=== PATIENT | male | born 1955 | race Caucasian/White ===

== ENCOUNTER 2017-12-05 09:50 | Inpatient (IN) | payer MEDICARE, SELFPAY ==
[2017-12-05] VITALS (30 sets, daily range): BP systolic 93–131; BP diastolic 54–85; PULSE 54–101; RESP 12–28; TEMP 35.7–39; O2SAT 54–100; BMI 41.9; BMI 42.1
--- NOTE | 2017-12-05 09:51 | RAD_ITS ---
STUDY: X-RAY CHEST REASON FOR EXAM: Male, 62 years old. Respiratory failure, cough and fever. TECHNIQUE: Single AP portable view of the chest. COMPARISON: Comparison is made with prior study dated November 13, 2016. FINDINGS: EKG electrodes are seen. Mild increased markings at the lung bases worse at the left lung base. This may represent atelectasis and/or early infiltrates. Follow-up is recommended. There is no demonstrated pleural abnormality. Normal size heart. Normal mediastinum and neo. Normal visualized pulmonary arteries. Normal visualized aortic arch and descending thoracic aorta. Normal visualized thoracic spine. Normal visualized ribs, clavicles, and shoulders. There is no demonstrated abnormality of the visualized soft tissue structures of the upper abdomen. RAD/Chest 1 View (Portable) IMPRESSION: Increased lung markings at the lung bases slightly worse on the left side. Follow-up is recommended. Electronically Signed: Sridhar Yoon MD at 10:29 EST Tel [phone], Service support ,
--- NOTE | 2017-12-05 09:51 | EKG12_ITS ---
Test Reason : Blood Pressure : / mmHG Vent. Rate : 089 BPM Atrial Rate : 089 BPM P-R Int : 188 ms QRS Dur : 096 ms QT Int : 332 ms P-R-T Axes : 066 091 053 degrees QTc Int : 403 ms Normal sinus rhythm Low voltage QRS Septal infarct ,age undetermined Abnormal ECG Confirmed by FRANCIE CARRASCO, NIYAH ([id number]), rewrite editor KENYA SEGURA ([id number]) on 12/07/2017 3:32:16 PM Referred By: IRINA Confirmed By:NIYAH MARMOLEJO MD
[2017-12-05] MEDS: 0.9% Normal Saline 1,000 ML 150 ML IV ×2 (10:04→20:02)
[2017-12-05 10:06] LABS: Allen Test POS; Base Excess 8 mmol/L (-2 to +2); Bicarbonate 35.7 mmol/L (22-26); Blood Gas Specimen Type ART; O2 Delivery Device NRB Mask; PO2 167 mmHG (75-100); SITE L Radial; SO2 99 % (95-99); Time Given 950; Total Carbon Dioxide 38 mmol/L; pCO2 81.3 mmHg (35-45); pH 7.25 (7.35-7.45)
[2017-12-05 10:11] LABS: Absolute Lymphocyte Count 0.62 X10^3/ul (0.83-4.51); Absolute Neutrophil Count 9.7 X10^3/uL (2.0-7.7); Basophil# 0.01 X10^3/uL; Basophil% 0.1 % (0-1); Hematocrit 55.4 % (40-54); Hemoglobin 17.4 g/dl (13.0-16.5); Lymphocyte # 0.62 X10^3/ul (4.0); Lymphocyte % 5.3 % (19-41); Mean Corp Hgb Conc 31.4 g/gl (32-36); Mean Corpuscular Hgb 31.8 pg (27.0-32.0); Mean Corpuscular Volume 101.3 fL (80-94); Mean Platelet Vol. 11.5 fl (6.2-12.0); Monocyte# 1.39 X10^3/uL; Monocyte% 11.8 % (0-10); Neutrophil # 9.71 X10^3/uL (2.7-7.7); Neutrophil % 82.6 % (47-70); Platelet Count 87 K/mm3 (150-450); RBC Distribution Width CV 14.3 % (11.6-14.6); Red Blood Count 5.47 M/mm3 (4.6-6.2); White Blood Count 11.8 K/mm3 (4.4-11.0)
[2017-12-05 10:12] LABS: POSITIVE COUNT NO; POSITIVE DIFFERENTIAL NO; POSITIVE MORPHOLOGY NO
[2017-12-05 10:16] LABS: International Normalized Ratio 1.1; Partial Thromboplast Time 33.2 Seconds (24.1-36.2); Prothrombin Time (Protime)PT. 13.3 SECONDS (11.7-14.9)
[2017-12-05] MEDS: Albuterol 2.5 MG/3 ML VIAL.NEB. INHALATION ×3 (10:16→10:18)
[2017-12-05] MEDS: Ipratropium/Albuterol Sulfate 3 ML AMPUL.NEB INHALATION (10:17)
[2017-12-05 10:38] LABS: ALB/GLOB Ratio 0.9 RATIO (0.9-2.4); AST(SGOT) 41 U/L (15-37); Alanine Aminotransfer ALT/SGPT 26 U/L (12-78); Albumin, Serum 3.6 g/dL (3.4-5.0); Alkaline Phosphatase 77 U/L (45-117); Anion Gap 6 (5-15); BUN 35 mg/dL (7-18); BUN/Creat Ratio 21.3 RATIO (10-20); Calcium,Total 8.6 mg/dL (8.5-10.1); Chloride 103 mmol/L (98-107); Creatinine, Serum 1.64 mg/dL (0.70-1.30); EST Glomerular Filtration Rate 45 mL/min (>60); Est Glom Filt Rate - Afr Amer 55 mL/min (>60); Estimated Creatinine Clearance 45.18 ml/min; Globulin 3.8 g/dL (2.2-4.2); Glucose 134 mg/dL (70-110); Lactic Acid 1.8 mmol/L (0.4-2.0); Potassium 4.5 mmol/L (3.5-5.1); Protein, Total 7.4 g/dL (6.4-8.2); Sodium Level 140 mmol/L (136-145)
--- NOTE | 2017-12-05 11:09 | ED.DCSUM_ITS ---
- ER Visit Summary Date of Service: 12/05/17 Chief Complaint: Shortness of breath and cough History of Present Illness: The patient is a 62 M who presents because of increased shortness of breath over the past couple of days with a cough for the past 24 hours. He reports he did receive his Pneumovax and influenza immunization this year. He does complain of subjective fever and chills. He does complain of cough which is productive. He also complains of wart apnea, 2 pillows. He has had pedal edema which is intermittent and not abnormal for him. He denies any chest pain. He denies rhinorrhea, earache or sore throat. He denies chest pain. He denies history of PE DVT. He denies any GI or symptoms. Denies myalgias arthralgias. He does have history of obstructive sleep apnea and reports compliance with his CPAP machine. Physical Examination: Patient is in respiratory distress. I entered the room he is tachycardic tachypnic mottled with paradoxical breathing. Temperature is 102.2 orally. He is morbidly obese with a BMI of 41.9. Head is atraumatic normocephalic. Pupils are equal round reactive. Extraocular muscles are intact. TMs are pearly white with landmarks noted. Nares patent with no drainage. Posterior pharynx without erythema or exudate. Uvula is midline. There is no dysphonia or dysphasia. Trachea is midline. There is no stridor with auscultation of the neck. Heart is regular without murmur, gallop or rub. Lungs revealed diminished breath sounds high-pitched wheezing with prolonged x -ray phase. Abdomen is soft nontender. He does have 1+ pitting edema both lower extremities. Test Results: EKG sinus rhythm rate of 91 and normal. Portal chest x-ray reveals increased interstitial markings more so on left and may represent a left lower lobe infiltrate. White count is 11.8 thousand with 83 segs. Hemoglobin 17.4 with hematocrit of 55.4. Electrode panel was marked for BUN 35 and creatinine 1.64 and elevated CO2. The creatinine is elevated from baseline. Coags are normal. Lactate is normal at 1.8. ABG reveals acute on chronic CO2 retention with an AA gradient. He has evidence of acute respiratory failure with hypoxemia with metabolic compensation. He did receive albuterol ?3. Emergency Department Course and Treatment: Concern patient has CO2 retention especially since he has paradoxical breathing and is not alert. Sepsis workup was undertaken. He was started on Rocephin and azithromycin. He also received aerosol treatments. Since he is still wheezing will receive Solu-Medrol IV push. Treatment Plan: Sepsis workup with admission to ICU. Since he has significant AA gradient and PO2 less than 200 on a nonrebreather mask he has respiratory failure and represents endorgan dysfunction i.e. severe sepsis Disposition: ICU admission Impression: 1. Acute respiratory failure with hypercapnia and hypoxia 2. Community acquired pneumonia 3. , severe sepsis 4. Type 2 diabetes, history of 5. History of hypertension 6. History of right heart failure 7. History obstructive sleep apnea 8. History of COPD 9. Critical care time 36 minutes This note was generated with [employer] dictation software. It may contain incorrect words, spelling, and punctuation that were not noted in review of the chart prior to signing ED Disposition - Plan for ED Patient: Chief Complaint: Shortness of Breath Referrals: Drew Escalona MD [Primary Care Provider] -
[2017-12-05] MEDS: MethylPREDNISolone 125 MG/2 ML Vial IV (12:28)
[2017-12-05 13:45] LABS: Allen Test POS; Base Excess 7 mmol/L (-2 to +2); Bicarbonate 32.9 mmol/L (22-26); Blood Gas Specimen Type ART; EPAP 8; FI02 60; IPAP 12; PO2 136 mmHG (75-100); RR 12; SITE L Radial; SO2 99 % (95-99); Time Given 1345; Total Carbon Dioxide 35 mmol/L; pH 7.31 (7.35-7.45)
--- NOTE | 2017-12-05 14:43 | PCM.HP.STD ---
Problem List (1) Influenza A Status: Acute (2) Chronic obstructive lung disease Status: Chronic (3) Hyperlipidemia Status: Chronic (4) Hypertension Status: Chronic (5) Type 2 diabetes mellitus Status: Chronic History of Present Illness Date of Admission: 12/05/17 Chief Complaint: shortness of breath or cough The patient is a 62 year old M medical history of COPD, obstructive sleep apnea , obesity, diabetes type 2 and essential hypertension who presented to the emergency room due to progressive shortness of breath and cough he was noted to be in respiratory distress, his ABGs revealed CO2 retention, he was confused initially and improved after he was placed on BiPAP. Had fever of more than 102 , his chest x-ray did not show definite infiltrates or pneumonia. In the emergency room the patient was given bronchodilator therapy as well as antibiotics and admitted to the ICU. His influenza studies done in the ICU is positive for influenza A..He reports no chest pain, dizziness,hemoptysis, palpitations or rapid heartbeat. Past Medical History Past Medical History (Chronic Problems): Chronic Problems Hyperlipidemia (Chronic) Hypertension (Chronic) Type 2 diabetes mellitus (Chronic) Chronic obstructive lung disease (Chronic) Chronic respiratory failure (Chronic) Allergies No Known Allergies Allergy (Verified 11/13/16 10:15) Home Medications: Ambulatory Orders Medication Instructions Recorded Budesonide/Formoterol 160/4.5 2 puff INHALATION BID 11/13/16 [Symbicort 160/4.5 Mcg Inhaler (SP)] Glipizide 1 tab PO DAILY 11/13/16 Lisinopril 1 tab PO DAILY 11/13/16 Metformin HCl [Glucophage] 1,000 mg PO BIDCM 11/13/16 Pravastatin [Pravachol] 20 mg PO DAILY 11/13/16 Albuterol Inhaler [Ventolin Hfa] 1 - 2 puff INHALATION Q4H PRN PRN 11/15/16 #1 inhaler Aspirin 81 mg PO DAILY 12/05/17 Guaifenesin [Mucinex] 600 mg PO BID 12/05/17 Potassium Gluconate 99 mg PO QHS 12/05/17 Prednisone 10 mg PO DAILY 12/05/17 Surgical History: no surgical history Smoking Status: Light Smoker (<10/day) Review of Systems Constitutional: Reports: Anorexia Comment: All Systems were reviewed with pertinent positives mentioned in the HPI above. VTE Information - Inpt Only VTE Present on Admission: No VTE Mechan Device Prophylaxis: SCD's VTE Pharm Prophylaxis ordered?: Yes Patient Problems: Active and Suspected Problems Influenza A (Acute) - Physical Exam General: Alert, Oriented x3 Neck: Supple, No JVD Lungs: Wheezes Cardiovascular: Regular rate, Normal S1, Normal S2 Vital Signs Temp Pulse Resp BP Pulse Ox 98.2 F 88 20 H 131/72 H 92 12/05/17 13:00 12/05/17 14:24 12/05/17 14:24 12/05/17 14:02 12/05/17 14:24 Oxygen Delivery Method Bi-pap Weight: 125.7 kg Body Mass Index (BMI) 42.1 Microbiology Past 72 Hours 12/05/17 11:25 Influenza Types A,B Direct FA (CONOR) - Final Mucosa - Nose Influenzae A Laboratory Tests Past 24 Hrs 12/05/17 12/05/17 13:01 13:40 Specimen Type ART Sample Site L Radial pH 7.31 L Bicarbonate Actual 32.9 H POC Total CO2 35 Base Excess 7 H O2 Saturation 99 O2 % 60 ABG pCO2 66.0 H ABG pO2 136 H Calin Test POS Respiration Rate 12 O2 Delivery Device Bi / C PAP EPAP 8 IPAP 12 Blood Gas Notified Whom HOSP Blood Gas Notified Time 1345 MRSA (PCR) Pending Assessment/Plan Active and Suspected Problems Influenza A (Acute) 1. Acute respiratory failure with hypoxia/ hypercapnia; he is currently on BiPAP , pulmonary consulted and input noted. 2. Acute bronchitis from influenza A infection; he has been placed on Tamiflu. 3. COPD exacerbation; will place him on bronchodilator therapy and IV steroids. 4. DM2; we will withhold his oral hypoglycemic agents and place him on regular insulin sliding scale. 5. DEAN; HS CPAP at home, to be on BiPAP. 6. TONY; he will be hydrated with 0.9 normal saline, we would avoid potential nephrotoxic medications. 7. DVT prophylaxis with Lovenox. Code Visit Inpatient E&M: 84511 Init Hosp L3
[2017-12-05] MEDS: Ceftriaxone 1 GM/50 ML BAG IV (15:30)
[2017-12-05 15:31] LABS: M R Staph aureus DNA By PCR Negative (Negative); Probe Check PASS; Specimen Processing Control PASS
--- NOTE | 2017-12-05 16:11 | PCM.CON.CC ---
Problem List (1) Hyperlipidemia Status: Chronic (2) Hypertension Status: Chronic (3) Type 2 diabetes mellitus Status: Chronic (4) Chronic obstructive lung disease Status: Chronic (5) Chronic respiratory failure Status: Chronic Reason for Consult Date of Consultation: 12/05/17 Reason for Consultation: Respiratory failure History of Present Illness: The patient is a 62 year old M, with past medical history listed below, who presented to [facility] on 12/05/2017 secondary to increasing shortness of breath and cough over the last 3 days. Patient did complain of subjective fevers and chills, but had no measured temperature. Patient states his cough is productive of green to yellow sputum. Patient had noted some increased lower extremity edema, but states this was not out of the ordinary for him. No history of DVT or PE was reported. Patient does have a history of obstructive sleep apnea, but states he has been compliant with his CPAP 17 cm of water. On evaluation in the emergency room, patient was noted to be febrile at 102?F. Patient was using accessory muscles for respirations and chest x-ray revealed increased interstitial markings. The patient was placed on BiPAP therapy after an ABG showed CO2 retention and decreased mental status. Patient was given antibiotics and then transferred to the intensive care unit for further evaluation. After arrival to the intensive care unit, patient was noted to have influenza A positive swab. Patient does report having an influenza and Pneumovax immunization this year. Patient does report a long history of COPD and is typically cared for by the [facility]. Patient states that he is seen about every 6 months. Patient denies any recent antibiotics or prednisone burst. Did discuss with patient about CODE STATUS. Patient states he would not want to be intubated or receive CPR. Past Medical History Past Medical History (Chronic Problems): Chronic Problems Hyperlipidemia (Chronic) Hypertension (Chronic) Type 2 diabetes mellitus (Chronic) Chronic obstructive lung disease (Chronic) Chronic respiratory failure (Chronic) Allergies No Known Allergies Allergy (Verified 11/13/16 10:15) Home Medications: Ambulatory Orders Medication Instructions Recorded Budesonide/Formoterol 160/4.5 2 puff INHALATION BID 11/13/16 [Symbicort 160/4.5 Mcg Inhaler (SP)] Glipizide 1 tab PO DAILY 11/13/16 Lisinopril 1 tab PO DAILY 11/13/16 Metformin HCl [Glucophage] 1,000 mg PO BIDCM 11/13/16 Pravastatin [Pravachol] 20 mg PO DAILY 11/13/16 Albuterol Inhaler [Ventolin Hfa] 1 - 2 puff INHALATION Q4H PRN PRN 11/15/16 #1 inhaler Aspirin 81 mg PO DAILY 12/05/17 Guaifenesin [Mucinex] 600 mg PO BID 12/05/17 Potassium Gluconate 99 mg PO QHS 12/05/17 Prednisone 10 mg PO DAILY 12/05/17 Surgical History: no surgical history Smoking Status: Light Smoker (<10/day) Review of Systems Comment: See HPI, otherwise negative ?10 systems Objective: All imaging was personally reviewed. Chest x-ray did show some increased interstitial infiltrates. No old pulmonary function tests are available for review. - Physical Exam General: Alert, Oriented x3, Cooperative, No apparent distress, - - Morbidly obese. Good BiPAP synchrony. No accessory muscle use noted. HEENT: Atraumatic, PERRLA, EOMI, Normocephalic, - - No scleral icterus or injection noted. Oral: Moist Mucosa, No Gingival or Mucosal Lesions/ Ulcerations Neck: Supple, No JVD, No Nodes, Trachea Midline Lungs: No rhonchi, No rales, Diminished, Wheezes, - - Symmetric expansion. No dullness to percussion. Cardiovascular: Regular rate, Regular Rhythm, Normal S1, Normal S2, No murmurs, No rub noted, No Gallop Abdomen: Bowel Sounds Present, Soft, Non Tender, Non-Distended, Obese Extremities: No cyanosis, Capillary Refill Less than 3 Seconds, Clubbing, Edema Skin: - - Venous stasis changes lower extremities Musculoskeletal: No Tenderness to Palpation of Joints or Extremities, No Muscle Wasting Lymphatic: No Cervical, Supraclavicular, or Inguinal Adenopathy Neurological: Cranial nerves II-XII grossly intact, Neuro grossly intact, Motor Exam 5/5 strength throughout Psych/Mental Status: Alert and oriented to time, place, person, mood and affect Vital Signs Temp Pulse Resp BP Pulse Ox 36.8 C 72 26 H 113/65 90 12/05/17 13:00 12/05/17 15:00 12/05/17 15:00 12/05/17 15:00 12/05/17 15:00 Oxygen Delivery Method Bi-pap Weight: 125.7 kg Body Mass Index (BMI) 42.1 Microbiology Past 72 Hours 12/05/17 11:25 Influenza Types A,B Direct FA (CONOR) - Final Mucosa - Nose Influenzae A Laboratory Tests Past 24 Hrs 12/05/17 12/05/17 12/05/17 13:01 13:40 15:35 Specimen Type ART Sample Site L Radial pH 7.31 L Bicarbonate Actual 32.9 H POC Total CO2 35 Base Excess 7 H O2 Saturation 99 O2 % 60 ABG pCO2 66.0 H ABG pO2 136 H Calin Test POS Respiration Rate 12 O2 Delivery Device Bi / C PAP EPAP 8 IPAP 12 Blood Gas Notified Whom HOSP Blood Gas Notified Time 1345 Troponin I Pending MRSA (PCR) Negative Clinical Impression(s) from Imaging Studies Chest X-Ray 12/05/17 09:51 IMPRESSION: Increased lung markings at the lung bases slightly worse on the left side. Follow-up is recommended. Electronically Signed: Sridhar Yoon MD at 10:29 EST Tel [phone], Service support , Assessment/Plan RECOMMENDATIONS: 1. Increase BiPAP settings, but keep the same driving pressure 2. Continue with Tamiflu and steroid therapy 3. Change CODE STATUS to DNR Comfort Care arrest 4. Wean oxygen as tolerated 5. Slow volume resuscitation 6. Discontinue antibiotics if culture negative at 48 hours IMPRESSIONS: 1. Acute on chronic combined respiratory failure secondary to COPD exacerbation secondary to influenza A/DEAN Patient with acute decompensation secondary to influenza A. Unfortunately, patient's baseline COPD status is unknown at this time. Did discuss with patient about CODE STATUS and patient states he would not want to be intubated. Will increase BiPAP settings given his baseline reported DEAN settings of CPAP 17 cm of water. Wean FiO2 as tolerated. Some concern of decreased efficacy of Tamiflu secondary to delayed presentation of 3 days. Patient is on empiric antibiotics at this time. MRSA swab was negative, so addition of vancomycin is likely not necessary. 2. Severe sepsis secondary to influenza A Patient is on empiric antibiotics at this time. Blood pressures are acceptable. Will follow closely. 3. Acute kidney injury Likely prerenal etiology secondary to GI losses associated with influenza. Patient has received fluid resuscitation. We will recheck labs tomorrow. Supplement electrolytes as indicated. 4. History of hypertension/pulmonary hypertension/diabetes mellitus type 2/morbid obesity Complicates care, management, recovery and prognosis. Likely okay to continue with baseline medications. Will need to watch blood sugars closely as patient will be at high risk for elevated blood sugars given the need for supplemental steroid therapy. TIME: 40 minutes critical care time spent addressing patient's respiratory failure secondary to influenza, acute kidney injury, review of all data and collaboration with care team Code Visit Procedures: 13871 Critial Care 1st Hr
[2017-12-05 18:06] LABS: Bacteria 0 SEEN /hpf (None Seen); Squamous Epithelial Cells - UA 0 SEEN /hpf (0-5)
[2017-12-05 18:17] LABS: Color, Urine Yellow (Yellow); Glucose, Dipstick Normal (Normal); Ketone-Dipstick Negative (Negative); Leukocyte Esterase-Dipstick Negative /ul (Negative); Nitrite-Dipstick Negative (Negative); Occult Blood-Urine 150 /ul (Negative); Protein-Dipstick 100 mg/dl (Negative); Urine Bilirubin Dipstick Negative (Negative); Urine Clarity Sl. Cloudy (Clear); Urine Urobilinogen Normal (Normal)
[2017-12-05 18:26] LABS: Red Blood Cells-Urine 0-5 SEEN /hpf (0-5); White Blood Cells 0-5 SEEN /hpf (0-5)
[2017-12-05 18:27] LABS: Mucous, Urine RARE /hpf (<or=2+)
[2017-12-05] MEDS: 0.9% NaCl Peripheral Flush Adult/Peds IV ×2 (20:05→21:48)
[2017-12-05] MEDS: Oseltamivir Phosphate 30 MG Capsule PO (21:40)
[2017-12-05 23:31] LABS: Bedside Glucose 184 mg/dL (70-110)
[2017-12-06] VITALS (42 sets, daily range): BP systolic 81–128; BP diastolic 43–87; PULSE 48–76; RESP 12–24; TEMP 36.2–36.7; O2SAT 89–96
[2017-12-06] MEDS: 0.9% Normal Saline 1,000 ML 999 ML IV (00:08)
[2017-12-06] MEDS: Albuterol 2.5 MG/3 ML VIAL.NEB. INHALATION (02:00)
[2017-12-06 04:09] LABS: Absolute Lymphocyte Count 0.31 X10^3/ul (0.83-4.51); Absolute Neutrophil Count 6.9 X10^3/uL (2.0-7.7); Basophil# 0.01 X10^3/uL; Basophil% 0.1 % (0-1); Differential Indicated SCAN CRITERIA MET; Hematocrit 48.2 % (40-54); Lymphocyte # 0.31 X10^3/ul (4.0); Lymphocyte % 4.1 % (19-41); Mean Corp Hgb Conc 31.1 g/gl (32-36); Mean Corpuscular Hgb 31.6 pg (27.0-32.0); Mean Corpuscular Volume 101.5 fL (80-94); Mean Platelet Vol. 10.7 fl (6.2-12.0); Monocyte# 0.35 X10^3/uL; Monocyte% 4.6 % (0-10); Neutrophil # 6.91 X10^3/uL (2.7-7.7); Neutrophil % 90.9 % (47-70); POSITIVE COUNT NO; POSITIVE DIFFERENTIAL YES; POSITIVE MORPHOLOGY NO; Platelet Count 86 K/mm3 (150-450); RBC Distribution Width CV 14.5 % (11.6-14.6); RBC Distribution Width SD 53.7 fl (35.1-43.9); Red Blood Count 4.75 M/mm3 (4.6-6.2); White Blood Count 7.6 K/mm3 (4.4-11.0)
[2017-12-06] MEDS: 0.9% Normal Saline 1,000 ML 150 ML IV ×2 (04:14→11:20)
[2017-12-06 04:28] LABS: Anion Gap 8 (5-15); BUN 47 mg/dL (7-18); BUN/Creat Ratio 27.2 RATIO (10-20); Calcium,Total 7.6 mg/dL (8.5-10.1); Chloride 103 mmol/L (98-107); Creatinine, Serum 1.73 mg/dL (0.70-1.30); Differential Comment SCANNED; EST Glomerular Filtration Rate 43 mL/min (>60); Est Glom Filt Rate - Afr Amer 52 mL/min (>60); Estimated Creatinine Clearance 42.83 ml/min; Glucose 171 mg/dL (70-110); Magnesium 2.3 mg/dL (1.8-2.4); Phosphorus 3.2 mg/dL (2.5-4.9); Potassium 4.7 mmol/L (3.5-5.1); Sodium Level 140 mmol/L (136-145)
[2017-12-06] MEDS: 0.9% NaCl Peripheral Flush Adult/Peds IV ×3 (05:21→21:13)
[2017-12-06] MEDS: Enoxaparin 40 MG/0.4 ML Syringe SC (05:21)
[2017-12-06 06:05] LABS: Bedside Glucose 144 mg/dL (70-110)
--- NOTE | 2017-12-06 07:52 | PN_ITS ---
Subjective: Overnight events were reviewed. Patient has remained relatively BiPAP dependent since admission to the intensive care unit. Patient did have bradycardia overnight and associated hypotension. Patient was given aerosol with transient improvement in bradycardia and a fluid bolus. Patient is back to his baseline at this time. Patient is denying any pain and reports subjective improvement in overall condition. General: Alert, Oriented x3, Cooperative, No apparent distress, - - Morbidly obese. Speaking in full sentences. HEENT: Atraumatic, PERRLA, EOMI, Normocephalic, - - No scleral icterus or injection noted. Oral: Moist Mucosa, No Gingival or Mucosal Lesions/ Ulcerations Neck: Supple, No JVD, No Nodes, Trachea Midline Lungs: No rhonchi, No rales, Diminished, Wheezes, - - Symmetric expansion. No dullness to percussion. Cardiovascular: Regular rate, Regular Rhythm, Normal S1, Normal S2, No murmurs, No rub noted, No Gallop Abdomen: Bowel Sounds Present, Soft, Non Tender, Non-Distended, Obese Extremities: No cyanosis, Capillary Refill Less than 3 Seconds, Clubbing, Edema Skin: - - No significant change compared to previous Musculoskeletal: No Tenderness to Palpation of Joints or Extremities, No Muscle Wasting Lymphatic: No Cervical, Supraclavicular, or Inguinal Adenopathy Neurological: Cranial nerves II-XII grossly intact, Neuro grossly intact, Motor Exam 5/5 strength throughout, Sensory exam intact to light touch and pain Psych/Mental Status: Alert and oriented to time, place, person, mood and affect Vital Signs Temp Pulse Resp BP Pulse Ox 36.4 C L 65 22 H 107/63 91 12/06/17 00:19 12/06/17 07:40 12/06/17 07:40 12/06/17 07:00 12/06/17 07:40 Oxygen Flow Rate 15 Oxygen Delivery Method Bi-pap Weight: 128.1 kg Body Mass Index (BMI) 42.1 Intake and Output for Last 24 Hours 12/04/17 12/05/17 12/06/17 23:59 23:59 23:59 Intake Total 900 / 900 2685 / 2685 Output Total 250 / 250 500 / 500 Balance 650 / 650 2185 / 2185 Labs (Last 48 Hours) 12/05/17 12/05/17 12/05/17 13:01 13:40 15:35 WBC RBC Hgb Hct MCV MCH MCHC RDW RDW Differential Plt Count MPV Immature Gran % (Auto) Neut % (Auto) Lymph % (Auto) [place] % (Auto) Eos % (Auto) Baso % (Auto) Absolute Neuts (auto) Absolute Lymphs (auto) Total Counted Differential Comment Specimen Type ART Sample Site L Radial pH 7.31 L Bicarbonate Actual 32.9 H POC Total CO2 35 Base Excess 7 H O2 Saturation 99 O2 % 60 ABG pCO2 66.0 H ABG pO2 136 H Calin Test POS Respiration Rate 12 O2 Delivery Device Bi / C PAP EPAP 8 IPAP 12 Blood Gas Notified Whom HOSP Blood Gas Notified Time 1345 Sodium Potassium Chloride Carbon Dioxide Anion Gap BUN Creatinine Estim Creat Clear Calc Est GFR (MDRD) Af Amer Est GFR (MDRD) Non-Af BUN/Creatinine Ratio Glucose Calcium Phosphorus Magnesium Troponin I < 0.02 Urine Color Urine Clarity Urine pH Ur Specific [place] Urine Protein Urine Glucose (UA) Urine Ketones Urine Occult Blood Urine Nitrite Urine Bilirubin Urine Urobilinogen Ur Leukocyte Esterase Urine RBC Urine WBC Ur Squamous Epith Cells Urine Bacteria Urine Mucus MRSA (PCR) Negative POC Glucose 12/05/17 12/05/17 12/05/17 17:45 19:50 23:26 WBC RBC Hgb Hct MCV MCH MCHC RDW RDW Differential Plt Count MPV Immature Gran % (Auto) Neut % (Auto) Lymph % (Auto) [place] % (Auto) Eos % (Auto) Baso % (Auto) Absolute Neuts (auto) Absolute Lymphs (auto) Total Counted Differential Comment Specimen Type Sample Site pH Bicarbonate Actual POC Total CO2 Base Excess O2 Saturation O2 % ABG pCO2 ABG pO2 Calin Test Respiration Rate O2 Delivery Device EPAP IPAP Blood Gas Notified Whom Blood Gas Notified Time Sodium Potassium Chloride Carbon Dioxide Anion Gap BUN Creatinine Estim Creat Clear Calc Est GFR (MDRD) Af Amer Est GFR (MDRD) Non-Af BUN/Creatinine Ratio Glucose Calcium Phosphorus Magnesium Troponin I < 0.02 Urine Color Yellow Urine Clarity Sl. Cloudy Urine pH 5.0 Ur Specific [place] 1.020 Urine Protein 100 H Urine Glucose (UA) Normal Urine Ketones Negative Urine Occult Blood 150 H Urine Nitrite Negative Urine Bilirubin Negative Urine Urobilinogen Normal Ur Leukocyte Esterase Negative Urine RBC 0-5 SEEN Urine WBC 0-5 SEEN Ur Squamous Epith Cells 0 SEEN Urine Bacteria 0 SEEN Urine Mucus RARE MRSA (PCR) POC Glucose 184 H 12/06/17 12/06/17 12/06/17 02:50 04:00 04:00 WBC 7.6 RBC 4.75 Hgb 15.0 Hct 48.2 MCV 101.5 H MCH 31.6 MCHC 31.1 L RDW 14.5 RDW Differential 53.7 H Plt Count 86 L MPV 10.7 Immature Gran % (Auto) 0.300 Neut % (Auto) 90.9 H Lymph % (Auto) 4.1 L [place] % (Auto) 4.6 Eos % (Auto) 0.0 Baso % (Auto) 0.1 Absolute Neuts (auto) 6.9 Absolute Lymphs (auto) 0.31 L Total Counted Not Reportable Differential Comment SCANNED Specimen Type Sample Site pH Bicarbonate Actual POC Total CO2 Base Excess O2 Saturation O2 % ABG pCO2 ABG pO2 Calin Test Respiration Rate O2 Delivery Device EPAP IPAP Blood Gas Notified Whom Blood Gas Notified Time Sodium 140 Potassium 4.7 Chloride 103 Carbon Dioxide 29.0 Anion Gap 8 BUN 47 H Creatinine 1.73 H Estim Creat Clear Calc 42.83 Est GFR (MDRD) Af Amer 52 L Est GFR (MDRD) Non-Af 43 L BUN/Creatinine Ratio 27.2 H Glucose 171 H Calcium 7.6 L Phosphorus 3.2 Magnesium 2.3 Troponin I < 0.02 Urine Color Urine Clarity Urine pH Ur Specific [place] Urine Protein Urine Glucose (UA) Urine Ketones Urine Occult Blood Urine Nitrite Urine Bilirubin Urine Urobilinogen Ur Leukocyte Esterase Urine RBC Urine WBC Ur Squamous Epith Cells Urine Bacteria Urine Mucus MRSA (PCR) POC Glucose 12/06/17 06:01 WBC RBC Hgb Hct MCV MCH MCHC RDW RDW Differential Plt Count MPV Immature Gran % (Auto) Neut % (Auto) Lymph % (Auto) [place] % (Auto) Eos % (Auto) Baso % (Auto) Absolute Neuts (auto) Absolute Lymphs (auto) Total Counted Differential Comment Specimen Type Sample Site pH Bicarbonate Actual POC Total CO2 Base Excess O2 Saturation O2 % ABG pCO2 ABG pO2 Calin Test Respiration Rate O2 Delivery Device EPAP IPAP Blood Gas Notified Whom Blood Gas Notified Time Sodium Potassium Chloride Carbon Dioxide Anion Gap BUN Creatinine Estim Creat Clear Calc Est GFR (MDRD) Af Amer Est GFR (MDRD) Non-Af BUN/Creatinine Ratio Glucose Calcium Phosphorus Magnesium Troponin I Urine Color Urine Clarity Urine pH Ur Specific [place] Urine Protein Urine Glucose (UA) Urine Ketones Urine Occult Blood Urine Nitrite Urine Bilirubin Urine Urobilinogen Ur Leukocyte Esterase Urine RBC Urine WBC Ur Squamous Epith Cells Urine Bacteria Urine Mucus MRSA (PCR) POC Glucose 144 H Microbiology 12/05/17 11:25 Mucosa - Nose Influenza Types A,B Direct FA (CONOR) - Final Influenzae A Clinical Impression(s) from Imaging Studies Chest X-Ray 12/05/17 09:51 IMPRESSION: Increased lung markings at the lung bases slightly worse on the left side. Follow-up is recommended. Electronically Signed: Sridhar Yoon MD at 10:29 EST Tel [phone], Service support , Assessment/Plan Active and Suspected Problems Influenza A (Acute) RECOMMENDATIONS: 1. Increase BiPAP settings, but keep the same driving pressure 2. Continue with Tamiflu and steroid therapy 3. Change CODE STATUS to DNR Comfort Care arrest 4. Wean oxygen as tolerated 5. BiPAP breaks as tolerated during the day, continue BiPAP nightly 6. Discontinue antibiotics if culture negative at 48 hours IMPRESSIONS: 1. Acute on chronic combined respiratory failure secondary to COPD exacerbation secondary to influenza A/DEAN Patient with acute decompensation secondary to influenza A. Unfortunately , patient's baseline COPD status is unknown at this time. Did discuss with patient about CODE STATUS and patient states he would not want to be intubated. Will increase BiPAP settings given his baseline reported DEAN settings of CPAP 17 cm of water. Wean FiO2 as tolerated. Some concern of decreased efficacy of Tamiflu secondary to delayed presentation of 3 days. Patient is on empiric antibiotics at this time. MRSA swab was negative, so addition of vancomycin is likely not necessary. Likely discontinue antibiotics once culture negative at 48 hours. Continue steroids at current dosing until able to tolerate BiPAP breaks. 2. Severe sepsis secondary to influenza A Patient is on empiric antibiotics at this time. Patient with bradycardia and hypotension overnight. Unclear if this is secondary to uncontrolled sleep apnea. Did respond to a fluid bolus. Blood pressures are now acceptable. Will follow closely. 3. Acute kidney injury Likely prerenal etiology secondary to GI losses associated with influenza. Patient has received fluid resuscitation and has not had substantial improvement. We will recheck labs tomorrow. Supplement electrolytes as indicated. 4. History of hypertension/pulmonary hypertension/diabetes mellitus type 2/ morbid obesity Complicates care, management, recovery and prognosis. Likely okay to continue with baseline medications. Will need to watch blood sugars closely as patient will be at high risk for elevated blood sugars given the need for supplemental steroid therapy. TIME: 34 minutes critical care time spent addressing patient's respiratory failure secondary to influenza, acute kidney injury, review of all data and collaboration with care team (7 AM to 7:45 AM) Code Visit 9xxxx: [id number] Critical care first hour
[2017-12-06] MEDS: Ipratropium/Albuterol Sulfate 3 ML AMPUL.NEB INHALATION ×3 (09:42→19:06)
--- NOTE | 2017-12-06 09:43 | PCM.PN.HOSP ---
Patient Problems: Active and Suspected Problems Influenza A (Acute) Subjective: CC: Shortness of breath and cough Events of the night noted. The patient is feeling much improved today. He denies any chest pain, purulent cough , hemoptysis ,fever or chills. Vitals/I&O's: Vital Signs Temp Pulse Resp BP Pulse Ox 97.3 F L 68 20 H 111/65 94 12/06/17 08:00 12/06/17 09:00 12/06/17 09:00 12/06/17 09:00 12/06/17 09:00 Oxygen Flow Rate 15 Oxygen Delivery Method Venturi Mask Weight: 128.1 kg Body Mass Index (BMI) 42.1 Intake and Output for Last 24 Hours 12/04/17 12/05/17 12/06/17 23:59 23:59 23:59 Intake Total 900 / 900 2685 / 2685 Output Total 250 / 250 500 / 500 Balance 650 / 650 2185 / 2185 Microbiology Past 72 Hours 12/05/17 11:25 Mucosa - Nose Influenza Types A,B Direct FA (CONOR) - Final Influenzae A Laboratory Results 12/05/17 13:01: MRSA (PCR) Negative 12/05/17 13:40: Specimen Type ART, Sample Site L Radial, pH 7.31 L, Bicarbonate Actual 32.9 H, POC Total CO2 35, Base Excess 7 H, O2 Saturation 99, O2 % 60, ABG pCO2 66.0 H, ABG pO2 136 H, Calin Test POS, Respiration Rate 12, O2 Delivery Device Bi / C PAP, EPAP 8, IPAP 12, Blood Gas Notified Whom HOSP , Blood Gas Notified Time 1345 12/05/17 15:35: Troponin I < 0.02 12/05/17 17:45: Urine Color Yellow, Urine Clarity Sl. Cloudy, Urine pH 5.0, Ur Specific [place] 1.020, Urine Protein 100 H, Urine Glucose (UA) Normal, Urine Ketones Negative, Urine Occult Blood 150 H, Urine Nitrite Negative, Urine Bilirubin Negative, Urine Urobilinogen Normal, Ur Leukocyte Esterase Negative, Urine RBC 0-5 SEEN, Urine WBC 0-5 SEEN, Ur Squamous Epith Cells 0 SEEN, Urine Bacteria 0 SEEN, Urine Mucus RARE 12/05/17 19:50: Troponin I < 0.02 12/05/17 23:26: POC Glucose 184 H 12/06/17 02:50: Troponin I < 0.02 12/06/17 04:00: WBC 7.6, RBC 4.75, Hgb 15.0, Hct 48.2, MCV 101.5 H, MCH 31.6, MCHC 31.1 L, RDW 14.5, RDW Differential 53.7 H, Plt Count 86 L, MPV 10.7, Immature Gran % (Auto) 0.300, Neut % (Auto) 90.9 H, Lymph % (Auto) 4.1 L, [place] % (Auto) 4.6, Eos % (Auto) 0.0, Baso % (Auto) 0.1, Absolute Neuts (auto) 6.9, Absolute Lymphs (auto) 0.31 L, Total Counted Not Reportable, Differential Comment SCANNED 12/06/17 04:00: Sodium 140, Potassium 4.7, Chloride 103, Carbon Dioxide 29.0, Anion Gap 8, BUN 47 H, Creatinine 1.73 H, Estim Creat Clear Calc 42.83, Est GFR (MDRD) Af Amer 52 L, Est GFR (MDRD) Non-Af 43 L, BUN/Creatinine Ratio 27.2 H, Glucose 171 H, Calcium 7.6 L, Phosphorus 3.2, Magnesium 2.3 12/06/17 06:01: POC Glucose 144 H Current Medications Albuterol Sulfate (Ventolin Aerosols) 2.5 mg INHALATION Q4H PRN PRN PRN Reason: DYSPNEA/WHEEZING/SOB Last Admin: 12/06/17 02:00 Dose: 2.5 mg Albuterol/Ipratropium (Duoneb) 3 ml INHALATION Q6H.RT [facility] Last Admin: 12/06/17 09:42 Dose: 3 ml Enoxaparin Sodium (Lovenox) 40 mg SC DAILY@0600 [facility] Last Admin: 12/06/17 05:21 Dose: 40 mg Famotidine (Pepcid) 20 mg PO BID [facility] Azithromycin 500 mg/ Dextrose 255 mls @ 250 mls/hr IV Q24 [facility] Stop: 12/07/17 11:02 Last Admin: 12/05/17 17:04 Dose: 250 mls/hr Ceftriaxone Sodium (Rocephin) 1 gm in 50 mls @ 100 mls/hr IV Q24 [facility] Last Admin: 12/05/17 15:30 Dose: 100 mls/hr Sodium Chloride () 250 mls @ 15 mls/hr IV .[id number] PRN PRN Reason: SALINE FLUSH Sodium Chloride () 250 mls @ 15 mls/hr IV .[id number] PRN PRN Reason: SALINE FLUSH Sodium Chloride () 1,000 mls @ 150 mls/hr IV .Q6H40M [facility] Influenza Virus Vaccine Quadrival (Fluarix/Fluzone) 0.5 ml IM .ONCE ONE Stop: 12/06/17 10:01 Insulin Aspart (Novolog Flexpen (Bkc)) 0 units SC Q6 ANDREI PRN Reason: Protocol Magnesium Hydroxide (Milk Of Magnesia) 30 ml PO DAILY PRN PRN PRN Reason: Constipation Methylprednisolone (Solu-Medrol) 40 mg IV Q8 [facility] Last Admin: 12/06/17 05:21 Dose: 40 mg Oseltamivir Phosphate (Tamiflu) 30 mg PO BID [facility] Stop: 12/10/17 10:01 Last Admin: 12/05/17 21:40 Dose: 30 mg Sodium Chloride () 5 - 30 ml IV UD PRN PRN Reason: SALINE FLUSH Last Admin: 12/06/17 05:21 Dose: 20 ml Assessment/Plan Active and Suspected Problems Influenza A (Acute) 1. Acute respiratory failure with hypoxia/ hypercapnia; he is currently on BiPAP . 2. Acute bronchitis from influenza A infection; on Tamiflu , BDLs and IV steroids 3. COPD exacerbation; improved with above treatment 4. DM2; we are holding his oral hypoglycemic agents, will place him on regular insulin sliding scale. 5. DEAN; HS CPAP at home, he is now on BiPAP. 6. TONY; continue on 0.9 normal saline, we would avoid potential nephrotoxic medications. 7. DVT prophylaxis with Lovenox. Code Visit Inpatient E&M: 77008 Subs Hosp L2
--- NOTE | 2017-12-06 09:48 | PN_ITS ---
Patient Problems: Active and Suspected Problems Influenza A (Acute) Subjective: CC: Shortness of breath and cough Events of the night noted. The patient is feeling much improved today. He denies any chest pain, purulent cough , hemoptysis ,fever or chills. Vitals/I&O's: Vital Signs Temp Pulse Resp BP Pulse Ox 97.3 F L 68 20 H 111/65 94 12/06/17 08:00 12/06/17 09:00 12/06/17 09:00 12/06/17 09:00 12/06/17 09:00 Oxygen Flow Rate 15 Oxygen Delivery Method Venturi Mask Weight: 128.1 kg Body Mass Index (BMI) 42.1 Intake and Output for Last 24 Hours 12/04/17 12/05/17 12/06/17 23:59 23:59 23:59 Intake Total 900 / 900 2685 / 2685 Output Total 250 / 250 500 / 500 Balance 650 / 650 2185 / 2185 Microbiology Past 72 Hours 12/05/17 11:25 Mucosa - Nose Influenza Types A,B Direct FA (CONOR) - Final Influenzae A Laboratory Results 12/05/17 13:01: MRSA (PCR) Negative 12/05/17 13:40: Specimen Type ART, Sample Site L Radial, pH 7.31 L, Bicarbonate Actual 32.9 H, POC Total CO2 35, Base Excess 7 H, O2 Saturation 99, O2 % 60, ABG pCO2 66.0 H, ABG pO2 136 H, Calin Test POS, Respiration Rate 12, O2 Delivery Device Bi / C PAP, EPAP 8, IPAP 12, Blood Gas Notified Whom HOSP , Blood Gas Notified Time 1345 12/05/17 15:35: Troponin I < 0.02 12/05/17 17:45: Urine Color Yellow, Urine Clarity Sl. Cloudy, Urine pH 5.0, Ur Specific [place] 1.020, Urine Protein 100 H, Urine Glucose (UA) Normal, Urine Ketones Negative, Urine Occult Blood 150 H, Urine Nitrite Negative, Urine Bilirubin Negative, Urine Urobilinogen Normal, Ur Leukocyte Esterase Negative, Urine RBC 0-5 SEEN, Urine WBC 0-5 SEEN, Ur Squamous Epith Cells 0 SEEN, Urine Bacteria 0 SEEN, Urine Mucus RARE 12/05/17 19:50: Troponin I < 0.02 12/05/17 23:26: POC Glucose 184 H 12/06/17 02:50: Troponin I < 0.02 12/06/17 04:00: WBC 7.6, RBC 4.75, Hgb 15.0, Hct 48.2, MCV 101.5 H, MCH 31.6, MCHC 31.1 L, RDW 14.5, RDW Differential 53.7 H, Plt Count 86 L, MPV 10.7, Immature Gran % (Auto) 0.300, Neut % (Auto) 90.9 H, Lymph % (Auto) 4.1 L, [place] % (Auto) 4.6, Eos % (Auto) 0.0, Baso % (Auto) 0.1, Absolute Neuts (auto) 6.9, Absolute Lymphs (auto) 0.31 L, Total Counted Not Reportable, Differential Comment SCANNED 12/06/17 04:00: Sodium 140, Potassium 4.7, Chloride 103, Carbon Dioxide 29.0, Anion Gap 8, BUN 47 H, Creatinine 1.73 H, Estim Creat Clear Calc 42.83, Est GFR (MDRD) Af Amer 52 L, Est GFR (MDRD) Non-Af 43 L, BUN/Creatinine Ratio 27.2 H, Glucose 171 H, Calcium 7.6 L, Phosphorus 3.2, Magnesium 2.3 12/06/17 06:01: POC Glucose 144 H Current Medications Albuterol Sulfate (Ventolin Aerosols) 2.5 mg INHALATION Q4H PRN PRN PRN Reason: DYSPNEA/WHEEZING/SOB Last Admin: 12/06/17 02:00 Dose: 2.5 mg Albuterol/Ipratropium (Duoneb) 3 ml INHALATION Q6H.RT [facility] Last Admin: 12/06/17 09:42 Dose: 3 ml Enoxaparin Sodium (Lovenox) 40 mg SC DAILY@0600 [facility] Last Admin: 12/06/17 05:21 Dose: 40 mg Famotidine (Pepcid) 20 mg PO BID [facility] Azithromycin 500 mg/ Dextrose 255 mls @ 250 mls/hr IV Q24 [facility] Stop: 12/07/17 11:02 Last Admin: 12/05/17 17:04 Dose: 250 mls/hr Ceftriaxone Sodium (Rocephin) 1 gm in 50 mls @ 100 mls/hr IV Q24 [facility] Last Admin: 12/05/17 15:30 Dose: 100 mls/hr Sodium Chloride () 250 mls @ 15 mls/hr IV .[id number] PRN PRN Reason: SALINE FLUSH Sodium Chloride () 250 mls @ 15 mls/hr IV .[id number] PRN PRN Reason: SALINE FLUSH Sodium Chloride () 1,000 mls @ 150 mls/hr IV .Q6H40M [facility] Influenza Virus Vaccine Quadrival (Fluarix/Fluzone) 0.5 ml IM .ONCE ONE Stop: 12/06/17 10:01 Insulin Aspart (Novolog Flexpen (Bkc)) 0 units SC Q6 ANDREI PRN Reason: Protocol Magnesium Hydroxide (Milk Of Magnesia) 30 ml PO DAILY PRN PRN PRN Reason: Constipation Methylprednisolone (Solu-Medrol) 40 mg IV Q8 [facility] Last Admin: 12/06/17 05:21 Dose: 40 mg Oseltamivir Phosphate (Tamiflu) 30 mg PO BID [facility] Stop: 12/10/17 10:01 Last Admin: 12/05/17 21:40 Dose: 30 mg Sodium Chloride () 5 - 30 ml IV UD PRN PRN Reason: SALINE FLUSH Last Admin: 12/06/17 05:21 Dose: 20 ml Assessment/Plan Active and Suspected Problems Influenza A (Acute) 1. Acute respiratory failure with hypoxia/ hypercapnia; he is currently on BiPAP . 2. Acute bronchitis from influenza A infection; on Tamiflu , BDLs and IV steroids 3. COPD exacerbation; improved with above treatment 4. DM2; we are holding his oral hypoglycemic agents, will place him on regular insulin sliding scale. 5. DEAN; HS CPAP at home, he is now on BiPAP. 6. TONY; continue on 0.9 normal saline, we would avoid potential nephrotoxic medications. 7. DVT prophylaxis with Lovenox. Code Visit Inpatient E&M: [id number] Subs Hosp L2
[2017-12-06] MEDS: Ceftriaxone 1 GM/50 ML BAG IV (11:20)
[2017-12-06] MEDS: Oseltamivir Phosphate 30 MG Capsule PO ×2 (12:13→21:12)
[2017-12-06] MEDS: Famotidine 20 MG Tablet PO ×2 (12:13→21:12)
[2017-12-06 13:41] LABS: Bedside Glucose 196 mg/dL (70-110)
--- NOTE | 2017-12-06 15:13 | CASEMGMT ---
See RN CM Assessment. DC PLAN: Home with family. Rec: home oxygen testing prior to dc. Will follow for oxygen needs (pt may need portable from [facility] to return home). -PT/OT not ordered at this time. Will cont to follow and assist w/dc planning needs if they arise. Emerson ATWOOD RN ACM
[2017-12-06 18:12] LABS: Bedside Glucose 121 mg/dL (70-110)
[2017-12-06 21:26] LABS: Bedside Glucose 213 mg/dL (70-110)
[2017-12-07] VITALS (24 sets, daily range): BP systolic 83–141; BP diastolic 51–85; PULSE 47–88; RESP 12–23; TEMP 36.1–36.8; O2SAT 88–97
[2017-12-07] MEDS: Enoxaparin 40 MG/0.4 ML Syringe SC (05:46)
[2017-12-07] MEDS: 0.9% NaCl Peripheral Flush Adult/Peds IV (05:47)
[2017-12-07 06:29] LABS: Absolute Lymphocyte Count 0.52 X10^3/ul (0.83-4.51); Absolute Neutrophil Count 6.2 X10^3/uL (2.0-7.7); Basophil# 0.01 X10^3/uL; Basophil% 0.1 % (0-1); Hemoglobin 15.5 g/dl (13.0-16.5); Lymphocyte # 0.52 X10^3/ul (4.0); Lymphocyte % 7.2 % (19-41); Mean Corp Hgb Conc 30.4 g/gl (32-36); Mean Corpuscular Hgb 30.8 pg (27.0-32.0); Mean Corpuscular Volume 101.4 fL (80-94); Mean Platelet Vol. 11.4 fl (6.2-12.0); Monocyte# 0.48 X10^3/uL; Monocyte% 6.6 % (0-10); Neutrophil # 6.21 X10^3/uL (2.7-7.7); Platelet Count 98 K/mm3 (150-450); RBC Distribution Width CV 14.4 % (11.6-14.6); RBC Distribution Width SD 53.4 fl (35.1-43.9); Red Blood Count 5.03 M/mm3 (4.6-6.2); White Blood Count 7.2 K/mm3 (4.4-11.0)
[2017-12-07 06:34] LABS: Anion Gap 5 (5-15); BUN 46 mg/dL (7-18); BUN/Creat Ratio 31.5 RATIO (10-20); Chloride 107 mmol/L (98-107); Creatinine, Serum 1.46 mg/dL (0.70-1.30); EST Glomerular Filtration Rate 52 mL/min (>60); Est Glom Filt Rate - Afr Amer 63 mL/min (>60); Estimated Creatinine Clearance 50.75 ml/min; Glucose 144 mg/dL (70-110); Magnesium 2.8 mg/dL (1.8-2.4); Potassium 4.7 mmol/L (3.5-5.1); Sodium Level 142 mmol/L (136-145)
[2017-12-07 06:37] LABS: Differential Indicated SCAN CRITERIA MET; POSITIVE COUNT NO; POSITIVE DIFFERENTIAL YES; POSITIVE MORPHOLOGY NO
[2017-12-07 06:45] LABS: Differential Comment SCANNED
[2017-12-07] MEDS: Ipratropium/Albuterol Sulfate 3 ML AMPUL.NEB INHALATION ×3 (07:09→19:43)
--- NOTE | 2017-12-07 07:21 | PCM.PN.INT ---
Subjective: Patient did well overnight. Patient did tolerate BiPAP overnight, but was on nasal cannula oxygen for most of the day. Patient does report he is on 3-4 L at baseline and has been tolerating 3-4 L during the day. Patient reports improvement in cough. No chest pain is reported. Patient was able to be up in the chair for 4 hours yesterday. General: Alert, Oriented x3, Cooperative, No apparent distress, - - Morbidly obese. Speaking in full sentences. HEENT: Atraumatic, PERRLA, EOMI, Normocephalic, - - No scleral icterus or injection noted. Oral: Moist Mucosa, No Gingival or Mucosal Lesions/ Ulcerations Neck: Supple, No JVD, No Nodes, Trachea Midline Lungs: No rhonchi, No rales, Diminished, Wheezes - Improved from previous, - - Symmetric expansion. No dullness to percussion. Cardiovascular: Regular rate, Regular Rhythm, Normal S1, Normal S2, No murmurs, No rub noted, No Gallop Abdomen: Bowel Sounds Present, Soft, Non Tender, Non-Distended, Obese Extremities: No clubbing, No cyanosis, No edema, Capillary Refill Less than 3 Seconds, Edema Skin: - - No significant change compared to previous Musculoskeletal: No Tenderness to Palpation of Joints or Extremities, No Muscle Wasting Lymphatic: No Cervical, Supraclavicular, or Inguinal Adenopathy Neurological: Cranial nerves II-XII grossly intact, Neuro grossly intact, Motor Exam 5/5 strength throughout, Sensory exam intact to light touch and pain Psych/Mental Status: Alert and oriented to time, place, person, mood and affect Vital Signs Temp Pulse Resp BP Pulse Ox 36.8 C 52 L 20 H 117/72 93 12/07/17 04:00 12/07/17 06:00 12/07/17 06:00 12/07/17 06:00 12/07/17 06:00 Oxygen Flow Rate 3 Oxygen Delivery Method Nasal Cannula Weight: 127.4 kg Body Mass Index (BMI) 42.1 Intake and Output for Last 24 Hours 12/05/17 12/06/17 12/07/17 23:59 23:59 23:59 Intake Total 900 / 900 3135 / 3135 240 / 240 Output Total 250 / 250 850 / 850 450 / 450 Balance 650 / 650 2285 / 2285 -210 / -210 Labs (Last 48 Hours) 12/05/17 12/05/17 12/05/17 13:01 13:40 15:35 WBC RBC Hgb Hct MCV MCH MCHC RDW RDW Differential Plt Count MPV Immature Gran % (Auto) Neut % (Auto) Lymph % (Auto) Levy % (Auto) Eos % (Auto) Baso % (Auto) Absolute Neuts (auto) Absolute Lymphs (auto) Total Counted Differential Comment Specimen Type ART Sample Site L Radial pH 7.31 L Bicarbonate Actual 32.9 H POC Total CO2 35 Base Excess 7 H O2 Saturation 99 O2 % 60 ABG pCO2 66.0 H ABG pO2 136 H Calin Test POS Respiration Rate 12 O2 Delivery Device Bi / C PAP EPAP 8 IPAP 12 Blood Gas Notified Whom [facility] Blood Gas Notified Time 1345 Sodium Potassium Chloride Carbon Dioxide Anion Gap BUN Creatinine Estim Creat Clear Calc Est GFR (MDRD) Af Amer Est GFR (MDRD) Non-Af BUN/Creatinine Ratio Glucose Calcium Phosphorus Magnesium Troponin I < 0.02 Urine Color Urine Clarity Urine pH Ur Specific [place] Urine Protein Urine Glucose (UA) Urine Ketones Urine Occult Blood Urine Nitrite Urine Bilirubin Urine Urobilinogen Ur Leukocyte Esterase Urine RBC Urine WBC Ur Squamous Epith Cells Urine Bacteria Urine Mucus MRSA (PCR) Negative POC Glucose 12/05/17 12/05/17 12/05/17 17:45 19:50 23:26 WBC RBC Hgb Hct MCV MCH MCHC RDW RDW Differential Plt Count MPV Immature Gran % (Auto) Neut % (Auto) Lymph % (Auto) Levy % (Auto) Eos % (Auto) Baso % (Auto) Absolute Neuts (auto) Absolute Lymphs (auto) Total Counted Differential Comment Specimen Type Sample Site pH Bicarbonate Actual POC Total CO2 Base Excess O2 Saturation O2 % ABG pCO2 ABG pO2 Calin Test Respiration Rate O2 Delivery Device EPAP IPAP Blood Gas Notified Whom Blood Gas Notified Time Sodium Potassium Chloride Carbon Dioxide Anion Gap BUN Creatinine Estim Creat Clear Calc Est GFR (MDRD) Af Amer Est GFR (MDRD) Non-Af BUN/Creatinine Ratio Glucose Calcium Phosphorus Magnesium Troponin I < 0.02 Urine Color Yellow Urine Clarity Sl. Cloudy Urine pH 5.0 Ur Specific [place] 1.020 Urine Protein 100 H Urine Glucose (UA) Normal Urine Ketones Negative Urine Occult Blood 150 H Urine Nitrite Negative Urine Bilirubin Negative Urine Urobilinogen Normal Ur Leukocyte Esterase Negative Urine RBC 0-5 SEEN Urine WBC 0-5 SEEN Ur Squamous Epith Cells 0 SEEN Urine Bacteria 0 SEEN Urine Mucus RARE MRSA (PCR) POC Glucose 184 H 12/06/17 12/06/17 12/06/17 02:50 04:00 04:00 WBC 7.6 RBC 4.75 Hgb 15.0 Hct 48.2 MCV 101.5 H MCH 31.6 MCHC 31.1 L RDW 14.5 RDW Differential 53.7 H Plt Count 86 L MPV 10.7 Immature Gran % (Auto) 0.300 Neut % (Auto) 90.9 H Lymph % (Auto) 4.1 L Levy % (Auto) 4.6 Eos % (Auto) 0.0 Baso % (Auto) 0.1 Absolute Neuts (auto) 6.9 Absolute Lymphs (auto) 0.31 L Total Counted Not Reportable Differential Comment SCANNED Specimen Type Sample Site pH Bicarbonate Actual POC Total CO2 Base Excess O2 Saturation O2 % ABG pCO2 ABG pO2 Calin Test Respiration Rate O2 Delivery Device EPAP IPAP Blood Gas Notified Whom Blood Gas Notified Time Sodium 140 Potassium 4.7 Chloride 103 Carbon Dioxide 29.0 Anion Gap 8 BUN 47 H Creatinine 1.73 H Estim Creat Clear Calc 42.83 Est GFR (MDRD) Af Amer 52 L Est GFR (MDRD) Non-Af 43 L BUN/Creatinine Ratio 27.2 H Glucose 171 H Calcium 7.6 L Phosphorus 3.2 Magnesium 2.3 Troponin I < 0.02 Urine Color Urine Clarity Urine pH Ur Specific [place] Urine Protein Urine Glucose (UA) Urine Ketones Urine Occult Blood Urine Nitrite Urine Bilirubin Urine Urobilinogen Ur Leukocyte Esterase Urine RBC Urine WBC Ur Squamous Epith Cells Urine Bacteria Urine Mucus MRSA (PCR) POC Glucose 12/06/17 12/06/17 12/06/17 06:01 13:34 18:04 WBC RBC Hgb Hct MCV MCH MCHC RDW RDW Differential Plt Count MPV Immature Gran % (Auto) Neut % (Auto) Lymph % (Auto) Levy % (Auto) Eos % (Auto) Baso % (Auto) Absolute Neuts (auto) Absolute Lymphs (auto) Total Counted Differential Comment Specimen Type Sample Site pH Bicarbonate Actual POC Total CO2 Base Excess O2 Saturation O2 % ABG pCO2 ABG pO2 Calin Test Respiration Rate O2 Delivery Device EPAP IPAP Blood Gas Notified Whom Blood Gas Notified Time Sodium Potassium Chloride Carbon Dioxide Anion Gap BUN Creatinine Estim Creat Clear Calc Est GFR (MDRD) Af Amer Est GFR (MDRD) Non-Af BUN/Creatinine Ratio Glucose Calcium Phosphorus Magnesium Troponin I Urine Color Urine Clarity Urine pH Ur Specific [place] Urine Protein Urine Glucose (UA) Urine Ketones Urine Occult Blood Urine Nitrite Urine Bilirubin Urine Urobilinogen Ur Leukocyte Esterase Urine RBC Urine WBC Ur Squamous Epith Cells Urine Bacteria Urine Mucus MRSA (PCR) POC Glucose 144 H 196 H 121 H 12/06/17 12/07/17 12/07/17 21:15 05:50 05:50 WBC 7.2 RBC 5.03 Hgb 15.5 Hct 51.0 MCV 101.4 H MCH 30.8 MCHC 30.4 L RDW 14.4 RDW Differential 53.4 H Plt Count 98 L MPV 11.4 Immature Gran % (Auto) 0.100 Neut % (Auto) 86.0 H Lymph % (Auto) 7.2 L Levy % (Auto) 6.6 Eos % (Auto) 0.0 Baso % (Auto) 0.1 Absolute Neuts (auto) 6.2 Absolute Lymphs (auto) 0.52 L Total Counted Not Reportable Differential Comment SCANNED Specimen Type Sample Site pH Bicarbonate Actual POC Total CO2 Base Excess O2 Saturation O2 % ABG pCO2 ABG pO2 Calin Test Respiration Rate O2 Delivery Device EPAP IPAP Blood Gas Notified Whom Blood Gas Notified Time Sodium 142 Potassium 4.7 Chloride 107 Carbon Dioxide 30.0 Anion Gap 5 BUN 46 H Creatinine 1.46 H Estim Creat Clear Calc 50.75 Est GFR (MDRD) Af Amer 63 Est GFR (MDRD) Non-Af 52 L BUN/Creatinine Ratio 31.5 H Glucose 144 H Calcium 8.0 L Phosphorus 3.0 Magnesium 2.8 H Troponin I Urine Color Urine Clarity Urine pH Ur Specific [place] Urine Protein Urine Glucose (UA) Urine Ketones Urine Occult Blood Urine Nitrite Urine Bilirubin Urine Urobilinogen Ur Leukocyte Esterase Urine RBC Urine WBC Ur Squamous Epith Cells Urine Bacteria Urine Mucus MRSA (PCR) POC Glucose 213 H Microbiology 12/05/17 11:25 Mucosa - Nose Influenza Types A,B Direct FA (CONOR) - Final Influenzae A Assessment/Plan Active and Suspected Problems Influenza A (Acute) RECOMMENDATIONS: 1. Continue BiPAP at current settings nightly 2. Complete 5 days of Tamiflu and wean steroid therapy 3. Change CODE STATUS to DNR Comfort Care arrest 4. Wean oxygen as tolerated 5. BiPAP breaks as tolerated during the day, continue BiPAP nightly 6. Discontinue antibiotics if culture negative at 48 hours 7. Okay to leave the intensive care unit from my perspective IMPRESSIONS: 1. Acute on chronic combined respiratory failure secondary to COPD exacerbation secondary to influenza A/DEAN Patient with acute decompensation secondary to influenza A. Unfortunately, patient's baseline COPD status is unknown at this time. Did discuss with patient about CODE STATUS and patient states he would not want to be intubated. Patient appears to be tolerating BiPAP well at night. This may be a superior option at discharge following a repeat sleep study. Will wean patient steroids. Continue BiPAP nightly while an inpatient. Okay to transfer from the intensive care unit. Likely discontinue antibiotics once cultures negative at 48 hours. 2. Severe sepsis secondary to influenza A Patient is on empiric antibiotics at this time. Patient with bradycardia and hypotension previously, but no problems overnight. Unclear if this is secondary to uncontrolled sleep apnea. Blood pressures are now acceptable. Will follow closely. 3. Acute kidney injury Likely prerenal etiology secondary to GI losses associated with influenza. Patient has received fluid resuscitation and has had some improvement. We will recheck labs tomorrow. Supplement electrolytes as indicated. 4. History of hypertension/pulmonary hypertension/diabetes mellitus type 2/morbid obesity Complicates care, management, recovery and prognosis. Likely okay to continue with baseline medications. Will need to watch blood sugars closely as patient will be at high risk for elevated blood sugars given the need for supplemental steroid therapy. Code Visit Inpatient E&M: 82984 [facility] L3
[2017-12-07] MEDS: Famotidine 20 MG Tablet PO ×2 (09:01→21:36)
[2017-12-07] MEDS: Oseltamivir Phosphate 30 MG Capsule PO ×2 (09:01→21:36)
[2017-12-07] MEDS: Ceftriaxone 1 GM/50 ML BAG IV (10:50)
[2017-12-07 11:36] LABS: Bedside Glucose 311 mg/dL (70-110)
--- NOTE | 2017-12-07 11:38 | PCM.PN.HOSP ---
Patient Problems: Active and Suspected Problems Influenza A (Acute) Subjective: CC: shortness of breath Events of the night noted. The patient is feeling much improved today. He denies any chest pain, purulent cough , hemoptysis ,fever or chills. He does not requires BiPAP now, he is comfortable without supplemental oxygen. Vitals/I&O's: Vital Signs Temp Pulse Resp BP Pulse Ox 98.2 F 74 18 102/52 L 97 12/07/17 08:00 12/07/17 11:00 12/07/17 11:00 12/07/17 11:00 12/07/17 11:00 Oxygen Flow Rate 3 Oxygen Delivery Method Nasal Cannula Weight: 127.4 kg Body Mass Index (BMI) 42.1 Intake and Output for Last 24 Hours 12/05/17 12/06/17 12/07/17 23:59 23:59 23:59 Intake Total 900 / 900 3135 / 3135 240 / 240 Output Total 250 / 250 850 / 850 450 / 450 Balance 650 / 650 2285 / 2285 -210 / -210 Microbiology Past 72 Hours 12/05/17 17:45 Urine, Clean Catch Urine Culture - Final Culture exhibits no growth. 12/05/17 11:25 Mucosa - Nose Influenza Types A,B Direct FA (CONOR) - Final Influenzae A Laboratory Results 12/06/17 13:34: POC Glucose 196 H 12/06/17 18:04: POC Glucose 121 H 12/06/17 21:15: POC Glucose 213 H 12/07/17 05:50: WBC 7.2, RBC 5.03, Hgb 15.5, Hct 51.0, MCV 101.4 H, MCH 30.8, MCHC 30.4 L, RDW 14.4, RDW Differential 53.4 H, Plt Count 98 L, MPV 11.4, Immature Gran % (Auto) 0.100, Neut % (Auto) 86.0 H, Lymph % (Auto) 7.2 L, [place] % (Auto) 6.6, Eos % (Auto) 0.0, Baso % (Auto) 0.1, Absolute Neuts (auto) 6.2, Absolute Lymphs (auto) 0.52 L, Total Counted Not Reportable, Differential Comment SCANNED 12/07/17 05:50: Sodium 142, Potassium 4.7, Chloride 107, Carbon Dioxide 30.0, Anion Gap 5, BUN 46 H, Creatinine 1.46 H, Estim Creat Clear Calc 50.75, Est GFR (MDRD) Af Amer 63, Est GFR (MDRD) Non-Af 52 L, BUN/Creatinine Ratio 31.5 H, Glucose 144 H, Calcium 8.0 L, Phosphorus 3.0, Magnesium 2.8 H 12/07/17 11:26: POC Glucose 311 H Current Medications Albuterol Sulfate (Ventolin Aerosols) 2.5 mg INHALATION Q4H PRN PRN PRN Reason: DYSPNEA/WHEEZING/SOB Last Admin: 12/06/17 02:00 Dose: 2.5 mg Albuterol/Ipratropium (Duoneb) 3 ml INHALATION Q6H.RT [facility] Last Admin: 12/07/17 07:09 Dose: 3 ml Enoxaparin Sodium (Lovenox) 40 mg SC DAILY@0600 [facility] Last Admin: 12/07/17 05:46 Dose: 40 mg Famotidine (Pepcid) 20 mg PO BID [facility] Last Admin: 12/07/17 09:01 Dose: 20 mg Ceftriaxone Sodium (Rocephin) 1 gm in 50 mls @ 100 mls/hr IV Q24 [facility] Last Admin: 12/07/17 10:50 Dose: 100 mls/hr Sodium Chloride () 250 mls @ 15 mls/hr IV .[id number] PRN PRN Reason: SALINE FLUSH Sodium Chloride () 250 mls @ 15 mls/hr IV .[id number] PRN PRN Reason: SALINE FLUSH Insulin Aspart (Novolog Flexpen (Bkc)) 0 units SC ACHS [facility] PRN Reason: Protocol Last Admin: 12/07/17 08:43 Dose: Not Given Magnesium Hydroxide (Milk Of Magnesia) 30 ml PO DAILY PRN PRN PRN Reason: Constipation Methylprednisolone (Solu-Medrol) 40 mg IV Q12 [facility] Oseltamivir Phosphate (Tamiflu) 30 mg PO BID [facility] Stop: 12/10/17 10:01 Last Admin: 12/07/17 09:01 Dose: 30 mg Sodium Chloride () 5 - 30 ml IV UD PRN PRN Reason: SALINE FLUSH Last Admin: 12/07/17 05:47 Dose: 20 ml Assessment/Plan Active and Suspected Problems Influenza A (Acute) 1. Acute respiratory failure with hypoxia/ hypercapnia; this has improved, he is comfortable on RA with no supplemental oxygen. 2. Acute bronchitis from influenza A infection; on Tamiflu , BDLs and will change to Prednisone. 3. COPD exacerbation; improved with above treatment 4. DM2; we are holding his oral hypoglycemic agents, continue regular insulin sliding scale. 5. DEAN; HS CPAP at home, he is now on BiPAP. 6. TONY; will DC IVF, we would avoid potential nephrotoxic medications. 7. DVT prophylaxis with Lovenox. 8. Disposition; transfer to regular medical floor, home soon. Code Visit Inpatient E&M: [id number] Subs Hosp L2
--- NOTE | 2017-12-07 11:41 | PN_ITS ---
Patient Problems: Active and Suspected Problems Influenza A (Acute) Subjective: CC: shortness of breath Events of the night noted. The patient is feeling much improved today. He denies any chest pain, purulent cough , hemoptysis ,fever or chills. He does not requires BiPAP now, he is comfortable without supplemental oxygen. Vitals/I&O's: Vital Signs Temp Pulse Resp BP Pulse Ox 98.2 F 74 18 102/52 L 97 12/07/17 08:00 12/07/17 11:00 12/07/17 11:00 12/07/17 11:00 12/07/17 11:00 Oxygen Flow Rate 3 Oxygen Delivery Method Nasal Cannula Weight: 127.4 kg Body Mass Index (BMI) 42.1 Intake and Output for Last 24 Hours 12/05/17 12/06/17 12/07/17 23:59 23:59 23:59 Intake Total 900 / 900 3135 / 3135 240 / 240 Output Total 250 / 250 850 / 850 450 / 450 Balance 650 / 650 2285 / 2285 -210 / -210 Microbiology Past 72 Hours 12/05/17 17:45 Urine, Clean Catch Urine Culture - Final Culture exhibits no growth. 12/05/17 11:25 Mucosa - Nose Influenza Types A,B Direct FA (CON[facility]) - Final Influenzae A Laboratory Results 12/06/17 13:34: POC Glucose 196 H 12/06/17 18:04: POC Glucose 121 H 12/06/17 21:15: POC Glucose 213 H 12/07/17 05:50: WBC 7.2, RBC 5.03, Hgb 15.5, Hct 51.0, MCV 101.4 H, MCH 30.8, MCHC 30.4 L, RDW 14.4, RDW Differential 53.4 H, Plt Count 98 L, MPV 11.4, Immature Gran % (Auto) 0.100, Neut % (Auto) 86.0 H, Lymph % (Auto) 7.2 L, [place] % (Auto) 6.6, Eos % (Auto) 0.0, Baso % (Auto) 0.1, Absolute Neuts (auto) 6.2, Absolute Lymphs (auto) 0.52 L, Total Counted Not Reportable, Differential Comment SCANNED 12/07/17 05:50: Sodium 142, Potassium 4.7, Chloride 107, Carbon Dioxide 30.0, Anion Gap 5, BUN 46 H, Creatinine 1.46 H, Estim Creat Clear Calc 50.75, Est GFR (MDRD) Af Amer 63, Est GFR (MDRD) Non-Af 52 L, BUN/Creatinine Ratio 31.5 H, Glucose 144 H, Calcium 8.0 L, Phosphorus 3.0, Magnesium 2.8 H 12/07/17 11:26: POC Glucose 311 H Current Medications Albuterol Sulfate (Ventolin Aerosols) 2.5 mg INHALATION Q4H PRN PRN PRN Reason: DYSPNEA/WHEEZING/SOB Last Admin: 12/06/17 02:00 Dose: 2.5 mg Albuterol/Ipratropium (Duoneb) 3 ml INHALATION Q6H.RT [facility] Last Admin: 12/07/17 07:09 Dose: 3 ml Enoxaparin Sodium (Lovenox) 40 mg SC DAILY@0600 [facility] Last Admin: 12/07/17 05:46 Dose: 40 mg Famotidine (Pepcid) 20 mg PO BID [facility] Last Admin: 12/07/17 09:01 Dose: 20 mg Ceftriaxone Sodium (Rocephin) 1 gm in 50 mls @ 100 mls/hr IV Q24 [facility] Last Admin: 12/07/17 10:50 Dose: 100 mls/hr Sodium Chloride () 250 mls @ 15 mls/hr IV .[id number] PRN PRN Reason: SALINE FLUSH Sodium Chloride () 250 mls @ 15 mls/hr IV .[id number] PRN PRN Reason: SALINE FLUSH Insulin Aspart (Novolog Flexpen (Bkc)) 0 units SC ACHS [facility] PRN Reason: Protocol Last Admin: 12/07/17 08:43 Dose: Not Given Magnesium Hydroxide (Milk Of Magnesia) 30 ml PO DAILY PRN PRN PRN Reason: Constipation Methylprednisolone (Solu-Medrol) 40 mg IV Q12 [facility] Oseltamivir Phosphate (Tamiflu) 30 mg PO BID [facility] Stop: 12/10/17 10:01 Last Admin: 12/07/17 09:01 Dose: 30 mg Sodium Chloride () 5 - 30 ml IV UD PRN PRN Reason: SALINE FLUSH Last Admin: 12/07/17 05:47 Dose: 20 ml Assessment/Plan Active and Suspected Problems Influenza A (Acute) 1. Acute respiratory failure with hypoxia/ hypercapnia; this has improved, he is comfortable on RA with no supplemental oxygen. 2. Acute bronchitis from influenza A infection; on Tamiflu , BDLs and will change to Prednisone. 3. COPD exacerbation; improved with above treatment 4. DM2; we are holding his oral hypoglycemic agents, continue regular insulin sliding scale. 5. DEAN; HS CPAP at home, he is now on BiPAP. 6. TONY; will DC IVF, we would avoid potential nephrotoxic medications. 7. DVT prophylaxis with Lovenox. 8. Disposition; transfer to regular medical floor, home soon. Code Visit Inpatient E&M: [id number] Subs Hosp L2
[2017-12-07 16:46] LABS: Bedside Glucose 230 mg/dL (70-110)
[2017-12-07 21:52] LABS: Bedside Glucose 176 mg/dL (70-110)
[2017-12-08] VITALS (8 sets, daily range): BP systolic 123–133; BP diastolic 76–79; PULSE 51–62; RESP 12–18; TEMP 36.5–37.3; O2SAT 87–100
[2017-12-08] MEDS: Ipratropium/Albuterol Sulfate 3 ML AMPUL.NEB INHALATION ×3 (00:45→13:31)
[2017-12-08] MEDS: Enoxaparin 40 MG/0.4 ML Syringe SC (06:20)
[2017-12-08 06:31] LABS: Bedside Glucose 162 mg/dL (70-110)
--- NOTE | 2017-12-08 08:38 | PN_ITS ---
Patient Problems: Active and Suspected Problems Influenza A (Acute) Subjective: Patient was seen and examined, he is sitting up in the chair with no acute complaints. He slept well overnight. Endorses dyspnea on exertion, but feels he is almost back to his baseline. He would like to go home today. We did discuss follow-up in the pulmonary clinic, he is agreeable. His was present during discussion. They both had several questions about his disease process and potential needs in the future, questions were asked and answered. Objective: Clinical Impression(s) from Imaging Studies Chest X-Ray 12/05/17 09:51 IMPRESSION: Increased lung markings at the lung bases slightly worse on the left side. Follow-up is recommended. Electronically Signed: Sridhar Yoon MD at 10:29 EST Tel [phone], Service support , - Physical Exam General: Alert, Oriented x3, Cooperative, No apparent distress, Well developed, Well nourished HEENT: Atraumatic, Normocephalic Oral: Moist Mucosa, No Gingival or Mucosal Lesions/ Ulcerations Neck: Supple, No Nodes, Trachea Midline Lungs: No rhonchi, No rales, Diminished, Wheezes - Inspiratory/expiratory Cardiovascular: Regular rate, Regular Rhythm, Normal S1, Normal S2, No murmurs, No rub noted, No Gallop Abdomen: Bowel Sounds Present, Soft, Non Tender, Non-Distended, Obese Extremities: No clubbing, No cyanosis, Capillary Refill Less than 3 Seconds, Edema - Trace lower extremity Skin: No rashes, - - Hyperpigmentation, evidence of vascular insufficiency lower extremities Musculoskeletal: No Tenderness to Palpation of Joints or Extremities Lymphatic: No Cervical, Supraclavicular, or Inguinal Adenopathy Neurological: Cranial nerves II-XII grossly intact, Neuro grossly intact, Motor Exam 5/5 strength throughout Psych/Mental Status: Alert and oriented to time, place, person, mood and affect Vital Signs Temp Pulse Resp BP Pulse Ox 99.2 F H 60 18 131/79 H 100 12/08/17 02:18 12/08/17 07:14 12/08/17 07:14 12/08/17 02:18 12/08/17 02:18 Oxygen Flow Rate 3 Oxygen Delivery Method Bi-pap Weight: 277 lb 8.992 oz Body Mass Index (BMI) 42.1 Intake and Output for Last 24 Hours 12/06/17 12/07/17 12/08/17 23:59 23:59 23:59 Intake Total 3135 / 3135 740 / 740 500 / 500 Output Total 850 / 850 900 / 900 Balance 2285 / 2285 -160 / -160 500 / 500 Microbiology Past 72 Hours 12/05/17 17:45 Urine Culture - Final Urine, Clean Catch Culture exhibits no growth. 12/05/17 11:25 Influenza Types A,B Direct FA ([facility]) - Final Mucosa - Nose Influenzae A POC Glucose 12/08/17 12/07/17 12/07/17 06:22 21:38 16:40 POC Glucose 162 H 176 H 230 H 12/07/17 11:26 POC Glucose 311 H Assessment/Plan Active and Suspected Problems Influenza A (Acute) RECOMMENDATIONS: 1. Continue BiPAP at current settings nightly 2. Complete 5 days of Tamiflu and wean steroid therapy 3. Wean oxygen as tolerated 4. BiPAP breaks as tolerated during the day, continue BiPAP nightly 5. Discontinue antibiotics 6. Follow-up in the pulmonary clinic with ENVIRONMENTAL COMPLIANCE MANAGER in 2 weeks 7. Okay to discharge from pulmonary standpoint IMPRESSIONS: 1. Acute on chronic combined respiratory failure secondary to COPD exacerbation secondary to influenza A/DEAN Patient with acute decompensation secondary to influenza A. Unfortunately , patient's baseline COPD status is unknown at this time. Did discuss with patient about CODE STATUS and patient states he would not want to be intubated. Patient appears to be tolerating BiPAP well at night. This may be a superior option at discharge following a repeat sleep study. Continue BiPAP nightly while an inpatient. Wean steroids, taper at discharge. Discontinue antibiotics , cultures were negative. Room air pulse ox was 87%, no need to do the ambulatory pulse ox. Patient agreeable to follow-up in the pulmonary clinic within 2 weeks with ENVIRONMENTAL COMPLIANCE MANAGER, at which time repeat PSG and PFTs can be ordered. 2. Severe sepsis secondary to influenza A Approved. Patient with bradycardia and hypotension previously, but no problems since. Unclear if this is secondary to uncontrolled sleep apnea. Blood pressures are now acceptable. Will follow closely. 3. Acute kidney injury Likely prerenal etiology secondary to GI losses associated with influenza. Patient has received fluid resuscitation and has improved. Supplement electrolytes as indicated. 4. History of hypertension/pulmonary hypertension/diabetes mellitus type 2/ morbid obesity Complicates care, management, recovery and prognosis. Likely okay to continue with baseline medications. Will need to watch blood sugars closely as patient will be at high risk for elevated blood sugars given the need for supplemental steroid therapy. This note was generated with [email or web address] dictation software. It may contain incorrect words, spelling, and punctuation that were not noted in checking the note before signing.
[2017-12-08] MEDS: 0.9% NaCl Peripheral Flush Adult/Peds IV (09:36)
[2017-12-08] MEDS: Famotidine 20 MG Tablet PO (09:36)
[2017-12-08] MEDS: Oseltamivir Phosphate 30 MG Capsule PO (09:37)
--- NOTE | 2017-12-08 10:19 | CASEMGMT ---
Plan is for discharge today. Pt will need Home oxygen qualification prior to dc. Portable tank will need to be delivered to [facility]; Pt is 93% on 4L NC, per physician will need 4L continuous throughout day and 4L bleedin @ night through CPAP. New script and request for portable tank will be faxed to [facility] with new oxygen testing. Emerson GARCIAN RN ACM
--- NOTE | 2017-12-08 10:55 | PCM.DC.SUM ---
Discharge Date and Diagnosis - Problem List Patient Problems: Active and Suspected Problems Influenza A (Acute) Date of Admission: 12/05/17 Date of Discharge: 12/08/17 - Primary Discharge Diagnosis Active and Suspected Problems Influenza A (Acute) - Secondary Discharge Diagnosis Chronic Problems Hyperlipidemia (Chronic) Hypertension (Chronic) Type 2 diabetes mellitus (Chronic) Chronic obstructive lung disease (Chronic) Chronic respiratory failure (Chronic) Hospital Course and Treatment Summary of Care Provided: The patient is a 62 year old M medical history of COPD, obstructive sleep apnea , obesity, diabetes type 2 and essential hypertension who presented to the emergency room due to progressive shortness of breath and cough he was noted to be in respiratory distress, his ABGs revealed CO2 retention, he was confused initially and improved after he was placed on BiPAP. Had fever of more than 102 , his chest x-ray did not show definite infiltrates or pneumonia. In the emergency room the patient was given bronchodilator therapy as well as antibiotics and admitted to the ICU. His influenza studies done in the ICU is positive for influenza A.. Is treated with Tamiflu, IV steroids bronchodilators and antibacterial agents. He was placed on BiPAP and he responded nicely this has now been discontinued and he is now on oxygen per nasal cannula at 3-4 L/min. 1. Acute respiratory failure with hypoxia/ hypercapnia; this has improved, he is comfortable on supplemental oxygen at 3-4 lit per min. 2. Acute bronchitis from influenza A infection; on Tamiflu , BDLs and Prednisone taper. 3. COPD exacerbation; improved. 4. DM2; resume his oral hypoglycemic agents, continue regular insulin sliding scale. 5. DEAN; HS CPAP at home, he is now on BiPAP. 6. TONY; this has improved with IV hydration. Discharge Diet: No Restrictions Home Medications: Medications to take at Discharge Budesonide/Formoterol 160/4.5 [Symbicort 160/4.5 Mcg Inhaler (SP)] 2 puff INHALATION BID 11/13/16 Glipizide 1 tab PO DAILY 11/13/16 Lisinopril 1 tab PO DAILY 11/13/16 Metformin HCl [Glucophage] 1,000 mg PO BIDCM 11/13/16 Pravastatin [Pravachol] 20 mg PO DAILY 11/13/16 Albuterol Inhaler [Ventolin Hfa] 1 - 2 puff INHALATION Q4H PRN PRN #1 inhaler 11/15/16 Aspirin 81 mg PO DAILY 12/05/17 Guaifenesin [Mucinex] 600 mg PO BID 12/05/17 Potassium Gluconate 99 mg PO QHS 12/05/17 Oseltamivir Phosphate [Tamiflu] 30 mg PO BID #6 cap 12/08/17 Prednisone [Deltasone] 20 mg PO DAILY #12 tab 12/08/17 Following Prescrptions Were Given to Patient: Prednisone [Deltasone] 20 mg PO DAILY #12 tab Oseltamivir Phosphate [Tamiflu] 30 mg PO BID #6 cap Primary Care Physician: Drew Escalona MD [Primary Care Provider] - Disposition: Home Patient Condition:: Good Meaningful Use Info Meaningful Use Diagnoses (Choose all that apply): None applicable Code Visit Inpatient E&M: 77144 [facility]
--- NOTE | 2017-12-08 12:36 | PCM.DC ---
- Discharge Diagnoses Current Active Problems: Current Active and Chronic Problems Influenza A (Acute) You will use the following diet at home:: Calorie/Carbohydrate Controlled (specify 1200, 1400, etc) Discharge Activity: Return to Normal Activity Allergies/Adverse Reactions: Allergies No Known Allergies Allergy (Verified 11/13/16 10:15) Medications to take at Discharge Budesonide/Formoterol 160/4.5 [Symbicort 160/4.5 Mcg Inhaler (SP)] 2 puff INHALATION BID 11/13/16 Glipizide 1 tab PO DAILY 11/13/16 Lisinopril 1 tab PO DAILY 11/13/16 Metformin HCl [Glucophage] 1,000 mg PO BIDCM 11/13/16 Pravastatin [Pravachol] 20 mg PO DAILY 11/13/16 Albuterol Inhaler [Ventolin Hfa] 1 - 2 puff INHALATION Q4H PRN PRN #1 inhaler 11/15/16 Aspirin 81 mg PO DAILY 12/05/17 Guaifenesin [Mucinex] 600 mg PO BID 12/05/17 Potassium Gluconate 99 mg PO QHS 12/05/17 Oseltamivir Phosphate [Tamiflu] 30 mg PO BID #6 cap 12/08/17 Prednisone [Deltasone] 20 mg PO DAILY #12 tab 12/08/17 The following prescriptions were given: Prednisone [Deltasone] 20 mg PO DAILY #12 tab Oseltamivir Phosphate [Tamiflu] 30 mg PO BID #6 cap Primary Care Physician: Drew Escalona MD [Primary Care Provider] - Within 2 Weeks Proposed Discharge Date: 12/08/17
--- NOTE | 2017-12-08 14:25 | CASEMGMT ---
Call to [facility]- tank will be delivered soon, and [facility] was in contact with daughter re: home set up. Emerson GARCIAN RN ACM
--- NOTE | 2017-12-08 17:27 | NURSING ---
This RN called patient's cell phone to remind him that he needs to follow up with pulmonary clinic in 2 weeks with Ivanna. Offered to give phone number and address- pt refused and states his daughter will call in later if he needs information.
== END 2017-12-08 16:02 | disposition home or self-care (01) | DRG 871 ==
LOC: ED 10:20 → ICU 11:22 → MS2 12-07 18:41
PROVIDERS: Internal Medicine Critical Care Medicine; Admitting Provider Internal Medicine; Emergency Provider Emergency Medicine; Family Provider Family Medicine; PCP Family Medicine; Visit Provider Internal Medicine
DX: A41.9 Sepsis, unspecified organism (principal); J96.21 Acute and chronic respiratory failure with hypoxia; N17.9 Acute kidney failure, unspecified; E66.01 Morbid (severe) obesity due to excess calories; E87.2 Acidosis; I27.20 Pulmonary hypertension, unspecified; J96.22 Acute and chronic respiratory failure with hypercapnia; J44.0 Chronic obstructive pulmonary disease with (acute) lower respiratory infection; J44.1 Chronic obstructive pulmonary disease with (acute) exacerbation; Z68.41 Body mass index [BMI] 40.0-44.9, adult; J10.1 Influenza due to other identified influenza virus with other respiratory manifestations; J20.9 Acute bronchitis, unspecified; R65.20 Severe sepsis without septic shock; E11.9 Type 2 diabetes mellitus without complications; I10 Essential (primary) hypertension; E78.5 Hyperlipidemia, unspecified; G47.33 Obstructive sleep apnea (adult) (pediatric); F17.200 Nicotine dependence, unspecified, uncomplicated; Z79.84 Long term (current) use of oral hypoglycemic drugs; Z79.82 Long term (current) use of aspirin; Z79.899 Other long term (current) drug therapy; Z79.52 Long term (current) use of systemic steroids; Z66 Do not resuscitate
CPT/HCPCS: 36415; 36600; 71045; 80048; 80053; 81001; 82803; 82962; 83605; 83735; 84100; 84484; 85025; 85610; 85730; 87040; 87086; 87641; 87804; 93005; 94002; 94003; 94640; 97162; 97166; 97802; 99285; 99406; J7030; 90686; A4216; J3490

== ENCOUNTER → 2018-01-02 20:09 | Outpatient (CLI) | payer MEDICARE, SELFPAY | PROVIDERS: Family Provider Family Medicine; PCP Family Medicine; Visit Provider Nurse Practitioner Acute Care | DX: G47.33 Obstructive sleep apnea (adult) (pediatric) (principal); J44.9 Chronic obstructive pulmonary disease, unspecified | CPT/HCPCS: 95811 ==

== ENCOUNTER → 2018-01-03 06:25 | Outpatient (CLI) | payer MEDICARE, SELFPAY ==
--- NOTE | 2018-01-04 15:29 | PFTCOMP ---
COMPLETE PULMONARY FUNCTION TEST INTERPRETATION Brief HPI: Patient is a 62 year old male, currently under the care of myself, who presents to [facility] for complete pulmonary function tests secondary to diagnosis of chronic respiratory failure. Respiratory therapist reports good effort and reproducible results. Interpretation: Forced expiration spirometry shows a severe large airways obstructive ventilatory defect with an FEV1 of 37 % predicted. There is a significant bronchodilator response in FEV1 by ATS criteria. Spirograms are of good quality and plateau slowly, indicating slowly emptying areas of the lungs. The respiratory flow volume loop shows decreased expiratory flow rates at all lung volumes consistent with airway obstruction. Lung volumes by body plethysmography show a normal total lung capacity at 6.85 L, 111 % predicted. FRC and RV are elevated out of proportion. Lung volume measurements are consistent with air-trapping. Diffusion capacity by carbon monoxide is decreased at 62 % predicted. The airway resistance is elevated. No previous pulmonary function tests were available for review. Impression: Partially reversible severe large airways obstructive ventilatory defect with symmetric reduction diffusing capacity and resulting in air trapping. These findings are consistent with a diagnosis of advanced COPD.
--- NOTE | 2018-01-04 15:32 | PFTCOMP_ITS ---
COMPLETE PULMONARY FUNCTION TEST INTERPRETATION Brief HPI: Patient is a 62 year old male, currently under the care of myself, who presents to [facility] for complete pulmonary function tests secondary to diagnosis of chronic respiratory failure. Respiratory therapist reports good effort and reproducible results. Interpretation: Forced expiration spirometry shows a severe large airways obstructive ventilatory defect with an FEV1 of 37 % predicted. There is a significant bronchodilator response in FEV1 by ATS criteria. Spirograms are of good quality and plateau slowly, indicating slowly emptying areas of the lungs. The respiratory flow volume loop shows decreased expiratory flow rates at all lung volumes consistent with airway obstruction. Lung volumes by body plethysmography show a normal total lung capacity at 6.85 L , 111 % predicted. FRC and RV are elevated out of proportion. Lung volume measurements are consistent with air-trapping. Diffusion capacity by carbon monoxide is decreased at 62 % predicted. The airway resistance is elevated. No previous pulmonary function tests were available for review. Impression: Partially reversible severe large airways obstructive ventilatory defect with symmetric reduction diffusing capacity and resulting in air trapping. These findings are consistent with a diagnosis of advanced COPD.
== END ==
PROVIDERS: Family Provider Family Medicine; PCP Family Medicine; Visit Provider Nurse Practitioner Acute Care
DX: J96.10 Chronic respiratory failure, unspecified whether with hypoxia or hypercapnia (principal)
CPT/HCPCS: 94060; 94726; 94729

== ENCOUNTER → 2018-01-09 08:28 | Outpatient (CLI) | payer MEDICARE, SELFPAY ==
[2018-01-09 10:22] VITALS: PULSE 74; PULSE 80; PULSE 85; PULSE 86; PULSE 88; PULSE 89; PULSE 94; PULSE 95; O2SAT 87; O2SAT 89; O2SAT 91; O2SAT 92; O2SAT 93; O2SAT 95
--- NOTE | 2018-01-09 10:25 | CPS ---
Pt states that he has oxygen at home that he only uses at night with his CPAP, he used to wear it during the day when he was discharged from the hospital last but has not worn it during the day in awhile. Pt also states that he checks his SpO2 often and where's the oxygen when needed. Patient does not have any portable tanks at this time and wishes not to though I stated he may want to reconsider and he said he would talk about it with Dr. Reyes/Ivanna Crooks on his next visit but refuses them at this time. Patient also states that he gets his equipment through [facility]. Patient started this test on room air, by the 2nd minute patient's SpO2 was 87%, patient was 90% before we could even get the nasal cannula on. Placed patient on 2 lpm nasal cannula for the rest of the testing.
--- NOTE | 2018-01-10 07:33 | PCM.PSN.6M ---
PSN 6 Minute Walk Test - 6 Minute Walk Test 6 Minute Walk Test: 6 Minute Walk Test PSN:6-Minute Walk Test Start: 01/09/18 10:22 Freq: Status: Active Protocol: RESP.6MINW Document 01/09/18 10:22 RIZWAN (Rec: 01/09/18 10:30 [email or web address] [id number]) 6 Minute Walk Test Date Performed 01/09/18 Time Performed 09:00 Height 5 ft 8 in Weight: 265 lb Weight in Pounds 265.[address]: Ivanna Crooks Assistive device used: None Pre-test Oxygen Delivery Method Room Air Pulse Ox (%) 91 Pulse Rate (60-100 beats/min) 74 Dyspnea Bryant Scale (0-10) 0 Exertion Bryant Scale (6-20) 6 1st minute Oxygen Delivery Method Room Air Pulse Ox (%) 89 Pulse Rate (60-100 beats/min) 94 2nd minute Oxygen Delivery Method Room Air Pulse Ox (%) 87 Pulse Rate (60-100 beats/min) 95 Dyspnea Bryant Scale (0-10) 1 3rd minute Oxygen Flow Rate (L/min) 2 Oxygen Delivery Method Nasal Cannula Pulse Ox (%) 92 Pulse Rate (60-100 beats/min) 85 4th minute Oxygen Flow Rate (L/min) 2 Oxygen Delivery Method Nasal Cannula Pulse Ox (%) 91 Pulse Rate (60-100 beats/min) 86 5th minute Oxygen Flow Rate (L/min) 2 Oxygen Delivery Method Nasal Cannula Pulse Ox (%) 92 Pulse Rate (60-100 beats/min) 88 6th minute Oxygen Flow Rate (L/min) 2 Oxygen Delivery Method Nasal Cannula Pulse Ox (%) 93 Pulse Rate (60-100 beats/min) 89 Dyspnea Bryant Scale (0-10) 1 Exertion Bryant Scale (6-20) 11 Post-test Oxygen Flow Rate (L/min) 2 Oxygen Delivery Method Nasal Cannula Pulse Ox (%) 95 Pulse Rate (60-100 beats/min) 80 Full Laps Walked 15 Partial Lap, Number of Tiles Walked 0 Total Distance Walked (ft) 885 01/09/18 10:25 Cardiopulmonary Services by Pricilla Owens Pt states that he has oxygen at home that he only uses at night with his CPAP, he used to wear it during the day when he was discharged from the hospital last but has not worn it during the day in awhile. Pt also states that he checks his SpO2 often and where's the oxygen when needed. Patient does not have any portable tanks at this time and wishes not to though I stated he may want to reconsider and he said he would talk about it with Dr. Reyes/Ivanna Crooks on his next visit but refuses them at this time. Patient also states that he gets his equipment through [facility]. Patient started this test on room air, by the 2nd minute patient's SpO2 was 87%, patient was 90% before we could even get the nasal cannula on. Placed patient on 2 lpm nasal cannula for the rest of the testing. Initialized on 01/09/18 10:25 - END OF NOTE - Interpretation Interpretation: The patient ambulated 885 feet over the course of 6 minutes beginning on room air without assistive devices or breaks. Pretesting oxygen saturation was noted be 91% on room air. With ambulation, the patient desaturated to 87% at minute #2 of testing. 2 L/min of supplemental oxygen was applied and the patient was able to complete the remainder of the test, while maintaining oxygen saturations at or above 88%. This testing is indicative of a significant exertional oxygen desaturation and evidence of impaired walk distance. - Recommendations Recommendations: 2 L/min of supplemental oxygen should be utilized with exertion.
== END ==
PROVIDERS: Family Provider Family Medicine; PCP Family Medicine; Visit Provider Nurse Practitioner Acute Care
DX: J96.10 Chronic respiratory failure, unspecified whether with hypoxia or hypercapnia (principal)
CPT/HCPCS: 94618

== ENCOUNTER → 2018-03-23 13:30 | Outpatient (CLI) | payer MEDICARE, SELFPAY | PROVIDERS: Family Provider Family Medicine; PCP Family Medicine; Visit Provider Internal Medicine Critical Care Medicine | DX: Z71.89 Other specified counseling (principal) | CPT/HCPCS: 98960; G0463 ==

== ENCOUNTER → 2018-10-05 09:00 | Outpatient (CLI) | payer MEDICARE, SELFPAY ==
[2018-10-05 10:56] LABS: AST(SGOT) 15 U/L (15-37); Alanine Aminotransfer ALT/SGPT 21 U/L (16-61); Alkaline Phosphatase 83 U/L (45-117); Anion Gap 7 (5-15); BUN 21 mg/dL (7-18); BUN/Creat Ratio 16.8 RATIO (10-20); Bilirubin, Direct 0.21 mg/dL (0.00-0.30); Calcium,Total 8.9 mg/dL (8.5-10.1); Chloride 104 mmol/L (98-107); Cholesterol 146 mg/dL (200); Creatinine, Serum 1.25 mg/dL (0.70-1.30); EST Glomerular Filtration Rate 62 mL/min (>60); Est Glom Filt Rate - Afr Amer 75 mL/min (>60); Glucose 91 mg/dL (74-106); High Density Lipoprotein 34 mg/dL; Potassium 4.2 mmol/L (3.5-5.1); Sodium Level 140 mmol/L (136-145); Triglycerides 188 mg/dL; Very Low Density Lipoprotein 38 mg/dL (5-40)
== END ==
PROVIDERS: Family Provider Family Medicine; PCP Family Medicine; Visit Provider Family Medicine
DX: E11.9 Type 2 diabetes mellitus without complications (principal)
CPT/HCPCS: 36415; 80048; 80061; 80076

== ENCOUNTER → 2018-12-14 09:40 | Outpatient (CLI) | payer MEDICARE, SELFPAY ==
[2018-10-12 09:41] VITALS: BMI 43.3
--- NOTE | 2018-12-14 13:41 | PFT_ITS ---
INTRODUCTION: The patient is a 63-year-old male that presents for pulmonary function studies secondary to a diagnosis of COPD. Respiratory therapy reports good patient effort. Bronchodilators were used during testing. INTERPRETATION: Forced expiration spirometry demonstrates the presence of a severe large airways obstructive ventilatory defect. There was no significant response to aerosolized bronchodilators. Spirograms are of good quality and do not plateau indicating slow emptying of the lungs. Body plethysmography was performed and reveals an elevated TLC and RV, indicative of underlying hyperinflation and air- trapping. Diffusing capacity by single breath CO is mildly reduced at 72% of predicted. There has been improvement in the patient's PFTs since they were last completed in December 2017. IMPRESSION: These pulmonary function studies demonstrate the presence of an irreversible severe large airways obstructive ventilatory defect with associated h yperinflation, air trapping and mild reduction in diffusing capacity.
--- OUTSIDE RECORDS SUMMARY | 2019-02-17 23:27 | XMS RPT_ITS ---
:1955 Author Organization OHIP Support Name Relationship Address Phone D Unavailable Unavailable Unavailable SCHARTIGER, DONNA Unavailable [address] + [place] [address] D Unavailable Unavailable Unavailable SCHARTIGER, DONNA Unavailable [address] + [place] [address] D Unavailable Unavailable Unavailable SCHARTIGER, DONNA Unavailable [address] + [place] [address] D Unavailable Unavailable Unavailable SCHARTIGER, DONNA Unavailable [address] + [place] [address] D Unavailable Unavailable Unavailable SCHARTIGER, DONNA Unavailable [address] + [place] [address] D Unavailable Unavailable Unavailable SCHARTIGER, DONNA Unavailable [address] + [place] [address] D Unavailable Unavailable Unavailable SCHARTIGER, DONNA Unavailable [address] + [place] [address] D Unavailable Unavailable Unavailable SCHARTIGER, DONNA Unavailable [address] + [place] [address] D Unavailable Unavailable Unavailable SCHARTIGER, DONNA Unavailable [address] + [place] [address] D Unavailable Unavailable Unavailable SCHARTIGER, DONNA Unavailable [address] + [place] [address] D Unavailable Unavailable Unavailable SCHARTIGER, DONNA Unavailable [address] + [place] [address] D Unavailable Unavailable Unavailable SCHARTIGER, DONNA Unavailable [address] + [place] [address] D Unavailable Unavailable Unavailable SCHARTIGER, DONNA Unavailable [address] + [place] [address] D Unavailable Unavailable Unavailable DONNA WILLIS Unavailable [address] + [place] [address] D Unavailable Unavailable Unavailable D Unavailable Unavailable Unavailable JACK WILLISRY Unavailable [address] + [place] [address] Care Team Providers Name Role Phone Ivanna Crooks Attending Unavailable Crooks, Ivanna Referring Unavailable Sen, Angel Luis Primary Care Unavailable Crooks, Ivanna Attending Unavailable Crooks, Ivanna Referring Unavailable Sen, Angel Luis Primary Care Unavailable Crooks, Ivanna Attending Unavailable Crooks, Ivanna Referring Unavailable Sen, Angel Luis Primary Care Unavailable Crooks, Ivanna Attending Unavailable Crooks, Ivanna Referring Unavailable Sen, Angel Luis Primary Care Unavailable Crooks, Ivanna Attending Unavailable Crooks, Ivanna Referring Unavailable Sen, Angel Luis Primary Care Unavailable Ankur Byrnes D.O. Attending Unavailable Crooks, Ivanna Referring Unavailable Crooks, Ivanna Attending Unavailable Sen, Angel Luis Referring Unavailable Eric, Apollo Attending Unavailable Crooks, Ivanna Referring Unavailable Ankur Byrnes D.O. Attending Unavailable Valeriy, Ivanna Referring Unavailable Eric, Apollo Attending Unavailable Sen, Angel Luis Referring Unavailable Eric, Apollo Attending Unavailable Sen, Angel Luis Primary Care Unavailable Crooks, Ivanna Attending Unavailable Sen, Angel Luis Referring Unavailable Sen, Angel Luis Attending Unavailable Sen, Angel Luis Primary Care Unavailable Crooks, Ivanna Attending Unavailable Sen, Angel Luis Referring Unavailable Crooks, Ivanna Attending Unavailable FlorentinotaVishal dao Referring Unavailable Sen, Angel Luis Primary Care Unavailable PROBLEMS PROBLEMS DATE TYPE CONDITION / CODE ATTENDING STATUS SOURCE 12/22/2018 Unknown J44.9 - Chronic Ankur Byrnes Active [facility] obstructive [facility] Community pulmonary disease, Hospital unspecified / Repository J44.9(ICD-10) 03/09/2018 Unknown G47.33 - Obstructive Apollo Reyes Active [facility] sleep apnea (adult) Community (pediatric) / Hospital G47.33(ICD-10) Repository 01/09/2018 Unknown J96.10 - Chronic Valeriy, Active [place] respiratory failure, [facility] [place] unspecified whether Hospital with hypoxia or Repository hypercapnia / J96.10(ICD-10) 12/20/2017 Unknown J96.11 - Chronic Crooks, Active [place] respiratory failure [facility] [place] with hypoxia / Hospital J96.11(ICD-10) Repository 12/20/2017 Unknown J96.12 - Chronic Valeriy, Active [place] respiratory failure [facility] [place] with hypercapnia / Hospital J96.12(ICD-10) Repository 12/20/2017 Unknown J10.1 - Influenza Crooks, Active [place] due to other [facility] identified influenza Hospital virus with other Repository respiratory manifestations / J10.1(ICD-10) PROCEDURES PROCEDURES No Procedure Records FoundRESULTS RESULTS 6 MINUTE WALK TEST Observed: 12/20/2018 Status: F Source: [place] 2:33 PM [facility] REPOSITORY [facility] Pulmonary Services/Neurology [address] [place] [address] MR#: [id number] Acct: [id number] Name: SUSIE CALLEJAS Rep #: [id number] : 1955 63 From: Apollo Reyes MD Referring Dr: Ivanna Crooks MATTRESS SPECIALIST Date: Ordering Dr: Rolanda: Bridger Chaves Location: PSN PSN 6 Minute Walk Test - 6 Minute Walk Test 6 Minute Walk Test: 6 Minute Walk Test PSN:6-Minute Walk Test Start: 12/19/18 11:21 Freq: Status: Active Protocol: [id number].6MINW Document 12/19/18 11:22 JLA (Rec: 12/19/18 11:27 JLA [id number]) 6 Minute Walk Test Date Performed 12/19/18 Time Performed 11:00 Height 5 ft 8 in Weight: 127.006 kg Weight in Pounds 280.[address]: Ivanna Crooks Assistive device used: None Pre-test Oxygen Delivery Method Room Air Pulse Ox (%) 92 Pulse Rate (60-100 beats/min) 87 Dyspnea Bryant Scale (0-10) 0 Exertion Bryant Scale (6-20) 6 1st minute Oxygen Delivery Method Room Air Pulse Ox (%) 90 Pulse Rate (60-100 beats/min) 88 2nd minute Oxygen Delivery Method Room Air Pulse Ox (%) 86 Pulse Rate (60-100 beats/min) 93 Dyspnea Bryant Scale (0-10) 1 Exertion Bryant Scale (6-20) 12 3rd minute Oxygen Flow Rate (L/min) (L/min) 2 Oxygen Delivery Method Nasal Cannula Pulse Ox (%) 92 Pulse Rate (60-100 beats/min) 84 4th minute Oxygen Flow Rate (L/min) (L/min) 2 Oxygen Delivery Method Nasal Cannula Pulse Ox (%) 90 Pulse Rate (60-100 beats/min) 97 5th minute Oxygen Flow Rate (L/min) (L/min) 2 Oxygen Delivery Method Nasal Cannula Pulse Ox (%) 92 Pulse Rate (60-100 beats/min) 97 6th minute Oxygen Flow Rate (L/min) (L/min) 2 Oxygen Delivery Method Nasal Cannula Pulse Ox (%) 88 Pulse Rate (60-100 beats/min) 94 Dyspnea Bryant Scale (0-10) 1 Exertion Bryant Scale (6-20) 12 Post-test Oxygen Flow Rate (L/min) (L/min) 2 Oxygen Delivery Method Nasal Cannula Pulse Ox (%) 93 Pulse Rate (60-100 beats/min) 73 Full Laps Walked 18 Partial Lap, Number of Tiles Walked 4 Total Distance Walked (ft) 1066 12/19/18 11:24 Cardiopulmonary Services by Elena Shell Patient arrived at diagnostic center not on any O2. Patient states he is suppose to wear 2L continuous but does not like to carry to the tanks. Patient was 92% on RA. Patient did drop to 86% on RA at the 2 min mario. 2L added at that time. Patient finished test on 2L but at the 6 min mario was 88%. RT asked patient if he would like to be walked down to main entrance on O2. Patient declined. Initialized on 12/19/18 11:24 - END OF NOTE - Interpretation Interpretation: The patient was noted to be 92% on room air at rest. The patient did desaturate to 86% in the second minute with ambulation. 2 L/min was added with improvement in saturations. The patient was then able to finish 6 minutes of ambulation, but did desaturate to 88% of the 6-minute. In total, the patient traveled 1066 feet over the course of 6 minutes. These findings are consistent with a respiratory limitation exercise tolerance. - Recommendations Recommendations: The patient requires no supplemental oxygen at rest, but should be using 3 L nasal cannula oxygen with any exertion. 12/20/18 1433 <Electronically signed by Apollo Reyes MD> Date Apollo Reyes MD CC: Date Dictated: 12/20/18 1127 Date Transcribed: 12/20/181126 Mathematics Faculty Member: Apollo Reyes MD Signed PULMONARY FUNCTION Observed: 12/14/2018 Status: F Source: IWLLA TEST 1:41 PM [facility] REPOSITORY [facility] Pulmonary Services/Neurology [address] [place] [address] MR#: [id number] Acct: [id number] Name: SUSIE CALLEJAS Rep #: [id number] : 1955 63 From: Ankur Byrnes DO Referring Dr: Ivanna Crooks MATTRESS SPECIALIST Status: REG CLI Ordering Dr: Date: Location: [facility] Sex: M C INTRODUCTION: The patient is a 63-year-old male that presents for pulmonary function studies secondary to a diagnosis of COPD. Respiratory therapy reports good patient effort. Bronchodilators were used during testing. INTERPRETATION: Forced expiration spirometry demonstrates the presence of a severe large airways obstructive ventilatory defect. There was no significant response to aerosolized bronchodilators. Spirograms are of good quality and do not plateau indicating slow emptying of the lungs. Body plethysmography was performed and reveals an elevated TLC and RV, indicative of underlying hyperinflation and air-trapping. Diffusing capacity by single breath CO is mildly reduced at 72% of predicted. There has been improvement in the patient's PFTs since they were last completed in December 2017. IMPRESSION: These pulmonary function studies demonstrate the presence of an irreversible severe large airways obstructive ventilatory defect with associated hyperinflation, air trapping and mild reduction in diffusing capacity. 12/14/18 1341 <Electronically signed by Ankur Byrnes DO> Date Ankur Byrnes DO CC: Ivanna Sen MD Date Dictated: 12/14/18 1340 Date Transcribed: 12/14/18 134 Mathematics Faculty Member: PANCHO Signed PROGRESS Observed: 12/13/2018 Status: COMPLETED Source: [place] 10:19 AM [facility] REPOSITORY HNO ID: [id number] Author: Yajaira Stanton) Majo Service: (none) Author Type: Loading Checker Type: Progress Notes Filed: 12/14/2018 12:40 PM Note Text: I have attempted to contact this patient by phone to return their call, schedule an appointment, discuss lab results, etc. Left message to call back. Yajaira Kasper MA PROGRESS Observed: 12/11/2018 Status: COMPLETED Source: [place] 9:23 AM [facility] REPOSITORY HNO ID: [id number] Author: Yajaira Kasper Service: (none) Author Type: Loading Checker Type: Progress Notes Filed: 12/14/2018 12:40 PM Note Text: I have attempted to contact this patient by phone to return their call, schedule an appointment, discuss lab results, etc. Left message to call back. Yajaira Kasper MA PROGRESS Observed: 12/06/2018 Status: COMPLETED Source: [place] 1:44 PM [facility] REPOSITORY HNO ID: [id number] Author: Jonah Beavers Service: (none) Author Type: Physician Type: Progress Notes Filed: 12/14/2018 12:40 PM Note Text: Patient Outreach on 12/06/18 -HGB A1C -ALBUMIN/CREAT RATIO RND UR -LIPID PANEL BASIC -COMP METABOLIC PANEL -CBC + DIFF Jonah Beavers MD PROGRESS Observed: 12/06/2018 Status: COMPLETED Source: [place] 1:03 PM [facility] REPOSITORY HNO ID: [id number] Author: Yajaira Kasper Service: (none) Author Type: Loading Checker Type: Progress Notes Filed: 12/14/2018 12:40 PM Note Text: [facility] CARE GAP REGISTRY DOCUMENTATION (OUTSIDE TEAMLET) Provider Action/FYI: Patient needs appointment, needs labs ordered, needs Foot and Eye exam. PSR Action/FYI: schedule ov and eye exam Patient identified by name and date of . Last BP/Labs: Blood Pressure: Last 3 Encounter BP Readings: Date: BP: 05/20/2017 135/74 02/10/2017 108/62 01/11/2017 136/84 Lipids: Cholesterol, Total (mg/dL) Date Value 05/24/2017 144 04/22/2016 138 HDL Cholesterol (mg/dL) Date Value 05/24/2017 40 04/22/2016 40 LDL Cholesterol (mg/dL) Date Value 05/24/2017 78 04/22/2016 80 Triglyceride (mg/dL) Date Value 05/24/2017 132 04/22/2016 91 HGB A1C: Lab Results Component Value Date HBA1C 5.6 05/24/2017 HBA1C 7.3 11/30/2016 HBA1C 5.8 04/22/2016 TSH: No results found for: TSH) ? Patient has the following care gap registry disease diagnosis:DM ? Patient has the following open care gaps:DM - Need Urine Albumin / NOT checked in last 12 months ? Needs dilated eye exam - HM overdue ? Last office visit: 05/20/2017 ? Future office visit:Follow up Yajaira Kasper MA CNPTOUTREACH Observed: 12/06/2018 Status: COMPLETED Source: [place] 12:00 AM [facility] REPOSITORY Patient Outreach (FAMPWS) SUSIE CALLEJAS ([id number]) 1955 M Date Time Provider Department 12/06/18 YAJAIRA KASPER (EBEN) FAMPWS During your visit today, we recorded the following information about you: Yajaira Kasper MA 12/14/2018 12:40 PM Signed [facility] CARE GAP REGISTRY DOCUMENTATION (OUTSIDE TEAMLET) Provider Action/FYI: Patient needs appointment, needs labs ordered, needs Foot and Eye exam. PSR Action/FYI: schedule ov and eye exam Patient identified by name and date of . Last BP/Labs: Blood Pressure: Last 3 Encounter BP Readings: Date: BP: 05/20/2017 135/74 02/10/2017 108/62 01/11/2017 136/84 Lipids: Cholesterol, Total (mg/dL) Date Value 05/24/2017 144 04/22/2016 138 HDL Cholesterol (mg/dL) Date Value 05/24/2017 40 04/22/2016 40 LDL Cholesterol (mg/dL) Date Value 05/24/2017 78 04/22/2016 80 Triglyceride (mg/dL) Date Value 05/24/2017 132 04/22/2016 91 HGB A1C: Lab Results Component Value Date HBA1C 5.6 05/24/2017 HBA1C 7.3 11/30/2016 HBA1C 5.8 04/22/2016 TSH: No results found for: TSH) ? Patient has the following care gap registry disease diagnosis:DM ? Patient has the following open care gaps:DM - Need Urine Albumin / NOT checked in last 12 months ? Needs dilated eye exam - HM overdue ? Last office visit: 05/20/2017 ? Future office visit:Follow up EBEN Spencer MD 12/14/2018 12:40 PM Signed Patient Outreach on 12/06/18 -HGB A1C -ALBUMIN/CREAT RATIO RND UR -LIPID PANEL BASIC -COMP METABOLIC PANEL -CBC + DIFF MD Yajaira Grissom MA 12/14/2018 12:40 PM Signed I have attempted to contact this patient by phone to return their call, schedule an appointment, discuss lab results, etc. Left message to call back. EBEN Spencer MA 12/14/2018 12:40 PM Signed I have attempted to contact this patient by phone to return their call, schedule an appointment, discuss lab results, etc. Left message to call back. Yajaira Kasper MA Allergies As of Date: 12/06/2018 (No Known Allergies) Date Reviewed: 05/20/2017 [facility]: [facility] EBEN Fox - Fully Assessed Reason for Visit: PHPR/Care Gap Outreach [3605] Primary Visit Diagnosis:Essential hypertension, benign [I10] Other Visit Diagnoses:Well controlled type 2 diabetes mellitus (HCC) [E11.9] Hyperlipidemia with target LDL less than 70 [E78.5] Thrombocytopenia, unspecified (HCC) [D69.6] Order(s):HGB A1C [[id number]] Order #: [id number] FUTURE ALBUMIN/CREAT RATIO RND UR [SQUACR] Order #: [id number] FUTURE LIPID PANEL BASIC [SQLIPB] Order #: [id number] FUTURE COMP METABOLIC PANEL [SQCMP] Order #: [id number] FUTURE CBC + DIFF [SQCBCDIF] Order #: [id number] FUTURE Prescriptions as of 12/06/2018 Sig: LISINOPRIL 10 MG TABLET Take 1 tablet by mouth once d* METFORMIN 1,000 MG TABLET Take 1 tablet by mouth twice * PRAVASTATIN 20 MG TABLET Take 1 tablet by mouth daily * GLIPIZIDE ER 5 MG TABLET, EXT* Take 1 tablet by mouth once d* UMECLIDINIUM 62.5 MCG/ACTUATI* Inhale 1 Puff as instructed o* BUDESONIDE-FORMOTEROL HFA 160* Inhale 2 Puffs as instructed * COMPOUNDED PRESCRIPTION Use as directed. NEBULIZER FO* METAMUCIL ORAL Take by mouth. COMPOUNDED PRESCRIPTION Please administer oxygen at 3* CPAP Use 12 cm in the nose daily a* OXYGEN-AIR DELIVERY SYSTEMS D* Use 4 L/min in the nose daily* [facility] ULTRA TEST STRIPS Check daily as directed. * ASPIRIN 81 MG TABLET,DELAYED * Take one(1) tablet daily. Problem List As Of Date 12/06/2018 Noted Resolved THROMBOCYTOPENIA NOS [D69.6] INVALID FOR* SECONDARY POLYCYTHEMIA [D75.1] INVALID FOR* Well controlled type 2 diabetes mellitus (HCC) *INVALID FOR* BENIGN HYPERTENSION [I10] INVALID FOR* Asthma-chronic obstructive pulmonary disease ov*INVALID FOR* Hyperlipidemia with target LDL less than 70 [E7*INVALID FOR* Obesity, Class III, BMI 40-49.9 (morbid obesity*INVALID FOR* Follow-up and Disposition History Recorded Encounter Status:Closed by VISHAL BEAVERS MD on 12/14/18 PULMONARY VISIT REPORT Observed: 10/13/2018 Status: F Source: [place] 10:54 AM [facility] REPOSITORY [facility] of [address] [place] [address] OFFICE VISIT Date of Service: 10/12/18 MR#: [id number] Acct: [id number] Name: SUSIE CALLEJAS Rep #: [id number] : 1955 Provider: Ivanna Crooks Age/Sex: 63/M [place] [facility] Status: Signed Assessment AND Plan 1. Stage 3 severe COPD by GOLD classification J44.9 Plan Continue Symbicort, adding Spiriva. Patient was personally trained on how to use the Spiriva Respimat device. He has been encouraged to contact the office in the next few weeks to give us an update on how he is responding to the new medication. He will be due for repeat PFT and a walking oximetry in 3 months prior to follow-up with Dr. Reyes. His influenza and pneumococcal vaccines are current. Went over the sick policy with the patient, asked him to contact the office with any new or worsening symptoms in the meantime. Orders Orders: 2. Chronic respiratory failure with hypoxia and hypercapnia J96.11 Plan The patient is using and benefiting from oxygen. Continue to utilize to maintain a saturation of 89-92%. Follow-up in 3 months. 3. DEAN (obstructive sleep apnea) G47.33 Plan Patient is using and benefiting from Pap therapy. No indication for titration study at this time. Continue to encourage weight loss. Contact the office for any new or worsening symptoms in the meantime. Follow-up in 3 months. 4. PND (post-nasal drip) R09.82 Plan New. Treating with Flonase, instructed to use Flonase 2 sprays each nostril once daily. Warned of potential side effects of epistaxis. 5. Adult BMI 40.0-44.9 kg/sq m Z68.41 Plan Encourage weight loss. Complicates exam, plan, care and prognosis. Plan Detail Other Medications New: tiotropium bromide 2.5 mcg/actuation (Spiriva Respimat) 2 puffs Inhalation QDAY 1 ea 1RF administer at approximately the same time(s) each day Follow Up 3 Months (BWA) HPI HPI Comments Details: This is a 63 year old M, here to follow up for sleep apnea, severe COPD and hypoxic respiratory failure. Today he presents to the office ambulatory and currently on room air. He has not been seen in the ED urgent care for respiratory illnesses since his last office visit. He has not required any antibiotics or prednisone for any breathing problems. He is compliant with Symbicort 2 puffs twice daily. He denies any medication side effects such as sore throat or thrush, admits that he rinses his mouth out after each use. He has not needed to use his rescue inhaler. He continues to experience shortness of breath on exertion only, denies any shortness of breath with rest or conversation. Denies any cough, sputum production or hemoptysis at this time. He denies any wheezing, chest tightness, chest pain or palpitations. He uses supplemental oxygen with ambulation only. He does have a portable pulse oximeter and checks his oxygen saturations occasionally. He has not recently checked them during ambulation but has been encouraged to do so. He reports feeling rested in the morning. He states he could not sleep without his BiPAP. He denies any difficulties with dry mouth or air leaks. He is not currently napping. Current use of pressure support therapy is on average of 9 hours per night with current settings of 18/12 cmH2O. SUSIE denies any daytime somnolence, dry mouth in the morning, nocturia, snoring through the mask, morning headaches or difficulty with mask leaks. SUSIE reports feeling rested in the morning and is benefitting from current therapy. Compliance report was reviewed and shows 100% compliance, AHI is controlled at an average of 1.2 events per hour, according to documentation squeaks may be an issue. Intake Vital Signs10/12/18 Height 5 ft 8 in 10/12/18 Weight: 285 lb Intake Visit Reasons: 6 M FU [facility] Vendor: [facility] Accompanied by: Self Allergies No Known Allergies Allergy (Verified 09/04/18 07:33) Medications Budesonide/Formoterol 160/4.5 [Symbicort 160/4.5 Mcg Inhaler (SP)] 2 puff INHALATION BID 11/13/16 [History Confirmed 10/12/18] Glipizide 1 tab PO DAILY 11/13/16 [History Confirmed 10/12/18] Lisinopril 1 tab PO DAILY 11/13/16 [History Confirmed 10/12/18] Metformin HCl [Glucophage] 1,000 mg PO BIDCM 11/13/16 [History Confirmed 10/12/18] Pravastatin [Pravachol] 20 mg PO DAILY 11/13/16 [History Confirmed 10/12/18] Albuterol Inhaler [Ventolin Hfa] 1 - 2 puff INHALATION Q4H PRN PRN #1 inhaler 11/15/16 [Rx Confirmed 10/12/18] Aspirin 81 mg PO DAILY 12/05/17 [History Confirmed 10/12/18] Guaifenesin [Mucinex] 600 mg PO BID 12/05/17 [History Confirmed 10/12/18] Potassium Gluconate 99 mg PO QHS 12/05/17 [History Confirmed 10/12/18] fluticasone 50 mcg/actuation nasal spray,suspension 2 spray INTRANASAL DAILY #16 g 10/12/18 [Rx Confirmed 10/12/18] tiotropium bromide 2.5 mcg/actuation mist for inhalation 2 puff INHALATION QDAY #1 ea 10/12/18 [Rx Confirmed 10/12/18] ON LICENSE OF [facility] Medical History Hyperlipidemia (Chronic) Hypertension (Chronic) Type 2 diabetes mellitus (Chronic) Chronic obstructive lung disease (Chronic) Chronic respiratory failure (Chronic) Influenza A (Acute) Acute bronchitis (Acute) COPD exacerbation (Acute) DEAN (obstructive sleep apnea) (Chronic) Family History Sister Cancer Social History Smoking Status: Former smoker quit date: 11/19/17 pack-years: 60 alcohol intake: current alcohol intake frequency: a few times a month Alcohol type: beer substance use type: does not use caffeine: Yes Type: coffee Number of servings: 2 what type of physical activity do you participate in: walking Review of Systems Const CONSTITUTIONAL: Positive weight gain; negative anorexia, body ache, chills, daytime sleepiness, fever(s), night sweats, oral thrush, stops breathing during sleep, weight loss, sleeping in chair, fatigue, weight loss, frequent colds, seasonal allergies, other, headache(s) or orthopnea EETM Ear Nose Throat Mouth: Negative hard of hearing, hearing normal, hoarseness, dry mouth in morning, change in vision, itchy eyes, eye pain, swallowing Difficulty, ear pain, nose bleed, headache(s), mouth pain, nasal congestion, nasal discharge, post nasal drip, sinus pain, sinus pressure, sore throat or other Cardio Cardiovascular: Negative chest pain, chest pain at rest, chest pain with activity, irregular heart rhythm, edema, shortness of breath when lying down, palpitations, murmur or other Resp Respiratory: Positive as per HPI and shortness of breath shortness of breath: Positive with activity; negative pain with cough, wheezing, chest congestion, cough, chest tightness, pain on inspiration, inhalers, increase use of rescue inhalers, snoring, apnea or other Gastro Gastrointestional: Negative bloody stools, change in appetite, difficulty swallowing, reflux, hematemesis, melena stool, loose stool, constipation or other Genitourinary: Negative blood in urine, nocturia, pain with urination or other Musc Musculoskeletal: Negative body pain, back pain, neck pain or other Skin/Breast Skin/Breast: Negative dry skin, itching, rash, unusual bruising, breast lump or other Neuro Neurological: Negative restless legs, confusion, weakness or other Psych Psychocological: Negative abnormal sleep pattern, anxiety, thoughts of hurting self/others, hopelessness or other Lymph Lymphatic: Negative easy bleeding, easy bruising, swollen lymph nodes or other Exam Const Constitutional: Positive conversant, cooperative, in no acute respiratory distress, well developed, well nourished and frail appearing Head Head: Positive normocephalic and atraumatic; negative cyanosis of lips/distal nose Eyes Eye: Positive clear conjunctiva; negative nystagmus or scleral abnormality Ears Ear: Positive external ears normal; negative hard of hearing or hearing normal Nose Nose: Positive external nose normal and no nasal discharge; negative epistaxis Mouth Mouth: Positive oral mucosae normal, no lesions and crowded posterior oropharynx; negative post nasal drip, malodorous breath or oral thrush present Mallampati Score: IV: Mallampati Score Neck Neck: Positive normal visual inspection, full ROM, trachea midline, thick neck and male neck greater than 43 cm (17 in); negative lymphadenopathy, JVD or tender Chest Wall Chest: Positive symmetric chest movement and increased A/P diameter Resp lung sounds: Positive diminished, wheezes, prolonged expiratory time and normal chronic state of increased work of breathing; negative rhonchi, rales or dullness to percussion Cardio Cardiac: Positive regular rate, S2 normal, S1 normal and regular rhythm; negative murmur GI GI: Positive normal to inspection; negative distended Genitourinary: Positive deferred Musc Musculoskeletal: Positive steady gait and ROM normal; negative kyphosis or scoliosis Skin Pulmonary Skin Exam: Positive intact and dermal atrophy; negative rash Pulses Pulse: Yes pulses normal x4 extremities Extremities Extremities: Yes capillary refill normal, Yes clubbing, No cyanosis, Yes edema Location: lower extremity location: Bilateral pitting +3 Neuro Neurologic: Yes conversant, Yes no focal neuro deficits, Yes normal concentration, Yes understands questions, Yes cooperative, Yes normal coordination, Yes normal cognition, No tremor Lymph Lymphatic: No lymphadenopathy, No tenderness, No cervical adenopathy Psych Appearance: Positive grossly normal, eye contact and well kempt Mental Status: Positive mental status grossly normal Mood: Positive congruent mood Affect: Positive normal affect Coding Level of Care Code Off vis,est,level 4 Diagnoses Stage 3 severe COPD by GOLD classification J44.9 Chronic respiratory failure with hypoxia and hypercapnia J96.11 Respiratory failure complication: hypoxia and hypercapnia DEAN (obstructive sleep apnea) G47.33 PND (post-nasal drip) R09.82 Adult BMI 40.0-44.9 kg/sq m Z68.41 10/13/18 1054 <Electronically signed by Ivanna VELEZ> Date Ivanna LANIERC Cosigner Signature: Date (if applicable) CC: Angel Luis Sen MD BASIC METABOLIC Collected: 10/05/2018 Status: F Source: [place] PROFILE (BMP) 9:02 AM [facility] REPOSITORY TYPE CODE TESTS RESULT OUT OF RANGE REFERENCE UNITS LAB L501.0100 74-106 mg/dL Normal GLU 91 Result Comment: Please note revised GLUCOSE reference range effective 2017. LAB L501.1000 7-18 mg/dL High BUN 21 LAB L501.1100 0.70-1.30 mg/dL Normal CREAT,SERUM 1.25 Result Comment: The validity of the calculated GFR AND GFRAA in patients over 70 years has not been determined. Clinical correlation is essential. LAB L501.1110 >60 mL/min Normal EST GFR 62 Result Comment: Non- GFR Calc LAB L501.1115 >60 mL/min Normal EST GFR - AA 75 Result Comment: GFR Calc LAB L501.1300 10-20 RATIO Normal BUN/CRE 16.8 LAB L501.2200 8.5-10.1 mg/dL CA Normal 8.9 LAB L501.5300 136-145 mmol/L NA Normal 140 LAB L501.5600 3.5-5.1 mmol/L K Normal 4.2 LAB L501.5900 98-107 mmol/L CL Normal 104 LAB L501.6100 21.0-32.0 mmol/L Normal CO2 29.0 LAB L501.6200 5-15 Normal GAP 7 Performed By: #### L500.2500, L500.3400, L500.4100 #### [facility] [address] [place], [place], [id number] LIVER PROFILE Collected: 10/05/2018 Status: F Source: [place] 9:02 [facility] REPOSITORY TYPE CODE TESTS RESULT OUT OF RANGE REFERENCE UNITS LAB L501.1500 6.4-8.2 g/dL Normal T PROT 7.0 LAB L501.1800 3.2-5.0 g/dL Normal ALB 4.0 LAB L501.1950 2.2-4.2 g/dL Normal GLOB 3.0 LAB L501.4100 15-37 U/L Normal AST 15 LAB L501.4305 45-117 U/L Normal ALK P 83 LAB L501.4405 16-61 U/L Normal ALT 21 LAB L501.4600 0.20-1.00 mg/dL Normal T BILI 0.70 LAB L501.4700 0.00-0.30 mg/dL Normal D BILI 0.21 Performed By: #### L500.2500, L500.3400, L500.4100 #### [facility] [address] [place], [address] LIPID PROFILE Collected: 10/05/2018 Status: F Source: [place] 9:02 [facility] REPOSITORY TYPE CODE TESTS RESULT OUT OF RANGE REFERENCE UNITS LAB L501.4900 200 mg/dL Normal CHOL 146 Result Comment: <200 mg/dL Desirable 200-240 mg/dL Borderline >240 mg/dL High Risk LAB L501.5000 mg/dL Normal TRIG 188 Result Comment: The drugs N-Acetylcysteine and Metamizole may falsely depress this assay. Serum Triglycerides Reference Interval Normal <150 mg/dL Borderline high 150 - 199 mg/dL High 200 - 499 mg/dL Very High > or = 500 mg/dL LAB L501.6400 mg/dL Low HDL 34 Result Comment: The drugs N-Acetylcysteine and Metamizole may falsely depress this assay. Reference Range HDL <40 mg/dL Low HDL Cholesterol HDL >or= 60 mg/dL High HDL Cholesterol LAB L501.6500 0-130 mg/dL Normal LDL 74 LAB L501.6600 5-40 mg/dL Normal VLDL 38 Performed By: #### L500.2500, L500.3400, L500.4100 #### [facility] [address] [place], [place], [address] PULMONARY VISIT REPORT Observed: 03/09/2018 Status: F Source: [place] 9:36 AM [facility] REPOSITORY [facility] [address] [place], [place] [address] OFFICE VISIT Date of Service: 03/09/18 MR#: [id number] Acct: [id number] Name: SUSIE CALLEJAS Rep #: [id number] : 1955 Provider: Apollo Reyes MD Age/Sex: 62/M [place] [facility] Status: Signed Assessment AND Plan 1. Stage 3 severe COPD by GOLD classification J44.9 Plan Patient overall is doing well. Patient is having difficulty affording medications, which is decreasing his control. Patient would prefer to be on Trelegy and reported good response to this medication. However, cost is prohibitive. Did discuss with patient about possibly switching to nebulized medications, but patient feels that he would not be able to comply with these recommendations. Signs and symptoms of exacerbation were reviewed in detail. Patient voiced understanding. Continue with current therapy. Repeat PFT/walking oximetry November 2018 Medications Discontinued: hciiupuyqxh-zscvhqgij-cvrjugvf 100-62.5-25 mcg (Trelegy Ellipta) 1 inh Inhalation QDAY administer at approximately the same time(s) each day Discontin ued Reason: Pt no longer taking 2. DEAN (obstructive sleep apnea) G47.33 Plan Patient reports good response to BiPAP therapy. Residual AHI is well controlled, but patient is having so much leak that he is having to refill his water chamber every 6 hours and having dry mouth during the day. Patient does readily admit that he has significant leak on a routine basis. Patient has agreed to a CPAP class. Obtain sleep lab recommendations. Continue BiPAP at current settings. Orders Orders: Plan Detail Other Medications Discontinued: fluticasone-vilanterol 100-25 mcg/dose (Breo Ellipta) after inha1 inh Inhalation Q24H lation, rinse mouth with water and spit out; do not swallow Disc ontinued Reason: Pt no longer taking Follow Up 6 Months ([facility]) HPI 2 M FU: Chief Complaint: Shortness of breath on exertion patient Details: Patient is a 62-year-old male, currently under the care of Dr. Sen, who presents for evaluation secondary to shortness of breath on exertion. Since last visit, patient denies any ER visits, hospitalizations or prednisone burst. Patient has tried multiple inhaler medications, but is unable to comply secondary to cost. Patient most recently was attempted on Trelegy and did report the best response to this medication. However, patient states the cost is prohibitive and he has resorted back to Symbicort therapy. Patient continues to have a cough productive of clear to white sputum, typically in the morning. This is not associated with chest pain. Patient does wheeze throughout the day. Patient feels he is wheezing more often now that he has to use Symbicort therapy. Patient denies any hemoptysis or epistaxis. Patient reports good response to BiPAP therapy. Patient states that he wears it overnight routinely. Patient states he typically wakes after approximately 6 hours to urinate and will be lying in bed for approximately an hour before falling back to sleep. Patient does have to refill his reservoir every 6 hours to keep it filled. Patient does wake up with a dry mouth, but denies any sore throat or hoarseness. No epistaxis has been reported. Patient has tried to change to a different full facemask, but is still having some issues with leak. Testing personally reviewed with the patient Compliance report (January 2018): Compliance noted 100% of days per night and a half hours on BiPAP 18/12 cm of water with residual AHI of 2, but excessive leak noted. Intake Vital Signs03/09/18 Height 5 ft 8 in 03/09/18 Weight: 127.006 kg Intake Visit Reasons: 2 M FU [facility] Vendor: [employer] Allergies No Known Allergies Allergy (Verified 01/12/18 08:10) Medications Budesonide/Formoterol 160/4.5 [Symbicort 160/4.5 Mcg Inhaler (SP)] 2 puff INHALATION BID 11/13/16 [History Confirmed 01/12/18] Glipizide 1 tab PO DAILY 11/13/16 [History Confirmed 01/12/18] Lisinopril 1 tab PO DAILY 11/13/16 [History Confirmed 01/12/18] Metformin HCl [Glucophage] 1,000 mg PO BIDCM 11/13/16 [History Confirmed 01/12/18] Pravastatin [Pravachol] 20 mg PO DAILY 11/13/16 [History Confirmed 01/12/18] Albuterol Inhaler [Ventolin Hfa] 1 - 2 puff INHALATION Q4H PRN PRN #1 inhaler 11/15/16 [Rx Confirmed 01/12/18] Aspirin 81 mg PO DAILY 12/05/17 [History Confirmed 01/12/18] Guaifenesin [Mucinex] 600 mg PO BID 12/05/17 [History Confirmed 01/12/18] Potassium Gluconate 99 mg PO QHS 12/05/17 [History Confirmed 01/12/18] PFSH Medical History Hyperlipidemia (Chronic) Hypertension (Chronic) Type 2 diabetes mellitus (Chronic) Chronic obstructive lung disease (Chronic) Chronic respiratory failure (Chronic) Influenza A (Acute) Acute bronchitis (Acute) COPD exacerbation (Acute) DEAN (obstructive sleep apnea) (Chronic) Family History Sister Cancer Social History Smoking Status: Former smoker quit date: 11/19/17 pack-years: 60 alcohol intake: current alcohol intake frequency: a few times a month Alcohol type: beer substance use type: does not use caffeine: Yes Type: coffee Number of servings: 2 what type of physical activity do you participate in: walking Review of Systems Const CONSTITUTIONAL: Negative anorexia, body ache, chills, daytime sleepiness, fever(s), night sweats, oral thrush, stops breathing during sleep, weight loss, sleeping in chair, fatigue, weight loss, weight gain, frequent colds, seasonal allergies, other, headache(s) or orthopnea EETM Ear Nose Throat Mouth: Positive hearing normal and dry mouth in morning; negative hard of hearing, hoarseness, change in vision, itchy eyes, eye pain, swallowing Difficulty, ear pain, nose bleed, headache(s), mouth pain, nasal congestion, nasal discharge, post nasal drip, sinus pain, sinus pressure, sore throat or other Cardio Cardiovascular: Negative chest pain, chest pain at rest, chest pain with activity, irregular heart rhythm, edema, shortness of breath when lying down, palpitations, murmur or other Resp Respiratory: Positive as per HPI and shortness of breath shortness of breath: Positive with activity; negative pain with cough, wheezing, chest congestion, cough, chest tightness, pain on inspiration, inhalers, increase use of rescue inhalers, snoring, apnea or other Gastro Gastrointestional: Negative bloody stools, change in appetite, difficulty swallowing, reflux, hematemesis, melena stool, loose stool, constipation or other Genitourinary: Negative blood in urine, nocturia, pain with urination or other Musc Musculoskeletal: Negative body pain, back pain, neck pain or other Skin/Breast Skin/Breast: Negative dry skin, itching, rash, unusual bruising, breast lump or other Neuro Neurological: Negative restless legs, confusion, weakness or other Psych Psychocological: Negative abnormal sleep pattern, anxiety, thoughts of hurting self/others, hopelessness or other Lymph Lymphatic: Negative easy bleeding, easy bruising, swollen lymph nodes or other Exam Const Constitutional: Positive conversant, cooperative, in no acute respiratory distress, well developed, well nourished, good hygiene, obese and appears older than stated age; negative ill appearing or wearing supplemental oxygen Head Head: Positive normocephalic and atraumatic; negative cyanosis of lips/distal nose, microcephalic, macrocephalic, frontal sinus tenderness or maxillary sinus tenderness Eyes Eye: Positive clear conjunctiva; negative nystagmus or scleral abnormality Ears Ear: Positive hearing normal and external ears normal; negative hard of hearing Nose Nose: Positive external nose normal, septum normal and no nasal discharge; negative epistaxis or nasal polyp Mouth Mouth: Positive oral mucosae normal, poor dentition, crowded posterior oropharynx and no lesions; negative post nasal drip, oral thrush present or malodorous breath Mallampati Score: IV: Mallampati Score Neck Neck: Positive normal visual inspection, thick neck, full ROM, trachea midline and male neck greater than 43 cm (17 in); negative lymphadenopathy or JVD Chest Wall Chest: Positive increased A/P diameter; negative symmetric chest movement, crepitus or tenderness Resp lung sounds: Positive clear to auscultation, good air exchange, wheezes wheezing: Positive global, diminished, wheeze present on forced exhalation, normal chronic state of increased work of breathing and prolonged expiratory time; negative rhonchi, rales or use of accessory muscles Cardio Cardiac: Positive regular rate, regular rhythm, S2 normal and S1 normal; negative murmur, rub or gallop GI GI: Positive obese, normal to inspection and normal bowel sounds; negative distended or ascites Genitourinary: Positive deferred Musc Musculoskeletal: Positive steady gait and ROM normal; negative using an assistive device for ambulation, kyphosis or scoliosis Skin Pulmonary Skin Exam: Positive intact; negative rash, lesion, ulcers, erythema or dermal atrophy Pulses Pulse: Yes radial pulses present Extremities Extremities: Yes capillary refill normal, No clubbing, No cyanosis, Yes edema (2+ lower extremities) Neuro Neurologic: Yes conversant, Yes no focal neuro deficits, Yes normal concentration, Yes understands questions, Yes normal cognition, Yes cooperative, Yes normal coordination Lymph Lymphatic: No lymphadenopathy, No tenderness Psych Appearance: Positive grossly normal Mental Status: Positive mental status grossly normal Mood: Positive congruent mood Affect: Positive normal affect Coding Level of Care Code Off vis,est,level 3 Diagnoses Stage 3 severe COPD by GOLD classification J44.9 DEAN (obstructive sleep apnea) G47.33 03/09/18 0936 <Electronically signed by Apollo Reyes MD> Date Apollo Reyes MD Cosigner Signature: Date (if applicable) CC: Angel Luis Sen MD PULMONARY VISIT REPORT Observed: 01/13/2018 Status: F Source: [place] 9:21 AM [facility] REPOSITORY [facility] [address] [place] [address] OFFICE VISIT Date of Service: 01/12/18 MR#: [id number] Acct: [id number] Name: SUSIE CALLEJAS Rep #: [id number] : 1955 Provider: Ivanna Crooks Age/Sex: 62/M [facility] Status: Signed Assessment AND Plan 1. Stage 3 severe COPD by GOLD classification J44.9 Status Chronic Plan He does not appear to be in exacerbation of his COPD today. Given the recent results of his pulmonary function test, showing the air trapping, he will be progressed to a triple therapy inhaler regiment. Currently am going to try him on trelegy. Sample was provided, first dose will be given tomorrow given the fact that he already has taken Symbicort today. He was personally instructed on the use of the elliptical device. No additional testing at this time. Keep previously scheduled routine follow-up with Dr. Reyes. Orders Orders: 2. Chronic respiratory failure with hypoxia and hypercapnia J96.11 Status Chronic Plan Lengthy conversation about the deleterious effects of not using oxygen when indicated. The patient has been educated on the fact that he requires oxygen after just 2 minutes of ambulation. He conveys understanding at this time. He will require additional support to allow him to continue his active lifestyle, he has been encouraged to use portable oxygen tanks until a portable oxygen concentrator can be ordered. While at home, he has been using and benefiting from oxygen. At this point he plans to be more compliant with supplemental oxygen after our discussion today. Follow-up with Dr. Reyes as previously scheduled. 3. DEAN (obstructive sleep apnea) G47.33 Status Chronic Plan He is using the CPAP he was previously prescribed. Last sleep study shows that the patient should be on BiPAP. A difference has been explained to the patient and the prescription has been written. We will continue to monitor him. Given his previous compliance with pressure support therapy, I anticipate no problems transitioning to BiPAP therapy. Previously scheduled routine follow-up with Dr. Reyes. HPI Test results: Chief Complaint: shortness of breath HPI Comments Details: This is a 62 year old pleasant m, currently under the care of Angel Luis Sen, here today to review test results. I personally reviewed the tests/images/tracings which showed: Complete Pulmonary Function test were preformed on January 03, 2018, and showed FVC of 69 % of predicted, FEV1 of 45 % of predicted, FEV1/FVC ratio of 49 %, TLC of 111 % of predicted, RV of 182 % of predicted, DLCO 62% of predicted. The test was interpreted to be consistent with partially reversible severe large airway obstructive ventilatory defect, with a significant response to bronchodilators and a symmetric reduction in diffusing capacity. Pulmonary stress test was completed on January 09, 2018, and showed a drop in saturation below 89% at minute 2, which suggested a requirement of 2 LPM of supplemental oxygen on ambulation. Complete titration study was completed on January 02, 2018 and was significant for an Apnea-hypopnea index of 1.3 events per hour, on BiPAP of 18/12 cm of water. Currently, he has an occasional nonproductive cough. He has occasional wheezing which is somewhat relieved with use of his rescue inhaler. He denies any fever, chills or body aches. He denies any chest pain or palpitations. He does continue to experience shortness of breath on exertion. He is currently utilizing supplemental oxygen at home, but has not implemented the use of portable supplemental oxygen. He does own a portable pulse oximeter and has been checking his saturations while sitting still and they are typically 90-95%. He admits that he has not been checking them while ambulating. He has been compliant with Symbicort 2 puffs twice daily. He reports rinsing his mouth out after each use. He denies any medication side effects such as sore throat or thrush. He is using his pro-air rescue inhaler 2 times daily. He has not added any [id number]-[id number] medications. Intake Vital Signs01/12/18 Height 5 ft 8 in 01/12/18 Weight: 265 lb Intake Visit Reasons: Test results DME Vendor: [employer] Accompanied by: Daughter Allergies No Known Allergies Allergy (Verified 01/12/18 08:10) Medications Budesonide/Formoterol 160/4.5 [Symbicort 160/4.5 Mcg Inhaler (SP)] 2 puff INHALATION BID 11/13/16 [History Confirmed 01/12/18] Glipizide 1 tab PO DAILY 11/13/16 [History Confirmed 01/12/18] Lisinopril 1 tab PO DAILY 11/13/16 [History Confirmed 01/12/18] Metformin HCl [Glucophage] 1,000 mg PO BIDCM 11/13/16 [History Confirmed 01/12/18] Pravastatin [Pravachol] 20 mg PO DAILY 11/13/16 [History Confirmed 01/12/18] Albuterol Inhaler [Ventolin Hfa] 1 - 2 puff INHALATION Q4H PRN PRN #1 inhaler 11/15/16 [Rx Confirmed 01/12/18] Aspirin 81 mg PO DAILY 12/05/17 [History Confirmed 01/12/18] Guaifenesin [Mucinex] 600 mg PO BID 12/05/17 [History Confirmed 01/12/18] Potassium Gluconate 99 mg PO QHS 12/05/17 [History Confirmed 01/12/18] ON LICENSE OF [facility] Medical History Hyperlipidemia (Chronic) Hypertension (Chronic) Type 2 diabetes mellitus (Chronic) Chronic obstructive lung disease (Chronic) Chronic respiratory failure (Chronic) Influenza A (Acute) Acute bronchitis (Acute) COPD exacerbation (Acute) DEAN (obstructive sleep apnea) (Chronic) Family History Sister Cancer Social History Smoking Status: Former smoker quit date: 11/19/17 pack-years: 60 alcohol intake: current alcohol intake frequency: a few times a month Alcohol type: beer substance use type: does not use Review of Systems Const CONSTITUTIONAL: Negative anorexia, body ache, chills, daytime sleepiness, fever(s), night sweats, oral thrush, stops breathing during sleep, weight loss, sleeping in chair, fatigue, weight loss, weight gain, frequent colds, seasonal allergies, other, headache(s) or orthopnea EETM Ear Nose Throat Mouth: Negative hard of hearing, hearing normal, hoarseness, dry mouth in morning, change in vision, itchy eyes, eye pain, swallowing Difficulty, ear pain, nose bleed, headache(s), mouth pain, nasal congestion, nasal discharge, post nasal drip, sinus pain, sinus pressure, sore throat or other Cardio Cardiovascular: Negative chest pain, chest pain at rest, chest pain with activity, irregular heart rhythm, edema, shortness of breath when lying down, palpitations, murmur or other Resp Respiratory: Positive as per HPI, cough cough: Positive productive color: Positive thick, yellow and white and inhalers; negative shortness of breath, pain with cough, wheezing, chest congestion, chest tightness, pain on inspiration, increase use of rescue inhalers, snoring, apnea or other Gastro Gastrointestional: Negative bloody stools, change in appetite, difficulty swallowing, reflux, hematemesis, melena stool, loose stool, constipation or other Genitourinary: Negative blood in urine, nocturia, pain with urination or other Musc Musculoskeletal: Negative body pain, back pain, neck pain or other Skin/Breast Skin/Breast: Negative dry skin, itching, rash, unusual bruising, breast lump or other Neuro Neurological: Negative restless legs, confusion, weakness or other Psych Psychocological: Negative abnormal sleep pattern, anxiety, thoughts of hurting self/others, hopelessness or other Lymph Lymphatic: Positive easy bleeding and easy bruising; negative swollen lymph nodes or other Exam Const Constitutional: Positive conversant, cooperative, in no acute respiratory distress, well developed, well nourished, good hygiene, smells of smoke, appears older than stated age and obese Head Head: Positive normocephalic and atraumatic; negative cyanosis of lips/distal nose Eyes Eye: Positive clear conjunctiva and nystagmus; negative scleral abnormality Ears Ear: Positive external ears normal; negative hard of hearing or hearing normal Nose Nose: Positive external nose normal and no nasal discharge; negative epistaxis Mouth Mouth: Positive oral mucosae normal, no lesions, poor dentition and crowded posterior oropharynx; negative post nasal drip, malodorous breath or oral thrush present Mallampati Score: III: Mallampati Score Neck Neck: Positive normal visual inspection, full ROM, trachea midline, thick neck and male neck greater than 43 cm (17 in); negative lymphadenopathy, JVD or tender Chest Wall Chest: Positive normal inspection of the chest and symmetric chest movement; negative increased A/P diameter Resp lung sounds: Positive clear to auscultation, diminished, wheezes wheezing: Positive global (faint), wheeze present on forced exhalation, prolonged expiratory time and normal respiratory effort; negative rhonchi, rales, dullness to percussion, use of accessory muscles or increased work of breathing Cardio Cardiac: Positive regular rate, regular rhythm, S1 normal and S2 normal; negative murmur GI GI: Positive normal to inspection, normal bowel sounds and obese; negative distended Genitourinary: Positive deferred Musc Musculoskeletal: Positive steady gait and ROM normal; negative kyphosis or scoliosis Skin Pulmonary Skin Exam: Positive intact; negative rash, lesion, ulcers, erythema, scaly or dermal atrophy Pulses Pulse: Yes pulses normal x4 extremities Extremities Extremities: Yes capillary refill normal, No clubbing, No cyanosis, Yes edema Location: lower extremity location: Bilateral leg swelling: pitting pitting: trace, No stasis dermatitis Neuro Neurologic: Yes conversant, Yes no focal neuro deficits, Yes cooperative, Yes normal cognition, Yes normal coordination, Yes understands questions, Yes normal concentration Lymph Lymphatic: No lymphadenopathy, No tenderness, No cervical adenopathy, No axillary adenopathy Psych Appearance: Positive grossly normal, eye contact and well kempt Mental Status: Positive mental status grossly normal Mood: Positive congruent mood Affect: Positive normal affect Office Procedures Inhaler Training Inhaler Training Procedure performed by: Ivanna Crooks Inhaler Training: Yes personally trained on inhaler use, sample provided, first dose given in the office, expresses understanding and continue to monitor Coding Level of Care Code Off vis,est,level 4 Diagnoses Stage 3 severe COPD by GOLD classification J44.9 Chronic respiratory failure with hypoxia and hypercapnia J96.11 Respiratory failure complication: hypoxia and hypercapnia DEAN (obstructive sleep apnea) G47.33 01/13/18 0921 <Electronically signed by Ivanna VELEZ> Date Ivanna VELEZ Cosigner Signature: Date (if applicable) CC: Angel Luis Sen MD 6 MINUTE WALK TEST Observed: 01/10/2018 Status: F Source: [place] 7:35 AM [facility] Pulmonary Services/Neurology [address] [place] [address] MR#: [id number] Acct: [id number] Name: SUSIE CALLEJAS Rep #: [id number] : 1955 62 From: Ankur Byrnes DO Referring Dr: Ivanna Crooks MATTRESS SPECIALIST Date: Ordering Dr: Sex: M C Location: PSN PSN 6 Minute Walk Test - 6 Minute Walk Test 6 Minute Walk Test: 6 Minute Walk Test PSN:6-Minute Walk Test Start: 01/09/18 10:22 Freq: Status: Active Protocol: RESP.6MINW Document 01/09/18 10:22 SFENTON (Rec: 01/09/18 10:30 SFENTON [id number]) 6 Minute Walk Test Date Performed 01/09/18 Time Performed 09:00 Height 5 ft 8 in Weight: 265 lb Weight in Pounds 265.[address]: Ivanna Crooks Assistive device used: None Pre-test Oxygen Delivery Method Room Air Pulse Ox (%) 91 Pulse Rate (60-100 beats/min) 74 Dyspnea Bryant Scale (0-10) 0 Exertion Bryant Scale (6-20) 6 1st minute Oxygen Delivery Method Room Air Pulse Ox (%) 89 Pulse Rate (60-100 beats/min) 94 2nd minute Oxygen Delivery Method Room Air Pulse Ox (%) 87 Pulse Rate (60-100 beats/min) 95 Dyspnea Bryant Scale (0-10) 1 3rd minute Oxygen Flow Rate (L/min) 2 Oxygen Delivery Method Nasal Cannula Pulse Ox (%) 92 Pulse Rate (60-100 beats/min) 85 4th minute Oxygen Flow Rate (L/min) 2 Oxygen Delivery Method Nasal Cannula Pulse Ox (%) 91 Pulse Rate (60-100 beats/min) 86 5th minute Oxygen Flow Rate (L/min) 2 Oxygen Delivery Method Nasal Cannula Pulse Ox (%) 92 Pulse Rate (60-100 beats/min) 88 6th minute Oxygen Flow Rate (L/min) 2 Oxygen Delivery Method Nasal Cannula Pulse Ox (%) 93 Pulse Rate (60-100 beats/min) 89 Dyspnea Bryant Scale (0-10) 1 Exertion Bryant Scale (6-20) 11 Post-test Oxygen Flow Rate (L/min) 2 Oxygen Delivery Method Nasal Cannula Pulse Ox (%) 95 Pulse Rate (60-100 beats/min) 80 Full Laps Walked 15 Partial Lap, Number of Tiles Walked 0 Total Distance Walked (ft) 885 01/09/18 10:25 Cardiopulmonary Services by Pricilla Owens Pt states that he has oxygen at home that he only uses at night with his CPAP, he used to wear it during the day when he was discharged from the hospital last but has not worn it during the day in awhile. Pt also states that he checks his SpO2 often and where's the oxygen when needed. Patient does not have any portable tanks at this time and wishes not to though I stated he may want to reconsider and he said he would talk about it with Dr. Reyes/Ivanna Crooks on his next visit but refuses them at this time. Patient also states that he gets his equipment through [facility]. Patient started this test on room air, by the 2nd minute patient's SpO2 was 87%, patient was 90% before we could even get the nasal cannula on. Placed patient on 2 lpm nasal cannula for the rest of the testing. Initialized on 01/09/18 10:25 - END OF NOTE - Interpretation Interpretation: The patient ambulated 885 feet over the course of 6 minutes beginning on room air without assistive devices or breaks. Pretesting oxygen saturation was noted be 91% on room air. With ambulation, the patient desaturated to 87% at minute #2 of testing. 2 L/min of supplemental oxygen was applied and the patient was able to complete the remainder of the test, while maintaining oxygen saturations at or above 88%. This testing is indicative of a significant exertional oxygen desaturation and evidence of impaired walk distance. - Recommendations Recommendations: 2 L/min of supplemental oxygen should be utilized with exertion. 01/10/18734 <Electronically signed by Ankur Byrnes DO> Date Ankur Byrnes DO CC: Date Dictated: 01/10/18732 Date Transcribed: 01/10/18732 Mathematics Faculty Member: Ankur Byrnes DO Signed PULMONARY FUNCTION Observed: 01/04/2018 Status: F Source: [place] REPORT COMP 3:32 PM [facility] Pulmonary Services/Neurology [address] [place] [address] MR#: [id number] Acct: [id number] Name: SUSIE CALLEJAS Rep #: [id number] : 1955 62 From: Apollo Reyes MD Referring Dr: Ivanna Crooks NP Status: REG CLI Ordering Dr: Date: Location: [facility] Sex: M C COMPLETE PULMONARY FUNCTION TEST INTERPRETATION Brief HPI: Patient is a 62 year old male, currently under the care of myself, who presents to [facility] for complete pulmonary function tests secondary to diagnosis of chronic respiratory failure. Respiratory therapist reports good effort and reproducible results. Interpretation: Forced expiration spirometry shows a severe large airways obstructive ventilatory defect with an FEV1 of 37 % predicted. There is a significant bronchodilator response in FEV1 by ATS criteria. Spirograms are of good quality and plateau slowly, indicating slowly emptying areas of the lungs. The respiratory flow volume loop shows decreased expiratory flow rates at all lung volumes consistent with airway obstruction. Lung volumes by body plethysmography show a normal total lung capacity at 6.85 L, 111 % predicted. FRC and RV are elevated out of proportion. Lung volume measurements are consistent with air-trapping. Diffusion capacity by carbon monoxide is decreased at 62 % predicted. The airway resistance is elevated. No previous pulmonary function tests were available for review. Impression: Partially reversible severe large airways obstructive ventilatory defect with symmetric reduction diffusing capacity and resulting in air trapping. These findings are consistent with a diagnosis of advanced COPD. 01/04/18 1532 <Electronically signed by Apollo Reyes MD> Date Apollo Reyes MD CC: Apollo Reyes MD; Ivanna Sen MD Date Dictated: 01/04/18 1529 Date Transcribed: 01/04/18 1529 Mathematics Faculty Member: NAVEEN Signed PULMONARY VISIT REPORT Observed: 12/29/2017 Status: F Source: [place] 2:18 PM [facility] [place] [address] [place] [address] OFFICE VISIT Date of Service: 12/20/17 MR#: [id number] Acct: [id number] Name: SUSIE CALLEJAS Rep #: [id number] : 1955 Provider: Ivanna Crooks Age/Sex: 62/M Location[place] [facility] Status: Signed with Addenda ADDENDUM by Ivanna Crooks on 12/29/17 at 1418 Addendum entered and electronically signed by ROSIE Wilson 12/29/17 14:18: The patient's last sleep study was limited split night sleep study, June 24, 2010, and did not adequately demonstrate AHI or SPO2 control on prescribed CPAP pressure. Per available records, it does not appear that the patient ever completed full night titration study to adequately adjust BiPAP therapy to normalize obstructive sleep apnea and hypoxemia. This, combined with his current COPD with hypoxia and hypercapnia respiratory failure, suggest that his obstructive sleep apnea is not adequately controlled on currently prescribed continuous pressure support therapy. We will request an attended bilevel re-titration study to reduce his apnea hypotony index to acceptable levels, improve his hypoxemia and monitor to ensure adequate reduction in his hypercapnia as a result. 12/29/17 1418 <Electronically signed by Ivanna VELEZ> Date Ivanna Crooks cc: Angel Luis Sen MD * Signed Assessment AND Plan 1. Chronic obstructive pulmonary disease, unspecified COPD type J44.9 Plan Ms. Callejas reports that he has had pulmonary function test done in the past, he believes the last time was May 2017 at [facility] we will request these tests results. Given his continued smoking after testing, he would benefit from repeat pulmonary function test as well as a pulmonary stress test. The patient is agreeable to testing. The patient has been advised to utilize his Symbicort 2 puffs twice daily, instead of 1 puff twice daily. He does have a small amount of wheezing on exam, which may be cleared up with the additional Symbicort daily. The patient will then follow-up with Dr. Reyes after receiving testing to discuss results and to determine appropriate inhaler regime. The patient also shows signs of hypercarbic respiratory failure and would benefit from BiPAP therapy versus CPAP therapy. He is agreeable to a titration study and initiation of BiPAP therapy. Orders Orders: 2. DEAN (obstructive sleep apnea) G47.33 Status Chronic Plan He is compliant with current CPAP therapy, however he would benefit to a greater degree from BiPAP therapy. The patient is agreeable to titration study. Once the study is complete and therapy is recommended, and will be initiated prior to his follow-up with Dr. Reyes. At that time, he then can be evaluated for his response to BiPAP. Orders Orders: 3. Chronic respiratory failure with hypoxia and hypercapnia J96.11; J96.12 Status Chronic Plan Pulmonary stress test to determine how much oxygen as required during ambulation. Lengthy discussion about the delirious effects of hypoxia. The patient conveys understanding. He has been advised to utilize his supplemental oxygen anytime his oxygen saturation is below 89%. Follow-up with Dr. Reyes in 2 months, to discuss test results and continue to develop a plan. 4. Influenza A J10.1 Status Acute Plan No continued symptoms of influenza A. The patient did complete his Tamiflu as well as his prednisone burst. No further testing due at this time. Plan Detail Other Orders Orders: [facility] Hospital FU: Chief Complaint: flu follow up [facility] Comments Details: This is a 62 year old griselda m, currently under the care of Angel Luis Sen, here to follow up after a recent hospitalization at [facility], from December 05 - December 08, 2017 for chronic respiratory failure, exacerbation of COPD and influenza A. He is ambulatory, currently on room air and accompanied by his daughter. The hospital stay was complicated by temporary respiratory rate rescue with BiPAP therapy. 10 pages of hospital documentation was reviewed, and found to be significant for chest x-ray completed on December 05 showing increased lung markings at the lung bases, slightly worse on the left side. Nasal swab that was positive for influenza A. Arterial blood gas was obtained on December 15 and showed a bicarb level of 35.7 and a PCO2 of 81.3, confirming chronic hypercarbic respiratory failure. Upon discharge, the patient completed a 7 day course of Tamiflu and a 4 day course of prednisone. The patient has been successful at maintaining smoking cessation since hospital discharge. He is compliant with his current maintenance medication which consist of Symbicort 1 puff twice daily. The patient admits that the medication is very expensive, costing him approximately $300 per inhaler, so he is obtaining his inhalers secondhand from a friend who has extra. He is also using a Ventolin rescue inhaler, as well as an albuterol nebulizer 1-2 times daily. He was newly discharged home on oxygen, and has been using 2 L/min when I need it. He does have a portable pulse oximeter and checks his oxygen saturation randomly. He does admit that at times it does drop below 89%, he has been found to be as low as 87% on room air while sitting still. He is compliant with CPAP nightly. He states that he feels rested in the morning. He denies any difficulties with air leaks, dry mouth or snoring through the mask. He does not currently have a cough, denies any wheezing. Denies any chest tightness or chest discomfort. He does have persistent fatigue, but states that it is improving. He reports having shortness of breath on exertion. See complete review of systems. Intake Vital Signs12/20/17 Height 5 ft 8 in 12/20/17 Weight: 268 lb Intake Visit Reasons: Hospital FU [facility] Vendor: [employer] Accompanied by: Allergies No Known Allergies Allergy (Verified 12/20/17 09:13) Medications Budesonide/Formoterol 160/4.5 [Symbicort 160/4.5 Mcg Inhaler (SP)] 2 puff INHALATION BID 11/13/16 [History Confirmed 12/20/17] Glipizide 1 tab PO DAILY 11/13/16 [History Confirmed 12/20/17] Lisinopril 1 tab PO DAILY 11/13/16 [History Confirmed 12/20/17] Metformin HCl [Glucophage] 1,000 mg PO BIDCM 11/13/16 [History Confirmed 12/20/17] Pravastatin [Pravachol] 20 mg PO DAILY 11/13/16 [History Confirmed 12/20/17] Albuterol Inhaler [Ventolin Hfa] 1 - 2 puff INHALATION Q4H PRN PRN #1 inhaler 11/15/16 [Rx Confirmed 12/20/17] Aspirin 81 mg PO DAILY 12/05/17 [History Confirmed 12/20/17] Guaifenesin [Mucinex] 600 mg PO BID 12/05/17 [History Confirmed 12/20/17] Potassium Gluconate 99 mg PO QHS 12/05/17 [History Confirmed 12/20/17] PFSH Medical History Hyperlipidemia (Chronic) Hypertension (Chronic) Type 2 diabetes mellitus (Chronic) Chronic obstructive lung disease (Chronic) Chronic respiratory failure (Chronic) Influenza A (Acute) Acute bronchitis (Acute) COPD exacerbation (Acute) DEAN (obstructive sleep apnea) (Chronic) Family History Sister Cancer Social History Smoking Status: Former smoker quit date: 11/19/17 pack-years: 60 alcohol intake: current alcohol intake frequency: a few times a month Alcohol type: beer substance use type: does not use Review of Systems Const CONSTITUTIONAL: Negative anorexia, body ache, chills, daytime sleepiness, fever(s), night sweats, oral thrush, stops breathing during sleep, weight loss, sleeping in chair, fatigue, weight loss, weight gain, frequent colds, seasonal allergies, other, headache(s) or orthopnea EETM Ear Nose Throat Mouth: Positive hearing normal; negative hard of hearing, hoarseness, dry mouth in morning, change in vision, itchy eyes, eye pain, swallowing Difficulty, ear pain, nose bleed, headache(s), mouth pain, nasal congestion, nasal discharge, post nasal drip, sinus pain, sinus pressure, sore throat or other Cardio Cardiovascular: Negative chest pain, chest pain at rest, chest pain with activity, irregular heart rhythm, edema, shortness of breath when lying down, palpitations, murmur or other Resp Respiratory: Positive as per HPI, wheezing, snoring and apnea; negative shortness of breath, pain with cough, chest congestion, cough, chest tightness, pain on inspiration, inhalers, increase use of rescue inhalers or other Gastro Gastrointestional: Negative bloody stools, change in appetite, difficulty swallowing, reflux, hematemesis, melena stool, loose stool, constipation or other Genitourinary: Negative blood in urine, nocturia, pain with urination or other Musc Musculoskeletal: Negative body pain, back pain, neck pain or other Skin/Breast Skin/Breast: Negative dry skin, itching, rash, unusual bruising, breast lump or other Neuro Neurological: Negative restless legs, confusion, weakness or other Psych Psychocological: Negative abnormal sleep pattern, anxiety, thoughts of hurting self/others, hopelessness or other Lymph Lymphatic: Positive easy bleeding; negative easy bruising, swollen lymph nodes or other Exam Const Constitutional: Positive conversant, cooperative, in no acute respiratory distress, healthy appearing, well developed, well nourished, good hygiene and obese Head Head: Positive normocephalic and atraumatic; negative cyanosis of lips/distal nose Eyes Eye: Positive clear conjunctiva and nystagmus; negative scleral abnormality Ears Ear: Positive hearing normal and external ears normal; negative hard of hearing Nose Nose: Positive external nose normal and no nasal discharge; negative epistaxis Mouth Mouth: Positive oral mucosae normal, no lesions, poor dentition and crowded posterior oropharynx; negative post nasal drip, oral thrush present or malodorous breath Mallampati Score: III: Mallampati Score Neck Neck: Positive normal visual inspection, full ROM and trachea midline; negative lymphadenopathy, JVD or tender Chest Wall Chest: Positive normal inspection of the chest and symmetric chest movement; negative increased A/P diameter Resp lung sounds: Positive wheezes wheezing: Positive global (faint), diminished, wheeze present on forced exhalation and prolonged expiratory time; negative rhonchi, rales, dullness to percussion or use of accessory muscles Cardio Cardiac: Positive S2 normal, S1 normal, regular rhythm and regular rate; negative murmur GI GI: Positive normal to inspection, normal bowel sounds and obese; negative distended Genitourinary: Positive deferred Musc Musculoskeletal: Positive steady gait and ROM normal; negative kyphosis or scoliosis Skin Pulmonary Skin Exam: Positive intact; negative rash, lesion, ulcers, erythema, scaly or dermal atrophy Pulses Pulse: Yes pulses normal x4 extremities Extremities Extremities: Yes edema Location: lower extremity location: Bilateral leg swelling: pitting pitting: +1 Neuro Neurologic: Yes conversant, Yes no focal neuro deficits, Yes cooperative, Yes normal cognition, Yes normal coordination, Yes understands questions, Yes normal concentration Lymph Lymphatic: No lymphadenopathy, No tenderness, No cervical adenopathy, No axillary adenopathy Psych Appearance: Positive grossly normal, eye contact and well kempt Mental Status: Positive mental status grossly normal Mood: Positive congruent mood Affect: Positive normal affect Coding Level of Care Code Off vis,est,level 4 Diagnoses Chronic obstructive pulmonary disease, unspecified COPD type J44.9 COPD type: unspecified COPD DEAN (obstructive sleep apnea) G47.33 Chronic respiratory failure with hypoxia and hypercapnia J96.11; J96.12 Respiratory failure complication: hypoxia and hypercapnia Influenza A J10.1 12/20/17 1332 <Electronically signed by Ivanna VELEZ> Date Ivanna VELEZ Cosigner Signature: Date (if applicable) CC: Angel Luis Sen MD ALLERGIES ALLERGIES DATE TYPE / CODE NAME / CODE REACTION SEVERITY SOURCE 09/04/2018 Drug No Known Unknown [facility] Allergy/4160 Allergies/F00 Hospital 29009(SNOMED [id number](RXNOR Repository CT) M) ENCOUNTERS ENCOUNTERS ADMIT/DISCHARGE ACCOUNT ADMITTING ENCOUNTER LOCATION SOURCE NUMBER CLASS 12/19/2018 [id number] Ambulatory [place] 5 [facility] ing:PSN Repository 12/14/2018 [id number] Ambulatory [place] 4 [facility] ing:PSN Repository 12/14/2018 [id number] Ambulatory BMSBuilding:W [place] 2 [facility] Repository 10/12/2018/ [id number] Ambulatory BMSBuilding:B [place] 8 7 [place] Repository 10/05/2018 [id number] Ambulatory [place] 6 [facility] ing:MFPLAB Repository 09/04/2018 [id number] Ambulatory BMSBuilding:B [place] [facility] [place] Repository 03/23/2018 [id number] Ambulatory [place] 1 [facility] ing:SL Repository 03/09/2018/ [id number] Ambulatory BMSBuilding:B [place] 8 1 [place] Repository 01/12/2018/ [id number] Ambulatory BMSBuilding:B [place] 8 5 [place] Repository 01/10/2018 [id number] Ambulatory BMSBuilding:W [place] 1 [facility] Repository 01/09/2018 [id number] Ambulatory [place] 9 [facility] ing:PSN Repository 01/04/2018 [id number] Ambulatory BMSBuilding:W [place] 7 [facility] Repository 01/03/2018 [id number] Ambulatory [place] 8 [facility] ing:PSN Repository 01/02/2018 [id number] Ambulatory [place] 2 [facility] ing:SL Repository 12/20/2017/ [id number] Ambulatory BMSBuilding:B [place] 8 0 [place].[facility] Repository PAYERS PAYERS ENCOUNTER GUARANTOR PAYER SUBSCRIBER SOURCE 12/19/2018 SUSIE Boss Primary SUSIE Crouch [id number] Insurance:MEDICARE ROGERSDOB: [place] [id number] PART A [facility] [id number] [address] [place] [address] Number: Repository [id number]: 330 [id number] [phone] () Date:2018-10-12 12/19/2018 Secondary NOT GIVENUNK [place] Insurance:SELF PAY [facility] Number: Effective Repository Date:2018-10-12 12/14/2018 SUSIE Boss Primary SUSIE Cr[place] [id number] Insurance:MEDICARE ROGERSDOB: [place] [id number] PART A [facility] [id number] [address] [place] [address] Number: Repository [id number]: 330 [id number] [phone] () Date:2018-10-12 12/14/2018 Secondary NOT GIVENUNK [place] Insurance:SELF PAY [facility] Number: Effective Repository Date:2018-10-12 12/14/2018 SUSIE Boss Primary SUSIE Crouch [id number] Insurance:MEDICARE ROGERSDOB: [place] [id number] PART A [facility] [id number] [facility] [address] [place] [address] Number: Repository [id number]: 330 [id number] [phone] () Date:2018-10-12 12/14/2018 Secondary NOT GIVENUNK [place] Insurance:SELF [facility] Effective Repository Date:2018-12-14 10/12/2018 SUSIE Boss Primary SUSIE Crouch [id number] Insurance:MEDICARE ROGERSDOB: [facility] 5 PART A [facility] [id number] Hospital [address] [place] [address] [place] Number: Repository [id number]: 330 [id number] [phone] () Date:2018-09-12 10/12/2018 Secondary NOT GIVENUNK [place] Insurance:SELF PAY [facility] Number: Effective Repository Date:2018-10-05 10/05/2018 SUSIE Boss Primary SUSIE [place] [id number] Insurance:MEDICARE ROGERSDOB: [facility] 5 PART A [facility] [id number] Hospital [address] [place] [address] [place] Number: Repository [id number]: 330 [id number] [phone] () Date:2018-10-05 10/05/2018 Secondary NOT GIVENUNK [place] Insurance:SELF PAY [facility] Number: Effective Repository Date:2018-10-05 09/04/2018 SUSIE Boss Primary SUSIE Crouch [id number] Insurance:MEDICARE ROGERSDOB: [facility] 5 PART A [facility] [id number] Hospital [address] [place] [address], [place] Number: Repository [id number]: 330 [id number] [phone] () Date:2018-03-09 09/04/2018 Secondary NOT GIVENUNK [place] Insurance:SELF PAY [facility] Number: Effective Repository Date:2018-08-28 03/23/2018 SUSIE S Primary SUSIE Crouch [id number] Insurance:MEDICARE ROGERSDOB: [facility] 5 PART A [facility] [id number] Hospital [address] [place] [address], [place] Number: Repository [id number]: 330 [id number] [phone] () Date:2018-03-09 03/23/2018 Secondary NOT GIVENUNK [place] Insurance:SELF PAY [facility] Number: Effective Repository Date:2018-03-09 03/09/2018 SUSIE Primary SUSIE Crouch [id number] Insurance:MEDICARE ROGERSDOB: [facility] 5 PART A [facility] [id number] Number: Repository [id number]: 330 [id number] [phone] () Date:2017-12-20 03/09/2018 Secondary NOT GIVENUNK [place] Insurance:SELF PAY [facility] Number: Effective Repository Date:2018-03-06 01/12/2018 SUSIE Primary SUSIE Crouch [id number] Insurance:MEDICARE ROGERSDOB: [facility] 5 PART A [facility] [id number] Number: Repository [id number]: 330 [id number] () Date:2018-01-10 01/12/2018 Secondary NOT GIVENUNK [place] Insurance:SELF PAY [facility] Number: Effective Repository Date:2018-01-10 01/10/2018 SUSIE Primary SUSIE [id number] Insurance:MEDICARE ROGERSDOB: [place] [id number] PART A [facility] [id number] Number: Repository [id number]: 330 [id number] [phone] () Date:2018-01-27 01/10/2018 Secondary NOT GIVENUNK [place] Insurance:SELF PAY [facility] Number: Effective Repository Date:2018-01-10 01/09/2018 SUSIE Primary SUSIE Crouch [id number] Insurance:MEDICARE ROGERSDOB: [facility] 5 PART A [facility] [id number] Number: Repository [id number]: 330 [id number] [phone] () Date:2017-12-20 01/09/2018 Secondary NOT GIVENUNK [place] Insurance:SELF PAY [facility] Number: Effective Repository Date:2017-12-20 01/04/2018 SUSIE Primary SUSIE Crouch [id number] Insurance:MEDICARE ROGERSDOB: [facility] 5 PART A [facility] [id number] [address] [place] [address] [place] Number: Repository [id number]: 330 [id number] [phone] () Date:2017-12-20 01/04/2018 Secondary NOT GIVENUNK [place] Insurance:SELF [facility] Effective Repository Date:2018-01-04 01/03/2018 SUSIE Primary SUSIE [id number] Insurance:MEDICARE ROGERSDOB: [facility] 5 PART A [facility] [id number] Hospital [address] [place] [address] [place] Number: Repository [id number]: 330 [id number] [phone] () Date:2017-12-20 01/03/2018 Secondary NOT GIVENUNK [place] Insurance:SELF PAY [facility] Number: Effective Repository Date:2017-12-20 01/02/2018 SUSIE Primary SUSIE Crouch [id number] Insurance:MEDICARE ROGERSDOB: [facility] 5 PART A [facility] [id number], [place] Number: Repository [id number]: 330 [id number] [phone] () Date:2017-12-20 01/02/2018 Secondary NOT GIVENUNK [place] Insurance:SELF PAY [facility] Number: Effective Repository Date:2017-12-20 12/20/2017 SUSIE Primary SUSIE Crouch [id number] Insurance:MEDICARE ROGERSDOB: [facility] 5 PART A [facility] [id number] [facility] [address] [place] [address], [place] Number: Repository [id number]: 330 [id number] [phone] () Date:2017-12-09 12/20/2017 Secondary NOT GIVENUNK [place] Insurance:SELF PAY [facility] Number: Effective Repository Date:2017-12-09
== END ==
PROVIDERS: Family Provider Family Medicine; PCP Family Medicine; Referring Provider Nurse Practitioner Acute Care; Visit Provider Nurse Practitioner Acute Care
DX: J44.9 Chronic obstructive pulmonary disease, unspecified (principal)
CPT/HCPCS: 94060; 94726; 94729

== ENCOUNTER → 2018-12-19 10:49 | Outpatient (CLI) | payer MEDICARE, SELFPAY ==
[2018-10-12 09:41] VITALS: BMI 43.3
[2018-12-19 11:22] VITALS: PULSE 73; PULSE 84; PULSE 87; PULSE 88; PULSE 93; PULSE 94; PULSE 97; O2SAT 86; O2SAT 88; O2SAT 90; O2SAT 92; O2SAT 93
--- NOTE | 2018-12-19 11:24 | CPS ---
Patient arrived at diagnostic center not on any O2. Patient states he is suppose to wear 2L continuous but does not like to carry to the tanks. Patient was 92% on RA. Patient did drop to 86% on RA at the 2 min mario. 2L added at that time. Patient finished test on 2L but at the 6 min mario was 88%. RT asked patient if he would like to be walked down to main entrance on O2. Patient declined.
--- NOTE | 2018-12-20 11:27 | PCM.PSN.6M ---
PSN 6 Minute Walk Test - 6 Minute Walk Test 6 Minute Walk Test: 6 Minute Walk Test PSN:6-Minute Walk Test Start: 12/19/18 11:21 Freq: Status: Active Protocol: RESP.6MINW Document 12/19/18 11:22 GOLDEN (Rec: 12/19/18 11:27 JLA [id number]) 6 Minute Walk Test Date Performed 12/19/18 Time Performed 11:00 Height 5 ft 8 in Weight: 127.006 kg Weight in Pounds 280.[address]: Ivanna Crooks Assistive device used: None Pre-test Oxygen Delivery Method Room Air Pulse Ox (%) 92 Pulse Rate (60-100 beats/min) 87 Dyspnea Bryant Scale (0-10) 0 Exertion Bryant Scale (6-20) 6 1st minute Oxygen Delivery Method Room Air Pulse Ox (%) 90 Pulse Rate (60-100 beats/min) 88 2nd minute Oxygen Delivery Method Room Air Pulse Ox (%) 86 Pulse Rate (60-100 beats/min) 93 Dyspnea Bryant Scale (0-10) 1 Exertion Bryant Scale (6-20) 12 3rd minute Oxygen Flow Rate (L/min) (L/min) 2 Oxygen Delivery Method Nasal Cannula Pulse Ox (%) 92 Pulse Rate (60-100 beats/min) 84 4th minute Oxygen Flow Rate (L/min) (L/min) 2 Oxygen Delivery Method Nasal Cannula Pulse Ox (%) 90 Pulse Rate (60-100 beats/min) 97 5th minute Oxygen Flow Rate (L/min) (L/min) 2 Oxygen Delivery Method Nasal Cannula Pulse Ox (%) 92 Pulse Rate (60-100 beats/min) 97 6th minute Oxygen Flow Rate (L/min) (L/min) 2 Oxygen Delivery Method Nasal Cannula Pulse Ox (%) 88 Pulse Rate (60-100 beats/min) 94 Dyspnea Bryant Scale (0-10) 1 Exertion Bryant Scale (6-20) 12 Post-test Oxygen Flow Rate (L/min) (L/min) 2 Oxygen Delivery Method Nasal Cannula Pulse Ox (%) 93 Pulse Rate (60-100 beats/min) 73 Full Laps Walked 18 Partial Lap, Number of Tiles Walked 4 Total Distance Walked (ft) 1066 12/19/18 11:24 Cardiopulmonary Services by Elena Shell Patient arrived at diagnostic center not on any O2. Patient states he is suppose to wear 2L continuous but does not like to carry to the tanks. Patient was 92% on RA. Patient did drop to 86% on RA at the 2 min mario. 2L added at that time. Patient finished test on 2L but at the 6 min mario was 88%. RT asked patient if he would like to be walked down to main entrance on O2. Patient declined. Initialized on 12/19/18 11:24 - END OF NOTE - Interpretation Interpretation: The patient was noted to be 92% on room air at rest. The patient did desaturate to 86% in the second minute with ambulation. 2 L/min was added with improvement in saturations. The patient was then able to finish 6 minutes of ambulation, but did desaturate to 88% of the 6-minute. In total, the patient traveled 1066 feet over the course of 6 minutes. These findings are consistent with a respiratory limitation exercise tolerance. - Recommendations Recommendations: The patient requires no supplemental oxygen at rest, but should be using 3 L nasal cannula oxygen with any exertion.
--- OUTSIDE RECORDS SUMMARY | 2019-02-20 13:44 | XMS RPT_ITS ---
:1955 Author Organization OHIP Support Name Relationship Address Phone D Unavailable Unavailable Unavailable SCHARTIGER, DONNA Unavailable [address] + [place] [address] D Unavailable Unavailable Unavailable SCHARTIGER, DONNA Unavailable [address] + [place] [address] D Unavailable Unavailable Unavailable SCHARTIGER, DONNA Unavailable [address] + [place] [address] D Unavailable Unavailable Unavailable SCHARTIGER, DONNA Unavailable [address] + [place] [address] D Unavailable Unavailable Unavailable SCHARTIGER, DONNA Unavailable [address] + [place] [address] D Unavailable Unavailable Unavailable SCHARTIGER, DONNA Unavailable [address] + [place] [address] D Unavailable Unavailable Unavailable SCHARTIGER, DONNA Unavailable [address] + [place] [address] D Unavailable Unavailable Unavailable SCHARTIGER, DONNA Unavailable [address] + [place] [address] D Unavailable Unavailable Unavailable SCHARTIGER, DONNA Unavailable [address] + [place] [address] D Unavailable Unavailable Unavailable SCHARTIGER, DONNA Unavailable [address] + [place] [address] D Unavailable Unavailable Unavailable SCHARTIGER, DONNA Unavailable [address] + [place] [address] D Unavailable Unavailable Unavailable SCHARTIGER, DONNA Unavailable [address] + [place] [address] D Unavailable Unavailable Unavailable SCHARTIGER, DONNA Unavailable [address] + [place] [address] D Unavailable Unavailable Unavailable DONNA WILLIS Unavailable [address] + [place] [address] D Unavailable Unavailable Unavailable D Unavailable Unavailable Unavailable JACK WILLISRY Unavailable [address] + [place] [address] Care Team Providers Name Role Phone Ivanna Crooks Attending Unavailable Crooks, Ivanna Referring Unavailable Sen, Angel Luis Primary Care Unavailable Crooks, Ivanna Attending Unavailable Crooks, Ivanna Referring Unavailable Sen, Angel Luis Primary Care Unavailable Ankur Byrnes D.O. Attending Unavailable Crooks, Ivanna Referring Unavailable Crooks, Ivanna Attending Unavailable Vishal Beavers Referring Unavailable Sen, Angel Luis Primary Care Unavailable Crooks, Ivanna Attending Unavailable Sen, Angel Luis Referring Unavailable Sen, Angel Luis Attending Unavailable Sen, Angel Luis Primary Care Unavailable Crooks, Ivanna Attending Unavailable Sen, Angel Luis Referring Unavailable Eric, Apollo Attending Unavailable Sen, Angel Luis Primary Care Unavailable Eric, Apollo Attending Unavailable Sen, Angel Luis Referring Unavailable Eric, Apollo Attending Unavailable Crooks, Ivanna Referring Unavailable Crooks, Ivanna Attending Unavailable Sen, Angel Luis Referring Unavailable Crooks, Ivanna Attending Unavailable Crooks, Ivanna Referring Unavailable Sen, Angel Luis Primary Care Unavailable Crooks, Ivanna Attending Unavailable Crooks, Ivanna Referring Unavailable Sen, Angel Luis Primary Care Unavailable Crooks, Ivanna Attending Unavailable Crooks, Ivanna Referring Unavailable Sen, Angel Luis Primary Care Unavailable Ankur Byrnes D.O. Attending Unavailable Valeriy, Ivanna Referring Unavailable PROBLEMS PROBLEMS DATE TYPE CONDITION / CODE ATTENDING STATUS SOURCE 12/22/2018 Unknown J44.9 - Chronic Ankur Byrnes Active [place] obstructive D.O. Community pulmonary disease, Hospital unspecified / Repository J44.9(ICD-10) 03/09/2018 Unknown G47.33 - Obstructive Apollo Reyes Active [place] sleep apnea (adult) Community (pediatric) / Hospital G47.33(ICD-10) Repository 01/09/2018 Unknown J96.10 - Chronic Valeriy, Active [place] respiratory failure, [facility] unspecified whether Hospital with hypoxia or Repository hypercapnia / J96.10(ICD-10) 12/20/2017 Unknown J96.11 - Chronic Valeriy, Active [place] respiratory failure [facility] with hypoxia / Hospital J96.11(ICD-10) Repository 12/20/2017 Unknown J96.12 - Chronic Valeriy, Active [place] respiratory failure [facility] with hypercapnia / Hospital J96.12(ICD-10) Repository 12/20/2017 Unknown J10.1 - Influenza Crooks, Active [place] due to other [facility] identified influenza Hospital virus with other Repository respiratory manifestations / J10.1(ICD-10) PROCEDURES PROCEDURES No Procedure Records FoundRESULTS RESULTS 6 MINUTE WALK TEST Observed: 12/20/2018 Status: F Source: [place] 2:33 PM [facility] HOSPITAL REPOSITORY [facility] Pulmonary Services/Neurology [address] [place] [address] MR#: [id number] Acct: [id number] Name: SUSIE CALLEJAS Rep #: [id number] : 1955 63 From: Apollo Reyes MD Referring Dr: Ivanna Crooks AMERICAN HISTORY TEACHER Date: Ordering Dr: Rolanda: Bridger Chaves Location: PSN PSN 6 Minute Walk Test - 6 Minute Walk Test 6 Minute Walk Test: 6 Minute Walk Test PSN:6-Minute Walk Test Start: 12/19/18 11:21 Freq: Status: Active Protocol: RESP.6MINW Document 12/19/18 11:22 JLA (Rec: 12/19/18 11:27 JLA [id number]) 6 Minute Walk Test Date Performed 12/19/18 [...] Date Dictated: 12/20/18 1127 Date Transcribed: 12/20/181126 Supervisor Remelt: Apollo Reyes MD Signed PULMONARY FUNCTION Observed: 12/14/2018 Status: F Source: [place] TEST 1:[address] [facility] REPOSITORY [facility] Pulmonary Services/Neurology [address] [place] [address] MR#: [id number] Acct: [id number] Name: SUSIE CALLEJAS Rep #: [id number] : 1955 63 From: Ankur Byrnes DO Referring Dr: Ivanna Crooks AMERICAN HISTORY TEACHER Status: REG CLI Ordering Dr: Date: Location: [facility] Sex: M C INTRODUCTION: The patient is [...] Dictated: 12/14/18 1340 Date Transcribed: 12/14/18 134 Supervisor Remelt: PANCHO Signed PROGRESS Observed: 12/13/2018 Status: COMPLETED Source: [place] 10:19 AM [facility] REPOSITORY HNO ID: [id number] Author: Yajaira Stanton) Majo Service: (none) Author Type: Project Drilling Engineer Type: Progress Notes Filed: 12/14/2018 12:40 PM Note Text: I have attempted to contact this patient by phone to return their call, schedule an appointment, discuss lab results, etc. Left message to call back. Yajaira Kasper MA PROGRESS Observed: 12/11/2018 Status: COMPLETED Source: [place] 9:23 AM [facility] REPOSITORY HNO ID: [id number] Author: Yajaira Kasper Service: (none) Author Type: Project Drilling Engineer Type: Progress Notes Filed: 12/14/2018 12:40 PM Note Text: I have attempted to contact this patient by phone to return their call, schedule an appointment, discuss lab results, etc. Left message to call back. Yajaira Kasper MA PROGRESS Observed: 12/06/2018 Status: COMPLETED Source: [place] 1:44 PM [facility] REPOSITORY HNO ID: [id number] Author: Jonah Beavers Service: (none) Author Type: Physician Type: Progress Notes Filed: 12/14/2018 12:40 PM Note Text: Patient Outreach on 12/06/18 -HGB A1C -ALBUMIN/CREAT RATIO RND UR -LIPID PANEL BASIC -COMP METABOLIC PANEL -CBC + DIFF Jonah Beavers MD PROGRESS Observed: 12/06/2018 Status: COMPLETED Source: [place] 1:03 PM [facility] REPOSITORY HNO ID: [id number] Author: Yajaira Kasper Service: (none) Author Type: Project Drilling Engineer Type: Progress Notes Filed: 12/14/2018 12:40 PM [...] MA CNPTOUTREACH Observed: 12/06/2018 Status: COMPLETED Source: [place] 12:00 AM [facility] REPOSITORY Patient Outreach (FAMPWS) SUSIE CALLEJAS ([id number]) 1955 M Date Time Provider Department 12/06/18 YAJAIRA KASPER (EBEN) FAMPWS During your visit today, we recorded the following information about you: Yajaira Kasper MA 12/14/2018 12:40 PM Signed [facility] REGISTRY DOCUMENTATION (OUTSIDE TEAMLET) Provider [...] Allergies) Date Reviewed: 05/20/2017 Reviewed by: [facility] EBEN Fox - Fully Assessed Reason for Visit: PHMI/Care Gap Outreach [3605] Primary Visit Diagnosis:Essential hypertension, benign [I10] Other Visit Diagnoses:Well controlled type 2 diabetes mellitus (HCC) [E11.9] Hyperlipidemia with target LDL less than 70 [E78.5] Thrombocytopenia, unspecified (HCC) [D69.6] Order(s):HGB A1C [UIUJW0X] Order #: [id number] FUTURE ALBUMIN/CREAT RATIO RND UR [SQUACR] Order #: [id number] FUTURE LIPID PANEL BASIC [SQLIPB] Order #: [id number] FUTURE COMP METABOLIC PANEL [SQCMP] Order #: [id number] FUTURE CBC + DIFF [SQCBCDIF] Order #: [id number] FUTURE Prescriptions as of 12/06/2018 Sig: LISINOPRIL [...] Use 4 L/min in the nose daily* AMDL ULTRA TEST STRIPS Check daily as directed. [...] VISIT REPORT Observed: 10/13/2018 Status: F Source: [place] 10:[address] [facility] REPOSITORY Pulmonary Medicine of [address] [place] [address] OFFICE VISIT Date of Service: 10/12/18 MR#: [id number] Acct: [id number] Name: SUSIE CALLEJAS Rep #: [id number] : 1955 Provider: Ivanna Crooks Age/Sex: 63/M Location: [facility].PMW Status: Signed Assessment AND Plan 1. Stage [...] lb Intake Visit Reasons: 6 M FU [facility] Vendor: [facility] Accompanied by: Self Allergies No Known Allergies [...] QDAY #1 ea 10/12/18 [Rx Confirmed 10/12/18] [facility] Medical History Hyperlipidemia (Chronic) Hypertension (Chronic) Type [...] F Source: [place] PROFILE (BMP) 9:[address] [facility] REPOSITORY TYPE CODE TESTS RESULT OUT OF [...] Performed By: #### L500.2500, L500.3400, L500.4100 #### [facility] [address] [facility] [place], [place], [address] LIVER PROFILE Collected: 10/05/2018 Status: F Source: [place] 9:02 [facility] REPOSITORY TYPE CODE TESTS RESULT OUT OF [...] Performed By: #### L500.2500, L500.3400, L500.4100 #### [facility] [address] [facility] [place], [address] LIPID PROFILE Collected: 10/05/2018 Status: F Source: [place] 9:02 [facility] REPOSITORY TYPE CODE TESTS RESULT OUT OF [...] Performed By: #### L500.2500, L500.3400, L500.4100 #### [facility] [address] [place], [place], [address] PULMONARY VISIT REPORT Observed: 03/09/2018 Status: F Source: [place] 9:[address] [facility] REPOSITORY [facility] [place] [address] [place], [place] [address] OFFICE VISIT Date of Service: 03/09/18 MR#: [id number] Acct: [id number] Name: SUSIE CALLEJAS Rep #: [id number] : 1955 Provider: Apollo Reyes MD Age/Sex: 62/M Location: [facility].W Status: Signed Assessment AND Plan 1. Stage [...] Repeat PFT/walking oximetry November 2018 Medications Discontinued: gbaascmhmbl-slhysprvk-ooygmwuh 100-62.5-25 mcg (Trelegy Ellipta) 1 inh Inhalation [...] no longer taking Follow Up 6 Months ([facility]) HPI 2 M FU: Chief Complaint: [...] kg Intake Visit Reasons: 2 M FU [facility] Vendor: [employer] Allergies No Known Allergies Allergy (Verified 01/12/18 [...] VISIT REPORT Observed: 01/13/2018 Status: F Source: [place] 9:[address] [facility] REPOSITORY [facility] [place] [address] [place] [address] OFFICE VISIT Date of Service: 01/12/18 MR#: [id number] Acct: [id number] Name: SUSIE CALLEJAS Rep #: [id number] : 1955 Provider: Ivanna Crooks Age/Sex: 62/M [facility] Status: Signed Assessment AND Plan 1. Stage [...] times daily. He has not added any konp-prz-hrzozow medications. Intake Vital Signs01/12/18 Height 5 ft 8 in 01/12/18 Weight: 265 lb Intake Visit Reasons: Test results DME Vendor: [employer] Accompanied by: Daughter Allergies No Known Allergies [...] mg PO QHS 12/05/17 [History Confirmed 01/12/18] [facility] Medical History Hyperlipidemia (Chronic) Hypertension (Chronic) Type [...] WALK TEST Observed: 01/10/2018 Status: F Source: [place] 7:[address] [facility] REPOSITORY [facility] Pulmonary Services/Neurology [address] [place] [address] MR#: [id number] Acct: [id number] Name: SUSIE CALLEJAS Rep #: [id number] : 1955 62 From: Ankur Byrnes DO Referring Dr: Ivanna Crooks AMERICAN HISTORY TEACHER Date: Ordering Dr: Sex: M C Location: PSN PSN 6 Minute Walk Test - 6 Minute Walk Test 6 Minute Walk Test: 6 Minute Walk Test PSN:6-Minute Walk Test Start: 01/09/18 10:22 Freq: Status: Active Protocol: RESP.6MINW Document 01/09/18 10:22 SF[place]ON (Rec: 01/09/18 10:30 SFENTON [id number]) 6 Minute Walk Test Date Performed 01/09/18 [...] states that he gets his equipment through [facility]. Patient started this test on room [...] CC: Date Dictated: 01/10/18732 Date Transcribed: 01/10/18732 Supervisor Remelt: Ankur Byrnes DO Signed PULMONARY FUNCTION Observed: 01/04/2018 Status: F Source: [place] REPORT COMP 3:[address] [facility] REPOSITORY [facility] Pulmonary Services/Neurology [address] [place] [address] MR#: [id number] Acct: [id number] Name: SUSIE CALLEJAS Rep #: [id number] : 1955 62 From: Apollo Reyes MD Referring Dr: Ivanna Crooks NP Status: REG CLI Ordering Dr: Date: Location: [facility] Sex: M C COMPLETE PULMONARY FUNCTION TEST INTERPRETATION Brief HPI: Patient is a 62 year old male, currently under the care of myself, who presents to [facility] for complete pulmonary function tests secondary to [...] Dictated: 01/04/18 1529 Date Transcribed: 01/04/18 1529 Supervisor Remelt: NAVEEN Signed PULMONARY VISIT REPORT Observed: 12/29/2017 Status: F Source: [place] 2:[address] [facility] REPOSITORY [facility] [place] [address] [place] [address] OFFICE VISIT Date of Service: 12/20/17 MR#: [id number] Acct: [id number] Name: SUSIE CALLEJAS Rep #: [id number] : 1955 Provider: Ivanna Coroks Age/Sex: 62/M Location: [facility].PMW Status: Signed with Addenda ADDENDUM by Ivanna [...] last time was May 2017 at the [facility] we will request these tests results. Given [...] this time. Plan Detail Other Orders Orders: [facility] Hospital FU: Chief Complaint: flu follow up [facility] Comments Details: This is a 62 year old griselda m, currently under the care of Angel Luis Sen, here to follow up after a recent hospitalization at [facility], from December 05 - December 08, 2017 [...] 268 lb Intake Visit Reasons: Hospital FU [facility] Vendor: [employer] Accompanied by: Allergies No Known Allergies Allergy [...] SEVERITY SOURCE 09/04/2018 Drug No Known Unknown [place] [facility] Allergy/4160 Allergies/F00 Hospital 55230(SNOMED 3506834(RXNOR Repository CT) M) ENCOUNTERS ENCOUNTERS ADMIT/DISCHARGE ACCOUNT ADMITTING ENCOUNTER LOCATION SOURCE NUMBER CLASS 12/19/2018 [id number] Ambulatory [place] 5 [facility] ing:PSN Repository 12/14/2018 [id number] [place]ulatory [place] 4 [facility] ing:PSN Repository 12/14/2018 [id number] Ambulatory BMSBuilding:W [place] 2 [facility] Repository 10/12/2018/ [id number] Ambulatory BMSBuilding:B [place] 8 7 [facility] Repository 10/05/2018 [id number] Ambulatory [place] 6 [facility] ing:MFPLAB Repository 09/04/2018 [id number] Ambulatory BMSBuilding:B [place] 3 [facility] Repository 03/23/2018 [id number] [place] 1 [facility] ing:SL Repository 03/09/2018/ [id number] Ambulatory BMSBuilding:B [place] 8 1 [facility] Repository 01/12/2018/ [id number] Ambulatory BMSBuilding:B [place] 8 5 [facility] Repository 01/10/2018 [id number] Ambulatory BMSBuilding:W [place] 1 [facility] Repository 01/09/2018 [id number] Ambulatory [place] 9 [facility] ing:PSN Repository 01/04/2018 [id number] Ambulatory BMSBuilding:W [place] 7 [facility] Repository 01/03/2018 [id number] [place] 8 [facility] ing:PSN Repository 01/02/2018 [id number] Ambulatory [place] 2 [facility] ing:SL Repository 12/20/2017/ [id number] Ambulatory BMSBuilding:B [place] 8 0 [place].PMW [facility] Repository PAYERS PAYERS ENCOUNTER GUARANTOR PAYER SUBSCRIBER SOURCE 12/19/2018 SUSIE Boss Primary SUSIE Crouch [id number] Insurance:MEDICARE ROGERSDOB: [place] [address] PART A [facility] [id number] Hospital [address] [place] [address] Number: Repository [id number]: 330 [id number] [phone] () Date:2018-10-12 12/19/2018 Secondary NOT GIVENUNK [place] Insurance:SELF PAY [facility] Number: Effective Repository Date:2018-10-12 12/14/2018 SUSIE Boss Primary SUSIE Crouch [id number] Insurance:MEDICARE ROGERSDOB: [place] [address] PART A [facility] [id number] Hospital [address] [place] [address] Number: Repository [id number]: 330 [id number] [phone] () Date:2018-10-12 12/14/2018 Secondary NOT GIVENUNK [place] Insurance:SELF PAY [facility] Number: Effective Repository Date:2018-10-12 12/14/2018 SUSIE Boss Primary SUSIE Crouch [id number] Insurance:MEDICARE ROGERSDOB: [place] [address] PART A [facility] [id number] Hospital [address] [place] [address] Number: Repository [id number]: 330 [id number] [phone] () Date:2018-10-12 12/14/2018 Secondary NOT GIVENUNK [place] Insurance:SELF PAY [facility] Number: Effective Repository Date:2018-12-14 10/12/2018 SUSIE Boss Primary SUSIE Crouch [id number] Insurance:MEDICARE ROGERSDOB: [facility] PART A [facility] [id number] Hospital [address] [place] [address] [place] Number: Repository 20[address]Otr: 330 [id number] [phone] () Date:2018-09-12 10/12/2018 Secondary NOT GIVENUNK [place] Insurance:SELF PAY [facility] Number: Effective Repository Date:2018-10-05 10/05/2018 SUSIE Boss Primary SUSIE Crouch [id number] Insurance:MEDICARE ROGERSDOB: [facility] 5 PART A [facility] [id number] Hospital [address] [place] [address] [place] Number: Repository 640[address]Vme: 330 [id number] [phone] () Date:2018-10-05 10/05/2018 Secondary NOT GIVENUNK [place] Insurance:SELF PAY [facility] Number: Effective Repository Date:2018-10-05 09/04/2018 SUSIE Boss Primary SUSIE Crouch [id number] Insurance:MEDICARE ROGERSDOB: [facility] 5 PART A [facility] [id number] Hospital [address] [place] [address], [place] Number: Repository [id number]: 330 [id number] [phone] () Date:2018-03-09 09/04/2018 Secondary NOT GIVENUNK [place] Insurance:SELF PAY [facility] Number: Effective Repository Date:2018-08-28 03/23/2018 SUSIE S Primary SUSIE Crouch [id number] Insurance:MEDICARE ROGERSDOB: [facility] 5 PART A [facility] [id number] Hospital [address] [place] [address], [place]: Repository [id number]: 330 [id number] [phone] () Date:2018-03-09 03/23/2018 Secondary NOT GIVENUNK [place] Insurance:SELF PAY [facility] Number: Effective Repository Date:2018-03-09 03/09/2018 SUSIE Primary SUSIE Crouch [id number] Insurance:MEDICARE ROGERSDOB: [facility] 5 PART A [facility] [id number] Number: Repository [id number]: 330 [id number] [phone] () Date:2017-12-20 03/09/2018 Secondary NOT GIVENUNK [place] Insurance:SELF PAY [facility] Number: Effective Repository Date:2018-03-06 01/12/2018 SUSIE Primary SUSIE Crouch [id number] Insurance:MEDICARE ROGERSDOB: [facility] 5 PART A [facility] [id number] Number: Repository [id number]: 330 [id number] [phone] () Date:2018-01-10 01/12/2018 Secondary NOT GIVENUNK [place] Insurance:SELF PAY [facility] Number: Effective Repository Date:2018-01-10 01/10/2018 SUSIE Primary SUSIE [id number] Insurance:MEDICARE ROGERSDOB: [place] [address] PART A [facility] [id number] Number: Repository 35[address]Ffr: 330 [id number] [phone] () Date:2018-01-27 01/10/2018 Secondary NOT GIVENUNK [place] Insurance:SELF PAY [facility] Number: Effective Repository Date:2018-01-10 01/09/2018 SUSIE Primary SUSIE Crouch [id number] Insurance:MEDICARE ROGERSDOB: [facility] 5 PART A [facility] [id number] Number: Repository [address]Tfz: 330 [id number] [phone] () Date:2017-12-20 01/09/2018 Secondary NOT GIVENUNK [place] Insurance:SELF PAY [facility] Number: Effective Repository Date:2017-12-20 01/04/2018 SUSIE Primary SUSIE Crouch [id number] Insurance:MEDICARE ROGERSDOB: [facility] 5 PART A [facility] [id number] Hospital [address] [place] [address] [place] Number: Repository [id number]: 330 [id number] [phone] () Date:2017-12-20 01/04/2018 Secondary NOT GIVENUNK [place] Insurance:SELF PAY [facility] Number: Effective Repository Date:2018-01-04 01/03/2018 SUSIE Primary SUSIE [id number] Insurance:MEDICARE ROGERSDOB: [facility] PART A [facility] [id number] Hospital [address] [place] [address] [place] Number: Repository [id number]: 330 [id number] [phone] () Date:2017-12-20 01/03/2018 Secondary NOT GIVENUNK [place] Insurance:SELF PAY [facility] Number: Effective Repository Date:2017-12-20 01/02/2018 SUSIE Primary SUSIE Crouch [id number] Insurance:MEDICARE ROGERSDOB: [facility] PART A [facility] [id number], [place] Number: Repository [address]Quv: 330 [id number] [phone] () Date:2017-12-20 01/02/2018 Secondary NOT GIVENUNK [place] Insurance:SELF PAY [facility] Number: Effective Repository Date:2017-12-20 12/20/2017 SUSIE Primary SUSIE Crouch [id number] Insurance:MEDICARE ROGERSDOB: [facility] PART A [facility] [id number] Hospital [address] [place] [address], [place]: Repository [address]Sde: 330 [id number] [phone] () Date:2017-12-09 12/20/2017 Secondary NOT GIVENUNK [place] Insurance:SELF PAY [facility] Number: Effective Repository Date:2017-12-09
== END ==
PROVIDERS: Family Provider Family Medicine; PCP Family Medicine; Referring Provider Nurse Practitioner Acute Care; Visit Provider Nurse Practitioner Acute Care
DX: J44.9 Chronic obstructive pulmonary disease, unspecified (principal)
CPT/HCPCS: 94618

== ENCOUNTER → 2019-12-10 10:06 | Outpatient (CLI) | payer MEDICARE, SELFPAY ==
[2019-01-12 10:00] VITALS: BMI 42.8
[2019-12-10 14:40] LABS: Anion Gap 8 (5-15); BUN 38 mg/dL (7-18); BUN/Creat Ratio 22.1 RATIO (10-20); Calcium,Total 9.8 mg/dL (8.5-10.1); Chloride 103 mmol/L (98-107); Cholesterol 157 mg/dL (200); Creatinine, Serum 1.72 mg/dL (0.70-1.30); EST Glomerular Filtration Rate 43 mL/min (>60); Est Glom Filt Rate - Afr Amer 52 mL/min (>60); Glucose 97 mg/dL (74-106); High Density Lipoprotein 38 mg/dL; Potassium 4.3 mmol/L (3.5-5.1); Sodium Level 139 mmol/L (136-145); Triglycerides 237 mg/dL; Very Low Density Lipoprotein 47 mg/dL (5-40)
== END ==
PROVIDERS: Family Provider Family Medicine; PCP Family Medicine; Referring Provider Family Medicine; Visit Provider Family Medicine
DX: E11.9 Type 2 diabetes mellitus without complications (principal)
CPT/HCPCS: 36415; 80048; 80061

== ENCOUNTER → 2020-03-13 09:59 | Outpatient (CLI) | payer MEDICARE, SELFPAY ==
[2019-01-12 10:00] VITALS: BMI 42.8
[2020-03-13 12:18] LABS: Anion Gap 7 (5-15); BUN 37 mg/dL (7-18); BUN/Creat Ratio 21.5 RATIO (10-20); Calcium,Total 9.4 mg/dL (8.5-10.1); Chloride 102 mmol/L (98-107); Cholesterol 140 mg/dL (200); Creatinine, Serum 1.72 mg/dL (0.70-1.30); EST Glomerular Filtration Rate 43 mL/min (>60); Est Glom Filt Rate - Afr Amer 52 mL/min (>60); Glucose 85 mg/dL (74-106); High Density Lipoprotein 34 mg/dL; Potassium 4.1 mmol/L (3.5-5.1); Sodium Level 138 mmol/L (136-145); Triglycerides 221 mg/dL; Very Low Density Lipoprotein 44 mg/dL (5-40)
== END ==
PROVIDERS: PCP Family Medicine; Referring Provider Family Medicine; Visit Provider Family Medicine
DX: E11.9 Type 2 diabetes mellitus without complications (principal)
CPT/HCPCS: 36415; 80048; 80061

== ENCOUNTER → 2020-05-05 | Outpatient (CLI) | payer MEDICARE, SELFPAY ==
[2020-03-21 09:56] VITALS: BMI 42.8
[2020-05-05 09:16] VITALS: PULSE 63; PULSE 68; PULSE 80; PULSE 81; PULSE 82; PULSE 84; PULSE 86; O2SAT 84; O2SAT 90; O2SAT 91; O2SAT 94; O2SAT 95
--- NOTE | 2020-05-05 14:12 | PCM.PSN.6M ---
PSN 6 Minute Walk Test - 6 Minute Walk Test 6 Minute Walk Test: 6 Minute Walk Test PSN:6-Minute Walk Test Start: 05/05/20 09:16 Freq: Status: Active Protocol: [id number] Document 05/05/20 09:16 RIZWAN (Rec: 05/05/20 09:19 RIZWAN [id number]) 6 Minute Walk Test Date Performed 05/05/20 Time Performed 09:00 Height 5 ft 8 in Weight: 127.006 kg Weight in Pounds 280.[address]: Apollo Reyes Assistive device used: None Pre-test Oxygen Delivery Method Room Air Pulse Ox (%) 91 Pulse Rate (60-100 beats/min) 63 Dyspnea Bryant Scale (0-10) 0.5 Exertion Bryant Scale (6-20) 6 1st minute Oxygen Delivery Method Room Air Pulse Ox (%) 90 Pulse Rate (60-100 beats/min) 84 2nd minute Oxygen Delivery Method Room Air Pulse Ox (%) 84 Pulse Rate (60-100 beats/min) 86 3rd minute Oxygen Flow Rate (L/min) (L/min) 2 Oxygen Delivery Method Nasal Cannula Pulse Ox (%) 94 Pulse Rate (60-100 beats/min) 80 4th minute Oxygen Flow Rate (L/min) (L/min) 2 Oxygen Delivery Method Nasal Cannula Pulse Ox (%) 91 Pulse Rate (60-100 beats/min) 81 5th minute Oxygen Flow Rate (L/min) (L/min) 2 Oxygen Delivery Method Nasal Cannula Pulse Ox (%) 91 Pulse Rate (60-100 beats/min) 82 6th minute Oxygen Flow Rate (L/min) (L/min) 2 Oxygen Delivery Method Nasal Cannula Pulse Ox (%) 90 Pulse Rate (60-100 beats/min) 84 Dyspnea Bryant Scale (0-10) 3 Exertion Bryant Scale (6-20) 13 Post-test Oxygen Flow Rate (L/min) (L/min) 2 Oxygen Delivery Method Nasal Cannula Pulse Ox (%) 95 Pulse Rate (60-100 beats/min) 68 Full Laps Walked 14 Partial Lap, Number of Tiles Walked 30 Total Distance Walked (ft) 856 - Interpretation Interpretation: The patient was noted to be 91% on room air at rest. Unfortunately, the patient did desaturate to 84% in the second minute of ambulation. Patient was placed on 2 L nasal cannula with improvement to 94% and was able to finish ambulation. In total, the patient traveled 856 feet over the course of 6 minutes with no assistive devices and one break. These findings are consistent with a respiratory limitation exercise tolerance. - Recommendations Recommendations: No supplemental oxygen is indicated at rest, but patient should use 2 L nasal cannula with any exertion.
== END | disposition home or self-care (01) ==
LOC: PSN 08:44
PROVIDERS: PCP Family Medicine; Referring Provider Internal Medicine Critical Care Medicine; Visit Provider Internal Medicine Critical Care Medicine
DX: J44.9 Chronic obstructive pulmonary disease, unspecified (principal)
CPT/HCPCS: 94618

== ENCOUNTER → 2020-06-11 10:11 | Outpatient (CLI) | payer MEDICARE, SELFPAY ==
[2020-03-21 09:56] VITALS: BMI 42.8
[2020-06-11 13:27] LABS: Hemoglobin A1c 6.3 % (3.8-5.6)
[2020-06-11 13:49] LABS: AST(SGOT) 15 U/L (15-37); Alanine Aminotransfer ALT/SGPT 24 U/L (16-61); Albumin, Serum 3.9 g/dL (3.2-5.0); Alkaline Phosphatase 90 U/L (45-117); Anion Gap 8 (5-15); BUN 29 mg/dL (7-18); BUN/Creat Ratio 18.7 RATIO (10-20); Calcium,Total 9.4 mg/dL (8.5-10.1); Chloride 101 mmol/L (98-107); Creatinine, Serum 1.55 mg/dL (0.70-1.30); EST Glomerular Filtration Rate 48 mL/min (>60); Est Glom Filt Rate - Afr Amer 58 mL/min (>60); Globulin 3.8 g/dL (2.2-4.2); Glucose 69 mg/dL (74-106); Potassium 3.9 mmol/L (3.5-5.1); Protein, Total 7.7 g/dL (6.4-8.2); Sodium Level 139 mmol/L (136-145)
== END ==
PROVIDERS: PCP Family Medicine; Visit Provider Family Medicine
DX: E78.5 Hyperlipidemia, unspecified (principal)
CPT/HCPCS: 36415; 80053; 83036

== ENCOUNTER 2021-02-03 13:41 | Outpatient (RCR) | payer MEDICARE, SELFPAY ==
[2021-01-22 10:32] VITALS: BMI 42.3
[2021-02-03] MEDS: COVID-19 VACC, MRNA(PFIZER)/PF 30 MCG/0.3 ML SYRINGE IM (15:34)
[2021-02-24] MEDS: COVID-19 VACC, MRNA(PFIZER)/PF 30 MCG/0.3 ML SYRINGE IM (15:19)
== END 2021-05-05 23:59 ==
LOC: IMMUN 13:41
PROVIDERS: PCP Family Medicine; Visit Provider Family Medicine
DX: Z23 Encounter for immunization (principal)
CPT/HCPCS: 0001A; 0002A; 91300

== ENCOUNTER → 2021-03-12 09:50 | Outpatient (CLI) | payer MEDICARE, SELFPAY ==
[2021-01-22 10:32] VITALS: BMI 42.3
[2021-03-12 12:16] LABS: Absolute Lymphocyte Count 1.17 X10^3/uL (0.83-4.51); Absolute Neutrophil Count 4.6 X10^3/uL (2.0-7.7); Basophil# 0.04 X10^3/uL; Basophil% 0.6 % (0-1); Eosinophil# 0.14 X10^3/uL; Eosinophils% 2.1 % (0-5); Lymphocyte # 1.17 X10^3/ul (0.83-4.51); Lymphocyte % 17.9 % (19-41); Mean Corp Hgb Conc 31.5 g/dL (32-36); Mean Corpuscular Hgb 31.2 pg (27.0-32.0); Mean Corpuscular Volume 99.1 fL (80-94); Mean Platelet Vol. 10.7 fl (6.2-12.0); Monocyte# 0.61 X10^3/uL; Monocyte% 9.3 % (0-10); NRBC Flagged by Analyzer 0 % (0-5); Neutrophil # 4.56 X10^3/uL (2.7-7.7); Neutrophil % 69.8 % (47-70); Platelet Count 126 K/mm3 (150-450); RBC Distribution Width CV 13.2 % (11.6-14.6); Red Blood Count 6.38 M/mm3 (4.6-6.2); White Blood Count 6.5 K/mm3 (4.4-11.0)
[2021-03-12 12:17] LABS: Hematocrit 63.2 % (40-54)
[2021-03-12 12:32] LABS: ALB/GLOB Ratio 1.1 RATIO (0.9-2.4); AST(SGOT) 11 U/L (15-37); Alanine Aminotransfer ALT/SGPT 21 U/L (16-61); Alkaline Phosphatase 96 U/L (45-117); Anion Gap 5 (5-15); BUN 21 mg/dL (7-18); BUN/Creat Ratio 14.7 RATIO (10-20); Calcium,Total 9.7 mg/dL (8.5-10.1); Chloride 102 mmol/L (98-107); Cholesterol 154 mg/dL (200); Creatinine, Serum 1.43 mg/dL (0.70-1.30); EST Glomerular Filtration Rate 53 mL/min (>60); Est Glom Filt Rate - Afr Amer 64 mL/min (>60); Globulin 3.6 g/dL (2.2-4.2); Glucose 85 mg/dL (74-106); High Density Lipoprotein 43 mg/dL; Protein, Total 7.6 g/dL (6.4-8.2); Sodium Level 137 mmol/L (136-145); Triglycerides 180 mg/dL; Very Low Density Lipoprotein 36 mg/dL (5-40)
[2021-03-12 12:49] LABS: Microalbumin,Random Urine 66.8 mg/L (NO RANGE EST.); Microalbumin:Creatinine Ratio 480.6 mg/g CRE (<30 mg/g CRE)
[2021-03-12 13:38] LABS: Hemoglobin 19.9 g/dL (13.0-16.5)
[2021-03-13 13:38] LABS: Pathologist Review Reviewed
== END ==
PROVIDERS: PCP Family Medicine; Referring Provider Family Medicine; Visit Provider Family Medicine
DX: E11.9 Type 2 diabetes mellitus without complications (principal); D69.6 Thrombocytopenia, unspecified
CPT/HCPCS: 36415; 80053; 80061; 82043; 82570; 85025

== ENCOUNTER → 2021-08-10 09:08 | Outpatient (CLI) | payer MEDICARE, SELFPAY ==
[2021-04-24 07:53] VITALS: BMI 38.2
--- NOTE | 2021-08-10 14:50 | PFTCOMP ---
COMPLETE PULMONARY FUNCTION TEST INTERPRETATION Brief HPI: Patient is a 66 year old male, currently under the care of Ivanna Crooks, who presents to [facility] for complete pulmonary function tests secondary to diagnosis of COPD. Respiratory therapist reports good effort and reproducible results. Interpretation: Forced expiration spirometry shows a severe large airways obstructive ventilatory defect with an FEV1 of 47% predicted. There is no significant bronchodilator response by strict ATS criteria. Spirograms are of good quality and plateau normally. The respiratory flow volume loop shows decreased expiratory flow rates at all lung volumes consistent with airway obstruction. Lung volumes by body plethysmography show a decreased total lung capacity at 4.17 L, 69% predicted. All other lung volumes are reduced symmetrically. Diffusion capacity by carbon monoxide is normal at 85% predicted. The airway resistance is elevated. Compared to previous pulmonary function tests from 12/14/2018, there is been a significant reduction in lung volumes. Impression: Irreversible severe mixed ventilatory defect with significant worsening in restriction compared to 2019
== END ==
PROVIDERS: PCP Family Medicine; Referring Provider Nurse Practitioner Acute Care; Visit Provider Nurse Practitioner Acute Care
DX: J44.9 Chronic obstructive pulmonary disease, unspecified (principal)
CPT/HCPCS: 94060; 94726; 94729

== ENCOUNTER → 2021-08-17 08:24 | Outpatient (CLI) | payer MEDICARE, SELFPAY ==
--- NOTE | 2021-08-17 08:29 | CT_ITS ---
STUDY: LOW DOSE CT LUNG CANCER SCREENING REASON FOR EXAM: Male, 66 years old. Smoker and gt; 40 pack years quit January 2020 RADIATION DOSAGE (If Supplied By Facility): CTDIvol = ( 4.02 ) mGy, DLP = ( 142.95 ) mGycm TECHNIQUE: No contrast was administered. Low dose technique was utilized (average mAS-38 and kVp 120). 1.25 mm axial source images with a slice interval of 1.25-mm were reconstructed in lung windows. 2.5 mm axial source images with a slice interval of 2.5-mm were reconstructed in lung windows. 5.0 mm axial source images with a slice interval of 5.0-mm were reconstructed in soft tissue windows. Nodule measured using lung windows on PACS and/or independent workstation with automated measurement of minimum and maximum diameter. Nodule measurement reported as average diameter rounded to the nearest whole number. Growth is defined as an increase ins size of greater than 1.5 mm. COMPARISON: None. NODULES: No suspicious nodules are seen. Emphysema: Hyperinflation. Scarring at the lung apices. Mild degree of emphysematous changes. Linear scarring in the medial aspect of the right middle lobe. Endobronchial lesion: None Aorta: Unremarkable Coronary arteries: Unremarkable Heart: Unremarkable Pulmonary artery: Unremarkable Mediastinal nodes: Small benign-appearing mediastinal lymph nodes. Other chest and abdominal findings: CT/Low Dose CT Lung Screening IMPRESSION: Lung-RADS category 2 - Continue annual screening with LDCT in 12 months. IMPORTANT NOTES FOR USE: ACR Lung-RADS Version 1.1 Assessment Categories Release Date: 2018 Category: Coded 0-4 bases on nodule(s) with highest degree of suspicion. Negative screen is defined as categories 1 and 2; a positive screen is defined as categories 3 and 4. Category 3 and 4A nodules that are unchanged on interval CT should be coded as category 2, and individuals returned to screening in 12 months. Category 4X: Category 3 or 4 nodules with additional imaging findings that increase the suspicion of lung cancer, such as spiculation, GGN that doubles in size in 1 year, enlarged lymph notes, etc. Category Modifiers: S (significant finding unrelated to lung cancer) Electronically Signed: Sridhar Yoon MD at 14:24 EDT , Service support ,
== END ==
PROVIDERS: PCP Family Medicine; Referring Provider Nurse Practitioner Acute Care; Visit Provider Nurse Practitioner Acute Care
DX: Z87.891 Personal history of nicotine dependence (principal)
CPT/HCPCS: 71271

== ENCOUNTER → 2021-09-10 09:38 | Outpatient (CLI) | payer MEDICARE, SELFPAY ==
[2021-09-10 11:01] LABS: Microalbumin,Random Urine 32.1 mg/L (NO RANGE EST.); Microalbumin:Creatinine Ratio 198.1 mg/g CRE (<30 mg/g CRE)
[2021-09-10 11:09] LABS: Anion Gap 7 (5-15); BUN 35 mg/dL (7-18); BUN/Creat Ratio 21.7 RATIO (10-20); Calcium,Total 9.6 mg/dL (8.5-10.1); Chloride 98 mmol/L (98-107); Cholesterol 137 mg/dL (200); Creatinine, Serum 1.61 mg/dL (0.70-1.30); EST Glomerular Filtration Rate 46 mL/min (>60); Est Glom Filt Rate - Afr Amer 55 mL/min (>60); Glucose 83 mg/dL (74-106); High Density Lipoprotein 39 mg/dL; Sodium Level 138 mmol/L (136-145); Triglycerides 194 mg/dL; Very Low Density Lipoprotein 39 mg/dL (5-40)
== END ==
PROVIDERS: PCP Family Medicine; Referring Provider Family Medicine; Visit Provider Family Medicine
DX: E11.9 Type 2 diabetes mellitus without complications (principal)
CPT/HCPCS: 36415; 80048; 80061; 82043; 82570

== ENCOUNTER 2021-11-30 10:13 | Emergency (ER) | payer MEDICARE, SELFPAY ==
[2021-11-30] VITALS (8 sets, daily range): BP systolic 81–141; BP diastolic 45–90; PULSE 55–75; RESP 14–27; TEMP 36.7; O2SAT 88–97; BMI 40.8
--- NOTE | 2021-11-30 10:44 | RAD_ITS ---
STUDY: X-RAY - LEFT ANKLE REASON FOR EXAM: Left ankle pain, left ankle injury today. TECHNIQUE: 2 view(s) of the ankle. COMPARISON: None. FINDINGS: There is a spiral fracture of the distal tibial diaphysis displaced laterally a full bone width. There is a transverse fracture of the distal fibular diaphysis displaced laterally a full bone width. There is an ossicle at the distal aspect of the lateral malleolus. Normal tibiotalar articulation and ankle mortise. There are posterior and plantar calcaneal enthesophytes. The visualized subtalar, talonavicular, calcaneocuboid and tarsal articulations are normal. There is artifact from overlying splint. RAD/Ankle 2 Views IMPRESSION: Fractures of the distal tibial and fibular diaphyses. Electronically Signed: Jatinder Dinero MD at 12:13 EST Tel , Service support ,
--- NOTE | 2021-11-30 10:45 | EDS_ITS ---
HPI History of Present Illness HPI Narrative: Patient presents with left ankle injury that began today. Patient states he slipped on an icy ramp at his house today. Patient states his pain is worse with certain movements. Patient describes his pain is sharp and stabbing. Patient states his pain is localized to the left ankle area. Patient denies any paresthesias or weakness. Patient denies any head injury or loss of consciousness. Patient denies any other injuries. Chief Complaint: Fall Informant: patient Occured/Mechanism Mechanism/Context: Yes fall Onset/Context/Timing Onset: Today Context: Sudden Onset Timing: Continuous Quality of Pain: Sharp and Stabbing Location: Left ankle Worsened by: Movement Relieved by: Nothing Associated Symptoms Associated Symptoms: Negative for Parasthesia, Weakness and Loss of Funtion PFSH [facility] Medical History Acute bronchitis Chronic obstructive lung disease Chronic respiratory failure COPD exacerbation Hyperlipidemia Hypertension Influenza A DEAN (obstructive sleep apnea) Type 2 diabetes mellitus Home Medications budesonide-formoterol 2 puff INHALATION BID 11/13/16 [History Last Taken 12/05/17] glipizide 1 tab PO DAILY 11/13/16 [History Last Taken 12/05/17] lisinopril 1 tab PO DAILY 11/13/16 [History Last Taken 12/05/17 08:00] metformin 1,000 mg PO BIDCM 11/13/16 [History Last Taken 12/05/17 08:00] pravastatin 20 mg PO DAILY 11/13/16 [History Last Taken 12/05/17 08:00] albuterol sulfate 1 - 2 puff INHALATION Q4H PRN PRN #1 inhaler 11/15/16 [Rx Last Taken 12/05/17] aspirin 81 mg PO DAILY 12/05/17 [History Last Taken 12/05/17 08:00] guaifenesin 600 mg PO BID 12/05/17 [History Last Taken 12/03/17] potassium gluconate 99 mg PO QHS 12/05/17 [History Last Taken 12/04/17 21:00] fluticasone propionate 50 mcg/actuation nasal spray,suspension 2 spray INTRANASAL DAILY #16 g 10/12/18 [Rx Last Taken Unknown] empagliflozin 10 mg tablet 10 mg PO DAILY 09/23/20 [History Last Taken Unknown] cholecalciferol (vitamin D3) 25 mcg (1,000 unit) capsule 25 mcg PO DAILY 03/24/21 [History Last Taken Unknown] lisinopril 20 mg-hydrochlorothiazide 25 mg tablet 1 tab PO DAILY 03/24/21 [History Last Taken Unknown] Allergy/AdvReac Type Severity Reaction Status Date / Time No Known Allergies Allergy Verified 09/15/21 11:09 Family History Sister Cancer Brain tumor Mother COPD (chronic obstructive pulmonary disease) Father Alzheimers disease Surgical History History of bone marrow biopsy History of colonoscopy Social History Smoking Status: Current some day smoker tobacco type: cigarettes Tobacco: How many years used: 40 Electronic Cigarette Use: not used alcohol intake: current alcohol intake frequency: holidays/special occasions only Alcohol type: beer substance use type: does not use caffeine: Yes Type: coffee Number of servings: 2 what type of physical activity do you participate in: walking ROS ROS ED Constitutional Constitutional ED: Denies chills or fever(s) Eyes Eyes: Denies blurry vision or change in vision ENT ENT ED: Denies rhinorrhea or sore throat Cardiovascular Cardiovascular: Denies chest pain or palpitations Respiratory/Chest Respiratory/Chest: Denies cough or dyspnea Gastrointestinal Gastrointestinal: Denies nausea or vomiting Genitourinary Genitourinary ED: Denies dysuria or hematuria Musculoskeletal Musculoskeletal: Denies back pain or neck pain Integumentary Denies abscess or rash Neurologic Neurologic: Denies headache(s) or weakness Allergic/Immunologic Allergic/Immunologic ED: Denies mouth swelling or urticaria EXAM Physical Exam Const Vital Signs: 11/30/21 10:15 11/30/21 13:17 11/30/21 14:35 Temperature 98.0 F Temperature Source Oral Pulse Rate 75 75 Pulse Rate [1 (Initial Baseline)] 67 Pulse Rate [3] 70 Pulse Rate [6] 63 Pulse Rate [7] 60 Respiratory Rate 24 H 18 Respiratory Rate [1 (Initial Baseline)] 14 Respiratory Rate [3] 27 H Respiratory Rate [6] 25 H Respiratory Rate [7] 22 H Blood Pressure 141/90 H 133/75 H Blood Pressure [1 (Initial Baseline)] 106/79 Blood Pressure [3] 112/82 H Blood Pressure [6] 111/62 Blood Pressure [7] 93/78 Blood Pressure Mean 107 Pulse Ox 95 97 Oxygen Delivery Method Nasal Cannula Nasal Cannula Oxygen Delivery Method [1 (Initial Baseline)] Nasal Cannula Oxygen Delivery Method [3] Nasal Cannula Oxygen Delivery Method [4] Nasal Cannula Oxygen Delivery Method [5] Nasal Cannula Oxygen Delivery Method [6] Nasal Cannula Oxygen Delivery Method [7] Nasal Cannula Oxygen Flow Rate (L/min) 2 2 Oxygen Flow Rate (L/min) [1 (Initial Baseline)] 2 Oxygen Flow Rate (L/min) [3] 2 Oxygen Flow Rate (L/min) [4] 4 Oxygen Flow Rate (L/min) [5] 4 Oxygen Flow Rate (L/min) [6] 4 Oxygen Flow Rate (L/min) [7] 4 11/30/21 14:55 11/30/21 15:00 11/30/21 15:08 Temperature Temperature Source Pulse Rate 59 L 55 L 55 L Pulse Rate [1 (Initial Baseline)] Pulse Rate [3] Pulse Rate [6] Pulse Rate [7] Respiratory Rate 19 H 18 19 H Respiratory Rate [1 (Initial Baseline)] Respiratory Rate [3] Respiratory Rate [6] Respiratory Rate [7] Blood Pressure 81/45 L 96/56 L 96/59 L Blood Pressure [1 (Initial Baseline)] Blood Pressure [3] Blood Pressure [6] Blood Pressure [7] Blood Pressure Mean 69 Pulse Ox 95 94 95 Oxygen Delivery Method Nasal Cannula Nasal Cannula Nasal Cannula Oxygen Delivery Method [1 (Initial Baseline)] Oxygen Delivery Method [3] Oxygen Delivery Method [4] Oxygen Delivery Method [5] Oxygen Delivery Method [6] Oxygen Delivery Method [7] Oxygen Flow Rate (L/min) 2 2 Oxygen Flow Rate (L/min) [1 (Initial Baseline)] Oxygen Flow Rate (L/min) [3] Oxygen Flow Rate (L/min) [4] Oxygen Flow Rate (L/min) [5] Oxygen Flow Rate (L/min) [6] Oxygen Flow Rate (L/min) [7] 11/30/21 16:05 Temperature Temperature Source Pulse Rate 73 Pulse Rate [1 (Initial Baseline)] Pulse Rate [3] Pulse Rate [6] Pulse Rate [7] Respiratory Rate 20 H Respiratory Rate [1 (Initial Baseline)] Respiratory Rate [3] Respiratory Rate [6] Respiratory Rate [7] Blood Pressure 106/51 L Blood Pressure [1 (Initial Baseline)] Blood Pressure [3] Blood Pressure [6] Blood Pressure [7] Blood Pressure Mean 69 Pulse Ox 93 Oxygen Delivery Method Oxygen Delivery Method [1 (Initial Baseline)] Oxygen Delivery Method [3] Oxygen Delivery Method [4] Oxygen Delivery Method [5] Oxygen Delivery Method [6] Oxygen Delivery Method [7] Oxygen Flow Rate (L/min) Oxygen Flow Rate (L/min) [1 (Initial Baseline)] Oxygen Flow Rate (L/min) [3] Oxygen Flow Rate (L/min) [4] Oxygen Flow Rate (L/min) [5] Oxygen Flow Rate (L/min) [6] Oxygen Flow Rate (L/min) [7] Positive well nourished, well developed and obese General Appearance ED: well developed Nutritional Appearance: obese HEENT Reports moist mucous membranes normocephalic Neck full ROM Extremity Extremity Narrative: There is tenderness and edema over the left lower leg and ankle area. There is a deformity noted. Range of motion was limited in all motions of the left ankle secondary to pain. Pedal pulses are equal bilaterally. Sensation was intact to light touch in all digits. Capillary refill was less than 2 seconds in all digits. Neuro oriented x3, CN's II-XII intact bilaterally, moves all extremities and no sensory deficits noted Sensorium / Orientation: alert Psych mental status grossly normal MDM MDM MDM Narrative Medical decision making narrative: Patient was given a dose of morphine here. Patient was placed on continuous cardiac and pulse oximeter monitors. Patient was placed on oxygen. X-rays of the left ankle were obtained. There are 3 views. On my interpretation, there are spiral oblique fractures of the distal tibia and fibula with displacement of the distal fragments laterally. There is some soft tissue swelling. There are no foreign bodies. Radiologist also interpreted the x-rays and agrees. Patient was advised of the need for sedation and reduction with application of posterior and sugar tong splints. Patient was advised of the risks and benefits. Patient is agreeable to the procedure. Patient was given the opportunity ask questions. No further questions. Patient was maintained on cardiac and pulse oximeter monitors. Patient was given a total of 150 mg of propofol. The fracture was reduced. Patient was placed in a well-padded custom made posterior and sugar tong splints of the lower extremity. Patient tolerated the procedure well. There were no hypoxic events noted. Repeat x-rays of the left ankle were obtained. There is improvement of the alignment of the fracture fragments however there is still approximately 50 to 75% displacement of the distal fragment laterally. Case was discussed with Dr. Braulio Puckett from orthopedics. He recommended transferring the patient to a trauma center. Case was discussed with the emergency physician at [facility]. He will accept the transfer the patient to the emergency department there. Patient will be evaluated by trauma when he gets there. Patient understands and is agreeable with the plan. All questions were answered. Radiography Diagnostic Testing: Clinical Impression(s) from Imaging Studies Ankle X-Ray 11/30/21 10:44 IMPRESSION: Fractures of the distal tibial and fibular diaphyses. Electronically Signed: Jatinder Dinero MD at 12:13 EST Tel , Service support , Ankle X-Ray 11/30/21 15:00 IMPRESSION: Persistent overriding of the distal tibial and fibular fractures. Electronically Signed: Sridhar Yoon MD at 15:31 EST , Service support , Procedures Lower Extremity Splints Lower Extremity Splint: Orthoglass and Stirrup Splint Fabrication: Fabricated Location: Left Discharge Plan Triage Chief Complaint: Fall ED Provider: Des Champagne Dx/Rx/DC Orders Clinical Impression: Closed fracture of distal end of left fibula and tibia Prescriptions: No Action fluticasone propionate 50 mcg/actuation spray,suspension 2 spray Intranasal DAILY Qty: 16 RF: 3 Jardiance 10 mg tablet 10 mg PO DAILY RF: 0 lisinopril-hydrochlorothiazide 20-25 mg tablet 1 tab PO DAILY RF: 0 cholecalciferol (vitamin D3) 25 mcg (1,000 unit) capsule 25 mcg PO DAILY RF: 0 metformin 1,000 MG tablet 1,000 mg PO BIDCM RF: 0 lisinopril 10 MG tablet 1 tab PO DAILY RF: 0 pravastatin 20 MG tablet 20 mg PO DAILY RF: 0 glipizide 5 MG tablet 1 tab PO DAILY RF: 0 budesonide-formoterol 1 INHALER inhaler 2 puff INHALATION BID RF: 0 albuterol sulfate 1 INHALER inhaler 1 - 2 puff INHALATION Q4H PRN PRN (Reason: Sob &/Or Wheezing) Qty: 1 RF: 0 aspirin 81 MG tablet,chewable 81 mg PO DAILY RF: 0 potassium gluconate 99 MG tablet 99 mg PO QHS RF: 0 guaifenesin 600 MG tablet 600 mg PO BID RF: 0 Primary Care Provider: Angel Luis Sen Referrals: Angel Luis Sen MD [Primary Care Provider] - Disposition Disposition: Acute Care Hospital Discharge Location: [facility]
[2021-11-30] MEDS: Morphine 4 MG/ML Syringe IV (11:08)
--- NOTE | 2021-11-30 13:29 | CM.ED ---
SOCIAL WORK Received voicemail from patient's daughterTarah inquiring about patient's status. Patient gave permission for staff to update daughter. Returned call to daughter, no answer, left message with this worker's call back information. Etelvina Rodgers, AQUARIUM SPECIALIST, PRODUCTION LAPPING MACHINE OPERATOR
[2021-11-30] MEDS: Propofol 200 MG/20 ML Vial IV BOLUS (14:54)
--- NOTE | 2021-11-30 14:55 | ED.RN ---
PT ON HOME 02
--- NOTE | 2021-11-30 15:00 | RAD_ITS ---
STUDY: X-RAY - LEFT ANKLE REASON FOR EXAM: Male, 66 years old. Injury/Pain -- Post reduction and application of splint TECHNIQUE: 3 view(s) of the ankle. COMPARISON: Comparison is made with prior study done earlier in the day at 11:08 AM. FINDINGS: The patient is status post reduction. Spiral fracture of the distal tibial shaft and distal fibular shaft. There is overriding of the fracture fragments. RAD/Ankle min 3 Views IMPRESSION: Persistent overriding of the distal tibial and fibular fractures. Electronically Signed: Sridhar Yoon MD at 15:31 EST , Service support ,
--- NOTE | 2021-11-30 16:01 | NURSING ---
ACCEPTED AT [facility]
--- NOTE | 2021-11-30 16:11 | NURSING ---
CALLED [facility], ETA IS 1 HR
== END 2021-11-30 17:01 | disposition short-term general hospital (02) ==
PROVIDERS: Emergency Provider Emergency Medicine; PCP Family Medicine; Visit Provider Emergency Medicine
DX: S82.232A Displaced oblique fracture of shaft of left tibia, initial encounter for closed fracture (principal); J44.9 Chronic obstructive pulmonary disease, unspecified; J96.10 Chronic respiratory failure, unspecified whether with hypoxia or hypercapnia; E11.9 Type 2 diabetes mellitus without complications; S82.432A Displaced oblique fracture of shaft of left fibula, initial encounter for closed fracture; I10 Essential (primary) hypertension; E78.5 Hyperlipidemia, unspecified; W00.0XXA Fall on same level due to ice and snow, initial encounter; Y93.9 Activity, unspecified; Y92.018 Other place in single-family (private) house as the place of occurrence of the external cause; Y99.9 Unspecified external cause status; G47.33 Obstructive sleep apnea (adult) (pediatric); F17.210 Nicotine dependence, cigarettes, uncomplicated; Z79.84 Long term (current) use of oral hypoglycemic drugs; Z79.82 Long term (current) use of aspirin; Z79.899 Other long term (current) drug therapy
CPT/HCPCS: 27750; 73600; 73610; 96374; 99152; 99285; J7030; A4216

== ENCOUNTER 2022-03-12 11:43 | Outpatient (CLI) | payer MEDICARE, SELFPAY ==
[2022-03-12 15:57] LABS: Anion Gap 6 (5-15); BUN 36 mg/dL (7-18); BUN/Creat Ratio 24.5 RATIO (10-20); Calcium,Total 9.2 mg/dL (8.5-10.1); Chloride 103 mmol/L (98-107); Cholesterol 135 mg/dL (200); Creatinine, Serum 1.47 mg/dL (0.70-1.30); EST Glomerular Filtration Rate 51 mL/min (>60); Est Glom Filt Rate - Afr Amer 62 mL/min (>60); Glucose 72 mg/dL (74-106); High Density Lipoprotein 39 mg/dL; Potassium 4.2 mmol/L (3.5-5.1); Sodium Level 138 mmol/L (136-145); Triglycerides 210 mg/dL; Very Low Density Lipoprotein 42 mg/dL (5-40)
== END 2022-03-12 23:59 | disposition home or self-care (01) ==
LOC: MFPLAB 11:47
PROVIDERS: PCP Family Medicine; Referring Provider Family Medicine; Visit Provider Family Medicine
DX: E11.9 Type 2 diabetes mellitus without complications (principal)
CPT/HCPCS: 36415; 80048; 80061

== ENCOUNTER → 2022-08-24 | Outpatient (CLI) | payer MEDICARE, SELFPAY ==
--- NOTE | 2022-08-24 07:48 | CT_ITS ---
STUDY: LOW DOSE CT LUNG CANCER SCREENING REASON FOR EXAM: Male, 67 years old. and gt;40 pack year history RADIATION DOSAGE (If Supplied By Facility): CTDIvol = ( 4.02 ) mGy, DLP = ( 162.55 ) mGycm TECHNIQUE: No contrast was administered. Low dose technique was utilized (average mAS-38 and kVp 120). 1.25 mm axial source images with a slice interval of 1.25-mm were reconstructed in lung windows. 2.5 mm axial source images with a slice interval of 2.5-mm were reconstructed in lung windows. 5.0 mm axial source images with a slice interval of 5.0-mm were reconstructed in soft tissue windows. COMPARISON: Comparison is made with prior study dated 08/17/2021. NODULES: Emphysema: Hyperinflation. Stable scarring in the lung apices. Mild degree of emphysematous changes. Stable mild linear scarring in the right middle lobe. Endobronchial lesion: Unremarkable. Aorta: Minimal atherosclerotic plaque of the aortic arch. CORONARY ARTERIES: Coronary artery calcification is not seen. Heart: Unremarkable Pulmonary artery: Unremarkable Mediastinal nodes: Small benign-appearing mediastinal lymph nodes. Other chest and abdominal findings: CT/Low Dose CT Lung Screening IMPRESSION: Lung-RADS category 2 - Continue annual screening with LDCT in 12 months. IMPORTANT NOTES FOR USE: ACR Lung-RADS Version 1.1 Assessment Categories Release Date: 2018 Category: Coded 0-4 bases on nodule(s) with highest degree of suspicion. Negative screen is defined as categories 1 and 2; a positive screen is defined as categories 3 and 4. Category 3 and 4A nodules that are unchanged on interval CT should be coded as category 2, and individuals returned to screening in 12 months. Category 4X: Category 3 or 4 nodules with additional imaging findings that increase the suspicion of lung cancer, such as spiculation, GGN that doubles in size in 1 year, enlarged lymph notes, etc. Category Modifiers: S (significant finding unrelated to lung cancer) Electronically Signed: Sridhar Yoon MD at 10:38 EDT ,
== END | disposition home or self-care (01) ==
PROVIDERS: PCP Family Medicine; Referring Provider Nurse Practitioner Acute Care; Visit Provider Nurse Practitioner Acute Care
DX: F17.210 Nicotine dependence, cigarettes, uncomplicated (principal)
CPT/HCPCS: 71271

== ENCOUNTER → 2022-09-06 | Outpatient (CLI) | payer MEDICARE, SELFPAY ==
[2022-09-06 12:28] LABS: AST(SGOT) 16 U/L (15-37); Alanine Aminotransfer ALT/SGPT 19 U/L (16-61); Albumin, Serum 3.7 g/dL (3.2-5.0); Alkaline Phosphatase 99 U/L (45-117); Anion Gap 8 (5-15); BUN 29 mg/dL (7-18); BUN/Creat Ratio 19.5 RATIO (10-20); Calcium,Total 9.4 mg/dL (8.5-10.1); Chloride 101 mmol/L (98-107); Cholesterol 126 mg/dL (200); Creatinine, Serum 1.49 mg/dL (0.70-1.30); EST Glomerular Filtration Rate 50 mL/min (>60); Est Glom Filt Rate - Afr Amer 60 mL/min (>60); Globulin 3.7 g/dL (2.2-4.2); Glucose 110 mg/dL (74-106); High Density Lipoprotein 39 mg/dL; Potassium 4.3 mmol/L (3.5-5.1); Protein, Total 7.4 g/dL (6.4-8.2); Sodium Level 138 mmol/L (136-145); Triglycerides 175 mg/dL; Very Low Density Lipoprotein 35 mg/dL (5-40)
[2022-09-06 12:52] LABS: Microalbumin,Random Urine 69.7 mg/L (NO RANGE EST.); Microalbumin:Creatinine Ratio 237.9 mg/g CRE (<30 mg/g CRE)
== END | disposition home or self-care (01) ==
LOC: MFPLAB 10:06
PROVIDERS: PCP Family Medicine; Visit Provider Family Medicine
DX: E11.9 Type 2 diabetes mellitus without complications (principal)
CPT/HCPCS: 36415; 80053; 80061; 82043; 82570

== ENCOUNTER → 2022-12-08 | Outpatient (CLI) | payer MEDICARE, SELFPAY ==
[2022-12-08 13:14] LABS: Anion Gap 9 (5-15); BUN 32 mg/dL (7-18); BUN/Creat Ratio 20.1 RATIO (10-20); Calcium,Total 9.3 mg/dL (8.5-10.1); Chloride 98 mmol/L (98-107); Creatinine, Serum 1.59 mg/dL (0.70-1.30); EST Glomerular Filtration Rate 46 mL/min (>60); Est Glom Filt Rate - Afr Amer 56 mL/min (>60); Glucose 135 mg/dL (74-106); Potassium 4.5 mmol/L (3.5-5.1); Sodium Level 137 mmol/L (136-145)
== END | disposition home or self-care (01) ==
LOC: MFPLAB 10:48
PROVIDERS: PCP Family Medicine; Visit Provider Family Medicine
DX: E11.9 Type 2 diabetes mellitus without complications (principal)
CPT/HCPCS: 36415; 80048

== ENCOUNTER → 2023-03-10 | Outpatient (CLI) | payer MEDICARE, SELFPAY ==
[2023-03-10 12:43] LABS: Anion Gap 3 (5-15); BUN 31 mg/dL (7-18); BUN/Creat Ratio 19.7 RATIO (10-20); Calcium,Total 9.6 mg/dL (8.5-10.1); Chloride 104 mmol/L (98-107); Cholesterol 145 mg/dL (200); Creatinine, Serum 1.57 mg/dL (0.70-1.30); EST Glomerular Filtration Rate 47 mL/min (>60); Est Glom Filt Rate - Afr Amer 57 mL/min (>60); Glucose 92 mg/dL (74-106); High Density Lipoprotein 39 mg/dL; Potassium 4.3 mmol/L (3.5-5.1); Sodium Level 135 mmol/L (136-145); Triglycerides 267 mg/dL; Very Low Density Lipoprotein 53 mg/dL (5-40)
== END | disposition home or self-care (01) ==
LOC: MTLAB 10:14
PROVIDERS: PCP Family Medicine; Referring Provider Family Medicine; Visit Provider Family Medicine
DX: I10 Essential (primary) hypertension (principal)
CPT/HCPCS: 36415; 80048; 80061

== ENCOUNTER → 2023-06-10 | Outpatient (CLI) | payer MEDICARE, SELFPAY ==
[2023-06-10 16:58] LABS: Anion Gap 5 (5-15); BUN 25 mg/dL (7-18); BUN/Creat Ratio 16.7 RATIO (10-20); Calcium,Total 9.5 mg/dL (8.5-10.1); Chloride 105 mmol/L (98-107); Cholesterol 129 mg/dL (200); EST Glomerular Filtration Rate 49 mL/min (>60); Est Glom Filt Rate - Afr Amer 60 mL/min (>60); Glucose 64 mg/dL (74-106); High Density Lipoprotein 37 mg/dL; Potassium 4.7 mmol/L (3.5-5.1); Sodium Level 136 mmol/L (136-145); Triglycerides 247 mg/dL; Very Low Density Lipoprotein 49 mg/dL (5-40)
== END | disposition home or self-care (01) ==
PROVIDERS: PCP Family Medicine; Visit Provider Family Medicine
DX: Z00.00 Encounter for general adult medical examination without abnormal findings (principal); E11.9 Type 2 diabetes mellitus without complications
CPT/HCPCS: 36415; 80048; 80061; 84153; G0103

== ENCOUNTER → 2023-08-26 | Outpatient (CLI) | payer MEDICARE, SELFPAY ==
--- NOTE | 2023-08-26 13:41 | CT_ITS ---
STUDY: LOW DOSE CT LUNG CANCER SCREENING REASON FOR EXAM: Male, 68 years old. Smoker. The patient smoked 2 packs per day for 30 years. RADIATION DOSAGE (If Supplied By Facility): CTDIvol = ( 4.02 ) mGy, DLP = ( 144.46 ) mGycm TECHNIQUE: No contrast was administered. Low dose technique was utilized (average mAS-38 and kVp 120). 1.25 mm axial source images with a slice interval of 1.25-mm were reconstructed in lung windows. 2.5 mm axial source images with a slice interval of 2.5-mm were reconstructed in lung windows. 5.0 mm axial source images with a slice interval of 5.0-mm were reconstructed in soft tissue windows. COMPARISON: Comparison is made with prior study dated August 24, 2022. NODULES: No suspicious nodules are seen. Emphysema: Hyperinflation. Stable scarring at the lung apices. Mild emphysematous changes and stable mild linear scarring in the right middle lobe. Endobronchial lesion: None Aorta: Atherosclerotic plaque formation of the aortic arch. CORONARY ARTERIES: Coronary artery calcification is not seen. Heart: Unremarkable. Pulmonary artery: Unremarkable. Mediastinal nodes: Small benign-appearing mediastinal lymph nodes. Other chest and abdominal findings: CT/Low Dose CT Lung Screening IMPRESSION: Lung-RADS category 2 - Continue annual screening with LDCT in 12 months. IMPORTANT NOTES FOR USE: ACR Lung-RADS Version 1.1 Assessment Categories Release Date: 2018 Category: Coded 0-4 bases on nodule(s) with highest degree of suspicion. Negative screen is defined as categories 1 and 2; a positive screen is defined as categories 3 and 4. Category 3 and 4A nodules that are unchanged on interval CT should be coded as category 2, and individuals returned to screening in 12 months. Category 4X: Category 3 or 4 nodules with additional imaging findings that increase the suspicion of lung cancer, such as spiculation, GGN that doubles in size in 1 year, enlarged lymph notes, etc. Category Modifiers: S (significant finding unrelated to lung cancer) Electronically Signed: Sridhar Yoon MD at 14:52 EDT ,
== END | disposition home or self-care (01) ==
LOC: CT 13:38
PROVIDERS: PCP Family Medicine; Referring Provider Nurse Practitioner Acute Care; Visit Provider Nurse Practitioner Acute Care
DX: F17.210 Nicotine dependence, cigarettes, uncomplicated (principal)
CPT/HCPCS: 71271

== ENCOUNTER → 2023-12-07 | Outpatient (CLI) | payer MEDICARE, SELFPAY ==
[2023-12-07 12:59] LABS: ALB/GLOB Ratio 1.1 RATIO (0.9-2.4); AST(SGOT) 14 U/L (15-37); Alanine Aminotransfer ALT/SGPT 21 U/L (16-61); Albumin, Serum 3.8 g/dL (3.2-5.0); Alkaline Phosphatase 80 U/L (45-117); Anion Gap 7 (5-15); BUN 33 mg/dL (7-18); BUN/Creat Ratio 20.9 RATIO (10-20); Calcium,Total 9.5 mg/dL (8.5-10.1); Chloride 106 mmol/L (98-107); Cholesterol 127 mg/dL (200); Creatinine, Serum 1.58 mg/dL (0.70-1.30); EST Glomerular Filtration Rate 47 mL/min (>60); Est Glom Filt Rate - Afr Amer 56 mL/min (>60); Globulin 3.6 g/dL (2.2-4.2); Glucose 77 mg/dL (74-106); High Density Lipoprotein 35 mg/dL; Potassium 4.3 mmol/L (3.5-5.1); Protein, Total 7.4 g/dL (6.4-8.2); Sodium Level 137 mmol/L (136-145); Triglycerides 186 mg/dL; Very Low Density Lipoprotein 37 mg/dL (5-40)
== END | disposition home or self-care (01) ==
LOC: MFPLAB 10:35
PROVIDERS: PCP Family Medicine; Visit Provider Family Medicine
DX: E11.9 Type 2 diabetes mellitus without complications (principal)
CPT/HCPCS: 36415; 80053; 80061

== ENCOUNTER → 2024-03-08 | Outpatient (CLI) | payer MEDICARE, SELFPAY ==
[2024-03-08 12:25] LABS: Anion Gap 4 (5-15); BUN 35 mg/dL (7-18); BUN/Creat Ratio 19.8 RATIO (10-20); Calcium,Total 9.8 mg/dL (8.5-10.1); Chloride 104 mmol/L (98-107); Creatinine, Serum 1.77 mg/dL (0.70-1.30); EST Glomerular Filtration Rate 41 mL/min (>60); Est Glom Filt Rate - Afr Amer 49 mL/min (>60); Glucose 89 mg/dL (74-106); Potassium 4.2 mmol/L (3.5-5.1); Sodium Level 137 mmol/L (136-145)
== END | disposition home or self-care (01) ==
LOC: MFPLAB 10:20
PROVIDERS: PCP Family Medicine; Visit Provider Family Medicine
DX: N28.9 Disorder of kidney and ureter, unspecified (principal)
CPT/HCPCS: 36415; 80048

== ENCOUNTER → 2024-09-05 | Outpatient (CLI) | payer MEDICARE, SELFPAY ==
[2024-09-05 16:04] LABS: Anion Gap 8 (5-15); BUN 31 mg/dL (7-18); BUN/Creat Ratio 18.2 RATIO (10-20); Calcium,Total 9.7 mg/dL (8.5-10.1); Chloride 101 mmol/L (98-107); Cholesterol 151 mg/dL (200); EST Glomerular Filtration Rate 43 mL/min (>60); Est Glom Filt Rate - Afr Amer 52 mL/min (>60); Glucose 60 mg/dL (74-106); High Density Lipoprotein 39 mg/dL; Potassium 4.1 mmol/L (3.5-5.1); Sodium Level 137 mmol/L (136-145); Triglycerides 175 mg/dL; Very Low Density Lipoprotein 35 mg/dL (5-40)
== END | disposition home or self-care (01) ==
LOC: MFPLAB 10:48
PROVIDERS: PCP Family Medicine; Visit Provider Family Medicine
DX: E11.9 Type 2 diabetes mellitus without complications (principal); N28.9 Disorder of kidney and ureter, unspecified
CPT/HCPCS: 36415; 80048; 80061

== ENCOUNTER → 2024-09-06 | Outpatient (CLI) | payer MEDICARE, SELFPAY ==
[2024-09-05 16:17] LABS: Microalbumin,Random Urine 38.9 mg/L (NO RANGE EST.); Microalbumin:Creatinine Ratio 164.1 mg/g CRE (<30 mg/g CRE)
--- OUTSIDE RECORDS SUMMARY | 2024-10-15 13:58 | XMS RPT_ITS | CCD ---
Author Organization [facility] Care Team Providers Care Obstetrics Nurse Name Role Phone Angel Luis Sen MD Primary Care Provider Medications Completed/Discontinued Medications Medication Drug Class(es) Dates Sig (Normalized) Sig (Original) aspirin 81 mg delayed release oral tablet (2 sources) Platelet Aggregation Inhibitor, Nonsteroidal Anti-inflammatory Drug Start: 05-07-2008 ASPIRIN 81 MG TAB, DELAYED RELEASE Take one(1) tablet daily. 0 05/07/2008 Active Comment on above: Take one(1) tablet d aily. Budesonide / formoterol (2 sources) Corticosteroid, beta2-Adrenergic Agonist take 2 puff(s) by inhalation twice daily budesonide-formoter ol (SYMBICORT) 160-4.5 mcg/actuation inhaler Inhale 2 Puffs as instructed twice daily. 0 Active Comment on above: Inhale 2 Puffs as in structed twice daily. COMPOUNDED PRESCRIPTION (2 sources) Start: 12-25-2013 COMPOUNDED PRESCRIPTION Please administer oxygen at 3L continuous for daytime use. Please evaluate for conserving device. DX:COPD, Hypoxia 1 Device 99 12/25/2013 Active Comment on above: Please administer ox ygen at 3L continuous for daytime use. Please evaluate for conserving device. DX:COPD, Hypoxia CPAP (2 sources) CPAP Use 12 cm i n the nose daily at bedtime. 0 Active Comment on above: Use 12 cm in the nos e daily at bedtime. glipiZIDE er 5 mg 24 hr extended release oral tablet (2 sources) Sulfonylurea Start: 08-03-2017 take 1 tablet by mouth once daily glipiZIDE XL (GLUCOTROL XL) 5 mg 24 hr tablet Take 1 tablet by mouth once daily. 90 tablet 3 08/03/2017 Active Comment on above: Take 1 tablet by jaqui th once daily. metFORMIN hydrochloride 1000 mg oral tablet (2 sources) Biguanide Start: 08-03-2017 take 1 tablet by mouth twice daily metFORMIN (GLUCOPHAGE) 1,000 mg tablet Indications: Well controlled type 2 diabetes mellitus (HCC) Take 1 tablet by mouth twice daily. 180 tablet 3 08/03/2017 Active Comment on above: Take 1 tablet by jaqui th twice daily. Nebulizer (2 sources) Start: 11-18-2016 Nebulizer Indications: Asthma-chronic obstructive pulmonary disease overlap syndrome (HCC) Use as directed. NEBULIZER FOR HOME USE. DX:(J44.9, J45.909) Asthma-chronic obstructive pulmonary disease overlap syndrome (HCC) 1 Each 0 11/18/2016 Active Comment on above: Use as directed. NEB ULIZER FOR HOME USE. DX:(J44.9, J45.909) Asthma-chronic obstructive pulmonary disease overlap syndrome (HCC) Oxygen-Air Delivery Systems jalen (2 sources) Oxygen-Air Deliv jl Systems jalen Use 4 L/min in the nose daily at bedtime. 4L O2 bleed in with nasal CPAP @@ bedtime. 0 Active Comment on above: Use 4 L/min in the n ose daily at bedtime. 4L O2 bleed in with nasal CPAP @@ bedtime. pravastatin sodium 20 mg oral tablet (2 sources) HMG-CoA Reductase Inhibitor Start: 08-03-2017 take 1 tablet by mouth once daily at bedtime pravastatin (PRAVACHOL) 20 mg tablet Indications: Well controlled type 2 diabetes mellitus (HCC) , Hyperlipidemia with target LDL less than 70 Take 1 tablet by mouth daily at bedtime. 90 tablet 3 08/03/2017 Active Comment on above: Take 1 tablet by jaqui th daily at bedtime. PSYLLIUM SEED, WITH SUGAR, (METAMUCIL ORAL) (2 sources) PSYLLIUM SEED, W ITH SUGAR, (METAMUCIL ORAL) Indications: Constipation Take by mouth. 0 Active Comment on above: Take by mouth. 7 actuat umeclidinium 0.0625 mg/actuat dry powder inhaler (2 sources) Anticholinergic Start: 05-20-2017 take 1 puff(s) by inhalation once daily, then take 1 puff(s) by inhalation once daily umeclidinium (INCRUSE ELLIPTA) 62.5 mcg/actuation inhaler Indications: Asthma-chronic obstructive pulmonary disease overlap syndrome (HCC) Inhale 1 Puff as instructed once daily. Inhale one puff once daily. DO NOT CLICK OPEN UNTIL READY FOR DOSE 1 Each 5 05/20/2017 Active Comment on above: Inhale 1 Puff as ins tructed once daily. Inhale one puff once daily. DO NOT CLICK OPEN UNTIL READY FOR DOSE Problems Active Problems Problem Classification Problem Date Documented Da te Episodic/Chronic Chronic obstructive pulmonary disease and bronchiectasis (2 sources) Asthma-chronic obstructive pulmonary disease overlap syndrome; Translations: [Chronic obstructive pulmonary disease, unspecified] Onset: 05-20-2008 11-18-2016 Chronic Coagulation and hemorrhagic disorders (2 sources) Platelet count below reference range; Translations: [Thrombocytopenia, unspecified] Onset: 04-25-2008 04-25-2008 Chronic Diabetes mellitus without complication (2 sources) Type 2 diabetes mellitus; Translations: [Type 2 diabetes mellitus without complications] Onset: 05-20-2008 04-20-2016 Chronic Disorders of lipid metabolism (2 sources) Hyperlipidemia; Translations: [Hyperlipidemia, unspecified] Onset: 09-24-2010 04-20-2016 Chronic Essential hypertension (2 sources) Benign essential hypertension; Translations: [Essential (primary) hypertension] Onset: 05-20-2008 05-20-2008 Chronic Fracture of lower limb (2 sources) Closed fracture of tibia AND fibula; Translations: [Unspecified fracture of shaft of left tibia, subsequent encounter for closed fracture with routine healing] Episodic Other nutritional; endocrine; and metabolic disorders (2 sources) Body mass index 40+ - severely obese; Translations: [Morbid (severe) obesity due to excess calories] Onset: 04-10-2018 04-10-2018 Chronic Skin and subcutaneous tissue infections (1 source) Cellulitis of ankle; Translations: [Cellulitis of unspecified part of limb] Episodic Past or Other Problems Problem Classification Problem Date Documented Da te Episodic/Chronic Other hematologic conditions (2 sources) Secondary polycythemia; Translations: [Secondary polycythemia] Onset: 04-25-2008 04-25-2008 Episodic Results Test Name Value Interpretation Reference Range Facility [facility] 06-07-2022 [facility] Office Visit (AGPOB1 ) -------- SUSIE CALLEJAS ([id number]) 1955 M Date Time Provider Department 06/07/22 1:45 PM JASON NICOLAS During your visit today, we recorded the following information about you: Respiration Weight Height 22/minute 117.1 kg 1.727 m Jason Nicolas MD 06/07/2022 1:58 PM Signed ORTHOPAEDIC OFFICE NOTE CHIEF COMPLAINT: Follow-up left ankle fracture HISTORY OF PRESENT ILLNESS: Susie Callejas is a 67 year old male who presents for Follow-up evaluation after surgical fixation of left distal tibia fracture with intramedullary device on 12/01/2021. Overall he is doing well. For most part he is pain-free. He is ambulating independently without issue. He denies current fevers chills nausea vomiting weight loss fatigue or malaise. Reviewed nursing note and current pain scale. PAST MEDICAL HISTORY Diagnosis Date - COPD (chronic obstructive pulmonary disease) (HCC) - Diabetes mellitus (HCC) - Hypercholesteremia - Hypertension - Sleep apnea PAST SURGICAL HISTORY Procedure Laterality Date - COLONOSCOPY FLX DX W/COLLJ SPEC WHEN PFRMD 07/14/15 Colonoscopy - NONE FAMILY HISTORY Problem Relation Age of Onset - Emphysema Mother - COPD Mother - Heart Father - Alzheimer's Disease Father - COPD Sister Social History Tobacco Use - Smoking status: Former Smoker Packs/day: 1.00 Years: 35.00 Pack years: 35.00 Types: Cigarettes - Smokeless tobacco: Never Used - Tobacco comment: using patch. doesn't buy cigarettes anymore Substance Use Topics - Alcohol use: Yes Alcohol/week: 5.0 standard drinks Types: 2 Cans of Beer (12oz) per week Comment: 3-4 beers per week - Drug use: No MEDICATIONS: Current Outpatient Medications Medication Sig - metFORMIN (GLUCOPHAGE) 1,000 mg tablet Take 1 tablet by mouth twice daily. - pravastatin (PRAVACHOL) 20 mg tablet Take 1 tablet by mouth daily at bedtime. - glipiZIDE XL (GLUCOTROL XL) 5 mg 24 hr tablet Take 1 tablet by mouth once daily. - umeclidinium (INCRUSE ELLIPTA) 62.5 mcg/actuation inhaler Inhale 1 Puff as instructed once daily. Inhale one puff once daily. DO NOT CLICK OPEN UNTIL READY FOR DOSE - budesonide-formoterol (SYMBICORT) 160-4.5 mcg/actuation inhaler Inhale 2 Puffs as instructed twice daily. - Nebulizer Use as directed. NEBULIZER FOR HOME USE. DX:(J44.9, J45.909) Asthma-chronic obstructive pulmonary disease overlap syndrome (HCC) - PSYLLIUM SEED, WITH SUGAR, (METAMUCIL ORAL) Take by mouth. - COMPOUNDED PRESCRIPTION Please administer oxygen at 3L continuous for daytime use. Please evaluate for conserving device. DX:COPD, Hypoxia - CPAP Use 12 cm in the nose daily at bedtime. - Oxygen-Air Delivery Systems jalen Use 4 L/min in the nose daily at bedtime. 4L O2 bleed in with nasal CPAP @@ bedtime. - blood sugar diagnostic(ONE TOUCH ULTRA TEST STRIPS) Check daily as directed. - ASPIRIN 81 MG TAB, DELAYED RELEASE Take one(1) tablet daily. No current facility-administered medications for this visit. ALLERGIES: ALLERGIES No Known Allergies PHYSICAL EXAMINATION: Resp 22 Ht 5' 8 (1.73m) Wt 258 lb 3.2 oz (117.1kg) BMI 39.27 kg/(m2). General Appearance:?Well appearing, alert, in no acute distress, well-hydrated, well nourished. Skin:?Skin color, texture, turgor normal, no suspicious rashes or lesions. Psych: Patient is alert and oriented to person, time and place. Mood and affect are normal. Respiratory: Breathing is symmetric and unlabored Gait:?Patient is able to ambulate using a wheeled walker. There is no significant antalgia. Extremities:?Left lower extremity is examined. ?Skin is intact that erythema or ecchymosis. ?There is moderate swelling present the leg consistent with postoperative traumatic state. ?Multiple surgical incisions are well-healed without drainage or sign of infection. Medial wound is now completely healed without sign of infection.?There is no significant surrounding erythema or fluctuance. ?There is no drainage.?There is no focal tenderness.. ?Range of motion the knee and ankle is relatively pain-free. Lymphatic: There is no palpable lymphadenopathy Peripheral Pulses:?Normal. Neurologic: Bilateral lower extremities were examined. There is 5/5 strength with hip flexion, knee extension, dorsiflexion, EHL, plantar flexion. Sensation intact in all nerve dermatomes IMAGES: Physician office building radiographs, 06/07/2022. AP, lateral mortise views of the left ankle were obtained reviewed. These demonstrate left distal tibia and fibula fracture fixated intramedullary vice. Overall alignment is stable. There is progressive callus formation at the fracture site indicative of ongoing healing. There is no sign of loosening or failure of hardware. Soft tissues otherwise unremarkable. Plan ASSESSMENT AND PLAN: 1. Tibia/fibula fracture, left, closed, with routine healin (more content not included)... Normal [facility] 03-08-2022 CNOV Office Visit (AGPOB1 ) -------- SUSIE CALLEJAS ([id number]) 1955 M Date Time Provider Department 03/08/22 2:00 PM JASON NICOLASB1 During your visit today, we recorded the following information about you: Respiration Weight Height 17/minute 131.5 kg 1.727 m Jason Nicolas MD 03/08/2022 2:36 PM Signed ORTHOPAEDIC OFFICE NOTE CHIEF COMPLAINT: Follow-up left tibia fracture HISTORY OF PRESENT ILLNESS: Susie Callejas is a 66 year old male who presents for Follow-up evaluation of left tibia fracture status post IM nail on 12/01/2021. Overall he is doing well. For the most part he is pain-free. He is ambulating with the assistance of a walker outside of the house and independently around the house. He continues to do dressing changes along his medial wound which continues to heal and slowly. He occasionally use Tylenol for pain control which is helpful. He denies current fevers chills nausea vomiting weight loss fatigue or malaise. Reviewed nursing note and current pain scale. PAST MEDICAL HISTORY Diagnosis Date - COPD (chronic obstructive pulmonary disease) (HCC) - Diabetes mellitus (HCC) - Hypercholesteremia - Hypertension - Sleep apnea PAST SURGICAL HISTORY Procedure Laterality Date - COLONOSCOPY FLX DX W/COLLJ SPEC WHEN PFRMD 07/14/15 Colonoscopy - NONE FAMILY HISTORY Problem Relation Age of Onset - Emphysema Mother - COPD Mother - Heart Father - Alzheimer's Disease Father - COPD Sister Social History Tobacco Use - Smoking status: Former Smoker Packs/day: 1.00 Years: 35.00 Pack years: 35.00 Types: Cigarettes - Smokeless tobacco: Never Used - Tobacco comment: using patch. doesn't buy cigarettes anymore Substance Use Topics - Alcohol use: Yes Alcohol/week: 5.0 standard drinks Types: 2 Cans of Beer (12oz) per week Comment: 3-4 beers per week - Drug use: No MEDICATIONS: Current Outpatient Medications Medication Sig - metFORMIN (GLUCOPHAGE) 1,000 mg tablet Take 1 tablet by mouth twice daily. - pravastatin (PRAVACHOL) 20 mg tablet Take 1 tablet by mouth daily at bedtime. - glipiZIDE XL (GLUCOTROL XL) 5 mg 24 hr tablet Take 1 tablet by mouth once daily. - umeclidinium (INCRUSE ELLIPTA) 62.5 mcg/actuation inhaler Inhale 1 Puff as instructed once daily. Inhale one puff once daily. DO NOT CLICK OPEN UNTIL READY FOR DOSE - budesonide-formoterol (SYMBICORT) 160-4.5 mcg/actuation inhaler Inhale 2 Puffs as instructed twice daily. - Nebulizer Use as directed. NEBULIZER FOR HOME USE. DX:(J44.9, J45.909) Asthma-chronic obstructive pulmonary disease overlap syndrome (HCC) - PSYLLIUM SEED, WITH SUGAR, (METAMUCIL ORAL) Take by mouth. - COMPOUNDED PRESCRIPTION Please administer oxygen at 3L continuous for daytime use. Please evaluate for conserving device. DX:COPD, Hypoxia - CPAP Use 12 cm in the nose daily at bedtime. - Oxygen-Air Delivery Systems jalen Use 4 L/min in the nose daily at bedtime. 4L O2 bleed in with nasal CPAP @@ bedtime. - blood sugar diagnostic(ONE TOUCH ULTRA TEST STRIPS) Check daily as directed. - ASPIRIN 81 MG TAB, DELAYED RELEASE Take one(1) tablet daily. No current facility-administered medications for this visit. ALLERGIES: ALLERGIES No Known Allergies PHYSICAL EXAMINATION: Resp 17 Ht 5' 8 (1.73m) Wt 290 lb (131.5kg) BMI 44.10 kg/(m2). General Appearance:?Well appearing, alert, in no acute distress, well-hydrated, well nourished. Skin:?Skin color, texture, turgor normal, no suspicious rashes or lesions. Psych: Patient is alert and oriented to person, time and place. Mood and affect are normal. Respiratory: Breathing is symmetric and unlabored Gait:?Patient is able to ambulate using a wheeled walker. There is no significant antalgia. Extremities:?Left lower extremity is examined. ?Skin is intact that erythema or ecchymosis. ?There is moderate swelling present the leg consistent with postoperative traumatic state. ?Multiple surgical incisions are well-healed without drainage or sign of infection. Medial wound is filling in secondarily.There is now most completely healed. There is no significant surrounding erythema or fluctuance. There is no drainage.?There is no focal tenderness.. ?Range of motion the knee and ankle is relatively pain-free. Lymphatic: There is no palpable lymphadenopathy Peripheral Pulses:?Normal. Neurologic: Bilateral lower extremities were examined. There is 5/5 strength with hip flexion, knee extension, dorsiflexion, EHL, plantar flexion. Sensation intact in all nerve dermatomes IMAGES: Physician office building radiographs, 03/08/2022. AP lateral and mortise views of the left ankle were obtained reviewed. These demonstrate tibia and fibula fractures fixated with intramedullary nail. Overall alignment is stable. There is progressive callus formation at the fracture site. There is no sign of loosen (more content not included)... Normal [facility] CNOVon 02-08-2022 CNOV Office Visit (AGPOB1 ) -------- SUSIE CALLEJAS ([id number]) 1955 M Date Time Provider Department 02/08/22 1:30 PM JASON NICOLAS During your visit today, we recorded the following information about you: Respiration Weight Height 18/minute 131.5 kg 1.727 m Jason Nicolas MD 02/10/2022 8:55 AM Signed ORTHOPAEDIC OFFICE NOTE CHIEF COMPLAINT: Follow-up left tibia fracture HISTORY OF PRESENT ILLNESS: Susie Callejas is a 66 year old male who presents for Follow-up evaluation of left tibia fracture treated with intramedullary vice on 12/01/2021. Overall patient is doing okay. His pain continues to improve regularly. Pain is intermittent nature and rates it a 4/10 in intensity. He has been doing regular dressing changes on his medial ankle wound and thinks that this is getting better. He denies fever chills nausea vomiting weight loss fatigue or malaise. He denies any significant drainage from the site. Reviewed nursing note and current pain scale. PAST MEDICAL HISTORY Diagnosis Date - COPD (chronic obstructive pulmonary disease) (HCC) - Diabetes mellitus (HCC) - Hypercholesteremia - Hypertension - Sleep apnea PAST SURGICAL HISTORY Procedure Laterality Date - COLONOSCOPY FLX DX W/COLLJ SPEC WHEN PFRMD 07/14/15 Colonoscopy - NONE FAMILY HISTORY Problem Relation Age of Onset - Emphysema Mother - COPD Mother - Heart Father - Alzheimer's Disease Father - COPD Sister Social History Tobacco Use - Smoking status: Former Smoker Packs/day: 1.00 Years: 35.00 Pack years: 35.00 Types: Cigarettes - Smokeless tobacco: Never Used - Tobacco comment: using patch. doesn't buy cigarettes anymore Substance Use Topics - Alcohol use: Yes Alcohol/week: 5.0 standard drinks Types: 2 Cans of Beer (12oz) per week Comment: 3-4 beers per week - Drug use: No MEDICATIONS: Current Outpatient Medications Medication Sig - metFORMIN (GLUCOPHAGE) 1,000 mg tablet Take 1 tablet by mouth twice daily. - pravastatin (PRAVACHOL) 20 mg tablet Take 1 tablet by mouth daily at bedtime. - glipiZIDE XL (GLUCOTROL XL) 5 mg 24 hr tablet Take 1 tablet by mouth once daily. - umeclidinium (INCRUSE ELLIPTA) 62.5 mcg/actuation inhaler Inhale 1 Puff as instructed once daily. Inhale one puff once daily. DO NOT CLICK OPEN UNTIL READY FOR DOSE - budesonide-formoterol (SYMBICORT) 160-4.5 mcg/actuation inhaler Inhale 2 Puffs as instructed twice daily. - Nebulizer Use as directed. NEBULIZER FOR HOME USE. DX:(J44.9, J45.909) Asthma-chronic obstructive pulmonary disease overlap syndrome (HCC) - PSYLLIUM SEED, WITH SUGAR, (METAMUCIL ORAL) Take by mouth. - COMPOUNDED PRESCRIPTION Please administer oxygen at 3L continuous for daytime use. Please evaluate for conserving device. DX:COPD, Hypoxia - CPAP Use 12 cm in the nose daily at bedtime. - Oxygen-Air Delivery Systems jalen Use 4 L/min in the nose daily at bedtime. 4L O2 bleed in with nasal CPAP @@ bedtime. - blood sugar diagnostic(ONE TOUCH ULTRA TEST STRIPS) Check daily as directed. - ASPIRIN 81 MG TAB, DELAYED RELEASE Take one(1) tablet daily. No current facility-administered medications for this visit. ALLERGIES: ALLERGIES No Known Allergies PHYSICAL EXAMINATION: Resp 18 Ht 5' 8 (1.73m) Wt 290 lb (131.5kg) BMI 44.10 kg/(m2). General Appearance:?Well appearing, alert, in no acute distress, well-hydrated, well nourished. Skin:?Skin color, texture, turgor normal, no suspicious rashes or lesions. Psych: Patient is alert and oriented to person, time and place. Mood and affect are normal. Respiratory: Breathing is symmetric and unlabored Gait:?The patient was examined in a wheelchair today. Extremities:?Left lower extremity is examined. ?Skin is intact that erythema or ecchymosis. ?There is moderate swelling present the leg consistent with postoperative traumatic state. ?Multiple surgical incisions are well-healed without drainage or sign of infection. Medial wound is filling in secondarily. There is no significant surrounding erythema or fluctuance. There is no drainage. There is no focal tenderness.. ?Range of motion the knee and ankle is relatively pain-free. Lymphatic: There is no palpable lymphadenopathy Peripheral Pulses:?Normal. Neurologic: Bilateral lower extremities were examined. There is 5/5 strength with hip flexion, knee extension, dorsiflexion, EHL, plantar flexion. Sensation intact in all nerve dermatomes IMAGES: Physician office building radiographs, 02/08/2022. AP and lateral views of the left ankle were obtained reviewed these demonstrate tibial shaft fracture fixated intramedullary device. Overall alignment is stable. There is some progressive callus formation at the fracture site. There is no sign of loosening or failure of hardware. There is no lytic or blastic lesion appreciable. The talus is well-seated underneath t (more content not included)... Normal [facility] CNOVon 01-18-2022 CNOV Office Visit (AGPOB1 ) -------- SUSIE CALLEJAS ([id number]) 1955 M Date Time Provider Department 01/18/22 10:45 AM JASON NICOLAS ELGINB1 During your visit today, we recorded the following information about you: Respiration Weight Height 17/minute 131.5 kg 1.727 m Jason Nicolas MD 01/18/2022 3:19 PM Signed ORTHOPAEDIC OFFICE NOTE CHIEF COMPLAINT: Follow-up left tibia fracture HISTORY OF PRESENT ILLNESS: Susie Callejas is a 66 year old male who presents for Postop evaluation following open treatment of left tibia fracture with intramedullary device on 12/01/2021. Overall patient is doing well. He is not having any pain at the ankle. Occasionally he will take Tylenol for pain control. He has been ambulating with a walker without too much difficulty. He has been working with home physical therapy. He denies current fevers chills nausea vomiting weight loss fatigue or malaise. Reviewed nursing note and current pain scale. PAST MEDICAL HISTORY Diagnosis Date - COPD (chronic obstructive pulmonary disease) (HCC) - Diabetes mellitus (HCC) - Hypercholesteremia - Hypertension - Sleep apnea PAST SURGICAL HISTORY Procedure Laterality Date - COLONOSCOPY FLX DX W/COLLJ SPEC WHEN PFRMD 07/14/15 Colonoscopy - NONE FAMILY HISTORY Problem Relation Age of Onset - Emphysema Mother - COPD Mother - Heart Father - Alzheimer's Disease Father - COPD Sister Social History Tobacco Use - Smoking status: Former Smoker Packs/day: 1.00 Years: 35.00 Pack years: 35.00 Types: Cigarettes - Smokeless tobacco: Never Used - Tobacco comment: using patch. doesn't buy cigarettes anymore Substance Use Topics - Alcohol use: Yes Alcohol/week: 5.0 standard drinks Types: 2 Cans of Beer (12oz) per week Comment: 3-4 beers per week - Drug use: No MEDICATIONS: Current Outpatient Medications Medication Sig - metFORMIN (GLUCOPHAGE) 1,000 mg tablet Take 1 tablet by mouth twice daily. - pravastatin (PRAVACHOL) 20 mg tablet Take 1 tablet by mouth daily at bedtime. - glipiZIDE XL (GLUCOTROL XL) 5 mg 24 hr tablet Take 1 tablet by mouth once daily. - umeclidinium (INCRUSE ELLIPTA) 62.5 mcg/actuation inhaler Inhale 1 Puff as instructed once daily. Inhale one puff once daily. DO NOT CLICK OPEN UNTIL READY FOR DOSE - budesonide-formoterol (SYMBICORT) 160-4.5 mcg/actuation inhaler Inhale 2 Puffs as instructed twice daily. - Nebulizer Use as directed. NEBULIZER FOR HOME USE. DX:(J44.9, J45.909) Asthma-chronic obstructive pulmonary disease overlap syndrome (HCC) - PSYLLIUM SEED, WITH SUGAR, (METAMUCIL ORAL) Take by mouth. - COMPOUNDED PRESCRIPTION Please administer oxygen at 3L continuous for daytime use. Please evaluate for conserving device. DX:COPD, Hypoxia - CPAP Use 12 cm in the nose daily at bedtime. - Oxygen-Air Delivery Systems jalen Use 4 L/min in the nose daily at bedtime. 4L O2 bleed in with nasal CPAP @@ bedtime. - blood sugar diagnostic(ONE TOUCH ULTRA TEST STRIPS) Check daily as directed. - ASPIRIN 81 MG TAB, DELAYED RELEASE Take one(1) tablet daily. - sulfamethoxazole-trimeth oprim (BACTRIM DS) 800-160 mg per tablet Take 1 tablet by mouth twice daily for 10 days. No current facility-administered medications for this visit. ALLERGIES: ALLERGIES No Known Allergies PHYSICAL EXAMINATION: Resp 17 Ht 5' 8 (1.73m) Wt 290 lb (131.5kg) BMI 44.10 kg/(m2). General Appearance: Well appearing, alert, in no acute distress, well-hydrated, well nourished. Skin: Skin color, texture, turgor normal, no suspicious rashes or lesions. Psych: Patient is alert and oriented to person, time and place. Mood and affect are normal. Respiratory: Breathing is symmetric and unlabored Gait: The patient was examined in a wheelchair today. Extremities: Left lower extremity is examined. Skin is intact that erythema or ecchymosis. There is moderate swelling present the leg consistent with postoperative traumatic state. Multiple surgical incisions are well-healed without drainage or sign of infection. One of the medial incisions for screw placement has dehisced. There is some mild serosanguineous drainage. There is no focal tenderness.. Range of motion the knee and ankle is relatively pain-free. Lymphatic: There is no palpable lymphadenopathy Peripheral Pulses: Normal. Neurologic: Bilateral lower extremities were examined. There is 5/5 strength with hip flexion, knee extension, dorsiflexion, EHL, plantar flexion. Sensation intact in all nerve dermatomes IMAGES: Recent Results (from the past 36 hour(s)) XR TIBIA FIBULA 2V AP/LAT LEFT Narrative Physician office building radiographs, 01/18/2022. AP and lateral views of the left tibia and fibula as well as ankle were obtained reviewed. These demonstrate fractures of the distal tibia shaft as well as segmental fractures of the fibula. Overall alignment i (more content not included)... Normal [facility] CNOVon 12-16-2021 CNOV Office Visit (AGPOB1 ) -------- SUSIE CALLEJAS ([id number]) 1955 M Date Time Provider Department 12/16/21 1:00 PM JASON NICOLAS [facility] During your visit today, we recorded the following information about you: Respiration Weight Height 17/minute 131.5 kg 1.727 m Jason Nicolas MD 12/20/2021 10:25 PM Signed ORTHOPAEDIC OFFICE NOTE CHIEF COMPLAINT: Follow-up left tibia fracture HISTORY OF PRESENT ILLNESS: Susie Callejas is a 66 year old male who presents for Postoperative evaluation following surgical fixation of left tibia fracture on 12/01/2021. Overall the patient is doing well. He rates his pain a 2/10 in intensity. He will occasionally take Tylenol for pain control which is helpful. He is currently at a halfway facility but is planned to be discharged home today. He has been ambulating with a walker during therapy sessions. He denies current fevers chills nausea vomiting weight loss fatigue or malaise. Reviewed nursing note and current pain scale. PAST MEDICAL HISTORY Diagnosis Date - COPD (chronic obstructive pulmonary disease) (HCC) - Diabetes mellitus (HCC) - Hypercholesteremia - Hypertension - Sleep apnea PAST SURGICAL HISTORY Procedure Laterality Date - COLONOSCOPY FLX DX W/COLLJ SPEC WHEN PFRMD 07/14/15 Colonoscopy - NONE FAMILY HISTORY Problem Relation Age of Onset - Emphysema Mother - COPD Mother - Heart Father - Alzheimer's Disease Father - COPD Sister Social History Tobacco Use - Smoking status: Former Smoker Packs/day: 1.00 Years: 35.00 Pack years: 35.00 Types: Cigarettes - Smokeless tobacco: Never Used - Tobacco comment: using patch. doesn't buy cigarettes anymore Substance Use Topics - Alcohol use: Yes Alcohol/week: 5.0 standard drinks Types: 2 Cans of Beer (12oz) per week Comment: 3-4 beers per week - Drug use: No MEDICATIONS: Current Outpatient Medications Medication Sig - enoxaparin (LOVENOX) 40 mg/0.4 mL Inject 0.4 mL subcutaneously q 24 HR for 21 days. - metFORMIN (GLUCOPHAGE) 1,000 mg tablet Take 1 tablet by mouth twice daily. - pravastatin (PRAVACHOL) 20 mg tablet Take 1 tablet by mouth daily at bedtime. - glipiZIDE XL (GLUCOTROL XL) 5 mg 24 hr tablet Take 1 tablet by mouth once daily. - umeclidinium (INCRUSE ELLIPTA) 62.5 mcg/actuation inhaler Inhale 1 Puff as instructed once daily. Inhale one puff once daily. DO NOT CLICK OPEN UNTIL READY FOR DOSE - budesonide-formoterol (SYMBICORT) 160-4.5 mcg/actuation inhaler Inhale 2 Puffs as instructed twice daily. - Nebulizer Use as directed. NEBULIZER FOR HOME USE. DX:(J44.9, J45.909) Asthma-chronic obstructive pulmonary disease overlap syndrome (HCC) - PSYLLIUM SEED, WITH SUGAR, (METAMUCIL ORAL) Take by mouth. - COMPOUNDED PRESCRIPTION Please administer oxygen at 3L continuous for daytime use. Please evaluate for conserving device. DX:COPD, Hypoxia - CPAP Use 12 cm in the nose daily at bedtime. - Oxygen-Air Delivery Systems jalen Use 4 L/min in the nose daily at bedtime. 4L O2 bleed in with nasal CPAP @@ bedtime. - blood sugar diagnostic(ONE TOUCH ULTRA TEST STRIPS) Check daily as directed. - ASPIRIN 81 MG TAB, DELAYED RELEASE Take one(1) tablet daily. No current facility-administered medications for this visit. ALLERGIES: ALLERGIES No Known Allergies PHYSICAL EXAMINATION: Resp 17 Ht 5' 8 (1.73m) Wt 290 lb (131.5kg) BMI 44.10 kg/(m2). General Appearance: Well appearing, alert, in no acute distress, well-hydrated, well nourished. Skin: Skin color, texture, turgor normal, no suspicious rashes or lesions. Psych: Patient is alert and oriented to person, time and place. Mood and affect are normal. Respiratory: Breathing is symmetric and unlabored Gait: The patient was examined in a wheelchair today. Extremities: Left lower extremity is examined. Skin is intact that erythema or ecchymosis. There is moderate swelling present the leg consistent with postoperative traumatic state. Multiple surgical incisions are well-healed without drainage or sign of infection. There is mild tenderness along the tibia without palpable mass. Range of motion the knee and ankle is relatively pain-free. Lymphatic: There is no palpable lymphadenopathy Peripheral Pulses: Normal. Neurologic: Bilateral lower extremities were examined. There is 5/5 strength with hip flexion, knee extension, dorsiflexion, EHL, plantar flexion. Sensation intact in all nerve dermatomes IMAGES: Physician office building radiographs, 12/16/2021. ?AP and lateral views of the left tibia and fibula as well as the left ankle were obtained and reviewed. ?These demonstrate distal tibia and fibular shaft fractures. ?The fibula is fixated with intramedullary device. ?Overall alignment is stable. ?There is no sign of loosening or failure of hardware. ?There is no destructive lesion appreciable. ?Soft tissues (more content not included)... Normal [facility] Leonor 12-09-2021 SHAMA Telephone (AGPOB1) -------- SUSIE CALLEJAS ([id number]) 1955 M Date Time Provider Department 12/09/21 JASON NICOLAS During your visit today, we recorded the following information about you: Nae Romeo Specialist Registration [facility] Office 12/09/2021 8:50 AM Signed Called patient to schedule post-op appointment with Dr. Nicolas. Left message for patient to call back. Nae Romeo Specialist Registration [facility] Md Office December 09, 2021 8:50 AM Allergies As of Date: 12/09/2021 (No Known Allergies) Date Reviewed: 12/04/2021 Reviewed by: Barbra Shelley RN - Fully Assessed Reason for Visit: Appointment [186] Prescriptions as of 12/09/2021 - enoxaparin (LOVENOX) 40 mg/0.4 mL Inject 0.4 mL subcutaneously q 24 HR for 21 days. - metFORMIN (GLUCOPHAGE) 1,000 mg tablet Take 1 tablet by mouth twice daily. - pravastatin (PRAVACHOL) 20 mg tablet Take 1 tablet by mouth daily at bedtime. - glipiZIDE XL (GLUCOTROL XL) 5 mg 24 hr tablet Take 1 tablet by mouth once daily. - umeclidinium (INCRUSE ELLIPTA) 62.5 mcg/actuation inhaler Inhale 1 Puff as instructed once daily. Inhale one puff once daily. DO NOT CLICK OPEN UNTIL READY FOR DOSE - budesonide-formoterol (SYMBICORT) 160-4.5 mcg/actuation inhaler Inhale 2 Puffs as instructed twice daily. - Nebulizer Use as directed. NEBULIZER FOR HOME USE. DX:(J44.9, J45.909) Asthma-chronic obstructive pulmonary disease overlap syndrome (HCC) - PSYLLIUM SEED, WITH SUGAR, (METAMUCIL ORAL) Take by mouth. - COMPOUNDED PRESCRIPTION Please administer oxygen at 3L continuous for daytime use. Please evaluate for conserving device. DX:COPD, Hypoxia - CPAP Use 12 cm in the nose daily at bedtime. - Oxygen-Air Delivery Systems jalen Use 4 L/min in the nose daily at bedtime. 4L O2 bleed in with nasal CPAP @@ bedtime. - blood sugar diagnostic(ONE TOUCH ULTRA TEST STRIPS) Check daily as directed. - ASPIRIN 81 MG TAB, DELAYED RELEASE Take one(1) tablet daily. Problem List As Of Date 12/09/2021 Noted Resolved THROMBOCYTOPENIA NOS [D69.6] 04/25/2008 SECONDARY POLYCYTHEMIA [D75.1] 04/25/2008 Well controlled type 2 diabetes mellitus (HCC) *05/20/2008 BENIGN HYPERTENSION [I10] 05/20/2008 Asthma-chronic obstructive pulmonary disease ov*05/20/2008 Hyperlipidemia with target LDL less than 70 [E7*09/24/2010 Obesity, Class III, BMI 40-49.9 (morbid obesity*04/10/2018 Fracture of tibial shaft, left, closed [S82.202*11/30/2021 12/03/2021 Encounter Status:Closed by NABILA SPECIALIST REGISTRATION [facility] MD OFFICE, NAE on 12/09/21 Normal [facility] Basic metabolic 2000 panelon 12-04-2021 Anion gap [Moles/Vol] 8 mmol/L Low 9-18 [facility] Comment on above: Order Comment: Speci men Type: BLOOD SPECIMEN Performed By: #### 3 4528-0 #### [facility] CLIA [id number] [address] [place] [address] [place] Calcium [Mass/Vol] 9.1 mg/dL Normal 8.5-10.2 [facility] Comment on above: Order Comment: Speci men Type: BLOOD SPECIMEN Performed By: #### 3 4528-0 #### [facility] CLIA [id number] [address] [place] [address] [place] Chloride [Moles/Vol] 100 mmol/L Normal 97-105 [facility] Comment on above: Order Comment: Speci men Type: BLOOD SPECIMEN Performed By: #### 3 4528-0 #### [facility] CLIA [id number] [address] [place] [address] [place] CO2 [Moles/Vol] 31 mmol/L High 22-30 [facility] Comment on above: Order Comment: Speci men Type: BLOOD SPECIMEN Performed By: #### 3 4528-0 #### [facility] CLIA [id number] [address] Creatinine [Mass/Vol] 1.11 mg/dL Normal 0.73-1.22 [facility] Comment on above: Order Comment: Speci men Type: BLOOD SPECIMEN Performed By: #### 3 4528-0 #### [facility] CLIA [id number] [address] [place] GFR/1.73 sq M.predicted MDRD (S/P/Bld) [Vol rate/Area] mL/min/{1.73_m2} Normal [facility] Comment on above: Order Comment: Speci men Type: BLOOD SPECIMEN Result Comment: >60 eGFR (Estimated GFR) Units of measure: mL/min/1.73 meters squared eGFR is derived from the reexpressed MDRD Study equation using the following parameters: serum creatinine, age, gender and race. The creatinine assay has been calibrated to be traceable to IDMS. An eGFR <60 mL/min/1.73m2 for >3 months is consistent with chronic kidney disease. Refer to KDOQI guidelines for clinical interpretation. In patients with unstable renal function, e.g. those with acute kidney injury, the eGFR may not accurately reflect actual GFR. Performed By: #### 3 4528-0 #### [facility] CLIA [id number] [address] [place] Glucose [Mass/Vol] 174 mg/dL High 74-99 [facility] Comment on above: Order Comment: Speci men Type: BLOOD SPECIMEN Result Comment: The [place] Diabetes Association (ADA) provides guidance for cutoff values for fasting glucose and random glucose. The ADA defines fasting as no caloric intake for at least 8 hours. Fasting plasma glucose results between 100 to 125 mg/dL indicate increased risk for diabetes (prediabetes). Fasting plasma glucose results greater than or equal to 126 mg/dL meet the criteria for diagnosis of diabetes. In the absence of unequivocal hyperglycemia, results should be confirmed by repeat testing. In a patient with classic symptoms of hyperglycemia or hyperglycemic crisis, random plasma glucose results greater than or equal to 200 mg/dL meet the criteria for diagnosis of diabetes. Reference: Standards of Medical Care in Diabetes 2016, [place] [employer]. Diabetes Care. 2016.39(Suppl 1). Performed By: #### 3 4528-0 #### [facility] CLIA [id number] [address] Potassium [Moles/Vol] 4.7 mmol/L Normal 3.7-5.1 [facility] Comment on above: Order Comment: Speci men Type: BLOOD SPECIMEN Performed By: #### 3 4528-0 #### [facility] CLIA [id number] [address] Sodium [Moles/Vol] 139 mmol/L Normal 136-144 [facility] Comment on above: Order Comment: Speci men Type: BLOOD SPECIMEN Performed By: #### 3 4528-0 #### [facility] CLIA [id number] [address] Urea nitrogen [Mass/Vol] 24 mg/dL Normal 9-24 [facility] Comment on above: Order Comment: Speci men Type: BLOOD SPECIMEN Performed By: #### 3 4528-0 #### [facility] CLIA [id number] [address] CBC W Auto Differential pane l (Bld)on 12-04-2021 Basophils (Bld) [#/Vol] 0.03 10*3/uL Normal <0.11 [facility] Comment on above: Order Comment: Speci men Type: BLOOD SPECIMEN Performed By: #### 5 7021-8 ####[facility] [id number] [address] Basophils/100 WBC (Bld) 0.5 % Normal [facility] Comment on above: Order Comment: Speci men Type: BLOOD SPECIMEN Performed By: #### 5 7021-8 ####[facility] [id number] [address] Differential cell count method Nom (Bld) Auto Normal [facility] Comment on above: Order Comment: Speci men Type: BLOOD SPECIMEN Performed By: #### 5 7021-8 ####[facility] [id number] [address] Eosinophils (Bld) [#/Vol] 0.15 10*3/uL Normal <0.46 [facility] Comment on above: Order Comment: Speci men Type: BLOOD SPECIMEN Performed By: #### 5 7021-8 ####[facility] [id number] [address] Eosinophils/100 WBC (Bld) 2.5 % Normal [facility] Comment on above: Order Comment: Speci men Type: BLOOD SPECIMEN Performed By: #### 5 7021-8 ####[facility] [id number] [address] Erythrocyte distribution width (RBC) [Ratio] 13.2 % Normal 11.5-15.0 [facility] Comment on above: Order Comment: Speci men Type: BLOOD SPECIMEN Performed By: #### 5 7021-8 ####[facility] [id number] [address] Hematocrit (Bld) [Volume fraction] 38.2 % Low 39.0-51.0 [facility] Comment on above: Order Comment: Speci men Type: BLOOD SPECIMEN Performed By: #### 5 7021-8 ####[facility] [id number] [address] Hemoglobin (Bld) [Mass/Vol] 11.8 g/dL Low 13.0-17.0 [facility] Comment on above: Order Comment: Speci men Type: BLOOD SPECIMEN Performed By: #### 5 7021-8 ####[facility] [id number] [address] IMMATURE GRAN % 0.7 % Normal [facility] Comment on above: Order Comment: Speci men Type: BLOOD SPECIMEN Performed By: #### 5 7021-8 ####[facility] [id number] [address] IMMATURE GRAN ABS 0.04 k/uL Normal <0.10 [facility] Comment on above: Order Comment: Speci men Type: BLOOD SPECIMEN Performed By: #### 5 7021-8 ####[facility] [id number] [address] Lymphocytes (Bld) [#/Vol] 0.71 10*3/uL Low 1.00-4.00 [facility] Comment on above: Order Comment: Speci men Type: BLOOD SPECIMEN Performed By: #### 5 7021-8 ####[facility] [id number] [address] Lymphocytes/100 WBC (Bld) 11.6 % Normal [facility] Comment on above: Order Comment: Speci men Type: BLOOD SPECIMEN Performed By: #### 5 7021-8 ####[facility] [id number] [address] MCH (RBC) [Entitic mass] 30.8 pg Normal 26.0-34.0 [facility] Comment on above: Order Comment: Speci men Type: BLOOD SPECIMEN Performed By: #### 5 7021-8 ####[facility] [id number] [address] MCHC (RBC) [Mass/Vol] 30.9 g/dL Normal 30.5-36.0 [facility] Comment on above: Order Comment: Speci men Type: BLOOD SPECIMEN Performed By: #### 5 7021-8 ####[facility] [id number] [address] MCV (RBC) [Entitic vol] 99.7 fL Normal 80.0-100.0 [facility] Comment on above: Order Comment: Speci men Type: BLOOD SPECIMEN Performed By: #### 5 7021-8 ####[facility] [id number] [place] [address] [facility] Monocytes (Bld) [#/Vol] 0.64 10*3/uL Normal <0.87 [facility] Comment on above: Order Comment: Speci men Type: BLOOD SPECIMEN Performed By: #### 5 7021-8 ####[facility] [id number] [place], [place] [id number] [place] [address] Monocytes/100 WBC (Bld) 10.5 % Normal [facility] Comment on above: Order Comment: Speci men Type: BLOOD SPECIMEN Performed By: #### 5 7021-8 ####[facility] [id number] [address] Neutrophils (Bld) [#/Vol] 4.54 10*3/uL Normal 1.45-7.50 [facility] Comment on above: Order Comment: Speci men Type: BLOOD SPECIMEN Performed By: #### 5 7021-8 ####[facility] [id number] [address] Neutrophils/100 WBC (Bld) 74.2 % Normal [facility] Comment on above: Order Comment: Speci men Type: BLOOD SPECIMEN Performed By: #### 5 7021-8 ####[facility] [id number] [address] Nucleated RBC (Bld) [#/Vol] 10*3/uL Normal <0.01 [facility] Comment on above: Order Comment: Speci men Type: BLOOD SPECIMEN Performed By: #### 5 7021-8 ####[facility] [id number] [address] Nucleated RBC/100 WBC (Bld) [Ratio] 0.0 /100 WBC Normal 0.0 [facility] Comment on above: Order Comment: Speci men Type: BLOOD SPECIMEN Performed By: #### 5 7021-8 ####[facility] [id number] [address] Platelet mean volume (Bld) [Entitic vol] 10.7 fL Normal 9.0-12.7 [facility] Comment on above: Order Comment: Speci men Type: BLOOD SPECIMEN Performed By: #### 5 7021-8 ####[facility] [id number] [address] Platelets (Bld) [#/Vol] 116 10*3/uL Low 150-400 [facility] Comment on above: Order Comment: Speci men Type: BLOOD SPECIMEN Result Comment: Plat elet count confirmed by manual review of peripheral blood smear Performed By: #### 5 7021-8 ####[facility] [id number] [address] RBC (Bld) [#/Vol] 3.83 10*6/uL Low 4.20-6.00 [facility] Comment on above: Order Comment: Speci men Type: BLOOD SPECIMEN Performed By: #### 5 7021-8 ####[facility] [id number] [address] WBC (Bld) [#/Vol] 6.11 10*3/uL Normal 3.70-11.00 [facility] Comment on above: Order Comment: Speci men Type: BLOOD SPECIMEN Performed By: #### 5 7021-8 ####[facility] [id number] [address] CNDSon 12-04-2021 [facility] HNO ID: [id number] Author: Jesica Loyd APRN.CNP Service: Orthopaedic Surgery Author Type: Nurse Practitioner Type: Discharge Summary Filed: 12/04/2021 1:21 PM Note Text: -------- Attestation signed by Jason Nicolas MD at 12/05/2021 11:03 AM Jason Nicolas MD -------- ORTHOPEDIC SURGERY DISCHARGE SUMMARY ADMISSION DATE: 11/30/2021 DISCHARGE DATE: 12/04/2021 Attending Physician: Jason Nicolas MD Admitting Diagnosis: Left tibial shaft fracture Discharge Diagnosis: Same as admitting Additional Diagnoses: ACTIVE PROBLEM LIST Thrombocytopenia, Unspecified (Hcc) Polycythemia, Secondary Well Controlled Type 2 Diabetes Mellitus (Hcc) Essential Hypertension, Benign Asthma-Chronic Obstructive Pulmonary Disease Overlap Syndrome (Hcc) Hyperlipidemia With Target Ldl Less Than 70 Obesity, Class Iii, Bmi 40-49.9 (Morbid Obesity) (Hcc) Surgeries During Hospitalization: Procedure(s) (LRB): INSERTION NAIL / ANALY INTRAMEDULLARY TIBIA (Left) Consultations: Occupational Therapy Physical Therapy Case Management Internal Medicine Hospital Course: The patient is a 66 year old male who has been followed by Dr. Jason Nicolas MD, MD. It was determined he would benefit from surgery. The procedure, its risks, benefits, and potential complications were discussed in detail with the patient or POA prior to surgery. Understanding of all topics was conveyed by the patient or POA, and consent was given for surgery. The patient was transferred from [facility] to [facility] on 11/30/2021. Surgery was scheduled and on 12/01/2021 he underwent a Procedure(s) (LRB): INSERTION NAIL / ANALY INTRAMEDULLARY TIBIA (Left). The procedure was tolerated well and he was sent to the post operative recovery room in stable condition, where he also did well. He was subsequently sent to his hospital room for postoperative management. Once on the floor his postoperative course was unremarkable and he did well. His diet was advanced which he tolerated. His pain was well controlled. He worked with Physical and Occupational Therapy who recommended he be discharged to SNF. He remained afebrile with stable vital signs throughout his stay. He was stable for discharge on POD#3. Complete and comprehensive discharge instructions were provided to the patient as well as necessary prescriptions. The patient had no further questions and was advised to call with any questions, concerns, or problems. Patient demonstrated Elevated creatinine upon admission and postoperatively., Patient received IV fluids., Creatinine trending down after intervention. Relevant labs included: Hemoglobin (g/dL) Date Value 12/03/2021 12.3 (L) 12/02/2021 13.9 12/01/2021 14.7 05/24/2017 18.1 (H) 04/22/2016 17.1 (H) 04/30/2015 18.5 (H) Hematocrit (%) Date Value 12/03/2021 39.7 12/02/2021 45.0 12/01/2021 48.8 05/24/2017 57.8 (H) 04/22/2016 53.3 (H) 04/30/2015 57.9 (H) Discharge Antibiotics: None Prior to surgery the patient was treated with antibiotics and continued with antibiotics 24 hours postoperatively DVT Prophylaxis: Lovenox Complications: Internal medicine was consulted for post op medical management. TONY on admission. Given IVF and CYNDI/HCTZ discontinued. Recommended to follow up with PCP. Patient Condition @ Discharge: Stable Vital Signs: BP 123/58 Pulse 67 Temp 36.8 ?C (98.2 ?F) (Oral) Resp 18 Ht 172.7 cm (5' 8 ) Wt 131.7 kg (290 lb 5.5 oz) SpO2 93% BMI 44.15 kg/m? Discharge Disposition: Assisted Facility The patient was instructed to follow-up in Follow up with Orthopedics in [address] Jason Nicolas. Call to schedule appointment. Follow up with PCP, Dr. Moreno. Call to schedule appointment. Highest Readmission Risk Score: 20 The 30 day readmissions risk score is derived from an internally validated risk model which evaluates patient level characteristics, utilization history, medication orders and lab results up until the day of discharge. Patients with a score of 40 or above are considered highest risk for readmission. Specific patient level drivers will be listed at the bottom of the summary. The 30 day readmissions risk score is derived from an internally validated risk model which evaluates patient level characteristics, utilization history, medication orders and lab results up until the day of discharge. Patients with a score of 40 or above are considered highest risk for readmission. Specific patient level drivers will be listed at the bottom of the summary. Discharge Medications: Current Discharge Medication List START taking these medications oxyCODONE IR (ROXICODONE) 5-10 mg Take 5-10 mg by mouth every 6 hours as needed for pain. Qty: 8 tablet Refills: 0 Associated Diagnoses:Tibia/fibula fracture, left, closed (more content not included)... Normal [facility] THERAPY NTon 12-04-2021 THERAPY NT HNO ID: [id number] Author: Pattie Martins PTA Service: Physical Therapy Author Type: Production Aide Type: Therapy (PT/OT/Speech/Resp) Filed: 12/04/2021 11:51 AM Note Text: -------- Attestation signed by Monica Garza PT at 12/04/2021 12:10 PM I reviewed and agree with the assessment as documented above. SIGNATURE: Monica Garza PT DATE: December 04, 2021 TIME: 12:10 PM -------- Physical Therapy Treatment SERVICE DATE: 12/04/2021 SERVICE TIME: 1036 to 1103 ROOM: [place] [address] Recommended Discharge Disposition: Subacute/SNF Recommended Discharge Disposition Comments: Patient below baseline functioning, recommend SNF at discharge to progress strength and regain inadependence with functional mobility Recommended Discharge Disposition Due to: Patient requires daily, facility-based rehabilitation from at least one discipline due to:;decline in functional status requiring daily skilled care;deficits affecting non-dominant side;high level balance deficits;less than 3/5 weakness noted in:;distal LE;ongoing intervention of multiple therapy disciplines PT 6 Clicks Score: 12 Additional personnel present during visit: Brooke Watson Patient making progress toward goals with improvement today with his elevations and standing with wheeled walker. Patient able to manage his coming to a stand working from higher surfaces to bed at lowest setting with emphasis on technique. Patient still moving well below his baseline and is unable to safely take steps or transfer to chair today. Goals ongoing. Precautions/Activity Restrictions: Fall Risk;Weight Bearing Restrictions Extremity With Weight Bearing Restricted: Left Lower Extremity Left Lower Extremity Weight Bearing Status: WBAT Current Hospital Course: 66 y.o male s/p fall resulting in distal tib/fib fx, s/p IMN L tibia 12/01/21 Reason for Hospital Admission: Fall Relevant Past Medical History: COPD, DM, HTN Response to Therapy Interventions: Good participation in activities,Notable progression with functional activities/skills,Improv ed tolerance for activity,Requires additional time to complete activities Continue skilled needs due to: Functional mobility/skill impairments,Safety concerns Physical Therapy Problem List: Pain;Decreased Activity Tolerance;Decreased Range Of Motion;Decreased Strength;Functional Mobility Impairment;Balance Impaired Treatment Interventions: Joint Mobility;Strengthening;F unctional Mobility Training;Balance Training;Education Home Environment Patient Lives With: Other: See Comment (roommate) Assistance Available: 24 Hour Entry To Home: Stairs;Ramp Number Of Stairs Into Home: 1 Number Of Stairs To Bed/Bath: 0 Tub/Shower Type: Tub Laundry: Roommate does the laundry Equipment Owned: Cane;Wheeled Walker Prior Functional Level: Within Functional Limits Prior Functional Level Comments: Per patient, independent prior to admit Patient Report: Patient pleasant and agreeable to PT session CURRENT FUNCTIONAL STATUS: Most recent performance mobility performed during session in bold, other mobility completed during prior session and may no longer be correct or appropriate to complete. Current Functional Mobility Assist Level Additional Information Rolling Minimal Assistance Supine to Sit Minimal Assistance;Additional Information HOB at 40 degrees, heavily reliant on use of rail, requires extra time and assist with his left leg Sit to Supine Moderate Assistance;Additional Information bed flat, assist to control his trunk and return LLE to bed Scooting Minimal Assistance Sit to Stand Moderate Assistance;Additional Information x 5 trials from bed raised ~ 3 inches > lowest setting, cues to get nose over toes and power up through his legs Stand to Sit Moderate Assistance;Additional Information cues to reach back and eccentric control Bed to Chair Maximal Assistance;Additional Information (x2) Bed To Chair Transfer Type: Stand Pivot Bed To Chair Transfer Equipment: Gait Belt Toilet/Commode Gait Moderate Assistance;Additional Information Gait Device: Wheeled Walker Gait Distance (feet): 3-4 small scooting side steps to his right cues/assist with management of walker, more erect posture, keep within walker frame and sequencing Stairs Curb Step Car Transfer Blank mayen indicate activity not attempted General Deviations/Observations: Antalgic gait;Flexed trunk posture;Non-functional gait speed;UE weight bearing on assistive device excessive;Improper distancing from assistive device;Step length decreased;Shuffling Gait Balance: Static Sitting;Dynamic Sitting;Static Standing;Dynamic Standing Static Sitting Balance: Good Patient able to maintain balance without handhold support, limited postural sway Dynamic Sitting Balance: (more content not included)... Normal [facility] ALLIED HEALTHon 12-03-2021 ALLIED HEALTH HNO ID: [id number] Author: Chaplain Marino Service: ? 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 Actively listened as PT described his family, health, and ivana. Prayed for PT. To contact the Spiritual Care Department: Please call [phone]. SIGNATURE: Chaplain Marino PATIENT NAME: Susie Callejas DATE: December 03, 2021 TIME: 2:46 PM PAGER/CONTACT #: [phone] Normal [facility] Basic metabolic 2000 panelon 12-03-2021 Anion gap [Moles/Vol] 7 mmol/L Low 9-18 [facility] Comment on above: Order Comment: Speci men Type: BLOOD SPECIMEN Performed By: #### 3 4528-0 #### [facility] CLIA [id number] [address] [place] [address] [place] Calcium [Mass/Vol] 8.7 mg/dL Normal 8.5-10.2 [facility] Comment on above: Order Comment: Speci men Type: BLOOD SPECIMEN Performed By: #### 3 4528-0 #### [facility] CLIA [id number] [address] [place] [address] [place] Chloride [Moles/Vol] 100 mmol/L Normal 97-105 [facility] Comment on above: Order Comment: Speci men Type: BLOOD SPECIMEN Performed By: #### 3 4528-0 #### [facility] CLIA [id number] [address] [place] CO2 [Moles/Vol] 30 mmol/L Normal 22-30 [facility] Comment on above: Order Comment: Speci men Type: BLOOD SPECIMEN Performed By: #### 3 4528-0 #### [facility] CLIA [id number] [address] [place] Creatinine [Mass/Vol] 1.27 mg/dL High 0.73-1.22 [facility] Comment on above: Order Comment: Speci men Type: BLOOD SPECIMEN Performed By: #### 3 4528-0 #### [facility] CLIA [id number] [address] [place] GFR/1.73 sq M.predicted MDRD (S/P/Bld) [Vol rate/Area] mL/min/{1.73_m2} Normal [facility] Comment on above: Order Comment: Speci men Type: BLOOD SPECIMEN Result Comment: 57 eGFR (Estimated GFR) Units of measure: mL/min/1.73 meters squared eGFR is derived from the reexpressed MDRD Study equation using the following parameters: serum creatinine, age, gender and race. The creatinine assay has been calibrated to be traceable to IDMS. An eGFR <60 mL/min/1.73m2 for >3 months is consistent with chronic kidney disease. Refer to KDOQI guidelines for clinical interpretation. In patients with unstable renal function, e.g. those with acute kidney injury, the eGFR may not accurately reflect actual GFR. Performed By: #### 3 4528-0 #### [facility] CLIA [id number] [address] [place] Glucose [Mass/Vol] 152 mg/dL High 74-99 [facility] Comment on above: Order Comment: Speci men Type: BLOOD SPECIMEN Result Comment: The [place] Diabetes Association (ADA) provides guidance for cutoff values for fasting glucose and random glucose. The ADA defines fasting as no caloric intake for at least 8 hours. Fasting plasma glucose results between 100 to 125 mg/dL indicate increased risk for diabetes (prediabetes). Fasting plasma glucose results greater than or equal to 126 mg/dL meet the criteria for diagnosis of diabetes. In the absence of unequivocal hyperglycemia, results should be confirmed by repeat testing. In a patient with classic symptoms of hyperglycemia or hyperglycemic crisis, random plasma glucose results greater than or equal to 200 mg/dL meet the criteria for diagnosis of diabetes. Reference: Standards of Medical Care in Diabetes 2016, [place] [employer]. Diabetes Care. 2016.39(Suppl 1). Performed By: #### 3 4528-0 #### [facility] CLIA [id number] [address] STATES OF [facility] Potassium [Moles/Vol] 4.6 mmol/L Normal 3.7-5.1 [facility] Comment on above: Order Comment: Speci men Type: BLOOD SPECIMEN Performed By: #### 3 4528-0 #### [facility] CLIA [id number] [address] [place] [facility] Sodium [Moles/Vol] 137 mmol/L Normal 136-144 [facility] Comment on above: Order Comment: Speci men Type: BLOOD SPECIMEN Performed By: #### 3 4528-0 #### [facility] CLIA [id number] [address] [place] [facility] Urea nitrogen [Mass/Vol] 30 mg/dL High 9-24 [facility] Comment on above: Order Comment: Speci men Type: BLOOD SPECIMEN Performed By: #### 3 4528-0 #### [facility] CLIA [id number] [address] CBC W Auto Differential pane l (Bld)on 12-03-2021 Basophils (Bld) [#/Vol] 0.03 10*3/uL Normal <0.11 [facility] Comment on above: Order Comment: Speci men Type: BLOOD SPECIMEN Performed By: #### 5 7021-8 ####[facility] [id number] [address] Basophils/100 WBC (Bld) 0.4 % Normal [facility] Comment on above: Order Comment: Speci men Type: BLOOD SPECIMEN Performed By: #### 5 7021-8 ####[facility] [id number] [address] Differential cell count method Nom (Bld) Auto Normal [facility] Comment on above: Order Comment: Speci men Type: BLOOD SPECIMEN Performed By: #### 5 7021-8 ####[facility] [id number] [address] Eosinophils (Bld) [#/Vol] 0.14 10*3/uL Normal <0.46 [facility] Comment on above: Order Comment: Speci men Type: BLOOD SPECIMEN Performed By: #### 5 7021-8 ####[facility] [id number] [address] Eosinophils/100 WBC (Bld) 1.8 % Normal [facility] Comment on above: Order Comment: Speci men Type: BLOOD SPECIMEN Performed By: #### 5 7021-8 ####[facility] [id number] [address] Erythrocyte distribution width (RBC) [Ratio] 13.2 % Normal 11.5-15.0 [facility] Comment on above: Order Comment: Speci men Type: BLOOD SPECIMEN Performed By: #### 5 7021-8 ####[facility] [id number] [address] Hematocrit (Bld) [Volume fraction] 39.7 % Normal 39.0-51.0 [facility] Comment on above: Order Comment: Speci men Type: BLOOD SPECIMEN Performed By: #### 5 7021-8 ####[facility] [id number] [address] Hemoglobin (Bld) [Mass/Vol] 12.3 g/dL Low 13.0-17.0 [facility] Comment on above: Order Comment: Speci men Type: BLOOD SPECIMEN Performed By: #### 5 7021-8 ####[facility] [id number] [address] IMMATURE GRAN % 0.5 % Normal [facility] Comment on above: Order Comment: Speci men Type: BLOOD SPECIMEN Performed By: #### 5 7021-8 ####[facility] [id number] [address] IMMATURE GRAN ABS 0.04 k/uL Normal <0.10 [facility] Comment on above: Order Comment: Speci men Type: BLOOD SPECIMEN Performed By: #### 5 7021-8 ####[facility] [id number] [address] Lymphocytes (Bld) [#/Vol] 0.77 10*3/uL Low 1.00-4.00 [facility] Comment on above: Order Comment: Speci men Type: BLOOD SPECIMEN Performed By: #### 5 7021-8 ####[facility] [id number] [address] Lymphocytes/100 WBC (Bld) 9.7 % Normal [facility] Comment on above: Order Comment: Speci men Type: BLOOD SPECIMEN Performed By: #### 5 7021-8 ####[facility] [id number] [address] MCH (RBC) [Entitic mass] 31.1 pg Normal 26.0-34.0 [facility] Comment on above: Order Comment: Speci men Type: BLOOD SPECIMEN Performed By: #### 5 7021-8 ####[facility] [id number] [address] MCHC (RBC) [Mass/Vol] 31.0 g/dL Normal 30.5-36.0 [facility] Comment on above: Order Comment: Speci men Type: BLOOD SPECIMEN Performed By: #### 5 7021-8 ####[facility] [id number] [address] MCV (RBC) [Entitic vol] 100.3 fL High 80.0-100.0 [facility] Comment on above: Order Comment: Speci men Type: BLOOD SPECIMEN Performed By: #### 5 7021-8 ####[facility] [id number] [address] [place] [facility] Monocytes (Bld) [#/Vol] 0.93 10*3/uL High <0.87 [facility] Comment on above: Order Comment: Speci men Type: BLOOD SPECIMEN Performed By: #### 5 7021-8 ####[facility] [id number] [address] Monocytes/100 WBC (Bld) 11.7 % Normal [facility] Comment on above: Order Comment: Speci men Type: BLOOD SPECIMEN Performed By: #### 5 7021-8 ####[facility] [id number] [address] OF [facility] Neutrophils (Bld) [#/Vol] 6.04 10*3/uL Normal 1.45-7.50 [facility] Comment on above: Order Comment: Speci men Type: BLOOD SPECIMEN Performed By: #### 5 7021-8 ####[facility] [id number] [address] Neutrophils/100 WBC (Bld) 75.9 % Normal [facility] Comment on above: Order Comment: Speci men Type: BLOOD SPECIMEN Performed By: #### 5 7021-8 ####[facility] [id number] [address] [place] Nucleated RBC (Bld) [#/Vol] 10*3/uL Normal <0.01 [facility] Comment on above: Order Comment: Speci men Type: BLOOD SPECIMEN Performed By: #### 5 7021-8 ####[facility] [id number] [address] Nucleated RBC/100 WBC (Bld) [Ratio] 0.0 /100 WBC Normal 0.0 [facility] Comment on above: Order Comment: Speci men Type: BLOOD SPECIMEN Performed By: #### 5 7021-8 ####[facility] [id number] [address] Platelet mean volume (Bld) [Entitic vol] 10.7 fL Normal 9.0-12.7 [facility] Comment on above: Order Comment: Speci men Type: BLOOD SPECIMEN Performed By: #### 5 7021-8 ####[facility] [id number] [address] Platelets (Bld) [#/Vol] 112 10*3/uL Low 150-400 [facility] Comment on above: Order Comment: Speci men Type: BLOOD SPECIMEN Performed By: #### 5 7021-8 ####[facility] [id number] [address] RBC (Bld) [#/Vol] 3.96 10*6/uL Low 4.20-6.00 [facility] Comment on above: Order Comment: Speci men Type: BLOOD SPECIMEN Performed By: #### 5 7021-8 ####[facility] [id number] [address] WBC (Bld) [#/Vol] 7.95 10*3/uL Normal 3.70-11.00 [facility] Comment on above: Order Comment: Speci men Type: BLOOD SPECIMEN Performed By: #### 5 7021-8 ####[facility] [id number] [address] SARS-CoV-2 RNA Resp Ql KIRBY+p robeon 12-03-2021 SARS-CoV-2 (COVID-19) RNA KIRBY+probe Ql (Resp) COVID 19 RESULT: SARS-CoV-2 (Agent of COVID-19) Not Detected by PCR. This test has been authorized by FDA under an Emergency Use Authorization (EUA). Normal [facility] Comment on above: Performed By: #### 9 4500-6 #### [facility] CLIA [id number] [address] THERAPY NTon 12-03-2021 THERAPY NT HNO ID: [id number] Author: Kandis Schultz PTA Service: Physical Therapy Author Type: Production Aide Type: Therapy (PT/OT/Speech/Resp) Filed: 12/03/2021 12:19 PM Note Text: -------- Attestation signed by Monica Garza PT at 12/03/2021 1:04 PM I reviewed and agree with the assessment as documented above. SIGNATURE: Monica Garza, PT DATE: December 03, 2021 TIME: 1:04 PM -------- Physical Therapy Treatment SERVICE DATE: 12/03/2021 SERVICE TIME: 937 to 1011 ROOM: [place] [address] Recommended Discharge Disposition: Subacute/SNF Recommended Discharge Disposition Comments: Patient below baseline functioning, recommend SNF at discharge to progress strength and regain inadependence with functional mobility Recommended Discharge Disposition Due to: Patient requires daily, facility-based rehabilitation from at least one discipline due to:;decline in functional status requiring daily skilled care;deficits affecting non-dominant side;high level balance deficits;less than 3/5 weakness noted in:;distal LE;ongoing intervention of multiple therapy disciplines PT 6 Clicks Score: 11 Patient was was able sit Edge of bed x 8 minutes but still challenged with sit <> stand , patient unable to stand upright. Patient progressing towards goals. Patient below baseline . Recommend SNF to improve functional mobility to return to [facility]. Additional personnel present during visit: Brooke Watson Precautions/Activity Restrictions: Fall Risk;Weight Bearing Restrictions Extremity With Weight Bearing Restricted: Left Lower Extremity Left Lower Extremity Weight Bearing Status: WBAT Current Hospital Course: 66 y.o male s/p fall resulting in distal tib/fib fx, s/p IMN L tibia 12/01/21 Reason for Hospital Admission: Fall Relevant Past Medical History: COPD, DM, HTN Response to Therapy Interventions: Good participation in activities,Low activity tolerance,Pain,Requires additional time to complete activities Continue skilled needs due to: Functional mobility/skill impairments,Safety concerns Physical Therapy Problem List: Pain;Decreased Activity Tolerance;Decreased Range Of Motion;Decreased Strength;Functional Mobility Impairment;Balance Impaired Treatment Interventions: Joint Mobility;Strengthening;F unctional Mobility Training;Balance Training;Education Home Environment Patient Lives With: Other: See Comment (roommate) Assistance Available: 24 Hour Entry To Home: Stairs;Ramp Number Of Stairs Into Home: 1 Number Of Stairs To Bed/Bath: 0 Tub/Shower Type: Tub Laundry: Roommate does the laundry Equipment Owned: Cane;Wheeled Walker Prior Functional Level: Within Functional Limits Prior Functional Level Comments: Per patient, independent prior to admit Patient Report: Patient pleasant and agreeable to PT session CURRENT FUNCTIONAL STATUS: Most recent performance mobility performed during session in bold, other mobility completed during prior session and may no longer be correct or appropriate to complete. Current Functional Mobility Assist Level Additional Information Rolling Minimal Assistance Supine to Sit Moderate Assistance HOB elevated , cues to push with UE's to sit upright , modearate assit to bring LE's to edge of bed assist with LLE, cues for hand placement and sequencing with use of railing, heavy reliance on railing with increased assist at trunk to complete sitting edge of bed Sit to Supine Scooting Minimal Assistance cues for hand placement and to push with R LE , up in bed with sheet . Sit to Stand (attempted but unable to stand upright) Stand to Sit Maximal Assistance;Additional Information (x2) Bed to Chair Maximal Assistance;Additional Information (x2) Bed To Chair Transfer Type: Stand Pivot Bed To Chair Transfer Equipment: Gait Belt Toilet/Commode Gait Stairs Curb Step Car Transfer Blank mayen indicate activity not attempted Balance: Static Sitting;Dynamic Sitting;Static Standing;Dynamic Standing Static Sitting Balance: Good Patient able to maintain balance without handhold support, limited postural sway Dynamic Sitting Balance: Fair Patient accepts minimal challenge, able to maintain balance while turning head/trunk Static Standing Balance: (-) (-) Dynamic Standing Balance: (-) (-) Activity Tolerance: Sitting Activity Sitting Activity: edge of bed Sitting Activity Tolerance (in minutes): 8 Standing Activity: (-) Standing Activity Tolerance (in minutes): (-) JH-HLM: 3: Sit at edge of bed Learning/Educational Needs: Functional Activities/Mobility;Reha bilitation Techniques and Procedures;Safety Goals for Plan of Care: Patient /Caregiver Goals: Go Home Goals: Patient will demonstrate progress to optimize functional mobility, maximize activity tolerance and endurance to maximize functi (more content not included)... Normal [facility] ALLIED HEALTHon 12-02-2021 ALLIED HEALTH HNO ID: [id number] Author: RT Beata(Nimo) Service: ? Author Type: Clerical Office Type: Allied Health Filed: 12/02/2021 12:01 AM Note Text: Radiology Service Progress Note PATIENT NAME: Susie Callejas DATE OF SERVICE: December 02, 2021 TIME: 12:01 AM PATIENT IDENTITY VERIFICATION COMPLETED USING TWO (2) IDENTIFIERS: Name and Date of confirmed by patient verbally and Name and Date of confirmed by identification band. FALL SCREENING: Has the patient had 2 falls in the last year or 1 fall with injury or currently using an Ambulatory Assistive Device (Walker, Cane, Wheelchair, Crutches, etc.)? Inpatient: Screened on floor PATIENT GENDER DATA: Male PATIENT RELEVANT IMPLANT DATA REVIEWED: Not Applicable RADIOLOGY DEPARTMENT: General X-ray: Exam(s) Completed: Lower Extremity X-Ray(s): Ankle, Left PERIPHERAL IV DATA: Not applicable SIGNED BY: RT Beata(R) December 02, 2021 12:[address] [facility] ANES POSTPROC EVALon 022 ANES POSTPROC EVAL HNO ID: [id number] Author: Hugo Mosley MD Service: Anesthesiology Author Type: Physician Type: Anesthesia Postprocedure Evaluation Filed: 12/02/2021 10:18 AM Note Text: POST ANESTHESIA EVALUATION NOTE : 1955 Procedure Summary Date: 12/01/21 Room / Location: [facility] OR / [facility] OR Anesthesia Start: 1042 Anesthesia Stop: 1444 Procedure: INSERTION NAIL / ANALY INTRAMEDULLARY TIBIA (Left Leg below knee) Diagnosis: Fracture of tibial shaft, left, closed Surgeons: Jason Nicolas MD Responsible Provider: Hugo Mosley MD Anesthesia Type: spinal ASA Status: 4 - Emergent Anesthesia Type: spinal Last Vitals Vitals Value Taken Time BP 103/58 12/01/21 1645 Temp 36 ?C (96.8 ?F) 12/01/21 1626 Pulse 78 12/01/21 1651 Resp 25 12/01/21 1651 SpO2 92 % 12/01/21 1648 Vitals shown include unvalidated device data. Post Anesthesia Patient Status Patient Evaluation: bedside. Anticipated Disposition: phase 2 then home. Neurological Status: aware and responsive. Pulmonary Status: breathing comfortably on supplemental oxygen Cardiovascular Status: stable. Pain Management: clinically adequate Postoperative Hydration: acceptable. Intraoperative Events: no significant anesthesia events Post Operative Nausea/Vomiting Status: no significant post operative nausea or vomiting Anesthetic Observations: Recommendation: continue current plan of care. Anesthesia Observations No Documentation SIGNATURE: Hugo Mosley MD PATIENT NAME: Susie Callejas DATE: December 02, 2021 TIME: 10:17 AM CSN: [id number] Normal [facility] Basic metabolic 2000 panelon 12-02-2021 Anion gap [Moles/Vol] 8 mmol/L Low 9-18 [facility] Comment on above: Order Comment: Speci men Type: BLOOD SPECIMEN Performed By: #### 3 4528-0 #### [facility] CLIA [id number] [address] [place] [address] [place] Calcium [Mass/Vol] 8.6 mg/dL Normal 8.5-10.2 [facility] Comment on above: Order Comment: Speci men Type: BLOOD SPECIMEN Performed By: #### 3 4528-0 #### [facility] CLIA [id number] [address] STATES OF [facility] Chloride [Moles/Vol] 99 mmol/L Normal 97-105 [facility] Comment on above: Order Comment: Speci men Type: BLOOD SPECIMEN Performed By: #### 3 4528-0 #### [facility] CLIA [id number] [address] [place] CO2 [Moles/Vol] 29 mmol/L Normal 22-30 [facility] Comment on above: Order Comment: Speci men Type: BLOOD SPECIMEN Performed By: #### 3 4528-0 #### [facility] CLIA [id number] [address] [place] Creatinine [Mass/Vol] 1.45 mg/dL High 0.73-1.22 [facility] Comment on above: Order Comment: Speci men Type: BLOOD SPECIMEN Performed By: #### 3 4528-0 #### [facility] CLIA [id number] [address] [place] GFR/1.73 sq M.predicted MDRD (S/P/Bld) [Vol rate/Area] 59 mL/min/{1.73_m2} Normal [facility] Comment on above: Order Comment: Speci men Type: BLOOD SPECIMEN Result Comment: 49 eGFR (Estimated GFR) Units of measure: mL/min/1.73 meters squared eGFR is derived from the reexpressed MDRD Study equation using the following parameters: serum creatinine, age, gender and race. The creatinine assay has been calibrated to be traceable to IDMS. An eGFR <60 mL/min/1.73m2 for >3 months is consistent with chronic kidney disease. Refer to KDOQI guidelines for clinical interpretation. In patients with unstable renal function, e.g. those with acute kidney injury, the eGFR may not accurately reflect actual GFR. Performed By: #### 3 4528-0 #### [facility] CLIA [id number] [address] [place] Glucose [Mass/Vol] 164 mg/dL High 74-99 [facility] Comment on above: Order Comment: Speci men Type: BLOOD SPECIMEN Result Comment: The [place] Diabetes Association (ADA) provides guidance for cutoff values for fasting glucose and random glucose. The ADA defines fasting as no caloric intake for at least 8 hours. Fasting plasma glucose results between 100 to 125 mg/dL indicate increased risk for diabetes (prediabetes). Fasting plasma glucose results greater than or equal to 126 mg/dL meet the criteria for diagnosis of diabetes. In the absence of unequivocal hyperglycemia, results should be confirmed by repeat testing. In a patient with classic symptoms of hyperglycemia or hyperglycemic crisis, random plasma glucose results greater than or equal to 200 mg/dL meet the criteria for diagnosis of diabetes. Reference: Standards of Medical Care in Diabetes 2016, [place] [employer]. Diabetes Care. 2016.39(Suppl 1). Performed By: #### 3 4528-0 #### [facility] CLIA [id number] [address] [place] [facility] Potassium [Moles/Vol] 4.9 mmol/L Normal 3.7-5.1 [facility] Comment on above: Order Comment: Speci men Type: BLOOD SPECIMEN Performed By: #### 3 4528-0 #### [facility] CLIA [id number] [address] [place] [facility] Sodium [Moles/Vol] 136 mmol/L Normal 136-144 [facility] Comment on above: Order Comment: Speci men Type: BLOOD SPECIMEN Performed By: #### 3 4528-0 #### [facility] CLIA [id number] [address] STATES [facility] Urea nitrogen [Mass/Vol] 34 mg/dL High 9-24 [facility] Comment on above: Order Comment: Speci men Type: BLOOD SPECIMEN Performed By: #### 3 4528-0 #### [facility] CLIA [id number] [address] [place] [facility] CBC W Auto Differential pane l (Bld)on 12-02-2021 Basophils (Bld) [#/Vol] 0.03 10*3/uL Normal <0.11 [facility] Comment on above: Order Comment: Speci men Type: BLOOD SPECIMEN Performed By: #### 5 7021-8 ####[facility] [id number] [address] Basophils/100 WBC (Bld) 0.3 % Normal [facility] Comment on above: Order Comment: Speci men Type: BLOOD SPECIMEN Performed By: #### 5 7021-8 ####[facility] [id number] [address] Differential cell count method Nom (Bld) Auto Normal [facility] Comment on above: Order Comment: Speci men Type: BLOOD SPECIMEN Performed By: #### 5 7021-8 ####[facility] [id number] [address] Eosinophils (Bld) [#/Vol] 10*3/uL Normal <0.46 [facility] Comment on above: Order Comment: Speci men Type: BLOOD SPECIMEN Performed By: #### 5 7021-8 ####[facility] [id number] [address] Eosinophils/100 WBC (Bld) 0.1 % Normal [facility] Comment on above: Order Comment: Speci men Type: BLOOD SPECIMEN Performed By: #### 5 7021-8 ####[facility] [id number] [address] Erythrocyte distribution width (RBC) [Ratio] 13.2 % Normal 11.5-15.0 [facility] Comment on above: Order Comment: Speci men Type: BLOOD SPECIMEN Performed By: #### 5 7021-8 ####[facility] [id number] [address] Hematocrit (Bld) [Volume fraction] 45.0 % Normal 39.0-51.0 [facility] Comment on above: Order Comment: Speci men Type: BLOOD SPECIMEN Performed By: #### 5 7021-8 ####[facility] [id number] [address] Hemoglobin (Bld) [Mass/Vol] 13.9 g/dL Normal 13.0-17.0 [facility] Comment on above: Order Comment: Speci men Type: BLOOD SPECIMEN Performed By: #### 5 7021-8 ####[facility] [id number] [address] IMMATURE GRAN % 0.7 % Normal [facility] Comment on above: Order Comment: Speci men Type: BLOOD SPECIMEN Performed By: #### 5 7021-8 ####[facility] [id number] [address] IMMATURE GRAN ABS 0.07 k/uL Normal <0.10 [facility] Comment on above: Order Comment: Speci men Type: BLOOD SPECIMEN Performed By: #### 5 7021-8 ####[facility] [id number] [address] Lymphocytes (Bld) [#/Vol] 0.87 10*3/uL Low 1.00-4.00 [facility] Comment on above: Order Comment: Speci men Type: BLOOD SPECIMEN Performed By: #### 5 7021-8 ####[facility] [id number] [address] Lymphocytes/100 WBC (Bld) 8.6 % Normal [facility] Comment on above: Order Comment: Speci men Type: BLOOD SPECIMEN Performed By: #### 5 7021-8 ####[facility] [id number] [address] MCH (RBC) [Entitic mass] 31.2 pg Normal 26.0-34.0 [facility] Comment on above: Order Comment: Speci men Type: BLOOD SPECIMEN Performed By: #### 5 7021-8 ####[facility] [id number] [place] [address] [place] MCHC (RBC) [Mass/Vol] 30.9 g/dL Normal 30.5-36.0 [facility] Comment on above: Order Comment: Speci men Type: BLOOD SPECIMEN Performed By: #### 5 7021-8 ####[facility] [id number] [address] MCV (RBC) [Entitic vol] 101.1 fL High 80.0-100.0 [facility] Comment on above: Order Comment: Speci men Type: BLOOD SPECIMEN Performed By: #### 5 7021-8 ####[facility] [id number] [address] Monocytes (Bld) [#/Vol] 1.27 10*3/uL High <0.87 [facility] Comment on above: Order Comment: Speci men Type: BLOOD SPECIMEN Performed By: #### 5 7021-8 ####[facility] [id number] [address] Monocytes/100 WBC (Bld) 12.5 % Normal [facility] Comment on above: Order Comment: Speci men Type: BLOOD SPECIMEN Performed By: #### 5 7021-8 ####[facility] [id number] [address] [place] [facility] Neutrophils (Bld) [#/Vol] 7.90 10*3/uL High 1.45-7.50 [facility] Comment on above: Order Comment: Speci men Type: BLOOD SPECIMEN Performed By: #### 5 7021-8 ####[facility] [id number] [address] Neutrophils/100 WBC (Bld) 77.8 % Normal [facility] Comment on above: Order Comment: Speci men Type: BLOOD SPECIMEN Performed By: #### 5 7021-8 ####[facility] [id number] [address] [place] Nucleated RBC (Bld) [#/Vol] 10*3/uL Normal <0.01 [facility] Comment on above: Order Comment: Speci men Type: BLOOD SPECIMEN Performed By: #### 5 7021-8 ####[facility] [id number] [address] Nucleated RBC/100 WBC (Bld) [Ratio] 0.0 /100 WBC Normal 0.0 [facility] Comment on above: Order Comment: Speci men Type: BLOOD SPECIMEN Performed By: #### 5 7021-8 ####[facility] [id number] [address] Platelet mean volume (Bld) [Entitic vol] 10.9 fL Normal 9.0-12.7 [facility] Comment on above: Order Comment: Speci men Type: BLOOD SPECIMEN Performed By: #### 5 7021-8 ####[facility] [id number] [address] Platelets (Bld) [#/Vol] 116 10*3/uL Low 150-400 [facility] Comment on above: Order Comment: Speci men Type: BLOOD SPECIMEN Performed By: #### 5 7021-8 ####[facility] [id number] [address] RBC (Bld) [#/Vol] 4.45 10*6/uL Normal 4.20-6.00 [facility] Comment on above: Order Comment: Speci men Type: BLOOD SPECIMEN Performed By: #### 5 7021-8 ####[facility] [id number] [address] WBC (Bld) [#/Vol] 10.15 10*3/uL Normal 3.70-11.00 [facility] Comment on above: Order Comment: Speci men Type: BLOOD SPECIMEN Performed By: #### 5 7021-8 ####[facility] [id number] [address] THERAPY NTon 12-02-2021 THERAPY NT HNO ID: [id number] Author: Clemencia Johnson OTR/L Service: Occupational Therapy Author Type: Occupational Therapist Type: Therapy (PT/OT/Speech/Resp) Filed: 12/02/2021 11:48 AM Note Text: Occupational Therapy Evaluation SERVICE DATE: 12/02/2021 SERVICE TIME: 904 to 927 ROOM: [place] [address] Recommended Discharge Disposition: Subacute/SNF Recommended Discharge Disposition Due to: Patient requires daily, facility-based rehabilitation from at least one discipline due to:;ADL impairment resulting in caregiver dependence;decline in functional status requiring daily skilled care OT 6 Clicks Score: 15 Precautions/Activity Restrictions: Fall Risk;Weight Bearing Restrictions Extremity With Weight Bearing Restricted: Left Lower Extremity Left Lower Extremity Weight Bearing Status: WBAT Current Hospital Course: 66 y.o male s/p fall resulting in distal tib/fib fx, s/p IMN L tibia 12/01/21 Reason for Hospital Admission: Fall Relevant Past Medical History: COPD, DM, HTN Response to Therapy Interventions: Good participation in activities,Low activity tolerance Continue skilled needs due to: Functional impairment,Safety concerns Occupational Therapy Problem List: Impaired Self Care;Decreased Activity Tolerance Cognition/Communication Deficits Orientation Deficits: Not oriented to Time Responsiveness: Alert Follows Commands: 3-step Commands,Cueing Needed Cueing to Follow Commands: Minimum Treatment Interventions: Self Care / Home Management;Cognitive Training Plan for next visit: Bathing training,Bed mobility,Dressing training,Fall prevention,Grooming training,Sit to stand transfers,Standing tolerance Home Environment Patient Lives With: Other: See Comment (roommate) Assistance Available: 24 Hour Entry To Home: Stairs;Ramp Number Of Stairs Into Home: 1 Number Of Stairs To Bed/Bath: 0 Tub/Shower Type: Tub Laundry: Roommate does the laundry Equipment Owned: Cane;Wheeled Walker Prior Functional Level: Within Functional Limits Prior Functional Level Comments: Per patient, independent prior to admit Patient Report: Pt seen bedside, agreeable to OT CURRENT FUNCTIONAL STATUS: Most recent performance Current Activities of Daily Living Assist Level Additional Information Feeding Set Up Grooming Minimal Assistance Bathing Upper Body Moderate Assistance Bathing Lower Body Maximal Assistance Dressing Upper Body Minimal Assistance Dressing Lower Body Maximal Assistance Toileting Maximal Assistance Instrumental Activities of Daily Living Assist Level Additional Information Meal/Beverage Prep Cleaning Laundry Medication Management with Strategies Functional Mobility Assist Level Additional Information Rolling Supine to Sit Sit to Supine Scooting Sit to Stand Additional Information Unable to complete with Max assist Stand to Sit Bed to Chair Toilet/Commode Shower Functional Mobility Blank mayen indicate activity not attempted Range of Motion: WFL Strength: WFL Activity Tolerance: Sitting Activity Sitting Activity: UB dressing task Sitting Activity Tolerance (in minutes): 4 Learning/Educational Needs: Discharge Plan;Safety;Self Care Goals for Plan of Care: Patient /Caregiver Goals: Go Home;Care For Self Grooming with: Set Up Upper Body Bathing with: Set Up Upper Body Dressing with: Set Up Lower Body Bathing with: Moderate Assistance Lower Body Dressing with: Moderate Assistance Toilet Hygiene with: Moderate Assistance Toilet Transfer with: Moderate Assistance Tolerate (minutes of functional activity): 20 Functional Activity with: Moderate Assistance Increased Awareness of Cognitive Impairments as Related to ADL's/IADL's: Verbalized;Demonstrated Rehab Potential: Good Patient will be discontinued from Occupational Therapy when no further skilled needs are identified in this setting. PLAN: OT Frequency: 2 times per week Plan of Care developed with: Patient TREATMENT INTERVENTIONS: Therapy Diagnosis: Decreased activities of daily living (ADL) Interventions Provided: Evaluation;Self Residential Management ([id number]) $ Evaluation-Low (84814) Billed Units: 1 unit Self Residential Management ([id number]) Treatment Minutes: 8 $ Self Residential Management ([id number]) Billed Units: 1 unit Provided patient with cues for proper hand placement during sit to stand transfer Provided patient with cues for safety during all ADL tasks completed. Provided patient with cues for proper sequencing to complete UB dressing task. Patient completed grooming task with minimal assist and cues to stay on task. Training AND education provided in: Assistive device use,Discharge planning,Expected functional level,Grooming tasks,Role of Occupational Therapy,Upper extremity dressing The following therapeutic skills were used: Activity dosing,Cues for sequencing/proper technique for activity,Cuing verbal,Cuing tactile,Physical assist Timed Code Treatment (minutes): (more content not included)... Normal [facility] THERAPY NT HNO ID: [id number] Author: Monica Garza PT Service: Physical Therapy Author Type: Physical Therapist Type: Therapy (PT/OT/Speech/Resp) Filed: 12/02/2021 8:50 AM Note Text: Physical Therapy Evaluation SERVICE DATE: 12/02/2021 SERVICE TIME: 804 to 829 ROOM: [place] [address] Recommended Discharge Disposition: Subacute/SNF Recommended Discharge Disposition Comments: Patient below baseline functioning, recommend SNF at discharge to progress strength and regain inadependence with functional mobility Recommended Discharge Disposition Due to: Patient requires daily, facility-based rehabilitation from at least one discipline due to:;decline in functional status requiring daily skilled care;deficits affecting non-dominant side;high level balance deficits;less than 3/5 weakness noted in:;distal LE;ongoing intervention of multiple therapy disciplines PT 6 Clicks Score: 11 Precautions/Activity Restrictions: Fall Risk;Weight Bearing Restrictions Extremity With Weight Bearing Restricted: Left Lower Extremity Left Lower Extremity Weight Bearing Status: WBAT Current Hospital Course: 66 y.o male s/p fall resulting in distal tib/fib fx, s/p IMN L tibia 12/01/21 Reason for Hospital Admission: fall Relevant Past Medical History: COPD, DM, HTN Response to Therapy Interventions: Good participation in activities,Low activity tolerance,Pain,Requires additional time to complete activities Continue skilled needs due to: Functional mobility/skill impairments,Safety concerns Physical Therapy Problem List: Pain;Decreased Activity Tolerance;Decreased Range Of Motion;Decreased Strength;Functional Mobility Impairment;Balance Impaired Treatment Interventions: Joint Mobility;Strengthening;F unctional Mobility Training;Balance Training;Education Plan for next visit: Bed mobility,Chair transfer training,Exercise instruction/handout,Pre- gait activities,Gait training,Walker Training Home Environment Patient Lives With: Other: See Comment (roommate) Assistance Available: 24 Hour Entry To Home: Stairs;Ramp Number Of Stairs Into Home: 1 Number Of Stairs To Bed/Bath: 0 Tub/Shower Type: tub shower Laundry: roommate completes Equipment Owned: Cane;Wheeled Walker Prior Functional Level: Within Functional Limits Prior Functional Level Comments: 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, 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, 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 Patient Report: Patient pleasant and agreeable to PT session Additional personnel present during visit: Rosio Burch CURRENT FUNCTIONAL STATUS: Most recent performance Current Functional Mobility Assist Level Additional Information Rolling Supine to Sit Moderate Assistance;Additional Information HOB slightly elevated, cues to slide BLE to edge of bed, assist with LLE, cues for hand placement and sequencing with use of railing, heavy reliance on railing with increased assist at trunk to complete sitting edge of bed Sit to Supine Scooting Minimal Assistance;Additional Information cuing for hand placement, patient actively trying to scoot forward, assist with use of draw sheet to position hips forward and feet flat on ground Sit to Stand Maximal Assistance;Additional Information (x2) multiple cues for hand placement on edge of bed, L foot positioned slightly forward, power through RLE to stand, unable to clear bottom x2 attempts with wheeled walker, therapist blocking RLE, assist x2 to clear bottom Stand to Sit Maximal Assistance;Additional Information (x2) cues to reach back and slowly lower bottom, poor eccentric control with assist x2 to control descent of trunk Bed to Chair Maximal Assistance;Additional Information (x2) Bed To Chair Transfer Type: Stand Pivot Bed To Chair Transfer Equipment: Gait Belt cues for tall upright posture standing edge of bed, cuing for hand placement and sequencing reaching for armrest of chair, assist to guide hips to chair, poor standing tolerance, minimal weight bearing through LLE Toilet/Commode Gait Stairs Curb Step Car Transfer Blank mayen indicate activity not attempted Range of Motion: ROM Limitation Comments ROM Limitation Comments: L ankle splint Strength: Lower Extremity Comments Right Lower Extremity Strength Comments: grossly 4-/5 Left Lower Extremity Strength Comments: not strength tested, patient bearing minimal weight through LLE with standing Balance: Static Sitting;Static Standing;Dynamic Standing;Dynamic Sitting Static Sitting Balance: Good Patient able to maintain balance without handhold support, limited postural sway Dynamic Sitting Balance: Fair Patient accepts minimal challenge, able to maintain balance while turning head/trunk Static Standing Balance: Poor Patient requires handhold support and moderate to maximal assistance to maintain position Dynamic Standing Balance: Poor Patient unable to accept challenge or move without loss of balance Activity Tolerance: Sitting Activity;Standing Activity Sitting Activity: EOB (more content not included)... Normal [facility] XR ANKLE 3V AP/LAT/OBL LTon 12-02-2021 XR ANKLE 3V AP/LAT/OBL LT * * *Final Report* * * DATE OF EXAM: Dec 01 2021 11:59PM MILLI [id number] - XR ANKLE 3V AP/LAT/OBL LT / PROCEDURE REASON: Post-operative / post-procedure assessment, asymptomatic * * * * Physician Interpretation * * * * EXAM TITLE: XR ANKLE 3V AP/LAT/OBL LT DATE: 12/02/2021 9:42 AM INDICATION: Follow-up after fracture fixation COMPARISON: 11/30/2021 FINDINGS: Since the previous exam, there has been open reduction and internal fixation of the distal tibial fracture with placement of an intramedullary analy and screws. There are skin closure david. There has been improvement in alignment of the distal fibular fracture. Soft tissue swelling is noted. IMPRESSION: Satisfactory postoperative appearance. Case Finisher: TISH Transcribe Date/Time: Dec 02 2021 9:42A Dictated by : BHAVNA RENNER MD This examination was interpreted and the report reviewed and electronically signed by: BHAVNA RENNER MD on Dec 02 2021 9:43AM EST [id number] [facility] ALLIED HEALTHon 12-01-2021 ALLIED HEALTH HNO ID: [id number] Author: RT Scarlet(R) Service: Radiology Author Type: Technologist Type: Allied Health Filed: 12/01/2021 4:10 PM Note Text: Radiology Service Progress Note PATIENT NAME: Susie Callejas DATE OF SERVICE: December 01, 2021 TIME: 4:10 PM PATIENT IDENTITY VERIFICATION COMPLETED USING TWO (2) IDENTIFIERS: Name and Date of confirmed by patient verbally and Name and Date of confirmed by identification band. FALL SCREENING: Has the patient had 2 falls in the last year or 1 fall with injury or currently using an Ambulatory Assistive Device (Walker, Cane, Wheelchair, Crutches, etc.)? Inpatient: Screened on floor PATIENT GENDER DATA: Male PATIENT RELEVANT IMPLANT DATA REVIEWED: Yes RADIOLOGY DEPARTMENT: General X-ray: Exam(s) Completed: Lower Extremity X-Ray(s): Tibia Fibula, Left PERIPHERAL IV DATA: Not applicable SIGNED BY: RT Scarlet(R) December 01, 2021 4:[address] [facility] ANES POSTPROC EVALon 022 ANES POSTPROC EVAL HNO ID: [id number] Author: Hugo Mosley MD Service: Anesthesiology Author Type: Physician Type: Anesthesia Postprocedure Evaluation Filed: 12/01/2021 10:34 AM Note Text: POST ANESTHESIA EVALUATION NOTE : 1955 Procedure Summary Date: 12/01/21 Room / Location: [facility] 08 / [facility] Anesthesia Start: Anesthesia Stop: Procedure: INSERTION NAIL / ANALY INTRAMEDULLARY TIBIA (Left Leg below knee) Diagnosis: Fracture of tibial shaft, left, closed Surgeons: Jason Nicolas MD Responsible Provider: Anesthesia Type: spinal ASA Status: 4 - Emergent Anesthesia Type: No value filed. Last Vitals Vitals Value Taken Time BP 127/65 12/01/21 1020 Temp 36.6 ?C (97.9 ?F) 12/01/21 1020 Pulse 82 12/01/21 1020 Resp 18 12/01/21 1020 SpO2 96 % 12/01/21 1020 [facility] AN POST OP NOTE Anesthesia Observations No Documentation SIGNATURE: Hugo Mosley MD PATIENT NAME: Susie Callejas DATE: December 01, 2021 TIME: 10:31 AM CSN: [id number] Normal [facility] ANES PRE-OPon 12-01-2021 ANES PRE-OP HNO ID: [id number] Author: Hugo Mosley MD Service: Anesthesiology Author Type: Physician Type: Anesthesia Preprocedure Evaluation Filed: 12/01/2021 10:28 AM Note Text: ANESTHESIOLOGY DAY OF SURGERY NOTE : 1955 Procedure Information Date/Time: 12/01/21 1100 Procedure: INSERTION NAIL / ANALY INTRAMEDULLARY TIBIA (Left Leg below knee) Location: [place] / [place] Surgeons: Jason Nicolas MD Estimated body mass index is 42.57 kg/m? as calculated from the following: Height as of this encounter: 172.7 cm (5' 8 ). Weight as of this encounter: 127 kg (280 lb). Most recent hematocrit and potassium results: Hematocrit 57.8 05/24/2017 Potassium 4.6 12/01/2021 Relevant Problems CARDIO (+) Essential hypertension, benign ENDO (+) Well controlled type 2 diabetes mellitus (HCC) PULMONARY (+) Asthma-chronic obstructive pulmonary disease overlap syndrome (HCC) I - PHYSICAL EVALUATION AIRWAY Patient intubated: No. Mallampati: III. TM distance: >3 FB. Neck ROM: full ROM without neurological symptoms. Mouth opening: adequate. Short neck: no. Thick neck: yes DENTAL Dental findings: teeth intact, broken tooth and poor dentition. Additional exam findings: no II - ANESTHESIA PLAN ASA Score: 4; emergent. Anesthetic Plan: spinal Anesthetic plan additional comments: ga backup. NPO Status: adequate Monitoring plan: standard ASA. Postoperative analgesic plan: parenteral or oral opioids (possible post op block). Anesthetic Risks, Benefits, Alternatives, Personnel Discussed. Consent obtained from: patient.Patient / Surrogate agrees to blood products: Yes Significant changes in the patient condition since the History and Physical, not otherwise documented in primary service progress note: no. Potential Anesthesia issues that may suggest increased risk of complications or contraindication to planned procedure: potential difficult intubation. No vitals data found for the desired time range. Facility-Administered Medications as of 12/01/2021 Medication Dose Route Frequency - lisinopril 10 mg tab(s) (ZESTRIL, PRINIVIL) 10 mg ORAL ONCE - [COMPLETED] ipratropium-albuterol 3 mL nebulizer solution (DUONEB) 3 mL INHALATION ONCE - [COMPLETED] HYDROmorphone 1 mg injection (DILAUDID) 1 mg INTRAVENOUS ONCE - pravastatin 20 mg tab(s) (PRAVACHOL) 20 mg ORAL AT BEDTIME - NaCl 0.9% iv flush bag 20 mL INTRAVENOUS PRN - sodium chloride 0.9 % (flush) 3-5 mL (BD POSIFLUSH) 3-5 mL INTRAVENOUS q 12 H - NaCl 0.9% iv infusion 100 mL/hr INTRAVENOUS CONTINUOUS - oxyCODONE IR 5-10 mg tab(s) (ROXICODONE) 5-10 mg ORAL q 4 H PRN - morphine 2 mg injection 2 mg INTRAVENOUS q 2 H PRN - acetaminophen 650 mg tab(s) (TYLENOL) 650 mg ORAL q 6 H - polyethylene glycol 3350 17 g packet (MIRALAX, GLYCOLAX) 17 g ORAL DAILY PRN - tiotropium bromide 2.5 mcg/actuation 2 Puff (SPIRIVA RESPIMAT) 2 Puff INHALATION DAILY - fluticasone-vilanterol 100-25 mcg/dose 1 Inhalation (BREO ELLIPTA) 1 Inhalation INHALATION DAILY - dextrose 40 % 15 g 15 g ORAL PRN Or - glucagon 1 mg injection 1 mg INTRAMUSCULAR PRN Or - dextrose 50% in water 25 mL syringe 12.5 g INTRAVENOUS PRN - insulin lispro pen (rapid acting) (HumaLOG KWIKPEN) SUBCUTANEOUS q 6 H Outpatient Medications as of 12/01/2021 Medication Sig - lisinopril (ZESTRIL, PRINIVIL) 10 mg tablet Take 1 tablet by mouth once daily. - metFORMIN (GLUCOPHAGE) 1,000 mg tablet Take 1 tablet by mouth twice daily. - pravastatin (PRAVACHOL) 20 mg tablet Take 1 tablet by mouth daily at bedtime. - glipiZIDE XL (GLUCOTROL XL) 5 mg 24 hr tablet Take 1 tablet by mouth once daily. - umeclidinium (INCRUSE ELLIPTA) 62.5 mcg/actuation inhaler Inhale 1 Puff as instructed once daily. Inhale one puff once daily. DO NOT CLICK OPEN UNTIL READY FOR DOSE - budesonide-formoterol (SYMBICORT) 160-4.5 mcg/actuation inhaler Inhale 2 Puffs as instructed twice daily. - Nebulizer Use as directed. NEBULIZER FOR HOME USE. DX:(J44.9, J45.909) Asthma-chronic obstructive pulmonary disease overlap syndrome (HCC) - PSYLLIUM SEED, WITH SUGAR, (METAMUCIL ORAL) Take by mouth. - COMPOUNDED PRESCRIPTION Please administer oxygen at 3L continuous for daytime use. Please evaluate for conserving device. DX:COPD, Hypoxia - CPAP Use 12 cm in the nose daily at bedtime. - Oxygen-[employer] jalen Use 4 L/min in the nose daily at bedtime. 4L O2 bleed in with nasal CPAP @@ bedtime. - blood sugar diagnostic(ONE TOUCH ULTRA TEST STRIPS) Check daily as directed. - ASPIRIN 81 MG TAB, DELAYED RELEASE Take one(1) tablet daily. I have interviewed and examined the patient. I have reviewed the medical record and/or the pre-anesthesia evaluation, pertinent labs, and test results. This contains updated information obtained within 48 hours of Surgery/Procedure. SIGNATURE: Hugo Mosley MD PATIENT NAME: Susie Callejas DATE: December 01, 2021 TIME: 10:22 AM CSN: [id number] (more content not included)... Normal [facility] BRIEF OP NOTon 12-01-2021 BRIEF OP NOT HNO ID: [id number] Author: Alfonso Rebolledo MD Service: Orthopaedic Surgery Author Type: Resident Type: Brief Op Note Filed: 12/01/2021 2:48 PM Note Text: BRIEF OPERATIVE / PROCEDURE NOTE LOG ID: [id number] SURGERY/PROCEDURE DATE: 12/01/2021 INCISION/PROCEDURE START TIME: 11:18 AM INCISION CLOSE/PROCEDURE END TIME: 2:39 PM SURGEON(S)/PROCEDURALIST (S) AND ALFALFA DEHYDRATOR OPERATOR(S): Surgeon(s) and Role: * Jason Nicolas MD - Primary * David Younger MD - Resident - Assisting * Alfonso Rebolledo MD - Resident - Assisting No Additional Staff SURGERY/PROCEDURE(S): 1) Insertion of Left Intramedullary Tibial Nail ANESTHESIA: Choice - Anesthesia Consult FINDINGS: See operative report for full details FLUIDS: 1800 mls ESTIMATED BLOOD LOSS: 250 mls ANTIBIOTICS: Ancef 2g IV SPECIMENS: None COMPLICATIONS: None PRE-OP/PRE-PROCEDURE DIAGNOSIS: 1) Left Tibial Shaft Fracture POST-OP/POST-PROCEDURE DIAGNOSIS: 1) Left Tibial Shaft Fracture Post-Operative Plan: -Management per orthopaedics -PT/OT: Weight-bearing as tolerated with the left lower extremity -DVT PPX: SCD to the right lower extremity and Lovenox 40 mg daily x 21 days -Post-Operative Antibiotics: Ancef 2g q8H x 2 doses -Post-Operative Left Tibia/Fibula X-Rays -Delacruz: Discontinue delacruz POD#1 -Maintain surgical dressing to the left lower extremity (will change on POD#2 with attention paid to the distal medial ankle incisions) -Ice to the left leg -Pain control -Advance diet as tolerated to diabetic diet; will heplock IV fluid with adequate PO intake -Medical management per medicine -Disposition: anticipate discharge to SNF in 2-3 days Alfonso Rebolledo MD Orthopaedic Surgery 12/01/2021 2:41 PM Normal [facility] Bas Metab 2000 Pnl SerPlon 0 12-01-2021 Anion gap [Moles/Vol] 9 mmol/L Normal 9-18 [facility] Comment on above: Order Comment: Speci men Type: BLOOD SPECIMEN Performed By: #### 3 4528-0 #### [facility] CLIA [id number] [address] [place] [address] [place] Calcium [Mass/Vol] 9.2 mg/dL Normal 8.5-10.2 [facility] Comment on above: Order Comment: Speci men Type: BLOOD SPECIMEN Performed By: #### 3 4528-0 #### [facility] CLIA [id number] [address] [place] Chloride [Moles/Vol] 100 mmol/L Normal 97-105 [facility] Comment on above: Order Comment: Speci men Type: BLOOD SPECIMEN Performed By: #### 3 4528-0 #### [facility] CLIA [id number] [address] [place] CO2 [Moles/Vol] 27 mmol/L Normal 22-30 [facility] Comment on above: Order Comment: Speci men Type: BLOOD SPECIMEN Performed By: #### 3 4528-0 #### [facility] CLIA [id number] [address] Creatinine [Mass/Vol] 1.31 mg/dL High 0.73-1.22 [facility] Comment on above: Order Comment: Speci men Type: BLOOD SPECIMEN Performed By: #### 3 4528-0 #### [facility] CLIA [id number] [address] GFR/1.73 sq M.predicted MDRD (S/P/Bld) [Vol rate/Area] mL/min/{1.73_m2} Normal [facility] Comment on above: Order Comment: Speci men Type: BLOOD SPECIMEN Result Comment: 55 eGFR (Estimated GFR) Units of measure: mL/min/1.73 meters squared eGFR is derived from the reexpressed MDRD Study equation using the following parameters: serum creatinine, age, gender and race. The creatinine assay has been calibrated to be traceable to IDMS. An eGFR <60 mL/min/1.73m2 for >3 months is consistent with chronic kidney disease. Refer to KDOQI guidelines for clinical interpretation. In patients with unstable renal function, e.g. those with acute kidney injury, the eGFR may not accurately reflect actual GFR. eGFR (Estimated GFR) Units of measure: mL/min/1.73 meters squared eGFR is derived from the reexpressed MDRD Study equation using the following parameters: serum creatinine, age, gender and race. The creatinine assay has been calibrated to be traceable to IDMS. An eGFR <60 mL/min/1.73m2 for >3 months is consistent with chronic kidney disease. Refer to KDOQI guidelines for clinical interpretation. In patients with unstable renal function, e.g. those with acute kidney injury, the eGFR may not accurately reflect actual GFR. Performed By: #### 3 4528-0 #### [facility] CLIA [id number] [address] Result Comment: 55 eGFR (Estimated GFR) Units of measure: mL/min/1.73 meters squared eGFR is derived from the reexpressed MDRD Study equation using the following parameters: serum creatinine, age, gender and race. The creatinine assay has been calibrated to be traceable to IDMS. An eGFR <60 mL/min/1.73m2 for >3 months is consistent with chronic kidney disease. Refer to KDOQI guidelines for clinical interpretation. In patients with unstable renal function, e.g. those with acute kidney injury, the eGFR may not accurately reflect actual GFR. Glucose [Mass/Vol] 135 mg/dL High 74-99 [facility] Comment on above: Order Comment: Speci men Type: BLOOD SPECIMEN Result Comment: The [place] [employer] (ADA) provides guidance for cutoff values for fasting glucose and random glucose. The ADA defines fasting as no caloric intake for at least 8 hours. Fasting plasma glucose results between 100 to 125 mg/dL indicate increased risk for diabetes (prediabetes). Fasting plasma glucose results greater than or equal to 126 mg/dL meet the criteria for diagnosis of diabetes. In the absence of unequivocal hyperglycemia, results should be confirmed by repeat testing. In a patient with classic symptoms of hyperglycemia or hyperglycemic crisis, random plasma glucose results greater than or equal to 200 mg/dL meet the criteria for diagnosis of diabetes. Reference: Standards of Medical Care in Diabetes 2016, [place] [employer]. Diabetes Care. 2016.39(Suppl 1). Performed By: #### 3 4528-0 #### [facility] CLIA [id number] [address] Potassium [Moles/Vol] 4.6 mmol/L Normal 3.7-5.1 [facility] Comment on above: Order Comment: Speci men Type: BLOOD SPECIMEN Performed By: #### 3 4528-0 #### [facility] CLIA [id number] [address] STATES OF [facility] Sodium [Moles/Vol] 136 mmol/L Normal 136-144 [facility] Comment on above: Order Comment: Speci men Type: BLOOD SPECIMEN Performed By: #### 3 4528-0 #### [facility] CLIA [id number] [address] [place] Urea nitrogen [Mass/Vol] 28 mg/dL High 9-24 [facility] Comment on above: Order Comment: Speci men Type: BLOOD SPECIMEN Performed By: #### 3 4528-0 #### [facility] CLIA [id number] [address] Basic metabolic 2000 panelon 12-01-2021 Anion gap [Moles/Vol] 10 mmol/L Normal 9-18 [facility] Comment on above: Order Comment: Speci men Type: BLOOD SPECIMEN Performed By: #### 2 4321-2 ####[facility] [id number] [address] [place] [facility] Calcium [Mass/Vol] 8.5 mg/dL Normal 8.5-10.2 [facility] Comment on above: Order Comment: Speci men Type: BLOOD SPECIMEN Performed By: #### 2 4321-2 ####[facility] [id number] [address] [place] Chloride [Moles/Vol] 101 mmol/L Normal 97-105 [facility] Comment on above: Order Comment: Speci men Type: BLOOD SPECIMEN Performed By: #### 2 4321-2 ####[facility] [id number] [place] [address] [place] CO2 [Moles/Vol] 27 mmol/L Normal 22-30 [facility] Comment on above: Order Comment: Speci men Type: BLOOD SPECIMEN Performed By: #### 2 4321-2 ####[facility] [id number] [address] [place] Creatinine [Mass/Vol] 1.47 mg/dL High 0.73-1.22 [facility] Comment on above: Order Comment: Speci [facility] Type: BLOOD SPECIMEN Performed By: #### 2 4321-2 ####[facility] [id number] [address] [place] GFR/1.73 sq M.predicted MDRD (S/P/Bld) [Vol rate/Area] 58 mL/min/{1.73_m2} Normal [facility] Comment on above: Order Comment: Speci men Type: BLOOD SPECIMEN Result Comment: 48 eGFR (Estimated GFR) Units of measure: mL/min/1.73 meters squared eGFR is derived from the reexpressed MDRD Study equation using the following parameters: serum creatinine, age, gender and race. The creatinine assay has been calibrated to be traceable to IDMS. An eGFR <60 mL/min/1.73m2 for >3 months is consistent with chronic kidney disease. Refer to KDOQI guidelines for clinical interpretation. In patients with unstable renal function, e.g. those with acute kidney injury, the eGFR may not accurately reflect actual GFR. Performed By: #### 2 4321-2 ####[facility] [id number] [address] [place] Glucose [Mass/Vol] 141 mg/dL High 74-99 [facility] Comment on above: Order Comment: [facility] Type: BLOOD SPECIMEN Result Comment: The [place] Diabetes Association (ADA) provides guidance for cutoff values for fasting glucose and random glucose. The ADA defines fasting as no caloric intake for at least 8 hours. Fasting plasma glucose results between 100 to 125 mg/dL indicate increased risk for diabetes (prediabetes). Fasting plasma glucose results greater than or equal to 126 mg/dL meet the criteria for diagnosis of diabetes. In the absence of unequivocal hyperglycemia, results should be confirmed by repeat testing. In a patient with classic symptoms of hyperglycemia or hyperglycemic crisis, random plasma glucose results greater than or equal to 200 mg/dL meet the criteria for diagnosis of diabetes. Reference: Standards of Medical Care in Diabetes 2016, [place] [employer]. Diabetes Care. 2016.39(Suppl 1). Performed By: #### 2 4321-2 ####[facility] [id number] [address] [place] [facility] Potassium [Moles/Vol] 5.4 mmol/L High 3.7-5.1 [facility] Comment on above: Order Comment: Speci men Type: BLOOD SPECIMEN Performed By: #### 2 4321-2 ####[facility] [id number] [address] STATES [facility] Sodium [Moles/Vol] 138 mmol/L Normal 136-144 [facility] Comment on above: Order Comment: Speci men Type: BLOOD SPECIMEN Performed By: #### 2 4321-2 ####[facility] [id number] [address] Urea nitrogen [Mass/Vol] 30 mg/dL High 9-24 [facility] Comment on above: Order Comment: Speci men Type: BLOOD SPECIMEN Performed By: #### 2 4321-2 ####[facility] [id number] [address] CBC W Auto Differential pane l (Bld)on 12-01-2021 Basophils (Bld) [#/Vol] 0.05 10*3/uL Normal <0.11 [facility] Comment on above: Order Comment: Speci men Type: BLOOD SPECIMEN Performed By: #### 5 7021-8 ####[facility] [id number] [address] Basophils/100 WBC (Bld) 0.5 % Normal [facility] Comment on above: Order Comment: Speci men Type: BLOOD SPECIMEN Performed By: #### 5 7021-8 ####[facility] [id number] [address] Differential cell count method Nom (Bld) Auto Normal [facility] Comment on above: Order Comment: Speci men Type: BLOOD SPECIMEN Performed By: #### 5 7021-8 ####[facility] [id number] [address] Eosinophils (Bld) [#/Vol] 0.06 10*3/uL Normal <0.46 [facility] Comment on above: Order Comment: Speci men Type: BLOOD SPECIMEN Performed By: #### 5 7021-8 ####[facility] [id number] [address] Eosinophils/100 WBC (Bld) 0.7 % Normal [facility] Comment on above: Order Comment: Speci men Type: BLOOD SPECIMEN Performed By: #### 5 7021-8 ####[facility] [id number] [address] Erythrocyte distribution width (RBC) [Ratio] 13.2 % Normal 11.5-15.0 [facility] Comment on above: Order Comment: Speci men Type: BLOOD SPECIMEN Performed By: #### 5 7021-8 ####[facility] [id number] [address] Hematocrit (Bld) [Volume fraction] 53.1 % High 39.0-51.0 [facility] Comment on above: Order Comment: Speci men Type: BLOOD SPECIMEN Performed By: #### 5 7021-8 ####[facility] [id number] [address] Hemoglobin (Bld) [Mass/Vol] 16.6 g/dL Normal 13.0-17.0 [facility] Comment on above: Order Comment: Speci men Type: BLOOD SPECIMEN Performed By: #### 5 7021-8 ####[facility] [id number] [address] IMMATURE GRAN % 0.5 % Normal [facility] Comment on above: Order Comment: Speci men Type: BLOOD SPECIMEN Performed By: #### 5 7021-8 ####[facility] [id number] [address] IMMATURE GRAN ABS 0.05 k/uL Normal <0.10 [facility] Comment on above: Order Comment: Speci men Type: BLOOD SPECIMEN Performed By: #### 5 7021-8 ####[facility] [id number] [address] Lymphocytes (Bld) [#/Vol] 1.09 10*3/uL Normal 1.00-4.00 [facility] Comment on above: Order Comment: Speci men Type: BLOOD SPECIMEN Performed By: #### 5 7021-8 ####[facility] [id number] [address] Lymphocytes/100 WBC (Bld) 11.9 % Normal [facility] Comment on above: Order Comment: Speci men Type: BLOOD SPECIMEN Performed By: #### 5 7021-8 ####[facility] [id number] [address] MCH (RBC) [Entitic mass] 31.1 pg Normal 26.0-34.0 [facility] Comment on above: Order Comment: Speci men Type: BLOOD SPECIMEN Performed By: #### 5 7021-8 ####[facility] [id number] [address] MCHC (RBC) [Mass/Vol] 31.3 g/dL Normal 30.5-36.0 [facility] Comment on above: Order Comment: Speci men Type: BLOOD SPECIMEN Performed By: #### 5 7021-8 ####[facility] [id number] [address] MCV (RBC) [Entitic vol] 99.6 fL Normal 80.0-100.0 [facility] Comment on above: Order Comment: Speci men Type: BLOOD SPECIMEN Performed By: #### 5 7021-8 ####[facility] [id number] [address] Monocytes (Bld) [#/Vol] 0.98 10*3/uL High <0.87 [facility] Comment on above: Order Comment: Speci men Type: BLOOD SPECIMEN Performed By: #### 5 7021-8 ####[facility] [id number] [address] Monocytes/100 WBC (Bld) 10.7 % Normal [facility] Comment on above: Order Comment: Speci men Type: BLOOD SPECIMEN Performed By: #### 5 7021-8 ####[facility] [id number] [address] Neutrophils (Bld) [#/Vol] 6.91 10*3/uL Normal 1.45-7.50 [facility] Comment on above: Order Comment: Speci men Type: BLOOD SPECIMEN Performed By: #### 5 7021-8 ####[facility] [id number] [address] Neutrophils/100 WBC (Bld) 75.7 % Normal [facility] Comment on above: Order Comment: Speci men Type: BLOOD SPECIMEN Performed By: #### 5 7021-8 ####[facility] [id number] [address] Nucleated RBC (Bld) [#/Vol] 10*3/uL Normal <0.01 [facility] Comment on above: Order Comment: Speci men Type: BLOOD SPECIMEN Performed By: #### 5 7021-8 ####[facility] [id number] [address] Nucleated RBC/100 WBC (Bld) [Ratio] 0.0 /100 WBC Normal 0.0 [facility] Comment on above: Order Comment: Speci men Type: BLOOD SPECIMEN Performed By: #### 5 7021-8 ####[facility] [id number] [address] Platelet mean volume (Bld) [Entitic vol] 10.9 fL Normal 9.0-12.7 [facility] Comment on above: Order Comment: Speci men Type: BLOOD SPECIMEN Performed By: #### 5 7021-8 ####[facility] [id number] [address] Platelets (Bld) [#/Vol] 140 10*3/uL Low 150-400 [facility] Comment on above: Order Comment: Speci men Type: BLOOD SPECIMEN Performed By: #### 5 7021-8 ####[facility] [id number] [address] RBC (Bld) [#/Vol] 5.33 10*6/uL Normal 4.20-6.00 [facility] Comment on above: Order Comment: Speci men Type: BLOOD SPECIMEN Performed By: #### 5 7021-8 ####[facility]CL[facility] [id number] [address] WBC (Bld) [#/Vol] 9.14 10*3/uL Normal 3.70-11.00 [facility] Comment on above: Order Comment: Speci men Type: BLOOD SPECIMEN Performed By: #### 5 7021-8 ####[facility] [id number] [address] CBC panel Auto (Bld)on 12-01 Erythrocyte distribution width (RBC) [Ratio] 13.2 % Normal 11.5-15.0 [facility] Comment on above: Order Comment: Speci men Type: BLOOD SPECIMEN Performed By: #### 5 8410-2 ####[facility] [id number] [address] Hematocrit (Bld) [Volume fraction] 48.8 % Normal 39.0-51.0 [facility] Comment on above: Order Comment: Speci men Type: BLOOD SPECIMEN Performed By: #### 5 8410-2 ####[facility] [id number] [address] Hemoglobin (Bld) [Mass/Vol] 14.7 g/dL Normal 13.0-17.0 [facility] Comment on above: Order Comment: Speci men Type: BLOOD SPECIMEN Performed By: #### 5 8410-2 ####[facility] [id number] [address] MCH (RBC) [Entitic mass] 30.9 pg Normal 26.0-34.0 [facility] Comment on above: Order Comment: Speci men Type: BLOOD SPECIMEN Performed By: #### 5 8410-2 ####[facility] [id number] [address] MCHC (RBC) [Mass/Vol] 30.1 g/dL Low 30.5-36.0 [facility] Comment on above: Order Comment: Speci men Type: BLOOD SPECIMEN Performed By: #### 5 8410-2 ####[facility] [id number] [address] MCV (RBC) [Entitic vol] 102.7 fL High 80.0-100.0 [facility] Comment on above: Order Comment: Speci men Type: BLOOD SPECIMEN Performed By: #### 5 8410-2 ####[facility] [id number] [address] Nucleated RBC (Bld) [#/Vol] 10*3/uL Normal <0.01 [facility] Comment on above: Order Comment: Speci men Type: BLOOD SPECIMEN Performed By: #### 5 8410-2 ####[facility] [id number] [address] Platelet mean volume (Bld) [Entitic vol] 10.8 fL Normal 9.0-12.7 [facility] Comment on above: Order Comment: Speci men Type: BLOOD SPECIMEN Performed By: #### 5 8410-2 ####[facility] [id number] [address] Platelets (Bld) [#/Vol] 127 10*3/uL Low 150-400 [facility] Comment on above: Order Comment: Speci men Type: BLOOD SPECIMEN Performed By: #### 5 8410-2 ####[facility] [id number] [address] RBC (Bld) [#/Vol] 4.75 10*6/uL Normal 4.20-6.00 [facility] Comment on above: Order Comment: Speci men Type: BLOOD SPECIMEN Performed By: #### 5 8410-2 ####[facility] [id number] [address] WBC (Bld) [#/Vol] 12.46 10*3/uL High 3.70-11.00 [facility] Comment on above: Order Comment: Speci men Type: BLOOD SPECIMEN Performed By: #### 5 8410-2 ####[facility] [id number] [address] Comprehensive metabolic 2000 panelon 12-01-2021 Albumin [Mass/Vol] 4.0 g/dL Normal 3.9-4.9 [facility] Comment on above: Order Comment: Speci men Type: BLOOD SPECIMEN Performed By: #### 3 4528-0 #### [facility] CLIA [id number] [address] ALP [Catalytic activity/Vol] 108 U/L Normal 38-113 [facility] Comment on above: Order Comment: Speci men Type: BLOOD SPECIMEN Performed By: #### 3 4528-0 #### [facility] CLIA [id number] [address] ALT With P-5'-P [Catalytic activity/Vol] 14 U/L Normal 10-54 [facility] Comment on above: Order Comment: Speci men Type: BLOOD SPECIMEN Performed By: #### 3 4528-0 #### [facility] CLIA [id number] [address] AST With P-5'-P [Catalytic activity/Vol] 38 U/L Normal 14-40 [facility] Comment on above: Order Comment: Speci men Type: BLOOD SPECIMEN Performed By: #### 3 4528-0 #### [facility] CLIA [id number] [address] Bilirubin [Mass/Vol] 0.7 mg/dL Normal 0.2-1.3 [facility] Comment on above: Order Comment: Speci men Type: BLOOD SPECIMEN Performed By: #### 3 4528-0 #### [facility] CLIA [id number] [address] Protein [Mass/Vol] 6.5 g/dL Normal 6.3-8.0 [facility] Comment on above: Order Comment: Speci men Type: BLOOD SPECIMEN Performed By: #### 3 4528-0 #### [facility] CLIA [id number] [address] ED NOTEon 12-01-2021 ED NOTE HNO ID: [id number] Author: Constanza Almaraz RN Service: Emergency Medicine Author Type: Registered Nurse Type: ED Notes Filed: 12/01/2021 5:15 AM Note Text: RT notified of breathing treatment order at this time Normal [facility] HISTORY PHYSICALon HISTORY PHYSICAL HNO ID: [id number] Author: Danny Graves MD Service: General Internal Medicine Author Type: Physician Type: HANDP Filed: 12/01/2021 7:17 AM Note Text: MEDICAL HOSPITALIST INITIAL CONSULT NOTE SERVICE DATE: 12/01/2021 SERVICE TIME: 033 REASON FOR CONSULT: Preoperative assessment REQUESTING PHYSICIAN: Dr. Nicolas PRIMARY CARE PHYSICIAN: Angel Luis Sen MD, MD Subjective Mr. Callejas is a 66 year old male with a hx of stage 3 COPD on 2L nc at home, obesity, chronic polycythemia, diabetes, HTN, HL, former tobacco user, and sleep apnea, who presented to [facility] on 11/30/21 as a transfer from [facility] for evaluation of his left lower leg pain after slipping on ice while walking. He was initially evaluated at [facility] ED where he was found to have a distal tibial shaft fracture and was placed in a splint. He denies striking his head and denies any LOC. Pt denies headache, fever, chills, vision changes, swallowing problems, neck pain, chest pain, shortness of breath, cough, abdominal pain, flank pain, nausea, vomiting, diarrhea, constipation, bleeding, urinary problems. He has no numbness or tingling in his legs. No other associated symptoms. No other known aggravating or relieving factors. He is afebrile and HD stable, 93% on RA. Covid neg. Left LE x ray revealed comminuted fractures of the distal shafts of the tibia and fibula, CT pending. WBC 9.14, hgb 16.6, plt 140, Glucose 135, Na 136, K 4.6, creatinine 1.31, LFTs normal, Mg 2.0, proBNP 70. EKG sinus rhythm with no acute ischemic changes noted. FUNCTIONAL STATUS: Independent PAST MEDICAL HISTORY Diagnosis Date - COPD (chronic obstructive pulmonary disease) (HCC) - Diabetes mellitus (HCC) - Hypercholesteremia - Hypertension - Sleep apnea PAST SURGICAL HISTORY Procedure Laterality Date - COLONOSCOP W/ OR W/O [facility] [email or web address] SPEC 07/14/15 Colonoscopy - NONE FAMILY HISTORY Problem Relation Age of Onset - Emphysema Mother - Heart Father - Alzheimer's Disease Father - COPD Mother - COPD Sister Social History Tobacco Use - Smoking status: Former Smoker Packs/day: 1.00 Years: 35.00 Pack years: 35.00 Types: Cigarettes - Smokeless tobacco: Never Used - Tobacco comment: using patch. doesn't buy cigarettes anymore Substance Use Topics - Alcohol use: Yes Alcohol/week: 5.0 standard drinks Types: 2 Cans of Beer (12oz) per week Comment: 3-4 beers per week - Drug use: No (Not in a hospital admission) Current Facility-Administered Medications Medication Dose Route Frequency - pravastatin 20 mg tab(s) (PRAVACHOL) 20 mg ORAL AT BEDTIME - lisinopril 10 mg tab(s) (ZESTRIL, PRINIVIL) 10 mg ORAL DAILY - NaCl 0.9% iv flush bag 20 mL INTRAVENOUS PRN - sodium chloride 0.9 % (flush) 3-5 mL (BD POSIFLUSH) 3-5 mL INTRAVENOUS q 12 H - NaCl 0.9% iv infusion 100 mL/hr INTRAVENOUS CONTINUOUS - oxyCODONE IR 5-10 mg tab(s) (ROXICODONE) 5-10 mg ORAL q 4 H PRN - morphine 2 mg injection 2 mg INTRAVENOUS q 2 H PRN - acetaminophen 650 mg tab(s) (TYLENOL) 650 mg ORAL q 6 H - polyethylene glycol 3350 17 g packet (MIRALAX, GLYCOLAX) 17 g ORAL DAILY PRN - tiotropium bromide 2.5 mcg/actuation 2 Puff (SPIRIVA RESPIMAT) 2 Puff INHALATION DAILY - fluticasone-vilanterol 100-25 mcg/dose 1 Inhalation (BREO ELLIPTA) 1 Inhalation INHALATION DAILY - dextrose 40 % 15 g 15 g ORAL PRN Or - glucagon 1 mg injection 1 mg INTRAMUSCULAR PRN Or - dextrose 50% in water 25 mL syringe 12.5 g INTRAVENOUS PRN - insulin lispro pen (rapid acting) (HumaLOG KWIKPEN) SUBCUTANEOUS q 6 H Allergies As of Date: 11/30/2021 (No Known Allergies) Fully Assessed 11/30/2021 COMPLETE REVIEW OF SYSTEMS: All ROS reviewed by me and are negative unless otherwise noted in the HPI above Objective PHYSICAL EXAM: Physical Exam Performed: BP 130/79 Pulse 88 Temp (Src) 98.2 (Oral) Resp 16 Ht 5' 8 (1.73m) Wt 280 lb (127.0kg) SpO2 93% BMI 42.58 kg/(m2). O2 Therapy: Room Air Gen A+Ox3, calm Skin turgor good, no rash or lesions noted HEENT PERRL, EOMI, mucosa moist COR RRR, normal S1, S2, no m/g/r Lungs are diminished bilat woith intermittent bilat wheezes Abd BS+ soft ntnd, obese Ext: LLE has splint, able to move toes, sensation intact, pulses palp; full ROM of all other limbs with pulses intact, sensation intact Neuro nonfocal and symmetrical DATA: Diagnostic tests reviewed for today's visit: Most recent labs Most recent imaging Most recent EKG Impression/Recommendatio ns Active Problems: 1. Fracture of tibial shaft, left, closed -- Surgical management as per orthopedics -- Encourage incentive spirometry -- Pain management, PT/OT per orthopedics 2. Revised cardiac risk index = 1 -- No prior hx of CAD, arrhythmias. Fall leading to this trauma was mechanical -- Former tobacco user; diabetes, + fam hx of CAD -- Telemetry -- Will obtain preop BNP; check PACU EKG, monitor daily troponins x 48 hours postop -- N (more content not included)... Normal [facility] 12-01 Magnesium [Mass/Vol] 2.0 mg/dL Normal 1.7-2.3 [facility] Comment on above: Order Comment: Speci men Type: BLOOD SPECIMEN Performed By: #### 3 4528-0 #### [facility] CLIA [id number] [address] NT-[facility]NP [facility] 12-01 Natriuretic peptide.B prohormone N-Terminal [Mass/Vol] 70 pg/mL Normal <125 [facility] Comment on above: Order Comment: Speci men Type: BLOOD SPECIMEN Performed By: #### 3 4528-0 #### [facility] CLIA [id number] [address] OF [place] NURSING PROGon 12-01-2021 NURSING PROG HNO ID: [id number] Author: Gerson Holcomb RN Service: Nursing Author Type: Registered Nurse Type: Nursing Progress Note Filed: 12/01/2021 4:27 PM Note Text: Pt states that o2 SAT at home runs 90 -92% on home o2 4l nc; Dr Wyman notified of current O@ sat and BP ok to transfer pt to [facility]; Normal [facility] OPERATIVE NOon 12-01-2021 OPERATIVE NO HNO ID: [id number] Author: Jason Nicolas MD Service: Orthopaedic Surgery Author Type: Physician Type: Operative Report Filed: 12/04/2021 12:17 PM Note Text: [facility] - Operative Report CALLEJAS SUSIE S : 1955 AGE: 66. SEX: M PATIENT TYPE: I HOSP SVC: YOLY LOCATION: [id number] ATTENDING PHYSICIAN: JASON NICOLAS CSN NUMBER: [id number] DATE OF SURGERY/PROCEDURE: 12/01/2021 INCISION/PROCEDURE START TIME: 11:18 AM INCISION CLOSE/PROCEDURE END TIME: 2:39 PM PREOPERATIVE DIAGNOSIS: Displaced comminuted left distal tibia and fibular shaft fractures. POSTOPERATIVE DIAGNOSIS: Displaced comminuted left distal tibia and fibular shaft fractures. SURGEON: Jason Nicolas MD ALFALFA DEHYDRATOR OPERATOR: 1. David Younger M.D. 2. Alfonso Rebolledo M.D. SURGERY/PROCEDURE: Open treatment of left distal tibia shaft fracture with insertion of intramedullary device. ANESTHESIA: Spinal plus sedation. ESTIMATED BLOOD LOSS: 250 mL. IMPLANTS: Synthes suprapatellar tibial nail, 8 x 330 mm; Multiple interlocking screws OPERATIVE INDICATIONS: The patient is a 66-year-old male, who presented to [facility] Emergency Department with ankle pain following a slip on ice. Clinical and radiographic workup found to have displaced and comminuted distal tibia and fibular shaft fractures. He was subsequently admitted and optimized for surgery by the medical services. Given his significant history of COPD and oxygen requirement, the decision was made for spinal anesthesia. All of his questions were answered satisfactorily and he decided to proceed with the operation. DESCRIPTION OF PROCEDURE: The patient was met in the preoperative holding area. The history and physical as well as valid signed consent form was updated. The site was marked. A preoperative huddle was performed and all checkpoints were met satisfactorily. The patient was then delivered supine on the operating room table. Spinal anesthesia was achieved, and the left lower extremity was prepped and draped in normal sterile fashion. A time-out was again performed per [facility] protocol and all checkpoints were met satisfactorily. The patient was given Ancef through the IV for antibiotic prophylaxis. Upper body Lisandra Hugger was started for warming. SCD was placed on the right lower extremity for DVT prophylaxis. At the conclusion of time-out, left lower extremity was examined. There was noted to be moderate swelling and ecchymosis along the distal aspect of the leg at the level of fracture. A small longitudinal incision was planned several centimeters proximal to the superior pole of patella. This was made sharply with a #10 blade knife. Dissection was then carried out in the extensor mechanism. This was split longitudinally in line with the incision. The starting guide was inserted through the patellofemoral joint. A threaded guide pin was then placed and its position was confirmed with intraoperative fluoroscopy in orthogonal planes. This was driven down to the metadiaphyseal junction. We then prepared the proximal tibia with the provided opening cannulated reamer. We then passed a ball-tip guidewire down the tibia and across the fracture site. It was noted to be sitting significantly anterior and lateral within the distal tibia. There was also still significant displacement at the fracture site. For this reason, we planned percutaneous reduction with a clamp. This was done under fluoroscopic guidance. The clamp was placed and improved reduction was confirmed. Again, we passed a ball-tipped guidewire across the fracture site and this was continued to be noted to be sitting anterior and medially within the distal tibia. We used a long reduction tool to redirect the ball-tip guidewire, which was only noted to be held minimally. For this reason, we planned blocking screws in both the AP and mediolateral directions to correct fracture alignment and direction of the nail. Once this was done, the ball-tip guidewire was then again passed across the fracture site and into proper position with assistance from the blocking screws. We then began sequential reaming of the tibia up to 9.5 mm to provide adequate cortical chatter. We then selected an 8 mm x 330 mm suprapatellar tibial nail and passed it over the ball-tipped guidewire and impacted into place. We then secured the tibial nail proximally using the targeting jig with 1 medial to lateral directed interlocking screw. The targeting jig was removed and perfect circles techniques were used to place 3 distal interlocking screws. We were also able to place 1 medial to lateral blocking screw. We were unable to place the anterior-posterior blocking screw due to its location with regard to the distal interlocking screws for the tibial nail. Final intraoperative images were obtained, which demonstrated adequate fracture alignment and hardware placement. Compartments (more content not included)... Normal [facility] PT panel Coag (PPP)on 2021 INR Coag (PPP) [Relative time] 1.0 {INR} Normal 0.9-1.3 [facility] Comment on above: Order Comment: Speci men Type: BLOOD SPECIMEN Result Comment: Mariah min K Antagonist (VKA) Therapeutic Range: INR 2 to 3 (Target INR of 2.5) Note: For patients treated with VKA drugs, such as warfarin, the [place] [employer] 2012 Guideline recommends a therapeutic INR range of 2 to 3 (target INR of 2.5). This recommendation includes high-risk patients with antiphospholipid syndrome with previous arterial or venous thromboembolism, current-generation mechanical or bioprosthetic aortic heart valve replacement. Note: Patients with mechanical aortic valve replacement and additional risk factors for thromboembolic events (atrial fibrillation, previous thromboembolism, LV dysfunction, hypercoagulable conditions) or an older generation mechanical AVR (i.e., ball in-Cage) or any mechanical MVR should have a INR therapeutic range of 2.5 to 3.5 (target INR of 3). Aftab GH, et al. Chest 2012, 141:7S-47S Jesse RA, et al. [facility] 2017, 70: 252-289 Performed By: #### 3 4528-0 #### [facility] CLIA [id number] [address] PT Coag (PPP) [Time] 10.7 s Normal 9.7-13.0 [facility] Comment on above: Order Comment: Speci men Type: BLOOD SPECIMEN Performed By: #### 3 4528-0 #### [facility] CLIA [id number] [address] TYPE AND SCREENon 12-01-2021 ABO A Normal [facility] Comment on above: Order Comment: Speci men Type: BLOOD SPECIMEN Performed By: #### T SCR #### [facility] CLIA [id number] [address] HISTORICAL AB SCR STATUS Negative [facility] Comment on above: Order Comment: Speci men Type: BLOOD SPECIMEN Performed By: #### T SCR #### [facility] CLIA [id number] [address] Rh Nom (Bld) Positive Normal [facility] Comment on above: Order Comment: Speci men Type: BLOOD SPECIMEN Performed By: #### T SCR #### [facility] CLIA [id number] [address] TYPE AND SCREEN EXPIRATION 12/03/2021 23:59 Normal [facility] Comment on above: Order Comment: Speci men Type: BLOOD SPECIMEN Performed By: #### T SCR #### [facility] CLIA [id number] [address] OF [facility] XR TIBIA FIBULA 2V AP/LAT LT on 12-01-2021 XR TIBIA FIBULA 2V AP/LAT LT * * *Final Report* * * DATE OF EXAM: Dec 01 2021 4:10PM [id number] - XR TIBIA FIBULA 2V AP/LAT LT / PROCEDURE REASON: Post-operative / post-procedure assessment, asymptomatic * * * * Physician Interpretation * * * * EXAMINATION: XR TIBIA FIBULA 2V AP/LAT LT HISTORY: POST OP LEFT TIB/FIB Post-operative / post-procedure assessment, asymptomatic. COMPARISON: Tib-fib radiographs 11/30/2021 TECHNIQUE: XR TIBIA FIBULA 2V AP/LAT LT Laterality: LEFT Number of different views (projections): 2 M: XB_1 FINDINGS: Interval placement of intramedullary analy with proximal and distal interlocking screws in the tibia. Improved alignment of the distal tibial fracture. Improved alignment of the proximal and distal fibular fractures. IMPRESSION: ORIF of the tibia. Case Finisher: TISH Transcribe Date/Time: Dec 01 2021 4:19P Dictated by : AMANDA PAYAN MD This examination was interpreted and the report reviewed and electronically signed by: AMANDA PAYAN MD on Dec 01 2021 4:22PM EST [id number] Normal [facility] XR TIBIA FIBULA 2V AP/LAT LT * * *Final Report* * * DATE OF EXAM: Dec 01 2021 2:30PM [id number] - XR TIBIA FIBULA 2V AP/LAT LT / PROCEDURE REASON: I.M. RODDING * * * * Physician Interpretation * * * * EXAM TITLE: XR TIBIA FIBULA 2V AP/LAT LT DATE: 12/02/2021 9:14 AM INDICATION: Intraoperative for fracture fixation COMPARISON: 11/30/2021 FINDINGS: 13 minutes 17 seconds of fluoroscopy time was used. 8 images were obtained. These views demonstrate placement of an intramedullary analy in the tibia transfixing a distal shaft fracture. IMPRESSION: Intraoperative exam. Case Finisher: [facility] Transcribe Date/Time: Dec 02 2021 9:14A Dictated by : BHAVNA RENNER MD This examination was interpreted and the report reviewed and electronically signed by: BHAVNA RENNER MD on Dec 02 2021 9:15AM EST [id number] Normal [facility] HEALTHon 11-30-2021 ALLIED HEALTH HNO ID: [id number] Author: Elfego Simpson RT(R) Service: Radiology Author Type: Technologist Type: Allied Health Filed: 11/30/2021 8:36 PM Note Text: Radiology Service Progress Note PATIENT NAME: Susie Callejas DATE OF SERVICE: November 30, 2021 TIME: 8:36 PM PATIENT IDENTITY VERIFICATION COMPLETED USING TWO (2) IDENTIFIERS: Name and Date of confirmed by patient verbally and Name and Date of confirmed by identification band. FALL SCREENING: Has the patient had 2 falls in the last year or 1 fall with injury or currently using an Ambulatory Assistive Device (Walker, Cane, Wheelchair, Crutches, etc.)? Emergency Room Patient: Screened in ED PATIENT GENDER DATA: Male PATIENT RELEVANT IMPLANT DATA REVIEWED: Not Applicable RADIOLOGY DEPARTMENT: CT; Exam(s) Completed: Lower extremity PERIPHERAL IV DATA: Not applicable SIGNED BY: Elfego Simpson RT(R) November 30, 2021 8:36 PM Normal [facility] HNO ID: [id number] Author: Lauryn Jung RT(R) Service: Radiology Author Type: Technologist Type: Allied Health Filed: 11/30/2021 7:23 PM Note Text: Radiology Service Progress Note PATIENT NAME: Susie Callejas DATE OF SERVICE: November 30, 2021 TIME: 7:23 PM PATIENT IDENTITY VERIFICATION COMPLETED USING TWO (2) IDENTIFIERS: Name and Date of confirmed by patient verbally and Name and Date of confirmed by identification band. FALL SCREENING: Has the patient had 2 falls in the last year or 1 fall with injury or currently using an Ambulatory Assistive Device (Walker, Cane, Wheelchair, Crutches, etc.)? Emergency Room Patient: Screened in ED PATIENT GENDER DATA: Male PATIENT RELEVANT IMPLANT DATA REVIEWED: Not Applicable RADIOLOGY DEPARTMENT: General X-ray: Exam(s) Completed: Lower Extremity X-Ray(s): Tibia Fibula, Left PERIPHERAL IV DATA: Not applicable SIGNED BY: RT Booker(R) November 30, 2021 7:23 PM Normal [facility] CT ANKLE WO IVCON LTon 11-30 CT ANKLE WO IVCON LT * * *Final Report* * * DATE OF EXAM: Nov 30 2021 8:35PM [facility] 0060 - CT ANKLE WO IVCON LT / PROCEDURE REASON: Fracture, ankle * * * * Physician Interpretation * * * * CT LEFT ANKLE CLINICAL INDICATION: Distal left tibial and fibular fractures COMPARISON: Radiographs left ankle and left tibia/fibula 11/30/2021 TECHNIQUE: CT scan of the left ankle with axial, sagittal and coronal images. Contrast: None CT Dose-Length Product: 209 mGy*cm CT Dose Reduction Employed: Automated exposure control (AEC) and/or iterative reconstruction was used. FINDINGS: There is an acute displaced mildly comminuted oblique fracture of the distal fibular diaphysis. Major distal fracture fragment is displaced posteriorly and laterally about half a shaft width. There are multiple displaced fracture fragments along the fracture site. Acute displaced oblique fracture through the distal thigh to the diaphysis. Major distal fracture fragment is displaced laterally and posteriorly about 1.5 cm. There is overriding of fracture fragments measuring 1.4 cm. A couple of small fracture fragments are displaced posteriorly at the fracture site. No intra-articular involvement. Tibiotalar and subtalar joints are maintained. Well-corticated ossifications adjacent to the lateral malleolus likely reflect the sequela of remote trauma. There is subcutaneous edema and swelling throughout the visualized lower leg, ankle and hindfoot. No soft tissue gas. IMPRESSION: Acute displaced fractures of the distal tibial and fibular shafts as described. Case Finisher: PSCB Transcribe Date/Time: Dec 01 2021 7:33A Dictated by : ELAINE ARCOS MD This examination was interpreted and the report reviewed and electronically signed by: ELAINE ARCOS MD on Dec 01 2021 8:04AM EST [id number] Normal [facility] ED NOTEon 11-30-2021 ED NOTE HNO ID: [id number] Author: Foster Olguin RN Service: Emergency Medicine Author Type: Registered Nurse Type: ED Notes Filed: 11/30/2021 8:19 PM Note Text: CT aware pt ready Normal [facility] ED PROV NOTEon 11-30-2021 ED PROV NOTE HNO ID: [id number] Author: Cleveland Spence DO Service: Emergency Medicine Author Type: Physician Type: ED Provider Notes Filed: 11/30/2021 7:50 PM Note Text: ED Provider Note Patient Name: Susie Callejas SERVICE DATE: 11/30/21 History Patient presents with: ortho consult: pt sent here from [facility] for an ortho consult, pt has a tib+fib spiral fx, from a mechanical fall Chief complaint is left ankle pain Patient received in transfer from an outside facility secondary to was described as a closed distal tib-fib fracture. Patient arrives splinted significant pain wiggling his toes. Cap refill is immediate at the digital bed. PAST MEDICAL HISTORY Diagnosis Date - COPD (chronic obstructive pulmonary disease) (HCC) - Diabetes mellitus (HCC) - Hypercholesteremia - Hypertension - Sleep apnea PAST SURGICAL HISTORY Procedure Laterality Date - COLONOSCOP W/ OR W/O [facility] [[email or web address] SPEC 07/14/15 Colonoscopy - NONE FAMILY HISTORY Problem Relation Age of Onset - Emphysema Mother - Heart Father - Alzheimer's Disease Father - COPD Mother - COPD Sister Social History Tobacco Use - Smoking status: Former Smoker Packs/day: 1.00 Years: 35.00 Pack years: 35.00 Types: Cigarettes - Smokeless tobacco: Never Used - Tobacco comment: using patch. doesn't buy cigarettes anymore Substance and Sexual Activity - Alcohol use: Yes Alcohol/week: 5.0 standard drinks Types: 2 Cans of Beer (12oz) per week Comment: 3-4 beers per week - Drug use: No - Sexual activity: Yes ALLERGIES No Known Allergies Review of Systems HENT: Negative. Respiratory: Negative. Cardiovascular: Negative. Gastrointestinal: Negative. Musculoskeletal: Positive for arthralgias. Skin: Negative. Physical Exam Vitals [11/30/21 1819] BP Pulse Temp Temp src Resp SpO2 Weight Height 121/68 65 36.8 ?C (98.2 ?F) Oral 16 95 % 127 kg (280 lb) 1.727 m (5' 8 ) Physical Exam Vitals and nursing note reviewed. Constitutional: General: He is not in acute distress. Appearance: Normal appearance. He is normal weight. He is not ill-appearing. HENT: Head: Normocephalic and atraumatic. Cardiovascular: Rate and Rhythm: Normal rate and regular rhythm. Pulmonary: Effort: Pulmonary effort is normal. Breath sounds: Normal breath sounds. Musculoskeletal: General: Swelling, tenderness, deformity and signs of injury present. Normal range of motion. Skin: General: Skin is warm and dry. Capillary Refill: Capillary refill takes less than 2 seconds. Neurological: Mental Status: He is alert. Diagnostic Testing ED Labs Ordered and Reviewed - No data to display Procedures ED Course / Clinical Impression Clinical Impressions as of 11/30/21 194 Tibia/fibula fracture, left, closed, initial encounter COVID-19 test performed per [facility] [place] policy for suspected COVID community exposure. MDM / Disposition / Plan I looked I looked at the films from the outside facility, he has a distal two third both bone fracture, with significant displacement. I did not see any films more proximal, so we really did a tib-fib here and he has a proximal fibular fracture which is not too surprising. Splint was taken down, reapplied by orthopedics. Admitted to orthopedic surgery for surgical repair Disposition The patient was admitted. Admitted to Regular Nursing Floor. Condition at disposition is improved and stable. SIGNATURE: DO Ildefonso Palmeren DO Bebe 11/30/21 1950 Normal [facility] HISTORY PHYSICALon HISTORY PHYSICAL HNO ID: [id number] Author: Adam Barbour MD Service: Orthopaedic Surgery Author Type: Resident Type: HANDP Filed: 11/30/2021 9:16 PM Note Text: -------- Attestation signed by Jason Nicolas MD at 12/01/2021 10:47 AM ATTENDING STAFF REVIEW I personally saw and examined the patient. I agree with the resident's assessment and plan. I communicated with the resident staff as needed if, in my opinion, additional clarification, evaluation, and/or treatment was necessary. Patient with multiple medical comorbidities presents with displaced left distal tibia/fibula fractures after slip on ice. I discussed injury and surgery with patient at length. All his questions were answered. Plan OR today for surgical fixation of left tibia/fibula fracture. Delayed Entry - I saw/examined the patient on 12/01/2021 Jason Nicolas M.D. Attending Staff, Department of Orthopedic Surgery [facility] -------- ORTHOPAEDIC SURGERY HANDP Pt: SUSIE CALLEJAS Date of Admission: 11/30/2021 Chief Complaint: Left lower leg pain HPI: 66 year old male presented to [facility] ED on 11/30/2021 as a transfer from [facility] for evaluation of left lower leg pain. The patient was found to have a distal tibial shaft fracture and was placed in a splint at [facility]. The patient endorses slipping on ice while walking down a ramp at his house with subsequent immediate and severe left lower leg pain and the inability to ambulate. The patient denies head trauma and loss of consciousness. He also denied any open injuries or bleeding associated with his injury. The patient currently denies numbness and tingling of the left lower extremity but states that he felt a tingling sensation immediately after the injury. The patient denies prior pain or injury to the left ankle/lower leg. The patient lives at home and denies ambulation assistance at baseline. The patient denies anticoagulation utilization. The patient denies fevers, chills, nausea, vomiting and other constitutional symptoms at this time. The patient denies any additional injury and pain in any other location. The patient has no additional orthopaedic complaints at this time. PAST MEDICAL HISTORY Diagnosis Date - COPD (chronic obstructive pulmonary disease) (HCC) - Diabetes mellitus (HCC) - Hypercholesteremia - Hypertension - Sleep apnea PAST SURGICAL HISTORY Procedure Laterality Date - COLONOSCOP W/ OR W/O [facility] [[email or web address] SPEC 07/14/15 Colonoscopy - NONE Allergies: Patient has no known allergies. No current facility-administered medications for this encounter. Current Outpatient Medications Medication Sig - lisinopril (ZESTRIL, PRINIVIL) 10 mg tablet Take 1 tablet by mouth once daily. - metFORMIN (GLUCOPHAGE) 1,000 mg tablet Take 1 tablet by mouth twice daily. - pravastatin (PRAVACHOL) 20 mg tablet Take 1 tablet by mouth daily at bedtime. - glipiZIDE XL (GLUCOTROL XL) 5 mg 24 hr tablet Take 1 tablet by mouth once daily. - umeclidinium (INCRUSE ELLIPTA) 62.5 mcg/actuation inhaler Inhale 1 Puff as instructed once daily. Inhale one puff once daily. DO NOT CLICK OPEN UNTIL READY FOR DOSE - budesonide-formoterol (SYMBICORT) 160-4.5 mcg/actuation inhaler Inhale 2 Puffs as instructed twice daily. - Nebulizer Use as directed. NEBULIZER FOR HOME USE. DX:(J44.9, J45.909) Asthma-chronic obstructive pulmonary disease overlap syndrome (HCC) - PSYLLIUM SEED, WITH SUGAR, (METAMUCIL ORAL) Take by mouth. - COMPOUNDED PRESCRIPTION Please administer oxygen at 3L continuous for daytime use. Please evaluate for conserving device. DX:COPD, Hypoxia - CPAP Use 12 cm in the nose daily at bedtime. - Oxygen-Air Delivery Systems jalen Use 4 L/min in the nose daily at bedtime. 4L O2 bleed in with nasal CPAP @@ bedtime. - blood sugar diagnostic(ONE TOUCH ULTRA TEST STRIPS) Check daily as directed. - ASPIRIN 81 MG TAB, DELAYED RELEASE Take one(1) tablet daily. FAMILY HISTORY Problem Relation Age of Onset - Emphysema Mother - Heart Father - Alzheimer's Disease Father - COPD Mother - COPD Sister Social History Tobacco Use - Smoking status: Former Smoker Packs/day: 1.00 Years: 35.00 Pack years: 35.00 Types: Cigarettes - Smokeless tobacco: Never Used - Tobacco comment: using patch. doesn't buy cigarettes anymore Substance Use Topics - Alcohol use: Yes Alcohol/week: 5.0 standard drinks Types: 2 Cans of Beer (12oz) per week Comment: 3-4 beers per week - Drug use: No O: Vitals: BP 121/68 Pulse 65 Temp 36.8 ?C (98.2 ?F) (Oral) Resp 16 Ht 172.7 cm (5' 8 ) Wt 127 kg (280 lb) SpO2 95% BMI 42.57 kg/m? Physical exam: General: Alert, answering questions appropriately; NAD. Cooperative throughout entire interview and exam Head: Atraumatic, Normocephalic Chest: Un (more content not included)... Normal [facility] SARS-CoV-2 RNA Resp Ql KIRBY+p robeon 11-30-2021 SARS-CoV-2 (COVID-19) RNA KIRBY+probe Ql (Resp) COVID 19 RESULT: SARS-CoV-2 (Agent of COVID-19) Not Detected by PCR. This test has been authorized by FDA under an Emergency Use Authorization (EUA). Normal [facility] Comment on above: Performed By: #### [id number] ####[facility] [id number] [place] XR TIBIA FIBULA 2V AP/LAT LT on 11-30-2021 XR TIBIA FIBULA 2V AP/LAT LT * * *Final Report* * * DATE OF EXAM: Nov 30 2021 7:24PM [id number] [id number] - XR TIBIA FIBULA 2V AP/LAT LT / PROCEDURE REASON: Fracture, tib/fib * * * * Physician Interpretation * * * * LEFT TIBIA/FIBULA, TWO VIEWS, 11/30/2021 HISTORY: Fractures. Post splinting. COMPARISON: Post reduction left ankle images 11/30/2021 at 14:56 hours TECHNIQUE: AP and lateral crosstable views of the lower leg were obtained from the knee to the ankle. Images were obtained at 19:11 hours RESULTS: Evaluation of bone detail is limited by overlying splint device. Comminuted fractures of the distal shafts of the tibia and fibula are again seen, with lateral displacement and mild overriding, as seen on the post reduction ankle images earlier same date. There also is a minimally displaced fracture of the proximal shaft of the fibula. The proximal tibia appears intact. The included knee joints appear normal. Specific knee imaging was not performed. There is sclerosis within the medullary region of the included distal femur, possibly old bone infarct or enchondroma. The included ankle appears normally aligned. IMPRESSION: 1. Comminuted fractures of the distal shafts of the tibia and fibula are again seen, with lateral displacement and mild overriding, as seen on post reduction ankle images earlier same date. 2. Minimally displaced fracture of the proximal shaft of the fibula. 3. Enchondroma or old bone infarct in the distal femur, incompletely evaluated. Case Finisher: TISH Transcribe Date/Time: Nov 30 2021 7:28P Dictated by : ROB ADAMES MD This examination was interpreted and the report reviewed and electronically signed by: ROB ADAMES MD on Nov 30 2021 7:33PM EST [id number] Normal [facility] Vital Signs Date Time Vital Sign Value Performing Clinician Faci lity 06-07-2022 13:25-0400 Body height 172.7 cm Jason Nicolas MD Work Phone: [facility] 06-07-2022 13:25-0400 Body weight 117.12 kg Jason Nicolas MD Work Phone: [facility] 06-07-2022 13:25-0400 Respiratory rate 22 /min Jason Nicolas MD Work Phone: [facility] 03-08-2022 14:04-0400 Body height 172.7 cm Jason Nicolas MD Work Phone: [facility] 03-08-2022 14:04-0400 Body weight 131.54 kg Jason Nicolas MD Work Phone: [facility] 03-08-2022 14:04-0400 Respiratory rate 17 /min Jason Nicolas MD Work Phone: [facility] Encounters Encounter Date Encounter Type Care Provider Facility Start: 06-07-2022 End: 06-07-2022 Patient encounter procedure Jason Nicolas MD Work Phone: [facility] Comment on above: Tibia/fibula fractur e, left, closed, with routine healing, subsequent encounter (Primary Dx) Start: 03-08-2022 End: 03-08-2022 Patient encounter procedure Jason Nicolas MD Work Phone: [facility] Comment on above: Tibia/fibula fractur e, left, closed, with routine healing, subsequent encounter (Primary Dx); Cellulitis of ankle Procedures Date Procedure Procedure Detail Performing Clinician Start: 12-01-2021 Antibody screen Comment on above: Order Comment: Speci men Type: BLOOD SPECIMEN Performed By: #### T SCR #### [facility] [place] [id number] [id number] [place] Start: 11-18-2016 Adult depression scr eening assessment Jason Nicolas MD Work Phone: Start: 07-14-2015 Colonoscopy Jason whittaker MD Work Phone: Plan of Treatment Date Care Activity Detail Author Start: 07-14-2025 Colonoscopy COLONOSCOPY [facility] Start: 07-14-2025 COLORECTAL CANCER SCREENING COLORECTAL CANCER SCREENING [facility] Start: 07-29-2022 Influenza vaccination INFLUENZA (#1) [facility] Start: 11-28-2021 ADVANCE DIRECTIVE DISCUSSION ADVANCE DIRECTIVE DISCUSSION [facility] Start: 2020 PNEUMOVAX AGE 65 AND OVER WITH 5YR LOOKBACK (#1) PNEUMOVAX AGE 65 AND OVER WITH 5YR LOOKBACK (#1) [facility] Start: 07-04-2018 PROSTATE CANCER SCREENING DISCUSSION PROSTATE CANCER SCREENING DISCUSSION [facility] Start: 05-24-2018 Hepatitis B screening URINE ALBUMIN:CREATININE RATIO [facility] Start: 05-24-2018 Hepatitis B surface antibody level LDL CHOLESTEROL [facility] Start: 05-20-2018 ANNUAL PCP TEAM WATCH DIAL MAKER LIZ DISEASE VISIT ANNUAL PCP TEAM CHRONIC DISEASE VISIT [facility] Start: 12-14-2017 Hepatitis C antibody , confirmatory test DILATED RETINAL EXAM [facility] Start: 11-23-2017 Hemoglobin A1c/Hemoglobin.total in Blood HBA1C [facility] Start: 11-18-2017 Adult depression screening assessment DEPRESSION SCREENING [facility] Start: 06-22-2017 3 comp foot exam completed DIABETIC FOOT EXAM [facility] Start: 05-01-2013 FECAL OCCULT BLOOD FECAL OCCULT BLOO D [facility] Start: 12-29-2010 PNEUMOCOCCAL: 65+ (2 - PCV) PNEUMOCOCCAL: 65+ (2 - PCV) [facility] Start: 2005 SHINGRIX VACCINE (1 of 2) SHINGRIX VACCINE (1 of 2) [facility] Start: 2000 COLOGUARD (FIT-DNA) COLOGUARD (FIT-D NA) [facility] Start: [address] COLONOGRAPHY [facility] Start: 2000 [facility] Start: 1974 Urine microalbumin profile DTAP,TDAP,TD (1 - Tdap) [facility] Start: 1973 ANNUAL PCP TEAM WATCH DIAL MAKER LIZ DISEASE VISIT ANNUAL PCP TEAM CHRONIC DISEASE VISIT [facility] Start: 1973 BP CONTROLLED (<130/80) BP CONTROLLE D (<130/80) [facility] Start: 1955 ABDOMINAL AORTIC ANEURYSM SCREENING ABDOMINAL AORTIC ANEURYSM SCREENING [facility] XR ANKLE GENERAL 3V AP/LAT/OBL LEFT XR ANKLE GENERAL 3V AP/LAT/OBL LEFT Radiology Routine Tibia/fibula fracture, left, closed, with routine healing, subsequent encounter Cellulitis of ankle Ordered: 03/07/2022 [facility] Work Phone: Comment on above: Ordered: 03/07/2022 XR ANKLE GENERAL 3V AP/LAT/OBL LEFT XR ANKLE GENERAL 3V AP/LAT/OBL LEFT Radiology Routine Tibia/fibula fracture, left, closed, with routine healing, subsequent encounter Ordered: 06/06/2022 [facility] Work Phone: Comment on above: Ordered: 06/06/2022 [facility] Immunizations Immunization Date Immunization Notes Care Provider Elkin torres 12-29-2009 pneumococcal polysaccharide vaccine, 23 valameena Nicolas MD Work Phone: [facility] Payers Date Payer Category Payer Unknown ANTHEM BLUE [facility] AND BLUE [employer] O [id number] 2021-Present [phone] [id number] [place] [address] [facility] [id number] Social History Date Type Detail Facility [facility]: [facility]-06-[facility] Work Phone: History of tobacco use Cigarette Smoker C [facility] Work Phone: Start: 12-06-2016 End: 06-07-2022 Cigarettes smoked current (pack per day) - Reported 1 [facility] Start: 12-06-2016 Tobacco use and exposure Smokeless tobacco non-user [facility] Work Phone: Start: 03-08-2022 End: 06-07-2022 Alcohol intake Current drinker of alcohol (finding) [facility] Start: 01-12-2011 History SDOH Alcohol Comment 3-4 beers per week [facility] Start: 12-02-2016 Tobacco Comment using patch. d oesn't buy cigarettes anymore [facility] Start: 1955 Sex Assigned At Not on file C [facility] Start: 02-26-2022 End: 06-07-2022 Exposure to SARS-CoV-2 (event) Not sure [facility] Medical Equipment Procedure Code Equipment Code Equipment Origin al Text Equipment Identifier Dates [employer] 8mm Cameron Round Dark Blue Titanium 330mm Intramedullary - [id number] Start: 12-01-2021 Screw [id number] Start: 12-01-2021 Screw [id number] Start: 12-01-2021 38mm Locking Screw [id number] Start : 12-01-2021 36mm 4.0lockin S crew For Im Nail [id number] Start: 12-01-2021 44mm Locking Screw [id number] Start : 12-01-2021 Check daily as directed. Start: 06-19-2010 Comment on above: Check daily as direc jamee. Clinical Notes 11-30-2021 to 06-07-2022 Jason Nicolas MD - 06/07/2022 1:52 PM EDTTprema Nicolas MD - 03/08/2022 2:25 PM EDT Note Date & Type Note Facility 06-07-2022 Note HNO ID: [id number] Author: Jason Nicolas MD Service: ? Author Type: Physician Type: Progress Notes Filed: 06/07/2022 1:58 PM Note Text: ORTHOPAEDIC OFFICE NOTE CHIEF COMPLAINT: Follow-up left ankle fracture HISTORY OF PRESENT ILLNESS: Susie Callejas is a 67 year old male who presents for Follow-up evaluation after surgical fixation of left distal tibia fracture with intramedullary device on 12/01/2021. Overall he is doing well. For most part he is pain-free. He is ambulating independently without issue. He denies current fevers chills nausea vomiting weight loss fatigue or malaise. Reviewed nursing note and current pain scale. PAST MEDICAL HISTORY Diagnosis Date - COPD (chronic obstructive pulmonary disease) (HCC) - Diabetes mellitus (HCC) - Hypercholesteremia - Hypertension - Sleep apnea PAST SURGICAL HISTORY Procedure Laterality Date - COLONOSCOPY FLX DX W/COLLJ SPEC WHEN PFRMD 07/14/15 Colonoscopy - NONE FAMILY HISTORY Problem Relation Age of Onset - Emphysema Mother - COPD Mother - Heart Father - Alzheimer's Disease Father - COPD Sister Social History Tobacco Use - Smoking status: Former Smoker Packs/day: 1.00 Years: 35.00 Pack years: 35.00 Types: Cigarettes - Smokeless tobacco: Never Used - Tobacco comment: using patch. doesn't buy cigarettes anymore Substance Use Topics - Alcohol use: Yes Alcohol/week: 5.0 standard drinks Types: 2 Cans of Beer (12oz) per week Comment: 3-4 beers per week - Drug use: No MEDICATIONS: Current Outpatient Medications Medication Sig - metFORMIN (GLUCOPHAGE) 1,000 mg tablet Take 1 tablet by mouth twice daily. - pravastatin (PRAVACHOL) 20 mg tablet Take 1 tablet by mouth daily at bedtime. - glipiZIDE XL (GLUCOTROL XL) 5 mg 24 hr tablet Take 1 tablet by mouth once daily. - umeclidinium (INCRUSE ELLIPTA) 62.5 mcg/actuation inhaler Inhale 1 Puff as instructed once daily. Inhale one puff once daily. DO NOT CLICK OPEN UNTIL READY FOR DOSE - budesonide-formoterol (SYMBICORT) 160-4.5 mcg/actuation inhaler Inhale 2 Puffs as instructed twice daily. - Nebulizer Use as directed. NEBULIZER FOR HOME USE. DX:(J44.9, J45.909) Asthma-chronic obstructive pulmonary disease overlap syndrome (HCC) - PSYLLIUM SEED, WITH SUGAR, (METAMUCIL ORAL) Take by mouth. - COMPOUNDED PRESCRIPTION Please administer oxygen at 3L continuous for daytime use. Please evaluate for conserving device. DX:COPD, Hypoxia - CPAP Use 12 cm in the nose daily at bedtime. - Oxygen-Air Delivery Systems jalen Use 4 L/min in the nose daily at bedtime. 4L O2 bleed in with nasal CPAP @@ bedtime. - blood sugar diagnostic(ONE TOUCH ULTRA TEST STRIPS) Check daily as directed. - ASPIRIN 81 MG TAB, DELAYED RELEASE Take one(1) tablet daily. No current facility-administered medications for this visit. ALLERGIES: ALLERGIES No Known Allergies PHYSICAL EXAMINATION: Resp 22 Ht 5' 8 (1.73m) Wt 258 lb 3.2 oz (117.1kg) BMI 39.27 kg/(m2). General Appearance:?Well appearing, alert, in no acute distress, well-hydrated, well nourished. Skin:?Skin color, texture, turgor normal, no suspicious rashes or lesions. Psych: Patient is alert and oriented to person, time and place. Mood and affect are normal. Respiratory: Breathing is symmetric and unlabored Gait:?Patient is able to ambulate using a wheeled walker. There is no significant antalgia. Extremities:?Left lower extremity is examined. ?Skin is intact that erythema or ecchymosis. ?There is moderate swelling present the leg consistent with postoperative traumatic state. ?Multiple surgical incisions are well-healed without drainage or sign of infection. Medial wound is now completely healed without sign of infection.?There is no significant surrounding erythema or fluctuance. ?There is no drainage.?There is no focal tenderness.. ?Range of motion the knee and ankle is relatively pain-free. Lymphatic: There is no palpable lymphadenopathy Peripheral Pulses:?Normal. Neurologic: Bilateral lower extremities were examined. There is 5/5 strength with hip flexion, knee extension, dorsiflexion, EHL, plantar flexion. Sensation intact in all nerve dermatomes IMAGES: Physician office building radiographs, 06/07/2022. AP, lateral mortise views of the left ankle were obtained reviewed. These demonstrate left distal tibia and fibula fracture fixated intramedullary vice. Overall alignment is stable. There is progressive callus formation at the fracture site indicative of ongoing healing. There is no sign of loosening or failure of hardware. Soft tissues otherwise unremarkable. Plan ASSESSMENT AND PLAN: 1. Tibia/fibula fracture, left, closed, with routine healing, subsequent encounter - ICD9: V54.16, ICD10: S82.202D, S82.402D Functional Plan: Patient is a 67-year-old male presenting for follow-up evaluation after surgical fixation of left distal tibia and fibula fracture on 12/01/2021 with i (more content not included)... [facility] 06-07-2022 History of Present illness Narrative Images from the original note were not included. ORTHOPAEDIC OFFICE NOTE CHIEF COMPLAINT: Follow-up left ankle fracture HISTORY OF PRESENT ILLNESS: Susie Callejas is a 67 year old male who presents for Follow-up evaluation after surgical fixation of left distal tibia fracture with intramedullary device on 12/01/2021. Overall he is doing well. For most part he is pain-free. He is ambulating independently without issue. He denies current fevers chills nausea vomiting weight loss fatigue or malaise. Reviewed nursing note and current pain scale. PAST MEDICAL HISTORY Diagnosis Date COPD (chronic obstructive pulmonary disease) (HCC) Diabetes mellitus (HCC) Hypercholesteremia Hypertension Sleep apnea PAST SURGICAL HISTORY Procedure Laterality Date COLONOSCOPY FLX DX W/COLLJ SPEC WHEN PFRMD 07/14/15 Colonoscopy NONE FAMILY HISTORY Problem Relation Age of Onset Emphysema Mother COPD Mother Heart Father Alzheimer's Disease Father COPD Sister Social History Tobacco Use Smoking status: Former Smoker Packs/day: 1.00 Years: 35.00 Pack years: 35.00 Types: Cigarettes Smokeless tobacco: Never Used Tobacco comment: using patch. doesn't buy cigarettes anymore Substance Use Topics Alcohol use: Yes Alcohol/week: 5.0 standard drinks Types: 2 Cans of Beer (12oz) per week Comment: 3-4 beers per week Drug use: No MEDICATIONS: Current Outpatient Medications Medication Sig metFORMIN (GLUCOPHAGE) 1,000 mg tablet Take 1 tablet by mouth twice daily. pravastatin (PRAVACHOL) 20 mg tablet Take 1 tablet by mouth daily at bedtime. glipiZIDE XL (GLUCOTROL XL) 5 mg 24 hr tablet Take 1 tablet by mouth once daily. umeclidinium (INCRUSE ELLIPTA) 62.5 mcg/actuation inhaler Inhale 1 Puff as instructed once daily. Inhale one puff once daily. DO NOT CLICK OPEN UNTIL READY FOR DOSE budesonide-formoterol (SYMBICORT) 160-4.5 mcg/actuation inhaler Inhale 2 Puffs as instructed twice daily. Nebulizer Use as directed. NEBULIZER FOR HOME USE. DX:(J44.9, J45.909) Asthma-chronic obstructive pulmonary disease overlap syndrome (HCC) PSYLLIUM SEED, WITH SUGAR, (METAMUCIL ORAL) Take by mouth. COMPOUNDED PRESCRIPTION Please administer oxygen at 3L continuous for daytime use. Please evaluate for conserving device. DX:COPD, Hypoxia CPAP Use 12 cm in the nose daily at bedtime. Oxygen-Air Delivery Systems jalen Use 4 L/min in the nose daily at bedtime. 4L O2 bleed in with nasal CPAP @@ bedtime. blood sugar diagnostic(ONE TOUCH ULTRA TEST STRIPS) Check daily as directed. ASPIRIN 81 MG TAB, DELAYED RELEASE Take one(1) tablet daily. No current facility-administered medications for this visit. ALLERGIES: ALLERGIES No Known Allergies PHYSICAL EXAMINATION: Resp 22 Ht 5' 8 (1.73m) Wt 258 lb 3.2 oz (117.1kg) BMI 39.27 kg/(m^2). General Appearance: Well appearing, alert, in no acute distress, well-hydrated, well nourished. Skin: Skin color, texture, turgor normal, no suspicious rashes or lesions. Psych: Patient is alert and oriented to person, time and place. Mood and affect are normal. Respiratory: Breathing is symmetric and unlabored Gait: Patient is able to ambulate using a wheeled walker. There is no significant antalgia. Extremities: Left lower extremity is examined. Skin is intact that erythema or ecchymosis. There is moderate swelling present the leg consistent with postoperative traumatic state. Multiple surgical incisions are well-healed without drainage or sign of infection. Medial wound is now completely healed without sign of infection. There is no significant surrounding erythema or fluctuance. There is no drainage. There is no focal tenderness.. Range of motion the knee and ankle is relatively pain-free. Lymphatic: There is no palpable lymphadenopathy Peripheral Pulses: Normal. Neurologic: Bilateral lower extremities were examined. There is 5/5 strength with hip flexion, knee extension, dorsiflexion, EHL, plantar flexion. Sensation intact in all nerve dermatomes IMAGES: Physician office building radiographs, 06/07/2022. AP, lateral mortise views of the left ankle were obtained reviewed. These demonstrate left distal tibia and fibula fracture fixated intramedullary vice. Overall alignment is stable. There is progressive callus formation at the fracture site indicative of ongoing healing. There is no sign of loosening or failure of hardware. Soft tissues otherwise unremarkable. Plan ASSESSMENT AND PLAN: 1. Tibia/fibula fracture, left, closed, with routine healing, subsequent encounter - ICD9: V54.16, ICD10: S82.202D, S82.402D Functional Plan: Patient is a 67-year-old male presenting for follow-up evaluation after surgical fixation of left distal tibia and fibula fracture on 12/01/2021 with intramedullary device. Overall he is doing well. For most part he is pain-free. He is ambulating independently. Radiographs today are stable and demonstrate progressive healing of the fracture site. I discussed this with him at length. I would like to see him back in 6 months for 1 more evaluation and radiographs unless issues should arise sooner. All of his questions were answered satisfactorily. He expressed understanding of and agreement with treatment plan Medical Decision Making: Problems: Moderate: Acute complicated injury Data: Unique test result(s) reviewed: 1 Unique test(s) ordered: 1 Risk: Low: Low risk from testing/treatment Medical Decision Making Level: 3 - Low Return in about 6 months (around 12/08/2022). Jason Nicolas MD documented in this encounter [facility] 03-08-2022 Note HNO ID: [id number] Author: Jason Nicolas MD Service: ? Author Type: Physician Type: Progress Notes Filed: 03/08/2022 2:36 PM Note Text: ORTHOPAEDIC OFFICE NOTE CHIEF COMPLAINT: Follow-up left tibia fracture HISTORY OF PRESENT ILLNESS: Susie Callejas is a 66 year old male who presents for Follow-up evaluation of left tibia fracture status post IM nail on 12/01/2021. Overall he is doing well. For the most part he is pain-free. He is ambulating with the assistance of a walker outside of the house and independently around the house. He continues to do dressing changes along his medial wound which continues to heal and slowly. He occasionally use Tylenol for pain control which is helpful. He denies current fevers chills nausea vomiting weight loss fatigue or malaise. Reviewed nursing note and current pain scale. PAST MEDICAL HISTORY Diagnosis Date - COPD (chronic obstructive pulmonary disease) (HCC) - Diabetes mellitus (HCC) - Hypercholesteremia - Hypertension - Sleep apnea PAST SURGICAL HISTORY Procedure Laterality Date - COLONOSCOPY FLX DX W/COLLJ SPEC WHEN PFRMD 8/17/15 Colonoscopy - NONE FAMILY HISTORY Problem Relation Age of Onset - Emphysema Mother - COPD Mother - Heart Father - Alzheimer's Disease Father - COPD Sister Social History Tobacco Use - Smoking status: Former Smoker Packs/day: 1.00 Years: 35.00 Pack years: 35.00 Types: Cigarettes - Smokeless tobacco: Never Used - Tobacco comment: using patch. doesn't buy cigarettes anymore Substance Use Topics - Alcohol use: Yes Alcohol/week: 5.0 standard drinks Types: 2 Cans of Beer (12oz) per week Comment: 3-4 beers per week - Drug use: No MEDICATIONS: Current Outpatient Medications Medication Sig - metFORMIN (GLUCOPHAGE) 1,000 mg tablet Take 1 tablet by mouth twice daily. - pravastatin (PRAVACHOL) 20 mg tablet Take 1 tablet by mouth daily at bedtime. - glipiZIDE XL (GLUCOTROL XL) 5 mg 24 hr tablet Take 1 tablet by mouth once daily. - umeclidinium (INCRUSE ELLIPTA) 62.5 mcg/actuation inhaler Inhale 1 Puff as instructed once daily. Inhale one puff once daily. DO NOT CLICK OPEN UNTIL READY FOR DOSE - budesonide-formoterol (SYMBICORT) 160-4.5 mcg/actuation inhaler Inhale 2 Puffs as instructed twice daily. - Nebulizer Use as directed. NEBULIZER FOR HOME USE. DX:(J44.9, J45.909) Asthma-chronic obstructive pulmonary disease overlap syndrome (HCC) - PSYLLIUM SEED, WITH SUGAR, (METAMUCIL ORAL) Take by mouth. - COMPOUNDED PRESCRIPTION Please administer oxygen at 3L continuous for daytime use. Please evaluate for conserving device. DX:COPD, Hypoxia - CPAP Use 12 cm in the nose daily at bedtime. - Oxygen-Air Delivery Systems jalen Use 4 L/min in the nose daily at bedtime. 4L O2 bleed in with nasal CPAP @@ bedtime. - blood sugar diagnostic(ONE TOUCH ULTRA TEST STRIPS) Check daily as directed. - ASPIRIN 81 MG TAB, DELAYED RELEASE Take one(1) tablet daily. No current facility-administered medications for this visit. ALLERGIES: ALLERGIES No Known Allergies PHYSICAL EXAMINATION: Resp 17 Ht 5' 8 (1.73m) Wt 290 lb (131.5kg) BMI 44.10 kg/(m2). General Appearance:?Well appearing, alert, in no acute distress, well-hydrated, well nourished. Skin:?Skin color, texture, turgor normal, no suspicious rashes or lesions. Psych: Patient is alert and oriented to person, time and place. Mood and affect are normal. Respiratory: Breathing is symmetric and unlabored Gait:?Patient is able to ambulate using a wheeled walker. There is no significant antalgia. Extremities:?Left lower extremity is examined. ?Skin is intact that erythema or ecchymosis. ?There is moderate swelling present the leg consistent with postoperative traumatic state. ?Multiple surgical incisions are well-healed without drainage or sign of infection. Medial wound is filling in secondarily.There is now most completely healed. There is no significant surrounding erythema or fluctuance. There is no drainage.?There is no focal tenderness.. ?Range of motion the knee and ankle is relatively pain-free. Lymphatic: There is no palpable lymphadenopathy Peripheral Pulses:?Normal. Neurologic: Bilateral lower extremities were examined. There is 5/5 strength with hip flexion, knee extension, dorsiflexion, EHL, plantar flexion. Sensation intact in all nerve dermatomes IMAGES: Physician office building radiographs, 03/08/2022. AP lateral and mortise views of the left ankle were obtained reviewed. These demonstrate tibia and fibula fractures fixated with intramedullary nail. Overall alignment is stable. There is progressive callus formation at the fracture site. There is no sign of loosening or failure of hardware. Soft tissues otherwise unremarkable. Overall stable appearing follow-up radiographs. Plan ASSESSMENT AND PLAN: 1. Tibia/fibula fracture, left, closed, with routine healing, subsequent encounter - ICD9: (more content not included)... [facility] 03-08-2022 History of Present illness Narrative Images from the original note were not included. ORTHOPAEDIC OFFICE NOTE CHIEF COMPLAINT: Follow-up left tibia fracture HISTORY OF PRESENT ILLNESS: Susie Callejas is a 66 year old male who presents for Follow-up evaluation of left tibia fracture status post IM nail on 12/01/2021. Overall he is doing well. For the most part he is pain-free. He is ambulating with the assistance of a walker outside of the house and independently around the house. He continues to do dressing changes along his medial wound which continues to heal and slowly. He occasionally use Tylenol for pain control which is helpful. He denies current fevers chills nausea vomiting weight loss fatigue or malaise. Reviewed nursing note and current pain scale. PAST MEDICAL HISTORY Diagnosis Date COPD (chronic obstructive pulmonary disease) (HCC) Diabetes mellitus (HCC) Hypercholesteremia Hypertension Sleep apnea PAST SURGICAL HISTORY Procedure Laterality Date COLONOSCOPY FLX DX W/COLLJ SPEC WHEN PFRMD 07/14/15 Colonoscopy NONE FAMILY HISTORY Problem Relation Age of Onset Emphysema Mother COPD Mother Heart Father Alzheimer's Disease Father COPD Sister Social History Tobacco Use Smoking status: Former Smoker Packs/day: 1.00 Years: 35.00 Pack years: 35.00 Types: Cigarettes Smokeless tobacco: Never Used Tobacco comment: using patch. doesn't buy cigarettes anymore Substance Use Topics Alcohol use: Yes Alcohol/week: 5.0 standard drinks Types: 2 Cans of Beer (12oz) per week Comment: 3-4 beers per week Drug use: No MEDICATIONS: Current Outpatient Medications Medication Sig metFORMIN (GLUCOPHAGE) 1,000 mg tablet Take 1 tablet by mouth twice daily. pravastatin (PRAVACHOL) 20 mg tablet Take 1 tablet by mouth daily at bedtime. glipiZIDE XL (GLUCOTROL XL) 5 mg 24 hr tablet Take 1 tablet by mouth once daily. umeclidinium (INCRUSE ELLIPTA) 62.5 mcg/actuation inhaler Inhale 1 Puff as instructed once daily. Inhale one puff once daily. DO NOT CLICK OPEN UNTIL READY FOR DOSE budesonide-formoterol (SYMBICORT) 160-4.5 mcg/actuation inhaler Inhale 2 Puffs as instructed twice daily. Nebulizer Use as directed. NEBULIZER FOR HOME USE. DX:(J44.9, J45.909) Asthma-chronic obstructive pulmonary disease overlap syndrome (HCC) PSYLLIUM SEED, WITH SUGAR, (METAMUCIL ORAL) Take by mouth. COMPOUNDED PRESCRIPTION Please administer oxygen at 3L continuous for daytime use. Please evaluate for conserving device. DX:COPD, Hypoxia CPAP Use 12 cm in the nose daily at bedtime. Oxygen-Air Delivery Systems jalen Use 4 L/min in the nose daily at bedtime. 4L O2 bleed in with nasal CPAP @@ bedtime. blood sugar diagnostic(ONE TOUCH ULTRA TEST STRIPS) Check daily as directed. ASPIRIN 81 MG TAB, DELAYED RELEASE Take one(1) tablet daily. No current facility-administered medications for this visit. ALLERGIES: ALLERGIES No Known Allergies PHYSICAL EXAMINATION: Resp 17 Ht 5' 8 (1.73m) Wt 290 lb (131.5kg) BMI 44.10 kg/(m^2). General Appearance: Well appearing, alert, in no acute distress, well-hydrated, well nourished. Skin: Skin color, texture, turgor normal, no suspicious rashes or lesions. Psych: Patient is alert and oriented to person, time and place. Mood and affect are normal. Respiratory: Breathing is symmetric and unlabored Gait: Patient is able to ambulate using a wheeled walker. There is no significant antalgia. Extremities: Left lower extremity is examined. Skin is intact that erythema or ecchymosis. There is moderate swelling present the leg consistent with postoperative traumatic state. Multiple surgical incisions are well-healed without drainage or sign of infection. Medial wound is filling in secondarily.There is now most completely healed. There is no significant surrounding erythema or fluctuance. There is no drainage. There is no focal tenderness.. Range of motion the knee and ankle is relatively pain-free. Lymphatic: There is no palpable lymphadenopathy Peripheral Pulses: Normal. Neurologic: Bilateral lower extremities were examined. There is 5/5 strength with hip flexion, knee extension, dorsiflexion, EHL, plantar flexion. Sensation intact in all nerve dermatomes IMAGES: Physician office building radiographs, 03/08/2022. AP lateral and mortise views of the left ankle were obtained reviewed. These demonstrate tibia and fibula fractures fixated with intramedullary nail. Overall alignment is stable. There is progressive callus formation at the fracture site. There is no sign of loosening or failure of hardware. Soft tissues otherwise unremarkable. Overall stable appearing follow-up radiographs. Plan ASSESSMENT AND PLAN: 1. Tibia/fibula fracture, left, closed, with routine healing, subsequent encounter - ICD9: V54.16, ICD10: S82.202D, S82.402D (primary diagnosis) 2. Cellulitis of ankle - ICD9: 682.6, ICD10: L03.119 Functional Plan: Patient is a 66-year-old male presenting for follow-up evaluation of left tibia fracture fixated with IM nail on 12/01/2021. Overall he is doing well. For the most part he is pain-free. He ambulates independently around the house and with a walker outside of the house for stability. Medial ankle wound is almost completely healed. Radiographs today are stable and demonstrate progressive healing at the fracture. I discussed this with him at length. And continue be weightbearing as tolerated left lower extremity. I will see him back in 3 months for repeat evaluation and radiographs less issue should arise sooner. All of his questions were answered satisfactorily. He expressed understanding of and agreement with the treatment plan. Medical Decision Making: Problems: Moderate: Acute complicated injury Data: Unique test result(s) reviewed: 1 Unique test(s) ordered: 1 Risk: Low: Low risk from testing/treatment Medical Decision Making Level: 3 - Low Return in about 3 months (around 06/07/2022). Jason Nicolas MD documented in this encounter [facility] 02-10-2022 Note HNO ID: [id number] Author: Jason Nicolas MD Service: ? Author Type: Physician Type: Progress Notes Filed: 02/10/2022 8:55 AM Note Text: ORTHOPAEDIC OFFICE NOTE CHIEF COMPLAINT: Follow-up left tibia fracture HISTORY OF PRESENT ILLNESS: Susie Callejas is a 66 year old male who presents for Follow-up evaluation of left tibia fracture treated with intramedullary vice on 12/01/2021. Overall patient is doing okay. His pain continues to improve regularly. Pain is intermittent nature and rates it a 4/10 in intensity. He has been doing regular dressing changes on his medial ankle wound and thinks that this is getting better. He denies fever chills nausea vomiting weight loss fatigue or malaise. He denies any significant drainage from the site. Reviewed nursing note and current pain scale. PAST MEDICAL HISTORY Diagnosis Date - COPD (chronic obstructive pulmonary disease) (HCC) - Diabetes mellitus (HCC) - Hypercholesteremia - Hypertension - Sleep apnea PAST SURGICAL HISTORY Procedure Laterality Date - COLONOSCOPY FLX DX W/COLLJ SPEC WHEN PFRMD 07/14/15 Colonoscopy - NONE FAMILY HISTORY Problem Relation Age of Onset - Emphysema Mother - COPD Mother - Heart Father - Alzheimer's Disease Father - COPD Sister Social History Tobacco Use - Smoking status: Former Smoker Packs/day: 1.00 Years: 35.00 Pack years: 35.00 Types: Cigarettes - Smokeless tobacco: Never Used - Tobacco comment: using patch. doesn't buy cigarettes anymore Substance Use Topics - Alcohol use: Yes Alcohol/week: 5.0 standard drinks Types: 2 Cans of Beer (12oz) per week Comment: 3-4 beers per week - Drug use: No MEDICATIONS: Current Outpatient Medications Medication Sig - metFORMIN (GLUCOPHAGE) 1,000 mg tablet Take 1 tablet by mouth twice daily. - pravastatin (PRAVACHOL) 20 mg tablet Take 1 tablet by mouth daily at bedtime. - glipiZIDE XL (GLUCOTROL XL) 5 mg 24 hr tablet Take 1 tablet by mouth once daily. - umeclidinium (INCRUSE ELLIPTA) 62.5 mcg/actuation inhaler Inhale 1 Puff as instructed once daily. Inhale one puff once daily. DO NOT CLICK OPEN UNTIL READY FOR DOSE - budesonide-formoterol (SYMBICORT) 160-4.5 mcg/actuation inhaler Inhale 2 Puffs as instructed twice daily. - Nebulizer Use as directed. NEBULIZER FOR HOME USE. DX:(J44.9, J45.909) Asthma-chronic obstructive pulmonary disease overlap syndrome (HCC) - PSYLLIUM SEED, WITH SUGAR, (METAMUCIL ORAL) Take by mouth. - COMPOUNDED PRESCRIPTION Please administer oxygen at 3L continuous for daytime use. Please evaluate for conserving device. DX:COPD, Hypoxia - CPAP Use 12 cm in the nose daily at bedtime. - Oxygen-Air Delivery Systems jalen Use 4 L/min in the nose daily at bedtime. 4L O2 bleed in with nasal CPAP @@ bedtime. - blood sugar diagnostic(ONE TOUCH ULTRA TEST STRIPS) Check daily as directed. - ASPIRIN 81 MG TAB, DELAYED RELEASE Take one(1) tablet daily. No current facility-administered medications for this visit. ALLERGIES: ALLERGIES No Known Allergies PHYSICAL EXAMINATION: Resp 18 Ht 5' 8 (1.73m) Wt 290 lb (131.5kg) BMI 44.10 kg/(m2). General Appearance:?Well appearing, alert, in no acute distress, well-hydrated, well nourished. Skin:?Skin color, texture, turgor normal, no suspicious rashes or lesions. Psych: Patient is alert and oriented to person, time and place. Mood and affect are normal. Respiratory: Breathing is symmetric and unlabored Gait:?The patient was examined in a wheelchair today. Extremities:?Left lower extremity is examined. ?Skin is intact that erythema or ecchymosis. ?There is moderate swelling present the leg consistent with postoperative traumatic state. ?Multiple surgical incisions are well-healed without drainage or sign of infection. Medial wound is filling in secondarily. There is no significant surrounding erythema or fluctuance. There is no drainage. There is no focal tenderness.. ?Range of motion the knee and ankle is relatively pain-free. Lymphatic: There is no palpable lymphadenopathy Peripheral Pulses:?Normal. Neurologic: Bilateral lower extremities were examined. There is 5/5 strength with hip flexion, knee extension, dorsiflexion, EHL, plantar flexion. Sensation intact in all nerve dermatomes IMAGES: Physician office building radiographs, 02/08/2022. AP and lateral views of the left ankle were obtained reviewed these demonstrate tibial shaft fracture fixated intramedullary device. Overall alignment is stable. There is some progressive callus formation at the fracture site. There is no sign of loosening or failure of hardware. There is no lytic or blastic lesion appreciable. The talus is well-seated underneath the plafond. Soft tissues otherwise unremarkable. Overall stable appearing follow-up radiographs. Plan ASSESSMENT AND PLAN: 1. Tibia/fibula fracture, left, closed, with routine healing, subsequent encounter - ICD9: V54.16, ICD10: S82 (more content not included)... [facility] 01-18-2022 Note HNO ID: [id number] Author: Jason Nicolas MD Service: ? Author Type: Physician Type: Progress Notes Filed: 01/18/2022 3:19 PM Note Text: ORTHOPAEDIC OFFICE NOTE CHIEF COMPLAINT: Follow-up left tibia fracture HISTORY OF PRESENT ILLNESS: Susie Callejas is a 66 year old male who presents for Postop evaluation following open treatment of left tibia fracture with intramedullary device on 12/01/2021. Overall patient is doing well. He is not having any pain at the ankle. Occasionally he will take Tylenol for pain control. He has been ambulating with a walker without too much difficulty. He has been working with home physical therapy. He denies current fevers chills nausea vomiting weight loss fatigue or malaise. Reviewed nursing note and current pain scale. PAST MEDICAL HISTORY Diagnosis Date - COPD (chronic obstructive pulmonary disease) (HCC) - Diabetes mellitus (HCC) - Hypercholesteremia - Hypertension - Sleep apnea PAST SURGICAL HISTORY Procedure Laterality Date - COLONOSCOPY FLX DX W/COLLJ SPEC WHEN PFRMD 07/14/15 Colonoscopy - NONE FAMILY HISTORY Problem Relation Age of Onset - Emphysema Mother - COPD Mother - Heart Father - Alzheimer's Disease Father - COPD Sister Social History Tobacco Use - Smoking status: Former Smoker Packs/day: 1.00 Years: 35.00 Pack years: 35.00 Types: Cigarettes - Smokeless tobacco: Never Used - Tobacco comment: using patch. doesn't buy cigarettes anymore Substance Use Topics - Alcohol use: Yes Alcohol/week: 5.0 standard drinks Types: 2 Cans of Beer (12oz) per week Comment: 3-4 beers per week - Drug use: No MEDICATIONS: Current Outpatient Medications Medication Sig - metFORMIN (GLUCOPHAGE) 1,000 mg tablet Take 1 tablet by mouth twice daily. - pravastatin (PRAVACHOL) 20 mg tablet Take 1 tablet by mouth daily at bedtime. - glipiZIDE XL (GLUCOTROL XL) 5 mg 24 hr tablet Take 1 tablet by mouth once daily. - umeclidinium (INCRUSE ELLIPTA) 62.5 mcg/actuation inhaler Inhale 1 Puff as instructed once daily. Inhale one puff once daily. DO NOT CLICK OPEN UNTIL READY FOR DOSE - budesonide-formoterol (SYMBICORT) 160-4.5 mcg/actuation inhaler Inhale 2 Puffs as instructed twice daily. - Nebulizer Use as directed. NEBULIZER FOR HOME USE. DX:(J44.9, J45.909) Asthma-chronic obstructive pulmonary disease overlap syndrome (HCC) - PSYLLIUM SEED, WITH SUGAR, (METAMUCIL ORAL) Take by mouth. - COMPOUNDED PRESCRIPTION Please administer oxygen at 3L continuous for daytime use. Please evaluate for conserving device. DX:COPD, Hypoxia - CPAP Use 12 cm in the nose daily at bedtime. - Oxygen-Air Delivery Systems jalen Use 4 L/min in the nose daily at bedtime. 4L O2 bleed in with nasal CPAP @@ bedtime. - blood sugar diagnostic(ONE TOUCH ULTRA TEST STRIPS) Check daily as directed. - ASPIRIN 81 MG TAB, DELAYED RELEASE Take one(1) tablet daily. - sulfamethoxazole-trimethoprim (BACTRIM DS) 800-160 mg per tablet Take 1 tablet by mouth twice daily for 10 days. No current facility-administered medications for this visit. ALLERGIES: ALLERGIES No Known Allergies PHYSICAL EXAMINATION: Resp 17 Ht 5' 8 (1.73m) Wt 290 lb (131.5kg) BMI 44.10 kg/(m2). General Appearance: Well appearing, alert, in no acute distress, well-hydrated, well nourished. Skin: Skin color, texture, turgor normal, no suspicious rashes or lesions. Psych: Patient is alert and oriented to person, time and place. Mood and affect are normal. Respiratory: Breathing is symmetric and unlabored Gait: The patient was examined in a wheelchair today. Extremities: Left lower extremity is examined. Skin is intact that erythema or ecchymosis. There is moderate swelling present the leg consistent with postoperative traumatic state. Multiple surgical incisions are well-healed without drainage or sign of infection. One of the medial incisions for screw placement has dehisced. There is some mild serosanguineous drainage. There is no focal tenderness.. Range of motion the knee and ankle is relatively pain-free. Lymphatic: There is no palpable lymphadenopathy Peripheral Pulses: Normal. Neurologic: Bilateral lower extremities were examined. There is 5/5 strength with hip flexion, knee extension, dorsiflexion, EHL, plantar flexion. Sensation intact in all nerve dermatomes IMAGES: Recent Results (from the past 36 hour(s)) XR TIBIA FIBULA 2V AP/LAT LEFT Narrative Physician office building radiographs, 01/18/2022. AP and lateral views of the left tibia and fibula as well as ankle were obtained reviewed. These demonstrate fractures of the distal tibia shaft as well as segmental fractures of the fibula. Overall alignment is stable. There is early callus formation around the fracture sites. Intramedullary analy is in place. The proximal locking screw appears to have broken. Otherwise hardware is stable. There is no destructive lesion appreciable. Soft tissues (more content not included)... [facility] 12-21-2021 Note HNO ID: [id number] Author: Jason Nicolas MD Service: ? Author Type: Physician Type: Progress Notes Filed: 12/20/2021 10:25 PM Note Text: ORTHOPAEDIC OFFICE NOTE CHIEF COMPLAINT: Follow-up left tibia fracture HISTORY OF PRESENT ILLNESS: Susie Callejas is a 66 year old male who presents for Postoperative evaluation following surgical fixation of left tibia fracture on 12/01/2021. Overall the patient is doing well. He rates his pain a 2/10 in intensity. He will occasionally take Tylenol for pain control which is helpful. He is currently at a halfway facility but is planned to be discharged home today. He has been ambulating with a walker during therapy sessions. He denies current fevers chills nausea vomiting weight loss fatigue or malaise. Reviewed nursing note and current pain scale. PAST MEDICAL HISTORY Diagnosis Date - COPD (chronic obstructive pulmonary disease) (HCC) - Diabetes mellitus (HCC) - Hypercholesteremia - Hypertension - Sleep apnea PAST SURGICAL HISTORY Procedure Laterality Date - COLONOSCOPY FLX DX W/COLLJ SPEC WHEN PFRMD 07/14/15 Colonoscopy - NONE FAMILY HISTORY Problem Relation Age of Onset - Emphysema Mother - COPD Mother - Heart Father - Alzheimer's Disease Father - COPD Sister Social History Tobacco Use - Smoking status: Former Smoker Packs/day: 1.00 Years: 35.00 Pack years: 35.00 Types: Cigarettes - Smokeless tobacco: Never Used - Tobacco comment: using patch. doesn't buy cigarettes anymore Substance Use Topics - Alcohol use: Yes Alcohol/week: 5.0 standard drinks Types: 2 Cans of Beer (12oz) per week Comment: 3-4 beers per week - Drug use: No MEDICATIONS: Current Outpatient Medications Medication Sig - enoxaparin (LOVENOX) 40 mg/0.4 mL Inject 0.4 mL subcutaneously q 24 HR for 21 days. - metFORMIN (GLUCOPHAGE) 1,000 mg tablet Take 1 tablet by mouth twice daily. - pravastatin (PRAVACHOL) 20 mg tablet Take 1 tablet by mouth daily at bedtime. - glipiZIDE XL (GLUCOTROL XL) 5 mg 24 hr tablet Take 1 tablet by mouth once daily. - umeclidinium (INCRUSE ELLIPTA) 62.5 mcg/actuation inhaler Inhale 1 Puff as instructed once daily. Inhale one puff once daily. DO NOT CLICK OPEN UNTIL READY FOR DOSE - budesonide-formoterol (SYMBICORT) 160-4.5 mcg/actuation inhaler Inhale 2 Puffs as instructed twice daily. - Nebulizer Use as directed. NEBULIZER FOR HOME USE. DX:(J44.9, J45.909) Asthma-chronic obstructive pulmonary disease overlap syndrome (HCC) - PSYLLIUM SEED, WITH SUGAR, (METAMUCIL ORAL) Take by mouth. - COMPOUNDED PRESCRIPTION Please administer oxygen at 3L continuous for daytime use. Please evaluate for conserving device. DX:COPD, Hypoxia - CPAP Use 12 cm in the nose daily at bedtime. - Oxygen-Air Delivery Systems jaeln Use 4 L/min in the nose daily at bedtime. 4L O2 bleed in with nasal CPAP @@ bedtime. - blood sugar diagnostic(ONE TOUCH ULTRA TEST STRIPS) Check daily as directed. - ASPIRIN 81 MG TAB, DELAYED RELEASE Take one(1) tablet daily. No current facility-administered medications for this visit. ALLERGIES: ALLERGIES No Known Allergies PHYSICAL EXAMINATION: Resp 17 Ht 5' 8 (1.73m) Wt 290 lb (131.5kg) BMI 44.10 kg/(m2). General Appearance: Well appearing, alert, in no acute distress, well-hydrated, well nourished. Skin: Skin color, texture, turgor normal, no suspicious rashes or lesions. Psych: Patient is alert and oriented to person, time and place. Mood and affect are normal. Respiratory: Breathing is symmetric and unlabored Gait: The patient was examined in a wheelchair today. Extremities: Left lower extremity is examined. Skin is intact that erythema or ecchymosis. There is moderate swelling present the leg consistent with postoperative traumatic state. Multiple surgical incisions are well-healed without drainage or sign of infection. There is mild tenderness along the tibia without palpable mass. Range of motion the knee and ankle is relatively pain-free. Lymphatic: There is no palpable lymphadenopathy Peripheral Pulses: Normal. Neurologic: Bilateral lower extremities were examined. There is 5/5 strength with hip flexion, knee extension, dorsiflexion, EHL, plantar flexion. Sensation intact in all nerve dermatomes IMAGES: Physician office building radiographs, 12/16/2021. ?AP and lateral views of the left tibia and fibula as well as the left ankle were obtained and reviewed. ?These demonstrate distal tibia and fibular shaft fractures. ?The fibula is fixated with intramedullary device. ?Overall alignment is stable. ?There is no sign of loosening or failure of hardware. ?There is no destructive lesion appreciable. ?Soft tissues otherwise unremarkable. ?[place] are in place. ?Overall stable appearing follow-up radiographs. Plan ASSESSMENT AND PLAN: 1. Tibia/fibula fracture, left, closed, with routine healing, subsequent encounter - ICD9: V54.16, ICD10: S82.20 (more content not included)... [facility] 12-04-2021 Note HNO ID: [id number] Author: Nalini Molina RN Service: Care Management Author Type: Registered Nurse Type: Care Mgt Progress Note Filed: 12/04/2021 9:36 AM Note Text: CARE MANAGEMENT DISCHARGE NOTE SERVICE DATE: 12/04/2021 SERVICE TIME: 933 LOS: 4 days Admission Date: 11/30/2021 DISCHARGE ARRANGEMENT (list agency and phone number) Discharge Arrangement: Assisted Facility Was an expedited discharge program used?: No Provider Name: [facility] CAREGIVER ASSESSMENT: HANDOFF COMMUNICATION: Handoff to: Other Caregiver Other Caregiver Name/Phone: RN to call report TRANSPORTATION ARRANGEMENTS: Transportation Arrangements: Ambulance/[place] Transportation Agency and Phone #:: [facility] ( [facility] ) [phone] / [phone] Date of Trip: 12/04/21 Time of Trip: 1430 Type of Service: BLS Non-emergency Is Patient Medicaid Pending?: No Discussion of financial coverage occurred with: Patient Classification Clerk Location: [facility] Destination: [facility] Financial Care Management Responsibility: None ADDITIONAL CONTACT RESOURCES: Precert obtained and [facility] can accept today. [facility] transport with oxygen arranged for 1430. Patient, RN and facility notified. Discussed with patient transportation billed to insurance but may get bill. SIGNATURE: Nalini Molina RN PATIENT NAME: Susie Callejas DATE: December 04, 2021 TIME: 9:34 AM PAGER/CONTACT #: [phone] [facility] 12-04-2021 Note HNO ID: [id number] Author: Drew Neil MD Service: Orthopaedic Surgery Author Type: Resident Type: Progress Notes Filed: 12/04/2021 6:12 AM Note Text: Attestation signed by Jason Nicolas MD at 12/04/2021 9:39 AM ATTENDING STAFF REVIEW I personally saw and examined the patient. I agree with the resident's assessment and plan. I communicated with the resident staff as needed if, in my opinion, additional clarification, evaluation, and/or treatment was necessary. Patient doing well Pain controlled PT/OT WBAT - LLE DVT prophylaxis - Lovenox D/C to SNF today Jason Nicolas M.D. Attending Staff, Department of Orthopedic Surgery [facility] ORTHOPAEDIC SURGERY DAILY PROGRESS NOTE Patient Name: Susie Callejas Date of Evaluation: 12/04/2021 Admission Date: 11/30/2021 Time of Evaluation: 6:05 AM A/P: 66 YO M POD3 s/p IMN L TIBIA ? -Management per orthopaedics -PT/OT: WBAT LLE -DVT PPX: SCD?to the LLE?and Lovenox 40 mg daily x 21 days -Post-Operative Antibiotics: Ancef 2g q8H x 2 doses: complete -Delacruz: Discontinue delacruz today -Maintain?surgical dressing to the LLE, changed 12/03/21 -Ice to the?L leg -Pain control -Medical management per medicine? -Disposition: patient and family decided SNF, precert started yesterday INTERVAL HPI: No acute events overnight. Pt doing well, pain controlled. Denies numbness/tingling in his L leg. Still thinks SNF is best for him. Denies further complaints. OBJECTIVE: BP 125/55 Pulse 64 Temp 36.8 ?C (98.2 ?F) (Oral) Resp 16 Ht 172.7 cm (5' 8 ) Wt 131.7 kg (290 lb 5.5 oz) SpO2 95% BMI 44.15 kg/m? Intake/Output Summary (Last 24 hours) 12/03 2300 - 12/04 0659 In: 120 [PO:120] Out: 150 [Urine:150] Exam: General: NAD, AAOx3 Extremities: LLE - Dressing to knee/lower leg c/d/i - SILT S/S/SP/DP/T. - Motor intact DF/PF/EHL. Wiggles toes - DP and PT pulses palpable, Foot warm with brisk capillary refill. - Compartments soft, compressible. - Tolerates passive stretch of digits. Labs: BMP: Sodium 139 12/04/2021 Potassium 4.7 12/04/2021 Chloride 100 12/04/2021 CO2 31 12/04/2021 BUN 24 12/04/2021 Creatinine 1.11 12/04/2021 Glucose 174 12/04/2021 CBC: WBC 6.11 12/04/2021 Hemoglobin 11.8 12/04/2021 Hematocrit 38.2 12/04/2021 Platelet Count 116 12/04/2021 COAGS: INR 1.0 11/30/2021 Drew Neil MD Resident, Orthopaedic Surgery Pager: [phone] 12/04/2021 6:05 AM [facility] 12-03-2021 Note HNO ID: [id number] Author: Nalini Molina RN Service: Care Management Author Type: Registered Nurse Type: Care Mgt Progress Note Filed: 12/03/2021 4:08 PM Note Text: CARE MANAGEMENT PROGRESS NOTE SERVICE DATE: 12/03/2021 SERVICE TIME: 1605 LOS: 3 days Met with patient and daughter yesterday afternoon to discuss discharge plans. Agreeable to SNF and facility of choice was [facility]. Referral made and precert started today. SIGNATURE: Nalini Molina RN PATIENT NAME: Susie Callejas DATE: December 03, 2021 TIME: 4:05 PM PAGER/CONTACT #: [phone] [facility] 12-03-2021 Note HNO ID: [id number] Author: Jesica Loyd APRN.KAYAK MAKER Service: Orthopaedic Surgery Author Type: Nurse Practitioner Type: Progress Notes Filed: 12/03/2021 1:44 PM Note Text: MMEs GREATER THAN THE STATE LIMIT This patient has an orthopaedic condition which necessitates opiate pain medicines beyond the usual [facility] limit. Their OARRS scores were checked. They are post-op from a major orthopaedic surgical procedure. They were counseled to wean to smaller and more infrequent opioid doses over time (days). They were counseled to utilize non-opioid medications and alternative pain relief methods. Jesica Loyd KAYAK MAKER [id number] [facility] 12-03-2021 Note HNO ID: [id number] Author: Edna Garcia DO Service: Hospital Medicine Author Type: Physician Type: Progress Notes Filed: 12/03/2021 1:44 PM Note Text: DEPARTMENT OF HOSPITAL MEDICINE PROGRESS NOTE SERVICE DATE: 12/03/2021 SERVICE TIME: 9:50 AM Hospital Medicine/Primary Attending: Edna Garcia DO NIGHT AND WEEKEND COVERAGE: MORGAN COVERAGE: After 7pm, please call cross cover pager #[phone] Subjective INTERVAL HPI: Patient seen and examined. No acute events overnight. No fever or chills. 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 Feeling a little better today. States he thinks his renal function fluctuates at baseline. No CP or SOB. Breathing is comfortable MEDICATIONS: Reviewed Objective PHYSICAL EXAM: BP 120/53 Pulse 77 Temp (Src) 98.4 (Oral) Resp 18 Ht 5' 8 (1.73m) Wt 290 lb 5.5 oz (131.7kg) SpO2 92[pt using spirometer]% BMI 44.16 kg/(m2). O2 Therapy: Nasal Cannula, Liters: 4 Physical Exam Performed Constitutional - Vitals as above, not in acute distress Resp -diminished bilaterally, no wheeze CVS- RRR. No murmur, gallop or rub, pulse 2+ GI - NTND, bowel sounds normally heard, no mass palpable FIREARMS SPECIALIST- cranial nerves 2 to 12 grossly intact, no focal motor or sensory deficits noted, speech normal/ Psych- A ANDO x 3, mood normal Skin- Normal tugor, no ulcers or rashes Lines, Drains, and Airways Line Peripheral 12/02/21 1329 Short Right Forearm 22 Gauge 1 day Drain Indwelling Urinary Catheter 12/01/21 Assessment Delacruz 2 days Reviewed lines and needs to be continued: REASONS: Difficulty in obtaining/maintaining access DATA: Diagnostic tests reviewed for today's visit: Most recent labs and imaging results. Assessment/Plan #Fracture of tibial shaft, left, closed? -- POD #2 IMN L Tibia -- ?Encourage IS -- ?Pain management, PT/OT per orthopedics ? #?COPD -- ?not wheezy today, continue duonebs , O2 stable and no SOB -- continue with the IS #chronic hypoxic resp failure-uses NC at home 3-4 L reported ? #DMII -- ?Resume home oral diabetes medications post op when tolerating PO -- ?Monitor blood glucose, SSI as indicated ? #Hypertension --Bp on lower side, holding cyndi-I/diuretic combo, continue to monitor #HLD -- ?Resume statin ? #DEAN -- ?CPAP ? #TONY v CKD-unknown baseline-patient reports his Cr flucutates, improved slightly today but similar to prior, I am guessing this is CKD, discussed with ortho team as patient is being discharged, hold the combination pill at discharge given BP (stable but not elevated), recommend repeat follow up blood work, patient going to SNF so BP can be monitored. If BP trending up and renal function stable, he can be restarted on lisinopril v amlodipine ? Medication and Non-Pharmacologic VTE Prophylaxis/Anticoagulants Anticoagulant AND Antiplatelet Medications (From admission, onward) Start Dose Route Frequency Last Action Ordered Stop 12/02/21 0900 enoxaparin 40 mg injection (LOVENOX) (Surgical Risk Categories) 40 mg SUBCUTANEOUS EVERY 24 HOURS Given, 12/03 92512/01/21 1709 -- 12/01/21 1715 pneumatic compression stockings (vt,oh) 11/30/212229 vte pharmacologic prophylaxis contraindicated (vt,oh) 11/30/21 223 pneumatic compression stockings (vt,oh) VTE Prophylaxis: per primary Disposition: per primary Plan of care discussed with: Provider, RN, Patient SIGNATURE: Edna Garcia DO PATIENT NAME: Susie Callejas DATE: December 03, 2021 TIME: 9:50 AM etx [id number] [facility] 12-03-2021 Note HNO ID: [id number] Author: David Younger MD Service: Orthopaedic Surgery Author Type: Resident Type: Progress Notes Filed: 12/03/2021 6:15 AM Note Text: Orthopaedic INPATIENT PROGRESS NOTE A/P: 66 YO M POD2 s/p IMN L TIBIA ? -Management per orthopaedics -PT/OT: Weight-bearing as tolerated with the?left?lower extremity -DVT PPX: SCD?to the right lower extremity?and Lovenox 40 mg daily x 21 days -Post-Operative Antibiotics: Ancef 2g q8H x 2 doses: complete -Delacruz: Discontinue delacruz today -Maintain?surgical dressing to the left lower extremity, changed 12/03/21 -Ice to the?left leg -Pain control -Medical management per medicine? -Disposition: anticipate discharge to SNF in 2-3 days? ? ? INTERVAL HPI: ? No acute events overnight. Pain controlled. Denies numbness/tingling LLE. ? MEDICATIONS: Current Facility-Administered Medications Medication Dose Route Frequency - pravastatin 20 mg tab(s) (PRAVACHOL) 20 mg ORAL AT BEDTIME - NaCl 0.9% iv flush bag 20 mL INTRAVENOUS PRN - sodium chloride 0.9 % (flush) 3-5 mL (BD POSIFLUSH) 3-5 mL INTRAVENOUS q 12 H - NaCl 0.9% iv infusion 100 mL/hr INTRAVENOUS CONTINUOUS - oxyCODONE IR 5-10 mg tab(s) (ROXICODONE) 5-10 mg ORAL q 4 H PRN - morphine 2 mg injection 2 mg INTRAVENOUS q 2 H PRN - acetaminophen 650 mg tab(s) (TYLENOL) 650 mg ORAL q 6 H - polyethylene glycol 3350 17 g packet (MIRALAX, GLYCOLAX) 17 g ORAL DAILY PRN - fluticasone-vilanterol 100-25 mcg/dose 1 Inhalation (BREO ELLIPTA) 1 Inhalation INHALATION DAILY - dextrose 40 % 15 g 15 g ORAL PRN Or - glucagon 1 mg injection 1 mg INTRAMUSCULAR PRN Or - dextrose 50% in water 25 mL syringe 12.5 g INTRAVENOUS PRN - senna 17.2 mg tab(s) (SENOKOT) 17.2 mg ORAL AT BEDTIME - enoxaparin 40 mg injection (LOVENOX) 40 mg SUBCUTANEOUS q 24 HR - sodium chloride 0.9 % (flush) 3-5 mL (BD POSIFLUSH) 3-5 mL INTRAVENOUS q 12 H - lactated ringers iv infusion 100 mL/hr INTRAVENOUS CONTINUOUS - calcium carbonate 500 mg chewable tab(s) (TUMS) 500 mg ORAL TID PRN - diphenhydrAMINE 25 mg (BENADRYL) 25 mg ORAL q 6 H PRN - pantoprazole DR 40 mg tab(s) (PROTONIX) 40 mg ORAL DAILY (6 AM) - insulin lispro pen (rapid acting) (HumaLOG KWIKPEN) SUBCUTANEOUS w MEALS - ipratropium-albuterol 3 mL nebulizer solution (DUONEB) 3 mL INHALATION QID - guaiFENesin 600 mg ER tab(s) (MUCINEX) 600 mg ORAL q 12 H PHYSICAL EXAM: BP 130/63 Pulse 71 Temp 36.8 ?C (98.2 ?F) (Axillary) Resp 18 Ht 172.7 cm (5' 8 ) Wt 131.7 kg (290 lb 5.5 oz) SpO2 92% BMI 44.15 kg/m? Body mass index is 44.15 kg/m?. General appearance: NAD LLE: Dressing c/d/i Surgical incisions approximated without current drainage. Compartments soft, compressible +SILT toes +motor df/pf ehl DP/PT pulses palpable DATA: CBC: Recent Labs 12/03/21417 WBC 7.95 RBC 3.96* HB 12.3* HCT 39.7 PLT 112* MCV 100.3* MCH 31.1 MPV 10.7 BMP: Recent Labs 12/03/218 NA 137 K 4.6 CHLOR 100 CO2 30 BUN 30* CREAT 1.27* GLUC 152* IMAGING: no new images SIGNATURE: David Younger MD PAGER: [phone] DATE of SERVICE: 12/03/2021 TIME of SERVICE: 6:02 AM [facility] 12-02-2021 Note HNO ID: [id number] Author: Nalini Molina RN Service: Care Management Author Type: Registered Nurse Type: Care Mgt Initial Assessment Filed: 12/02/2021 12:28 PM Note Text: CARE MANAGEMENT: ASSESSMENT AND DISCHARGE PLAN SERVICE DATE: December 02, 2021 SERVICE TIME: 1215 PRIMARY CARE PHYSICIAN: Angel Luis Sen MD, MD ADMISSION STATUS: Inpatient Needs Prior to Discharge: Facility or Agency Choices;Insurance Authorization;Discharge Transportation [facility]: [facility] Patient/Phone Manager Stated Goals: To have reduction in symptoms;To have reduction in pain Health Insurance: [employer] Health Issues Impacting Discharge Plan: Newly diagnosed Newly Diagnosed: fall ; left tib/fib fracture Last Discharge Date: 07/14/15 Is this Within the Past 30 days? Last discharge within 30 days: No Advance Directive: Current Advance Directive: None Lace Pinner Attempted to Assist with AD Completion: Yes Action: Education Provided Health LiteracyHow often do you need to have someone help you when you read instructions, pamphlets, or other written material from your doctor or pharmacy? : 1 - Never How confident are you filling out medical forms by yourself?: 1 - Extremely If Patient scores > 3 on either question, the following interventions were put into place:: Patient did not score > 3 on either question. Baseline Mental Status Prior to this Illness what was the patient's Baseline Mental Status?: Alert AND Oriented Prior to this illness, has anyone described the patient having any of the following behaviors?: Not Applicable Relationship of the informant to the patient:: Self SOCIAL: Living Arrangements: Home Lives With: Friend(s) Financial Resources: Retired Primary Contact: Extended Emergency Contact Information Primary Emergency Contact: Ambar Campbell Buxton Relation: Significant other Supportive Patient Contact:: Yes Contact Resources: Family Caregiver AssessmentCaregiver is ready, willing and able to meet the patient's needs as recommended by the inter-professional team:: No Does the patient have an acute stroke diagnosis, or has the patient had a stroke during this admission?: No Patient's transition needs and plan for meeting these needs: snf Patient's perception of need for this admission: fall, leg injury Medication Adherance I am convinced of the importance of my prescription medication: 0 - Agree Completely I worry that my prescription medication will do more harm than good to me : 0 - Disagree Completely I feel financially burdened by my [id number] expenses for my prescription medication:: 0 - Disagree Completely Risk Score: 0 Patient is categorized as: Low risk < 2 Are you interested in bedside delivery of your medications? No Is Patient Psychosocially Complex?: No ASSESSMENT AND PLAN: Medical Needs: Medical Needs: Two or more chronic diseases Psychosocial Needs: Psychosocial Needs: None FREEDOM OF CHOICE EXPLAINED: [place] of Choice Given: Yes Level of Care Discussed: Assisted Facility Financial Disclosure Provided: No Provider List: Assisted Facility Provider list within the patient's requested geographic area shared with the patient/family: Yes within: 15 miles of zip code: [address] POTENTIAL TRANSITION PLANS Assisted Facility/Intermediate Care Facility Met with patient at Bedside. Lives with friend. Independent with care. Drives.. Has a wheeled walker and cane. +PCP and rx coverage. PT OT evaluations done and recommends SNF. Patient wants to speak with his daughter before making decision. I anticipate will need SNF. Due to high hospital census I will go ahead and make referrals. I will try to meet with patient and daughter this afternoon to discuss discharge plans. SIGNATURE: Nalini Molina RN PATIENT NAME: Susie Callejas DATE: December 02, 2021 TIME: 12:23 PM PAGER/CONTACT #: [phone] [facility] 12-02-2021 Note HNO ID: [id number] Author: Edna Garcia DO Service: Hospital Medicine Author Type: Physician Type: Progress Notes Filed: 12/02/2021 2:26 PM Note Text: DEPARTMENT OF HOSPITAL MEDICINE PROGRESS NOTE SERVICE DATE: 12/02/2021 SERVICE TIME: 9:00 AM Hospital Medicine/Primary Attending: Edna Garcia DO NIGHT AND WEEKEND COVERAGE: MORGAN COVERAGE: After 7pm, please call cross cover pager #[phone] Subjective INTERVAL HPI: Patient seen and examined. No acute events overnight. No fever or chills. 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 States that he feels well. He is sitting in the chair. Wears O2 at home. Uses inhalers at home. Patient unsure what his baseline renal function is. States he may have seen a kidney doctor in the past MEDICATIONS: Reviewed Objective PHYSICAL EXAM: BP 102/54 Pulse 70 Temp (Src) 98.2 (Oral) Resp 20 Ht 5' 8 (1.73m) Wt 279 lb (126.6kg) SpO2 93% BMI 42.43 kg/(m2). O2 Therapy: Nasal Cannula, Liters: 4 Physical Exam Performed Constitutional - Vitals as above, not in acute distress Resp -bilateral end expiratory wheezing mild CVS- RRR. No murmur, gallop or rub, pulse 2+ GI - NTND, bowel sounds normally heard, no mass palpable FIREARMS SPECIALIST- cranial nerves 2 to 12 grossly intact, no focal motor or sensory deficits noted, speech normal/ Psych- A ANDO x 3, mood normal Skin- Normal tugor, no ulcers or rashes Lines, Drains, and Airways Line Peripheral 12/02/21 1329 Short Right Forearm 22 Gauge <1 day Drain Indwelling Urinary Catheter 12/01/21 Assessment Delacruz 1 day Reviewed lines and needs to be continued: REASONS: Difficulty in obtaining/maintaining access DATA: Diagnostic tests reviewed for today's visit: Most recent labs and imaging results. Assessment/Plan #Fracture of tibial shaft, left, closed? -- POD #1 IMN L Tibia -- ?Encourage IS -- ?Pain management, PT/OT per orthopedics ? #?COPD -- ?mild wheeze this am-add duonebs, O2 stable and no SOB -- continue with the IS #chronic hypoxic resp failure-uses NC at home ? #DMII -- ?Resume home oral diabetes medications post op when tolerating PO -- ?Monitor blood glucose, SSI as indicated ? #Hypertension -- ?Recommend holding Lisinopril 48 hours postop to reduce risk of TONY -- ?Monitor BP closely ? #HLD -- ?Resume statin ? #DEAN -- ?CPAP ? #TONY v CKD-unknown baseline, stable today though slight bump from prior, has delacruz, continue IV fluids, hold on the diuretic and cyndi-I for now, repeat lab in the am ? Medication and Non-Pharmacologic VTE Prophylaxis/Anticoagulants Anticoagulant AND Antiplatelet Medications (From admission, onward) Start Dose Route Frequency Last Action Ordered Stop 12/02/21 0900 enoxaparin 40 mg injection (LOVENOX) (Surgical Risk Categories) 40 mg SUBCUTANEOUS EVERY 24 HOURS Given, 12/02 89912/01/21 1709 -- 12/01/21 1715 pneumatic compression stockings (fl,oh) 11/30/212229 vte pharmacologic prophylaxis contraindicated (fl,oh) 11/30/21 223 pneumatic compression stockings (fl,oh) VTE Prophylaxis: per primary Disposition: per primary Plan of care discussed with: Provider, RN, Patient SIGNATURE: Edna Garcia DO PATIENT NAME: Susie Callejas DATE: December 02, 2021 TIME: 9:00 AM etx [id number] [facility] 12-02-2021 Note HNO ID: [id number] Author: David Younger MD Service: Orthopaedic Surgery Author Type: Resident Type: Progress Notes Filed: 12/02/2021 6:14 AM Note Text: Attestation signed by Jason Nicolas MD at 12/02/2021 12:35 PM ATTENDING STAFF REVIEW I personally saw and examined the patient. I agree with the resident's assessment and plan. I communicated with the resident staff as needed if, in my opinion, additional clarification, evaluation, and/or treatment was necessary. Patient doing OK. Pain relatively well controlled. PT/OT - WBAT LLE DVT prophylaxis - Lovenox OK to maintain delacruz today. Plan d/c tomorrow D/C planning - [facility] Jason Nicolas M.D. Attending Staff, Department of Orthopedic Surgery [facility] Orthopaedic INPATIENT PROGRESS NOTE A/P: 66 YO M POD1 s/p IMN L TIBIA -Management per orthopaedics -PT/OT: Weight-bearing as tolerated with the left lower extremity -DVT PPX: SCD to the right lower extremity and Lovenox 40 mg daily x 21 days -Post-Operative Antibiotics: Ancef 2g q8H x 2 doses: complete -Delacruz: Discontinue delacruz POD#1 -Maintain surgical dressing to the left lower extremity (will change on POD#2 with attention paid to the distal medial ankle incisions) -Ice to the left leg -Pain control -Medical management per medicine -Disposition: anticipate discharge to SNF in 2-3 days? ? INTERVAL HPI: No acute events overnight. Pain controlled. Denies numbness/tingling LLE. MEDICATIONS: Current Facility-Administered Medications Medication Dose Route Frequency - pravastatin 20 mg tab(s) (PRAVACHOL) 20 mg ORAL AT BEDTIME - NaCl 0.9% iv flush bag 20 mL INTRAVENOUS PRN - sodium chloride 0.9 % (flush) 3-5 mL (BD POSIFLUSH) 3-5 mL INTRAVENOUS q 12 H - NaCl 0.9% iv infusion 100 mL/hr INTRAVENOUS CONTINUOUS - oxyCODONE IR 5-10 mg tab(s) (ROXICODONE) 5-10 mg ORAL q 4 H PRN - morphine 2 mg injection 2 mg INTRAVENOUS q 2 H PRN - acetaminophen 650 mg tab(s) (TYLENOL) 650 mg ORAL q 6 H - polyethylene glycol 3350 17 g packet (MIRALAX, GLYCOLAX) 17 g ORAL DAILY PRN - tiotropium bromide 2.5 mcg/actuation 2 Puff (SPIRIVA RESPIMAT) 2 Puff INHALATION DAILY - fluticasone-vilanterol 100-25 mcg/dose 1 Inhalation (BREO ELLIPTA) 1 Inhalation INHALATION DAILY - dextrose 40 % 15 g 15 g ORAL PRN Or - glucagon 1 mg injection 1 mg INTRAMUSCULAR PRN Or - dextrose 50% in water 25 mL syringe 12.5 g INTRAVENOUS PRN - insulin lispro pen (rapid acting) (HumaLOG KWIKPEN) SUBCUTANEOUS q 6 H - senna 17.2 mg tab(s) (SENOKOT) 17.2 mg ORAL AT BEDTIME - enoxaparin 40 mg injection (LOVENOX) 40 mg SUBCUTANEOUS q 24 HR - sodium chloride 0.9 % (flush) 3-5 mL (BD POSIFLUSH) 3-5 mL INTRAVENOUS q 12 H - lactated ringers iv infusion 100 mL/hr INTRAVENOUS CONTINUOUS - calcium carbonate 500 mg chewable tab(s) (TUMS) 500 mg ORAL TID PRN - diphenhydrAMINE 25 mg (BENADRYL) 25 mg ORAL q 6 H PRN - pantoprazole DR 40 mg tab(s) (PROTONIX) 40 mg ORAL DAILY (6 AM) PHYSICAL EXAM: BP 137/65 Pulse 78 Temp 36.9 ?C (98.4 ?F) (Axillary) Resp 20 Ht 172.7 cm (5' 8 ) Wt 126.6 kg (279 lb) SpO2 93% BMI 42.42 kg/m? Body mass index is 42.42 kg/m?. General appearance: NAD LLE: Dressing c/d/i Compartments soft, compressible +SILT toes +motor df/pf ehl DP/PT pulses palpable DATA: CBC: Recent Labs 12/01/21 1734 WBC 12.46* RBC 4.75 HB 14.7 HCT 48.8 PLT 127* MCV 102.7* MCH 30.9 MPV 10.8 BMP: Recent Labs 12/01/21 1734 NA 138 K 5.4* CHLOR 101 CO2 27 BUN 30* CREAT 1.47* GLUC 141* IMAGING: XR L Tib/Fib: stable hardware in appropriate position. SIGNATURE: David Younger MD PAGER: [phone] DATE of SERVICE: 12/02/2021 TIME of SERVICE: 5:59 AM [facility] 12-01-2021 Note HNO ID: [id number] Author: Gerson Holcomb RN Service: Nursing Author Type: Registered Nurse Type: Nursing Progress Note Filed: 12/01/2021 4:10 PM Note Text: Xray done LLE; [facility] 12-01-2021 Note HNO ID: [id number] Author: Hugo Mosley MD Service: Anesthesiology Author Type: Physician Type: Anesthesia Procedure Notes Filed: 12/01/2021 11:00 AM Note Text: ANESTHESIOLOGY PROCEDURE NOTE Spinal Block General Information Procedure Start Time/Medication Administration: 12/01/2021 10:53 AM Procedure End time: 12/01/2021 10:59 AM Patient location during procedure: OR Timeout Performed Pre-procedure: timeout performed Consent Obtained: Yes Patient identity confirmed: arm band Reason for Block: post-op pain management/at surgeon's request Staffing Anesthesiologist: Hugo Mosley MD Performed by: anesthesiologist Preparation Sterility Preparation: hand hygiene performed prior to procedure, surgical cap used, mask used, sterile drape used during line insertion, skin prep agent completely dried prior to procedure Site Prep: Betadine Procedure Details Patient Position: sitting Ultrasound Guided: No Monitoring: Pulse Ox, EKG and NIBP Approach: Midline Location: L3-4 Injection Technique: single-shot Needle Needle Type: cutting Needle Gauge: 22 G Needle Length: 3.5 in Assessment Events: tolerated well Medications Administered Bupivacaine-dextrose 0.75 % (7.5 mg/mL) injection (SENSORCAINE MPF SPINAL), 1.8 mL SIGNATURE: Hugo Mosley MD PATIENT NAME: Susie Callejas DATE: December 01, 2021 TIME: 10:59 AM CSN: [id number] [facility] 12-01-2021 Note HNO ID: [id number] Author: Jack Beard DO Service: Hospital Medicine Author Type: Physician Type: Progress Notes Filed: 12/01/2021 2:08 PM Note Text: DEPARTMENT OF HOSPITAL MEDICINE PROGRESS NOTE SERVICE DATE: 12/01/2021 SERVICE TIME: 9am Hospital Medicine/Primary Attending: Jack Beard DO NIGHT AND WEEKEND COVERAGE: After 7pm please page [phone] CHIEF COMPLAINT: L foot pain SUBJECTIVE: Pt seen and examined. Complains of L foot pain, states fall was mechanical. Going for surgery today. Denies CP, SOB, NVD, headache, fever/chills or abdominal pain. OBJECTIVE: PHYSICAL EXAM: BP 127/65 Pulse 82 Temp (Src) 97.9 (Temporal) Resp 18 Ht 5' 8 (1.73m) Wt 280 lb (127.0kg) SpO2 96% BMI 42.58 kg/(m2). O2 Therapy: Nasal Cannula, Liters: 3 General - AANDOx3, NAD, Calm CV - RRR S1 S2, No M/R/G RESP - CTA B/L No wheezes, ronchi, rales ABD - soft, NT, ND +BS EXT - L foot bandaged, no clubbing or cyanosis, moves all extremities NEURO - CN II-XII grossly intact MEDICATIONS: Current Facility-Administered Medications Medication Dose Route Frequency - pravastatin 20 mg tab(s) (PRAVACHOL) 20 mg ORAL AT BEDTIME - NaCl 0.9% iv flush bag 20 mL INTRAVENOUS PRN - sodium chloride 0.9 % (flush) 3-5 mL (BD POSIFLUSH) 3-5 mL INTRAVENOUS q 12 H - NaCl 0.9% iv infusion 100 mL/hr INTRAVENOUS CONTINUOUS - oxyCODONE IR 5-10 mg tab(s) (ROXICODONE) 5-10 mg ORAL q 4 H PRN - morphine 2 mg injection 2 mg INTRAVENOUS q 2 H PRN - acetaminophen 650 mg tab(s) (TYLENOL) 650 mg ORAL q 6 H - polyethylene glycol 3350 17 g packet (MIRALAX, GLYCOLAX) 17 g ORAL DAILY PRN - tiotropium bromide 2.5 mcg/actuation 2 Puff (SPIRIVA RESPIMAT) 2 Puff INHALATION DAILY - fluticasone-vilanterol 100-25 mcg/dose 1 Inhalation (BREO ELLIPTA) 1 Inhalation INHALATION DAILY - dextrose 40 % 15 g 15 g ORAL PRN Or - glucagon 1 mg injection 1 mg INTRAMUSCULAR PRN Or - dextrose 50% in water 25 mL syringe 12.5 g INTRAVENOUS PRN - insulin lispro pen (rapid acting) (HumaLOG KWIKPEN) SUBCUTANEOUS q 6 H - lisinopril 10 mg tab(s) (ZESTRIL, PRINIVIL) 10 mg ORAL ONCE Facility-Administered Medications Ordered in Other Encounters Medication Dose Route Frequency - lactated ringers iv infusion INTRAVENOUS X (ONE-STEP ONLY) CONTINUOUS PRN - propofol infusion (DIPRIVAN) INTRAVENOUS X (ONE-STEP ONLY) CONTINUOUS PRN - lidocaine (PF) 20 mg/mL (2 %) injection (XYLOCAINE) INTRAVENOUS PRN - ceFAZolin 2 g in D5W 100 mL (ANCEF) INTRAVENOUS X (ONE-STEP ONLY) CONTINUOUS PRN - PHENYLephrine 10 mg/mL injection (IMTIAZ-SYNEPHRINE) INTRAVENOUS PRN - PHENYLephrine iv infusion 10 mg in NaCl 0.9% 250 mL (IMTIAZ-SYNEPHRINE) INTRAVENOUS X (ONE-STEP ONLY) CONTINUOUS PRN - midazolam injection (VERSED) INTRAVENOUS PRN DATA: Diagnostic tests reviewed for today's visit: CBC: Recent Labs 12/01/21 0506 WBC 9.14 RBC 5.33 HB 16.6 HCT 53.1* PLT 140* MCV 99.6 MCH 31.1 MPV 10.9 Coags: Recent Labs 11/30/21 2243 INR 1.0 BMP: Recent Labs 12/01/21 0506 NA 136 136 K 4.6 4.6 CHLOR 100 100 CO2 27 27 BUN 28* 28* CREAT 1.31* 1.31* GLUC 135* 135* CMP: Recent Labs 12/01/21 0506 NA 136 136 K 4.6 4.6 CHLOR 100 100 CO2 27 27 BUN 28* 28* CREAT 1.31* 1.31* GLUC 135* 135* TPROT 6.5 CA 9.2 9.2 MG 2.0 TBILI 0.7 ALKPHOS 108 ALT 14 AST 38 ANION 9 9 Cardiac Enzymes: No results for input(s): CK, MB, CKMB, TROPT in the last 24 hours. Liver Function, Amylase, Lipase: Recent Labs 12/01/21 0506 TPROT 6.5 ALB 4.0 ALT 14 AST 38 ALKPHOS 108 TBILI 0.7 MG/PHOS: Recent Labs 12/01/21 0506 MG 2.0 Renal Panel: Recent Labs 12/01/21 0506 CREAT 1.31* 1.31* BUN 28* 28* GLUC 135* 135* CA 9.2 9.2 CHLOR 100 100 K 4.6 4.6 CO2 27 27 NA 136 136 Heme: No results for input(s): RETICP, ABSRETIC, LD, KIRK, FE, TIBC, TRANSFERSAT in the last 24 hours. Albumin/Creat Ratio (mg/g) Date Value 04/22/2016 208 (H) Estimated Creatinine Clearance: 72 mL/min (A) (based on SCr of 1.31 mg/dL (H)). Assessment/Plan #Fracture of tibial shaft, left, closed -- Surgery planned for today per Ortho -- Encourage IS -- Pain management, PT/OT per orthopedics ? # COPD -- Appears stable -- O2 prn, BDs scheduled and prn -- Resume daily home medications postoperatively ? #DMII -- Resume home oral diabetes medications post op when tolerating PO -- Monitor blood glucose, SSI as indicated ? #Hypertension -- Recommend holding Lisinopril 48 hours postop to reduce risk of TONY -- Monitor BP closely ? #HLD -- Resume statin ? #DEAN -- CPAP #Do not suspect TONY as BSCr~1.1-1.25, appears Cr near baseline, will monitor. Hold ACEI post op x 48 hours. VTE Prophylaxis: per orthopedics Disposition: To be determined Plan of care discussed with: Provider, RN, Patient SIGNATURE: Jack Beard DO PATIENT NAME: Susie Suero (more content not included)... [facility] 12-01-2021 Note HNO ID: [id number] Author: Isael Sharpe MD Service: Orthopaedic Surgery Author Type: Resident Type: Progress Notes Filed: 12/01/2021 6:32 AM Note Text: ORTHOPAEDIC SURGERY DAILY PROGRESS NOTE ASSESMENT: 66 year old male with a left distal tib/fib fracture. PLAN: -management per orthopaedics -Maintain posterior slab splint to left lower extremity: keep dry, clean and intact -Non-weightbearing with the left lower extremity -Ice to the left lower leg -Elevation of the left lower extremity -Pain control -NPO at midnight -IV fluids at midnight -Medicine consulted, appreciate recs -DVT PPX: SCDs to the right lower extremity; will hold DVT chemicalPPX at this time for OR on 12/01 -CT left ankle ordered and reviewed: no intra-articular extension from fracture site -Consent for surgery obtained and placed in chart -OR on with Dr. Nicolas insertion of intramedullary nail left tibia INTERVAL HPI: No acute events overnight. Pain controlled. Denies fevers and chills. Denies chest pain and shortness of breath. OBJECTIVE: BP 129/75 Pulse 75 Temp 36.8 ?C (98.2 ?F) (Oral) Resp 18 Ht 172.7 cm (5' 8 ) Wt 127 kg (280 lb) SpO2 98% BMI 42.57 kg/m? Exam: General: NAD, AOx3 Left Lower Extremity: Dressing clean, dry and intact. Compartments of the thigh and leg soft and compressible. Tolerates passive stretch of digits. SILT Jo/Sa/SP/DP/T. Motor intact EHL/FHL/G/S. 2+ DP/PT pulses. BCR. Recent Labs 12/01/21 0506 WBC 9.14 HB 16.6 HCT 53.1* PLT 140* COAGS: INR 1.0 11/30/2021 SED RATE/CRP: No results found for this basename: wsr:*,crp:* CX: none Imaging: See above SIGNATURE: Soto Sharpe MD PATIENT NAME: Susie Callejas DATE: 12/01/21 TIME: 6:07 AM PAGER/CONTACT #: [phone] [facility] 11-30-2021 History of Past i llness Narrative Problem Noted Date Resolved Date Fracture of tibial shaft, left, closed 2 12/03/2021 documented as of this encounter (statuses as of 03/08/2022) [facility]01-03-2022 History of Past illness Narrative* Problem Noted Date Resolved Date Fracture of tibial shaft, left, closed 2 12/03/2021 documented as of this encounter (statuses as of 06/07/2022) [facility] Diagnosis Tibia/fibula fracture, left, closed, with routine healing, subsequent encounter- Primary Cellulitis of ankle Cellulitis and abscess of leg, except foot documented in this encounter [facility] Diagnosis Tibia/fibula fracture, left, closed, with routine healing, subsequent encounter- Primary documented in this encounter [facility] for referral (narrative)* Diagnostic Procedure Only (Routine) - Pending Review Specialty Diagnoses / Procedures Referred By Contac t Referred To Contact XR IMAGING Diagnoses Tibia/fibula fracture, left, closed, with routine healing, subsequent encounter Cellulitis of ankle Procedures XR ANKLE GENERAL 3V AP/LAT/OBL LEFT RADEX ANKLE COMPLETE MINIMUM 3 VIEWS Jason Nicolas MD [address] [place] [address] [place] [id number] Xr Imaging Referral ID Status Reason Start Date Expiration Date Visits Requested Visits Authorized [id number] Pending Review Auto-Generat ed Referral 03/07/2022 04/06/2023 1 1 [facility] for referral (narrative)* Diagnostic Procedure Only (Routine) - Pending Review Specialty Diagnoses / Procedures Referred By Contac t Referred To Contact XR IMAGING Diagnoses Tibia/fibula fracture, left, closed, with routine healing, subsequent encounter Procedures XR ANKLE GENERAL 3V AP/LAT/OBL LEFT RADEX ANKLE COMPLETE MINIMUM 3 VIEWS Jason Nicolas MD [address] [place] [address] [place] [id number] Xr Imaging Referral ID Status Reason Start Date Expiration Date Visits Requested Visits Authorized [id number] Pending Review Auto-Generat ed Referral 06/06/2022 07/06/2023 1 1 [facility] Advance Directives No Advanced Directives Records FoundDocuments on File Type Date Recorded Patient Phone Manager Expl anation Advance Directive(s) 11/30/2021 6:59 PM Summary Purpose Family History No Family History Records Found Additional Source Comments Source Comments (unrecognize d section and content) In the event this informatio n is protected by the Federal Confidentiality of Alcohol and Drug Abuse Patient Records regulations: The Federal rules restrict any use of the information to criminally investigate or prosecute any alcohol or drug abuse patient.[facility] the event this information is protected by the Federal Confidentiality of Alcohol and Drug Abuse Patient Records regulations: The Federal rules restrict any use of the information to criminally investigate or prosecute any alcohol or drug abuse patient.[facility] Reason for Visit (unrecogniz ed section and content) Reason Comments Follow Up Care Teams (unrecognized sec tion and content) Obstetrics Nurse Relationship Specialty Start Date End Date Angel Luis Sen MD [address] [place] [address] [address] [place] [address] PCP - General Family Practice 03/19/20 Obstetrics Nurse Relationship Specialty Start Date End Date Angel Luis Sen MD [address] [place], [place] [address] [address] [address] PCP - General Family Practice 03/19/20 (unrecognized sect ion and content) No Status Records Found INFORMATION SOURCE (unrecogn ized section and content) DATE CREATED AUTHOR 06/08/2022 [facility] FOR RECORDS PERTAINING TO PATIENTS WHO ARE OR HAVE BEEN ENROLLED IN A CHEMICAL DEPENDENCY/SUBSTANCEABUSE PROGRAM, SOME INFORMATION MAY BE OMITTED. This clinical summary was aggregated from multiple sources. Caution should be exercised in using it in the provision of clinical care. This summary normalizes information from multiple sources, and as a consequence, information in this document may materially change the coding, format and clinical context of patient data. In addition, data may be omitted in some cases. CLINICAL DECISIONS SHOULD BE BASED ON THE PRIMARY CLINICAL RECORDS. [facility] [employer] [facility]. provides no warranty or guarantee of the accuracy or completeness of information in this document.
== END | disposition home or self-care (01) ==
LOC: LAB 10-15 11:30
PROVIDERS: PCP Family Medicine; Referring Provider Family Medicine; Visit Provider Family Medicine
DX: N28.9 Disorder of kidney and ureter, unspecified (principal); E11.9 Type 2 diabetes mellitus without complications
CPT/HCPCS: 82043; 82570

== ENCOUNTER → 2024-09-07 | Outpatient (CLI) | payer MEDICARE, SELFPAY ==
--- NOTE | 2024-09-07 16:20 | CT_ITS ---
EXAM: CT CHEST, LUNG CANCER SCREENING WITHOUT INTRAVENOUS CONTRAST CLINICAL INDICATION: smoking TECHNIQUE: Helically acquired images were obtained of the chest without intravenous contrast using low dose (LDCT) lung cancer screening protocol. This CT exam was performed using one or more of the following dose reduction techniques: automated exposure control, adjustment of the mA and/or kV according to patient size, and/or use of iterative reconstruction technique. COMPARISON: 08/26/2023 FINDINGS: LUNGS AND PLEURAL SPACES: There are mild emphysematous changes seen within the lung apices. No mass. No pleural effusion or thickening. No pneumothorax. HEART: Unremarkable. Heart size is normal. No pericardial effusion. No significant coronary artery calcifications. MEDIASTINUM: Unremarkable. No mediastinal or hilar adenopathy. Esophagus is unremarkable. No hiatal hernia. THYROID: Unremarkable. No thyroid lesions. BONES/JOINTS: Unremarkable. No suspicious lytic or blastic abnormality. VASCULATURE: Unremarkable. Thoracic aorta is non-dilated. LYMPH NODES: Unremarkable. No enlarged lymph nodes. CT/Low Dose CT Lung Screening IMPRESSION: No acute pulmonary abnormality. There are stable emphysematous changes in lung apices. Lung-RADS score: 1 - Recommend continued annual screening with a low-dose CT (LDCT) in 12 months. Electronically Signed: Chad Cooper MD at 0:00 EDT ,
== END | disposition home or self-care (01) ==
LOC: CT 16:19
PROVIDERS: PCP Family Medicine; Referring Provider Nurse Practitioner Acute Care; Visit Provider Nurse Practitioner Acute Care
DX: F17.210 Nicotine dependence, cigarettes, uncomplicated (principal)
CPT/HCPCS: 71271

== ENCOUNTER → 2025-03-07 | Outpatient (CLI) | payer MEDICARE, SELFPAY ==
[2025-03-07 13:16] LABS: ALB/GLOB Ratio 1.5 RATIO (0.9-2.4); AST(SGOT) 17 U/L (<=37); Alanine Aminotransfer ALT/SGPT 11 U/L (<=46); Albumin, Serum 4.2 g/dL (3.4-4.8); Alkaline Phosphatase 88 U/L (40-129); Anion Gap 13 (5-15); BUN 32 mg/dL (4-19); BUN/Creat Ratio 17.9 RATIO (10-20); Calcium,Total 9.5 mg/dL (7.6-11.0); Carbon Dioxide 25.9 mmol/L (21.0-32.0); Chloride 97 mmol/L (98-108); Cholesterol 140 mg/dL (<=200); Creatinine, Serum 1.78 mg/dL (0.70-1.20); EST Glomerular Filtration Rate 41 (>60); Globulin 2.8 g/dL (2.2-4.2); Glucose 95 mg/dL (70-99); High Density Lipoprotein 36 mg/dL; Low Density Lipoprotein Calc. 58 mg/dL; Potassium 4.3 mmol/L (3.3-5.1); Protein, Total 7.1 g/dL (5.9-8.4); Sodium Level 136 mmol/L (133-145); Total Bilirubin 0.61 mg/dL (0.00-1.30); Triglycerides 231 mg/dL; Very Low Density Lipoprotein 46 mg/dL (5-40); cholesterol:hdl ratio screen 3.88
[2025-03-07 13:26] LABS: Microalbumin,Random Urine 27.3 mg/L (NO RANGE EST.); Microalbumin:Creatinine Ratio 1147.1 mg/g CRE
== END | disposition home or self-care (01) ==
LOC: MFPLAB 10:24
PROVIDERS: PCP Family Medicine; Referring Provider Family Medicine; Visit Provider Family Medicine
DX: E11.9 Type 2 diabetes mellitus without complications (principal)
CPT/HCPCS: 36415; 80053; 80061; 82043; 82570

== ENCOUNTER 2025-07-16 09:08 | Day surgery (SDC) | payer MEDICARE, SELFPAY ==
--- NOTE | 2025-07-12 15:34 | PAT.ANESEVAL ---
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 When Was Last Pacemaker Check QUESTION #4 FULL TEXT: You/Your Family Experience fever (hyperthermia) with Anesthesia Last Oral Intake Last Oral intake: Last Oral Intake NPO since Meds taken in AM with sips of water? Meds patient instructed to take am of surgery PONV PONV - senior business objects developer: PONV - senior business objects developer Female No 07/12/25 15:24 HX of Motion Sickness No 07/12/25 15:24 HX of N/V After Surgery No 07/12/25 15:24 Non-Smoker No 07/12/25 15:24 Duration of Surgery greater No 07/12/25 15:24 than 60 minutes Number of Risk Factors PONV Score Height & Weight Height & Weight: Anesthesia: Height & Weight Height 5 ft 8 in 03/20/25 06:07 Respiratory Assessment Respiratory Assessment - senior business objects developer: Respiratory Tract Infection Hx - senior business objects developer Hx Respiratory Tract Infection No 07/12/25 15:24 STOP Sleep Apnea STOP Sleep Apnea - senior business objects developer: STOP Sleep Apnea - senior business objects developer Hx Hypertension Yes: controlled with med 07/12/25 15:24 Hx Sleep Apnea Yes 07/12/25 15:24 CPAP Yes 07/12/25 15:24 BIPAP No 07/12/25 15:24 Do you snore loudly (louder than talking or can be heard Do you often feel tired/ fatigued/ sleepy during daytime? Has anyone observed you stop breathing during sleep? STOP Results Positive 07/12/25 15:24 QUESTION #5 FULL TEXT : Do you snore loudly (louder than talking or can be heard through closed doors)? 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 Specify any problems Hx of Preganancy in last 3 N/A 07/12/25 15:24 Months Nurse Filling Out Transfusion NBUCHER 07/12/25 15:24 & Questions: Date: 07/12/25 07/12/25 15:24 Time: 07/12/25 15:24 Patient unable to answer at this time (ie. confused, unrespo /Reproduction History /Reproductive History - senior business objects developer: /Reproductive Hx- senior business objects developer Hx Now No 07/12/25 15:24 Gestational Age (in weeks): EDC: Hx Hx Para Hx Section SAB No 07/12/25 15:24 [facility] Medical History (Updated 07/12/25 @ 15:30 by Jocelyn Smith) Wears glasses Diabetes High cholesterol Wears partial dentures CPAP (continuous positive airway pressure) dependence Sleep apnea Emphysema, unspecified Smoker COPD exacerbation Acute bronchitis Influenza A Chronic respiratory failure Chronic obstructive lung disease Type 2 diabetes mellitus Hypertension Hyperlipidemia Home Medications ?Medication ?Instructions ?Recorded ?Last Taken ?Type glipizide 5 mg tablet 1 tab PO DAILY blood sugar 11/13/16 12/05/17 History metformin 1,000 mg tablet 1,000 mg PO BIDCM blood sugar 11/13/16 12/05/17 08:00 History pravastatin 20 mg tablet 20 mg PO DAILY cholesterol 11/13/16 12/05/17 08:00 History albuterol sulfate 90 mcg/actuation 1 - 2 puff inhalation Q4H PRN PRN 11/15/16 12/05/17 Rx aerosol inhaler Sob &/Or Wheezing ##1 aspirin 81 mg chewable tablet 81 mg PO DAILY heart 12/05/17 12/05/17 08:00 History potassium gluconate 595 mg (99 mg) 99 mg PO QHS leg cramps 12/05/17 12/04/17 21:00 History tablet empagliflozin 10 mg tablet 10 mg PO DAILY 09/23/20 Unknown History (Jardiance) lisinopril 20 1 tab PO DAILY 03/24/21 Unknown History mg-hydrochlorothiazide 25 mg tablet fluticasone fur. 100 mcg-umeclid 1 inh inhalation DAILY 03/20/24 Unknown History 62.5 mcg-vilant 25 mcg inhalat.powder (Trelegy Ellipta) guaifenesin 600 mg tablet, 600 mg PO BID PRN congestion 03/20/24 Unknown History extended release 12 hr CPAP - Continuous Positive Airway 07/12/25 Unknown History Pressure([facility] INFORMATIONAL USE ONLY) Allergy/AdvReac Type Severity Reaction Status Date / Time No Known Allergies Allergy Verified 07/12/25 15:21 Family History Sister Cancer Brain tumor Mother COPD (chronic obstructive pulmonary disease) Father Alzheimers disease Surgical History (Updated 07/12/25 @ 15:30 by Jocelyn Smith) History of ankle surgery History of bone marrow biopsy History of colonoscopy Social History Smoking Status: Current every day smoker tobacco type: cigarettes Tobacco: How many years used: 40 Electronic Cigarette Use: not used alcohol intake: current alcohol intake frequency: holidays/special occasions only Alcohol type: beer substance use type: does not use caffeine: Yes Type: coffee Number of servings: 2 what type of physical activity do you participate in: walking Audit: Pertinent Findings Pertinent Findings EKG Perinent findings: 12 Lead EKG 12/05/17 1024 MR#: [id number] Acct: [id number] Name: SUSIE CALLEJAS Rep #: [id number] : 1955 62 From: Angel Luis Artis MD Attending Dr: Yulia Kang MD Status: ADM IN Ordering Dr: Jeffy Vergara MD Date: 12/05/17 Location: ICU Sex: M C Admitted: 12/05/17 Test Reason : Blood Pressure : / mmHG Vent. Rate : 089 BPM Atrial Rate : 089 BPM P-R Int : 188 ms QRS Dur : 096 ms QT Int : 332 ms P-R-T Axes : 066 091 053 degrees QTc Int : 403 ms Normal sinus rhythm Low voltage QRS Septal infarct ,age undetermined Abnormal ECG Recommendation Anesthesia Recommendation Anesthesia recommendation: OPTIMIZED for anesthesia
[2025-07-16] VITALS (9 sets, daily range): BP systolic 98–128; BP diastolic 67–84; PULSE 67–80; RESP 12–18; TEMP 36.4–36.6; O2SAT 92–94; BMI 35.3
[2025-07-16] MEDS: Lactated Ringers 1,000 ML 15 ML IV (09:58)
--- NOTE | 2025-07-16 10:07 | PCM.PRE.AN2 ---
ASA Classification* ASA Classification ASA Classification: 3 Assessment & Plan Anesthesia* Anesthesia Assessment Anesthesia Assessment: Discussed sedation and/or anesthesia options, risks, benefits, and alternatives with patient/parents/legal guardian/POA. Questions invited. The patient/parents/legal guardian/POA seems to understand and agrees to proceed with anesthesia plan. Reviewed the physical assessment, medical history, allergy history and patient home medications list prior to surgery/procedure/anesthetic and documented any changes. Performed airway and anesthesia risk assessments. Anesthesia Type Anesthesia Type: MAC History Source History Obtained from:: Patient and Chart Anesthesia Focused Assessment* Temperature: 97.6 F Pulse Rate: 80 Blood Pressure: 110/73 Respiratory Rate: 12 Pulse Ox: 93 Oxygen Delivery Method: Room Air Airway Assessment Mouth opens: >3 cm Mallampati Score: III Teeth Condition: Chipped/Broken and Missing Neck Range of motion (ROM): Full ROM Labs Anesthesia Preop lab: CBC WBC 7.5 K/mm3 (4.4-11.0) 03/24/21 15:50 03/24/21 RBC 6.23 M/mm3 (4.6-6.2) H 03/24/21 15:50 03/24/21 Hgb 19.4 g/dL (13.0-16.5) H* 03/24/21 15:50 03/24/21 Hct 60.8 % (40-54) H 03/24/21 15:50 03/24/21 Plt Count 132 K/mm3 (150-450) L 03/24/21 15:50 03/24/21 CHEMISTRY Potassium 4.3 mmol/L (3.3-5.1) 03/07/25 10:25 03/07/25 Sodium 136 mmol/L (133-145) 03/07/25 10:25 03/07/25 Magnesium 2.8 mg/dL (1.8-2.4) H 12/07/17 05:50 12/07/17 Phosphorus 3.0 mg/dL (2.5-4.9) 12/07/17 05:50 12/07/17 BUN 32 mg/dL (4-19) H 03/07/25 10:25 03/07/25 Creatinine 1.78 mg/dL (0.70-1.20) H 03/07/25 10:25 03/07/25 Glucose 95 mg/dL (70-99) 03/07/25 10:25 03/07/25 POC Glucose 162 mg/dL (70-110) H 12/08/17 06:22 12/08/17 COAG PT 13.3 SECONDS (11.7-14.9) 12/05/17 09:58 12/05/17 Pre-Assessment Diagnosis/Proposed Procedure Planned Operative Procedure(s): cscope Anesthesia History 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 When Was Last Pacemaker Check QUESTION #4 FULL TEXT: You/Your Family Experience fever (hyperthermia) with Anesthesia Last Oral Intake Last Oral intake: Last Oral Intake NPO since 05:00 07/16/25 09:51 Meds taken in AM with sips of Yes 07/16/25 09:51 water? Meds patient instructed to take am of surgery PONV PONV - cannery tender engineer: PONV - cannery tender engineer Female No 07/12/25 15:24 HX of Motion Sickness No 07/12/25 15:24 HX of N/V After Surgery No 07/12/25 15:24 Non-Smoker No 07/12/25 15:24 Duration of Surgery greater No 07/12/25 15:24 than 60 minutes Number of Risk Factors PONV Score Height & Weight Height & Weight: Anesthesia: Height & Weight Height 5 ft 8 in 07/16/25 09:51 Weight: 105.4 kg 07/16/25 09:51 Body Mass Index (BMI) 35.3 07/16/25 09:51 Respiratory Assessment Respiratory Assessment - cannery tender engineer: Respiratory Tract Infection Hx - cannery tender engineer Hx Respiratory Tract Infection No 07/12/25 15:24 STOP Sleep Apnea STOP Sleep Apnea - cannery tender engineer: STOP Sleep Apnea - cannery tender engineer Hx Hypertension Yes: controlled with med 07/12/25 15:24 Hx Sleep Apnea Yes 07/12/25 15:24 CPAP Yes 07/12/25 15:24 BIPAP No 07/12/25 15:24 Do you snore loudly (louder than talking or can be heard Do you often feel tired/ fatigued/ sleepy during daytime? Has anyone observed you stop breathing during sleep? STOP Results Positive 07/12/25 15:24 QUESTION #5 FULL TEXT : Do you snore loudly (louder than talking or can be heard through closed doors)? 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 Specify any problems Hx of Preganancy in last 3 N/A 07/12/25 15:24 Months Nurse Filling Out Transfusion NBUCHER 07/12/25 15:24 & Questions: Date: 07/12/25 07/12/25 15:24 Time: 15:07/12/25 15:24 Patient unable to answer at this time (ie. confused, unrespo /Reproduction History /Reproductive History - cannery tender engineer: /Reproductive Hx- cannery tender engineer Hx Now No 07/12/25 15:24 Gestational Age (in weeks): EDC: Hx Hx Para Hx Section SAB No 07/12/25 15:24 Active Medications Active Medications: Current Medications Generic Name Dose Route Start Last Admin Trade Name Freq PRN Reason Stop Dose Admin Albuterol/Ipratropium 3 ml 07/16/25 10:04 Ipratropium/Albuterol Sulfate 3 Ml Ampul.Neb INHALATION 07/16/25 10:05 X1 ONE Lactated Ringer's 1,000 mls @ 15 mls/hr 07/16/25 09:45 07/16/25 09:58 IV 15 mls/hr .Q48H ANDREI Administration [facility] Medical History (Updated 07/12/25 @ 15:30 by Jocelyn Smith) Wears glasses Diabetes High cholesterol Wears partial dentures CPAP (continuous positive airway pressure) dependence Sleep apnea Emphysema, unspecified Smoker COPD exacerbation Acute bronchitis Influenza A Chronic respiratory failure Chronic obstructive lung disease Type 2 diabetes mellitus Hypertension Hyperlipidemia Home Medications ?Medication ?Instructions ?Recorded ?Last Taken ?Type glipizide 5 mg tablet 1 tab PO DAILY blood sugar 11/13/16 07/15/25 History metformin 1,000 mg tablet 1,000 mg PO BIDCM blood sugar 11/13/16 07/16/25 History pravastatin 20 mg tablet 20 mg PO DAILY cholesterol 11/13/16 07/15/25 History albuterol sulfate 90 mcg/actuation 1 - 2 puff inhalation Q4H PRN PRN 11/15/16 07/16/25 Rx aerosol inhaler Sob &/Or Wheezing ##1 aspirin 81 mg chewable tablet 81 mg PO DAILY heart 12/05/17 07/12/25 History potassium gluconate 595 mg (99 mg) 99 mg PO QHS leg cramps 12/05/17 07/15/25 History tablet empagliflozin 10 mg tablet 10 mg PO DAILY 09/23/20 07/12/25 History (Jardiance) lisinopril 20 1 tab PO DAILY 03/24/21 07/16/25 History mg-hydrochlorothiazide 25 mg tablet fluticasone fur. 100 mcg-umeclid 1 inh inhalation DAILY 03/20/24 07/15/25 History 62.5 mcg-vilant 25 mcg inhalat.powder (Trelegy Ellipta) guaifenesin 600 mg tablet, 600 mg PO BID PRN congestion 03/20/24 Unknown History extended release 12 hr CPAP - Continuous Positive Airway 07/12/25 Unknown History Pressure([facility] INFORMATIONAL USE ONLY) Allergy/AdvReac Type Severity Reaction Status Date / Time No Known Allergies Allergy Verified 07/12/25 15:21 Family History Sister Cancer Brain tumor Mother COPD (chronic obstructive pulmonary disease) Father Alzheimers disease Surgical History (Updated 07/12/25 @ 15:30 by Jocelyn Smith) History of ankle surgery History of bone marrow biopsy History of colonoscopy Social History Smoking Status: Current every day smoker tobacco type: cigarettes Tobacco: How many years used: 40 Electronic Cigarette Use: not used alcohol intake: current alcohol intake frequency: holidays/special occasions only Alcohol type: beer substance use type: does not use caffeine: Yes Type: coffee Number of servings: 2 what type of physical activity do you participate in: walking Review of Systems (Anesthesia) ROS Narrative System reviewed and no additional complaints, except as documented. Respiratory/Chest Respiratory/Chest: Reports wheezing Physical Exam Const alert and oriented x3 Orientation / Consciousness: awake Nutritional Appearance: obese HEENT Teeth and Gingiva: poor dentition Neck full ROM Resp normal respiratory effort Auscultation: wheezes Cardio regular rate and regular rhythm Neuro oriented x3 and moves all extremities
--- NOTE | 2025-07-16 10:38 | H&P.OPEN ---
HPI - General HPI Narrative Patient is a 70-year-old male here for screening colonoscopy. His last colonoscopy was 10 years ago and was normal. He denies abdominal pain or denies family history of colon cancer. No blood in the stool. [facility] Medical History (Updated 07/16/25 @ 10:[address] Kody Tran MD) Wears glasses Diabetes High cholesterol Wears partial dentures CPAP (continuous positive airway pressure) dependence Sleep apnea Emphysema, unspecified Smoker COPD exacerbation Acute bronchitis Influenza A Chronic respiratory failure Chronic obstructive lung disease Type 2 diabetes mellitus Hypertension Hyperlipidemia Home Medications ?Medication ?Instructions ?Recorded ?Last Taken ?Type glipizide 5 mg tablet 1 tab PO DAILY blood sugar 11/13/16 07/15/25 History metformin 1,000 mg tablet 1,000 mg PO BIDCM blood sugar 11/13/16 07/16/25 History pravastatin 20 mg tablet 20 mg PO DAILY cholesterol 11/13/16 07/15/25 History albuterol sulfate 90 mcg/actuation 1 - 2 puff inhalation Q4H PRN PRN 11/15/16 07/16/25 Rx aerosol inhaler Sob &/Or Wheezing ##1 aspirin 81 mg chewable tablet 81 mg PO DAILY heart 12/05/17 07/12/25 History potassium gluconate 595 mg (99 mg) 99 mg PO QHS leg cramps 12/05/17 07/15/25 History tablet empagliflozin 10 mg tablet 10 mg PO DAILY 09/23/20 07/12/25 History (Jardiance) lisinopril 20 1 tab PO DAILY 03/24/21 07/16/25 History mg-hydrochlorothiazide 25 mg tablet fluticasone fur. 100 mcg-umeclid 1 inh inhalation DAILY 03/20/24 07/15/25 History 62.5 mcg-vilant 25 mcg inhalat.powder (Trelegy Ellipta) guaifenesin 600 mg tablet, 600 mg PO BID PRN congestion 03/20/24 Unknown History extended release 12 hr CPAP - Continuous Positive Airway 07/12/25 Unknown History Pressure([facility] INFORMATIONAL USE ONLY) Allergy/AdvReac Type Severity Reaction Status Date / Time No Known Allergies Allergy Verified 07/12/25 15:21 Family History Sister Cancer Brain tumor Mother COPD (chronic obstructive pulmonary disease) Father Alzheimers disease Surgical History (Updated 07/12/25 @ 15:30 by Jocelyn Smith) History of ankle surgery History of bone marrow biopsy History of colonoscopy Social History Smoking Status: Current every day smoker tobacco type: cigarettes Tobacco: How many years used: 40 Electronic Cigarette Use: not used alcohol intake: current alcohol intake frequency: holidays/special occasions only Alcohol type: beer substance use type: does not use caffeine: Yes Type: coffee Number of servings: 2 what type of physical activity do you participate in: walking Past Medical/Surgical History Planned Operation Planned Operative Procedure(s): cscope Previous Hospitalizations/Surgeries HX Hospitalizations: No Any Problems With Anesthesia: No You/Your Family Experience Fever (Hyperthermia) With Anes: No Cholinesterase deficiency: No Cardiovascular Hx Chest Pain within Last 2 months: No Hx of Irregular Heartbeat and/or Afib: No (asa) Hx Heart Attack: No Hx Congestive Heart Failure: No Hx Rheumatic Fever: No Hx Hypertension: Yes (controlled with med) Hx Internal Defibrillator: No Hx Pacemaker: No Hx Cardiac Surgery/Stents/Etc.: No Hx Pain in Legs when Walking/Leg Cramps: No Respiratory HX of Shortness of Breath: Yes Hx Chronic Obstructive Pulmonary Disease (COPD): Yes Hx Asthma: Yes Hx Emphysema: Yes Hx Sleep Apnea: Yes CPAP: Yes BIPAP: No Hx Respiratory Tract Infection/Cold (presently): No Result (for STOP score): Positive Smoking Status: Current every day smoker Gastrointestinal Hx Gastrointestinal Bleed: No Hx Ulcer: No Difficulty Chewing/Swallowing: No Hx Unplanned Weight Loss of 20#: No Neurological Hx Seizures: No Hx Multiple Sclerosis: No Hx Parkinson's Disease: No Hx Head/Neck Injury: No Hx Headaches: No Hx Back Injury/Pain: No Does patient have nerve stimulator: No Blood Disorder Hx Hepatitis: No Hx Cirrhosis: No Hx Anemia: No Hx Blood Disorders: No Reproduction : No Genitourinary Hx Renal Disease: No Hx Dialysis: No Musculoskeletal Hx Arthritis: No Hx Rheumatoid Arthritis: No Hx Gout: No Endocrine Hx Diabetes: Yes (TYPE 2) Thyroid Disease: No Psycho/Social Hx Substance Use: No Hx Alcohol Use: No (occassional alcohol use) Hx Anxiety: No Hx Depression: No Hx Dementia: No Miscellaneous Hx Cancer: No Recent Exposure to Contagious Disease: No Allergies No Known Allergies Allergy (Verified 07/12/25 15:21) Discharge Is Pt Admitted From a Alf, or a Assisted: No After D/C, Where Do you Plan to Go: Return Home From the PAT History Number of Risk Factors: 3 Vital Signs Vital Signs Vital Signs: 07/16/25 09:51 07/16/25 09:51 07/16/25 10:10 Temperature 97.6 F L 97.6 F L Temperature Source Temporal Pulse Rate 80 80 Respiratory Rate 12 12 Respiratory Pattern Normal Blood Pressure 110/73 110/73 Blood Pressure Mean 85 Blood Pressure Source Monitor Blood Pressure Position Semi-Fowlers Blood Pressure Location Left Arm Pulse Ox 93 93 Oxygen Delivery Method Room Air Room Air 07/16/25 10:13 Temperature Temperature Source Pulse Rate Respiratory Rate 18 Respiratory Pattern Normal Blood Pressure Blood Pressure Mean Blood Pressure Source Blood Pressure Position Blood Pressure Location Pulse Ox Oxygen Delivery Method Weight Weight: 232 lb 5.875 oz Body Mass Index (BMI) 35.3 Physical Exam Const alert and oriented x3 HEENT normocephalic Eyes PERRL Resp normal respiratory effort and normal air movement Cardio regular rate and regular rhythm GI soft to palpation, non-tender and non-distended Extremity normal to inspection Assessment & Plan Assessment/Plan (1) Screen for colon cancer: PLAN: I explained endoscopy in detail to the patient. I explained the risks including but not limited to stroke or heart attack with anesthesia, perforation of the GI tract, bleeding, infection. I explained that any of these could necessitate further emergency surgery. The patient understands and all questions were answered sufficiently. The patient wishes to proceed with procedure. Kody Tran MD Pager: [facility] [address] [place] [address], [address] [place] [address] Office: Surgery Risks - Colonoscopy Risks Include but are not Limited To: Risks include but are not limited to: Bleeding, perforation requiring further surgery, inability to complete colonoscopy requiring barium enema.
--- NOTE | 2025-07-16 11:17 | OP.PROVAT_ITS ---
07/16/2025 Angel Luis Sen MD [address] [place] [address] Re : Colonoscopy procedure for Antonio Alicia Dear Dr. Sen This procedure was performed on Wednesday, July 16, 2025. My impressions and recommendations are as follows: Impressions : - The entire examined colon is normal on direct and retroflexion views. - No specimens collected. Recommendations : - Discharge patient to home. - Resume previous diet. - Continue present medications. - Repeat colonoscopy is not recommended due to current age (66 years or older) for screening purposes. My findings are described in the full procedure note, which is enclosed. If I can be of further assistance, please feel free to contact me at Doctor phone number(s): , Work: . Sincerely, Kody Tran MD 07/16/2025 11:17:00 AM This report has been signed electronically.
--- NOTE | 2025-07-16 11:17 | OP.COLON_ITS ---
Patient Name: Antonio Alicia Procedure Date: 07/16/2025 10:51 AM Date of : 1955 Age: 70 Procedure: Colonoscopy Indications: Screening for colorectal malignant neoplasm Providers: Kody Tran MD Referring MD: Angel Luis Sen MD Medicines: Propofol per Anesthesia Patient Profile: This is a 70 year old male. Refer to note in patient chart for documentation of history and physical. Last Colonoscopy: 10 years ago. Complications: No immediate complications. Procedure: Pre-Anesthesia Assessment: - Prior to the procedure, a History and Physical was performed, and patient medications and allergies were reviewed. The patient's tolerance of previous anesthesia was also reviewed. The risks and benefits of the procedure and the sedation options and risks were discussed with the patient. All questions were answered, and informed consent was obtained. Prior Anticoagulants: The patient has taken no anticoagulant or antiplatelet agents. After reviewing the risks and benefits, the patient was deemed in satisfactory condition to undergo the procedure. After I obtained informed consent, the scope was passed under direct vision. Throughout the procedure, the patient's blood pressure, pulse, and oxygen saturations were monitored continuously. The colonoscope was introduced through the anus and advanced to the cecum, identified by appendiceal orifice and ileocecal valve. The colonoscopy was performed without difficulty. The patient tolerated the procedure well. The quality of the bowel preparation was good. The ileocecal valve, appendiceal orifice, and rectum were photographed. Scope In: 10:58:37 AM Scope Withdrawal Time 0 hours 6 minutes 18 seconds Scope Out: 11:13:41 AM Total Procedure Duration Time 0 hours 15 minutes 4 seconds Findings: The entire examined colon appeared normal on direct and retroflexion views. Impression: - The entire examined colon is normal on direct and retroflexion views. - No specimens collected. Recommendation: - Discharge patient to home. - Resume previous diet. - Continue present medications. - Repeat colonoscopy is not recommended due to current age (66 years or older) for screening purposes. Procedure Code(s): --- Professional --- 77411, Colonoscopy, flexible; diagnostic, including collection of specimen(s) by brushing or washing, when performed (separate procedure) Diagnosis Code(s): --- Professional --- Z12.11, Encounter for screening for malignant neoplasm of colon CPT copyright 2021 [employer]. All rights reserved. The codes documented in this report are preliminary and upon business consultant review may be revised to meet current compliance requirements. Kody Tran MD 07/16/2025 11:17:00 AM This report has been signed electronically. Number of Addenda: 0 Note Initiated On: 07/16/2025 10:51 AM
--- NOTE | 2025-07-16 11:21 | PCM.POST.ANE ---
Anesthesia: Postop Eval I Current Vital Signs Temperature: 97.8 F Pulse Rate: 67 Blood Pressure: 119/70 Respiratory Rate: 18 Pulse Ox: 93 Assessment Airway patent: Yes Spontaneous unlabored respirations: Yes nausea: No Vomiting: No Anesthesia Complication: No Fluid Hydration Crystalloid volume administer (ml): 800 Total IV fluid infused: 800 Progress Note Anesthesia document: Postop Eval 1 completed: Yes
--- NOTE | 2025-07-16 14:32 | POSTOPAN2_ITS ---
Anesthesia Postop Eval I Sum Postop Eval Completion status Anesthesia document: Postop Eval 1 completed: Yes Anesthesia Postop Eval I Summary Anesthesia Postop Eval I Summary: Anesthesia Postop Eval I: Assessment Summary Airway patent Yes 07/16/25 11:21 [email or web address] Spontaneous unlabored Yes 07/16/25 11:21 [email or web address] respirations Mental status nausea No 07/16/25 11:21 [email or web address] Vomiting No 07/16/25 11:21 [email or web address] Anesthesia Postop Eval I: Fluid Summary Crystalloid volume administer 800 07/16/25 11:21 [email or web address] (ml) Colloids volume administered ( ml) Blood Product volume administered (ml) Total IV fluid infused 800 07/16/25 11:21 [email or web address] Anesthesia Postop Eval I: Summary Notes Anesthesia Complication No 07/16/25 11:21 [email or web address] Anesthesia Complication Comment: Post-operative progress note Anesthesia: Postop Eval II Evaluation Mental status: Awake Pain Level: 0 nausea: No Vomiting: No Complications Anesthesia Complication: No
--- NOTE | 2025-07-16 14:32 | PCM.POSTANE2 ---
Anesthesia Postop Eval I Sum Postop Eval Completion status Anesthesia document: Postop Eval 1 completed: Yes Anesthesia Postop Eval I Summary Anesthesia Postop Eval I Summary: Anesthesia Postop Eval I: Assessment Summary Airway patent Yes 07/16/25 11:21 [email or web address] Spontaneous unlabored Yes 07/16/25 11:21 [email or web address] respirations Mental status nausea No 07/16/25 11:21 [email or web address] Vomiting No 07/16/25 11:21 [email or web address] Anesthesia Postop Eval I: Fluid Summary Crystalloid volume administer 800 07/16/25 11:21 [email or web address] (ml) Colloids volume administered ( ml) Blood Product volume administered (ml) Total IV fluid infused 800 07/16/25 11:21 [email or web address] Anesthesia Postop Eval I: Summary Notes Anesthesia Complication No 07/16/25 11:21 [email or web address] Anesthesia Complication Comment: Post-operative progress note Anesthesia: Postop Eval II Evaluation Mental status: Awake Pain Level: 0 nausea: No Vomiting: No Complications Anesthesia Complication: No
== END 2025-07-16 11:48 | disposition home or self-care (01) ==
LOC: EN 09:11 → AC 09:13
PROVIDERS: PCP Family Medicine; Referring Provider Family Medicine; Visit Provider Surgery
PROC: 0DJD8ZZ Inspection of Lower Intestinal Tract, Via Natural or Artificial Opening Endoscopic (ICD-10-PCS; CPT 45378; principal; 2025-07-16 10:40)
DX: Z12.11 Encounter for screening for malignant neoplasm of colon (principal); J44.9 Chronic obstructive pulmonary disease, unspecified; E11.9 Type 2 diabetes mellitus without complications; Z79.899 Other long term (current) drug therapy; Z79.84 Long term (current) use of oral hypoglycemic drugs; I10 Essential (primary) hypertension; E78.00 Pure hypercholesterolemia, unspecified; Z79.51 Long term (current) use of inhaled steroids; G47.30 Sleep apnea, unspecified; Z99.89 Dependence on other enabling machines and devices; Z79.82 Long term (current) use of aspirin
CPT/HCPCS: 45378; 82962; 94640; J2405

== ENCOUNTER → 2025-09-09 | Outpatient (CLI) | payer MEDICARE, SELFPAY ==
[2025-09-09 13:06] LABS: AST(SGOT) 16 U/L (<=37); Alanine Aminotransfer ALT/SGPT 12 U/L (<=46); Albumin, Serum 4.3 g/dL (3.4-4.8); Alkaline Phosphatase 83 U/L (40-129); Anion Gap 12 (5-15); BUN 36 mg/dL (4-19); BUN/Creat Ratio 22.7 RATIO (10-20); Calcium,Total 9.7 mg/dL (7.6-11.0); Carbon Dioxide 24.6 mmol/L (21.0-32.0); Chloride 99 mmol/L (98-108); Cholesterol 142 mg/dL (<=200); Globulin 2.9 g/dL (2.2-4.2); Glucose 57 mg/dL (70-99); Low Density Lipoprotein Calc. 68 mg/dL; Potassium 4.1 mmol/L (3.3-5.1); Triglycerides 174 mg/dL; Very Low Density Lipoprotein 35 mg/dL (5-40); cholesterol:hdl ratio screen 3.66
== END | disposition home or self-care (01) ==
LOC: MFPLAB 10:13
PROVIDERS: PCP Family Medicine; Visit Provider Family Medicine
DX: E11.9 Type 2 diabetes mellitus without complications (principal)
CPT/HCPCS: 36415; 80053; 80061

== ENCOUNTER → 2025-09-19 | Outpatient (CLI) | payer MEDICARE, SELFPAY | END | disposition home or self-care (01) | LOC: CT 15:57 | PROVIDERS: PCP Family Medicine; Referring Provider Nurse Practitioner Acute Care; Visit Provider Nurse Practitioner Acute Care | DX: F17.210 Nicotine dependence, cigarettes, uncomplicated (principal) | CPT/HCPCS: 71271 ==